=== PATIENT | male | born 1950 | race Caucasian/White ===

== ENCOUNTER 2021-03-26 15:16 | Emergency (ER) | payer OTHER ==
--- OUTSIDE RECORDS SUMMARY | 2021-03-26 15:23 | XMS REPORT | Continuity of Care Document ---
:1950 Author Organization [facility] t Address [address] [place] [address] Care Team Providers Name Role Phone Asked, Pcp Primary Care Physician Unavailable Galina SEVILLA Attending Clinician Carlos RN Attending Clinician Unavailable Gurdeep Leon MD Attending Clinician Cullen PINTO Attending Clinician Unavailable Zuly Ramirez MD Attending Clinician Doctor Unassigned, Name Attending Clinician Unavailable Only, Test Attending Clinician Unavailable Pob, Lab Main Attending Clinician Unavailable Jacqueline Martinez MD Attending Clinician Federico Zuleta MD Attending Clinician JACQUELINE MARTINEZ MD Attending Clinician Unavailable Marcia [facility] Attending Clinician Unavailable Jessi Talley Attending Clinician Suhas COLON Attending Clinician Unavailable MD GALINA Attending Clinician Unavailable Laurent Magallanes NP Attending Clinician Provider Attending Clinician Unavailable Omkar Rowland MD Attending Clinician Mc COLON Attending Clinician Unavailable Hussain Attending Clinician Unavailable Shmuel COLON Attending Clinician Unavailable Aruna SEVILLA Attending Clinician MD ARUNA Attending Clinician Unavailable Lyn Attending Clinician Unavailable James Attending Clinician Unavailable Calos Vogt RN Attending Clinician Unavailable Gracie SEVILLA Attending Clinician Rohan SEVILLA Attending Clinician Meenu POPE Attending Clinician Ismael Padilla MD Attending Clinician MD LIZ BOWMAN Attending Clinician Unavailable James SEVILLA, A Admitting Clinician GALINA Admitting Clinician Unavailable MD GALINA Admitting Clinician Unavailable GRACIE Admitting Clinician Unavailable MD LIZ BOWMAN Admitting Clinician Unavailable Payers Payer Name Policy Type Policy Effective Date Expiration Date Sour ce Number MEDICAREMEDICARE PART [id number] 2014 [facility] A AND 00:00:00 [facility] [id number] 2014[facility] [id number]00 [id number]/ 19-PresentCommercial Problems Condition Condition Condition Status Onset Resolution Last Treating Co mments Source Name Details Category Date Date Treatment Clinician Date 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 Allergies, Adverse Reactions, Alerts Allergy Allergy Status Severity Reaction(s) Onset Inactive Treating Comm ents Source Name Type Date Date Clinician Penicill Propensi Active Rash 2019-08 Method i ins ty to 0-05 st adverse 00:00: Hospita reaction 00 l s to drug Family History Family Member Diagnosis Comments Start Date Stop Date Source Natural father Stomach cancer [facility] Natural mother Breast cancer [facility] Social History Social Habit Start Date Stop Date Quantity Comments Source Tobacco use and 2021-02-15 2021-02-15 Never used [facility] exposure 00:00:00 00:00:00 Hospital Alcohol intake 2021-02-15 2021-02-15 Ex-drinker [facility] 00:00:00 00:00:00 (finding) Hospital Sex Assigned At [birth year] M [facility] 00:00:00 00:00:00 Hospital Smoking Status Start Date Stop Date Source Never smoker [facility] Medications Ordered Filled Start Stop Current Ordering Indication Dosage Frequency Signature Comments Components Source Medication Medication Date Date Medication? Clinician (SIG) Name Name furosemide 2020- No 20mg QD Take 1 Meth milagros (Lasix) 20 02-15 tablet (20 st mg tablet 00:00: 04:59 mg total) Ho spita 00 :00 by mouth l daily for 7 days. losartan No 100mg QD Take 100 Met hodi (COZAAR) 10-20-[address] 100 MG 20:38: 00:00 mouth Hospita tablet 23 :00 daily. l NIFEdipine 2020- No 90mg QD Take 90 mg Methodi XL -10 20-[address] (PROCARDIA 18:53: 00:00 daily. Hosp hola XL) 90 MG 12 :00 l 24 hr tablet Xarelto 20 Yes 20mg QD Take 1 Metho di mg tablet -03 tablet (20 st 00:00: mg total) Hospita 00 by mouth l daily. metoprolol 2020- No 100mg Q.5D Take 1 Met hodi succinate 10-20-[address] XL 00:00: 04:59 (100 mg Hospita (TOPROL-XL) 00 :00 total) by l 100 mg 24 mouth 2 hr tablet (two) times a day for 30 days. NIFEdipine 2020- No 90mg QD Take 1 Meth milagros XL - 04-03 tablet (90 st (PROCARDIA 00:00: 04:59 mg total) H ospita XL) 90 MG 00 :00 by mouth l 24 hr daily for tablet 30 days. prednisoLON 2020- No [id number] 2[drp] Q.2D Administer Methodi E acetate 3-03 03-[address] (PRED 00:00: 05:59 both eyes Hospit a FORTE) 1 % 00 :00 every 4 l ophthalmic (four) suspension hours while awake for 2 days. NON 2020- No 1{packe Q.5D 1 packet Metho di FORMULARY 09-29 t} into each st 22:08: 00:00 nostril 2 Hospita 48 :00 (two) l times a day as needed. NeilMed Sinus Rinse NON 2020- No 2{spray Q.5D 2 sprays Metho di FORMULARY 09-29 } into each st 22:08: 00:00 nostril 2 Hospita 48 :00 (two) l times a day as needed (after nasal rinse). Oxymetazol ine HCl 0.05% - Nasal Decongesta nt NON 2[drp] Administer Meth milagros FORMULARY 09-[address] 22:08: 00:00 both eyes. Hospit a 48 :00 l valACYclovi Yes 500mg QD Take 1 Met hodi r (VALTREX) 2-[address] 500 MG 00:00: (500 mg Hospita tablet 00 total) by l mouth daily. clotrimazol 2020- No [id number] Apply Methodi e 09-[id number] (LOTRIMIN) 00:00: 05:59 3D 3 (three) H ospita 1 % cream 00 :00 times a l day for 30 days. fluconazole No 200mg QD Take 1 Me thodi (DIFLUCAN) 09-[address] 200 MG 00:00: 05:59 (200 mg Hospita tablet 00 :00 total) by l mouth daily for 30 days. ondansetron 2020- No 4mg Q8H Take 1 Met hodi ODT 09-29 tablet (4 st (ZOFRAN-ODT 00:00: 05:59 mg total) Hospita ) 4 MG 00 :00 by mouth l disintegrat every 8 ing tablet (eight) hours as needed for nausea or vomiting for up to 30 days. NIFEdipine 2020-1 2020- No 90mg QD Take 1 Meth milagros XL 09-04 tablet (90 st (PROCARDIA 00:00: 05:59 mg total) H ospita XL) 90 MG 00 :00 by mouth l 24 hr daily for tablet 30 days. folic acid 2019-08 No [id number] 800ug QD Take 1 Methodi (FOLVITE) 09-[address] 800 MCG 00:00: 05:59 (800 mcg Hospi ta tablet 00 :00 total) by l mouth daily for 2 days. furosemide 2019-08- No 40mg QD Take 1 Meth milagros (LASIX) 40 09-03 tablet (40 st mg tablet 00:00: 05:59 mg total) Ho spita 00 :00 by mouth l daily for 30 days. sodium 2019-08- No 650mg Q.[id number] Take 1 M ethodi bicarbonate 09-[id number] 650 mg 00:00: 05:59 3D (650 mg Hospita tablet 00 :00 total) by l mouth 3 (three) times a day for 5 days. valACYclovi 2019-08 No [id number] 500mg QD Take 1 Methodi r (VALTREX) 09-[address] 500 MG 00:00: 00:00 (500 mg Hospita tablet 00 :00 total) by l mouth daily. ondansetron 2019-08- No [id number] 4mg Q8H Take 1 Methodi ODT 09-02 tablet (4 st (ZOFRAN-ODT 00:00: 00:00 mg total) Hospita ) 4 MG 00 :00 by mouth l disintegrat every 8 ing tablet (eight) hours as needed for nausea or vomiting for up to 30 days. valACYclovi 2019-08- No [id number] 500mg Q.5D Take 1 Methodi r (VALTREX) 08-[address] 500 MG 00:00: 00:00 (500 mg Hospita tablet 00 :00 total) by l mouth 2 (two) times a day. Xarelto 20 No 20mg QD Take 20 mg Methodi mg tablet 04-[address] 00:00: 00:00 daily. Hospita 00 :00 l metoprolol 200mg Q.5D 200 mg 2 M ethodi succinate 04-22 (two) st XL 00:00: 00:00 times a Hospita (TOPROL-XL) 00 :00 day. l 200 mg 24 hr tablet furosemide No 40mg QD 40 mg Metho di (LASIX) 40 04-22 11-[address] mg tablet 00:00: 00:00 Hospita 00 :00 l losartan No 100mg QD Take 100 Met hodi (COZAAR) 02-22 11-[address] 100 MG 00:00: 00:00 mouth Hospita tablet 00 :00 daily. l clonIDINE Yes .2mg Q.[id number] 0.2 mg 3 Methodi HCl 02-20 [id number] (three) st (CATAPRES) 00:00: 3D times a Hosp hola 0.2 MG 00 day. l tablet Immunizations Ordered Immunization Filled Immunization Date Status Commen ts Source Name Name MyWerx COVID-19 MRNA 2020-10-18 Completed Meth odist VACCINATION 00:00:00 [facility] PFIZER COVID-19 MRNA 2020-09-30 Completed Meth odist VACCINATION 00:00:00 Hospital Vital Signs Vital Name Observation Time Observation Value Comments Source Systolic blood 2021-02-15 18:47:00 139 mm[Hg] Method is Hospital pressure Diastolic blood 2021-02-15 18:47:00 66 mm[Hg] [facility] Hospital pressure Heart rate 2021-02-15 18:47:00 77 /min [facility] Body temperature 2021-02-15 18:47:00 36.28 [place] [facility] Respiratory rate 2021-02-15 18:47:00 16 /min [facility] Body height 2021-02-15 18:47:00 193 cm [facility] Body weight 2021-02-15 18:47:00 140.207 kg [facility] BMI 2021-02-15 18:47:00 37.62 kg/m2 [facility] Oxygen saturation in 2021-02-15 18:47:00 94 /min [facility] Arterial blood by Pulse oximetry Procedures Procedure Date / Time Performing Clinician Source Performed HC COMPLETE BLD COUNT 2021-02-15 18:43:00 [facility] W/AUTO DIFF Jeet COMPREHENSIVE METABOLIC 2021-02-15 18:43:00 [facility], [facility] PANEL Jeet LDH 2021-02-15 18:43:00 [facility]et URIC ACID LEVEL 2021-02-15 18:43:00 [facility]et ESTIMATED GFR 2021-02-15 18:43:00 [facility]et MRI BRAIN & ORBIT W WO 2021-02-15 16:35:00 [facility], [facility] CONTRAST Jeet POC CREATININE 2021-02-15 15:57:00 [facility] Jeet ESTIMATED GFR 2021-02-15 15:57:00 [facility] Jeet HC COMPLETE BLD COUNT 2020-11-30 13:05:00 [facility]/AUTO DIFF [facility] COMPREHENSIVE METABOLIC 2020-11-30 13:05:00 [facility] PANEL Jeet LDH 2020-11-30 13:05:00 [facility] Jeet URIC ACID LEVEL 2020-11-30 13:05:00 [facility]et MAGNESIUM LEVEL 2020-11-30 13:05:00 [facility]et ESTIMATED GFR 2020-11-30 13:05:00 [facility]et PARTIAL THROMBOPLASTIN 2020-11-30 12:54:[address] [facility] TIME (PTT) Jeet PROTHROMBIN TIME WITH INR 2020-11-30 12:54:00 [facility]et FIBRINOGEN 2020-11-30 12:54:00 [facility] Jeet HC COMPLETE BLD COUNT 2020-11-23 13:05:00 [facility] W/AUTO DIFF Jeet COMPREHENSIVE METABOLIC 2020-11-23 13:05:00 [facility], [facility] PANEL Jeet LDH 2020-11-23 13:05:00 [facility], [facility] Jeet URIC ACID LEVEL 2020-11-23 13:05:00 [facility] Jeet MAGNESIUM LEVEL 2020-11-23 13:05:00 [facility] Jeet ESTIMATED GFR 2020-11-23 13:05:00 [facility] PARTIAL THROMBOPLASTIN 2020-11-23 12:56:00 [facility], [facility] TIME (PTT) Jeet PROTHROMBIN TIME WITH INR 2020-11-23 12:56:00 [facility]et FIBRINOGEN 2020-11-23 12:56:00 [facility] Jeet HC COMPLETE BLD COUNT 2020-11-16 18:53:00 [facility] W/AUTO DIFF Jeet COMPREHENSIVE METABOLIC 2020-11-16 18:53:00 [facility], [facility] PANEL Jeet LDH 2020-11-16 18:53:00 [facility]et URIC ACID LEVEL 2020-11-16 18:53:00 [facility] Jeet ESTIMATED GFR 2020-11-16 18:53:00 [facility] Jeet MRI BRAIN & ORBIT W WO 2020-11-16 17:15:00 [facility] Gurdeep Met [facility] CONTRAST Jeet CBC WITH PLATELET AND 2020-11-09 12:54:00 [facility] DIFFERENTIAL Jeet COMPREHENSIVE METABOLIC 2020-11-09 12:54:00 [facility], [facility] PANEL Jeet LDH 2020-11-09 12:54:00 [facility]et URIC ACID LEVEL 2020-11-09 12:54:00 [facility]et MAGNESIUM LEVEL 2020-11-09 12:54:00 [facility], [facility] Jeet ESTIMATED GFR 2020-11-09 12:54:00 [facility], [facility] Jeet MANUAL DIFFERENTIAL 2020-11-09 12:54:00 [facility], [facility] PARTIAL THROM[facility]LASTIN 2020-11-09 12:46:00 [facility] Hayesi [facility] TIME (PTT) Jeet PROTHROMBIN TIME WITH INR 2020-11-09 12:46:00 [facility], [facility] Jeet FIBRINOGEN 2020-11-09 12:46:00 [facility], [facility] Jeet HC COMPLETE BLD COUNT 2020-11-02 12:55:00 [facility] W/AUTO DIFF [facility] COMPREHENSIVE METABOLIC 2020-11-02 12:55:00 [facility], [facility] PANEL Jeet LDH 2020-11-02 12:55:00 [facility] URIC ACID LEVEL 2020-11-02 12:55:00 [facility] 2020-11-02 12:55:00 [facility] EST[facility]FR 2020-11-02 12:55:00 [facility], [facility] Jeet TYPE AND SCREEN 2020-11-02 12:47:00 [facility], [facility]LASTIN 2020-11-02 12:47:00 [facility], [facility] ([facility]TT[facility] Jeet PROTHROMBIN TIME WITH INR 2020-11-02 12:47:00 [facility] FIB[facility]EN 2020-11-02 12:47:00 [facility], [facility] Jeet HC COMPLETE BLD COUNT 2020-10-26 14:00:00 [facility] W/AUTO DIFF [facility] COMPREHENSIVE METABOLIC 2020-10-26 14:00:00 [facility], [facility] PANEL Jeet LDH 2020-10-26 14:00:00 [facility] Jeet URIC ACID LEVEL 2020-10-26 14:00:00 [facility] MAGNESIUM LEVEL 2020-10-26 14:00:00 [facility] Jeet ESTIMATED GFR 2020-10-26 14:00:00 [facility] PART[facility] THROMBOPLASTIN 2020-10-26 13:53:[address] [facility] TIME (PTT) [facility] PROTHROMBIN TIME WITH INR 2020-10-26 13:53:00 [facility] Jeet FIBRINOGEN 2020-10-26 13:53:00 [facility] LUMBAR PUNCTURE 2020-10-20 16:32:00 Basia Magallanes [facility] CSF CELL COUNT WITH 2020-10-20 16:29:00 Basia Magallanes [facility] DIFFERENTIAL FLOW CYTOMETRY EVALUATION 2020-10-20 16:29:00 Basia Magallanes e [facility] CYTOLOGY 2020-10-20 15:43:00 Robin Zuleta (NON-GYNECOLOGICAL) Federico REQUEST HC COMPLETE BLD COUNT 2020-10-20 10:00:00 [facility] W/AUTO DIFF Scott BASIC METABOLIC PANEL 2020-10-20 10:00:00 [facility] 2020-10-20 10:00:00 Jacqueline Martinez [facility] Scott MAGNESIUM LEVEL 2020-10-20 10:00:00 Christopher Villagran PHOSPHORUS LEVEL 2020-10-20 10:00:00 Christopher Villagran ospirobbie Chavez ESTIMATED GFR 2020-10-20 10:00:00 Christopher Villagran ECG 12-LEAD 2020-10-19 22:30:24 Robin Zuleta CBC WITH PLATELET AND 2020-10-19 10:10:00 [facility] Johny [facility] DIFFERENTIAL [facility] BASIC METABOLIC PANEL 2020-10-19 10:10:00 [facility] HEPATIC FUNCTION PANEL 2020-10-19 10:10:00 [facility] LEV[facility] 2020-10-19 10:10:00 [facility] Christopher Martinez Ho spital Scott PHOSPHORUS LEVEL 2020-10-19 10:10:00 Jacqueline Christopher Martinez H ospital Scott ESTIMATED GFR 2020-10-19 10:10:00 [facility] MANUAL DIFFERENTIAL 2020-10-19 10:10:00 [facility] COVID-19 QUALITATIVE 2020-10-18 23:49:00 [facility]et CBC WITH PLATELET AND 2020-10-18 16:13:00 [facility], [facility] DIFFERENTIAL Jeet COMPREHENSIVE METABOLIC 2020-10-18 16:13:00 [facility] PANEL Jeet LDH 2020-10-18 16:13:00 [facility], [facility] URIC ACID LEVEL 2020-10-18 16:13:00 [facility], [facility] MAGNESIUM LEVEL 2020-10-18 16:13:00 [facility], [facility] Jeet ESTIMATED GFR 2020-10-18 16:13:00 [facility], [facility] Jeet MANUAL DIFFERENTIAL 2020-10-18 16:13:00 [facility]LASTIN 2020-10-18 15:53:00 [facility], Tata Gurdeep [facility] TIME (PTT) Jeet PROTHROMBIN TIME WITH INR 2020-10-18 15:53:00 [facility], [facility] Jeet FIBRINOGEN 2020-10-18 15:53:00 [facility], [facility] Jeet CBC WITH PLATELET AND 2020-10-15 14:38:00 Pingali, Tata [facility] DIFFERENTIAL Jeet COMPREHENSIVE METABOLIC 2020-10-15 14:38:00 [facility], [facility] PANEL Jeet LDH 2020-10-15 14:38:00 [facility], [facility] Jeet URIC ACID LEVEL 2020-10-15 14:38:00 [facility], [facility] Jeet MAGNESIUM LEVEL 2020-10-15 14:38:00 [facility], [facility] ESTIMATED GFR 2020-10-15 14:38:00 [facility], [facility] Jeet MANUAL DIFFERENTIAL 2020-10-15 14:38:00 [facility], [facility] PART[facility]LASTIN 2020-10-15 14:32:00 [facility] ([facility]TT[facility] Jeet PROTHROMBIN TIME WITH INR 2020-10-15 14:32:00 [facility], [facility] Jeet FIBRINOGEN 2020-10-15 14:32:00 [facility], [facility] Jeet HC COMPLETE BLD COUNT 2020-10-12 13:55:00 [facility], [facility]FF Jeet COMPREHENSIVE METABOLIC 2020-10-12 13:55:00 [facility] PANEL Jeet LDH 2020-10-12 13:55:00 [facility], [facility] Jeet URIC ACID LEVEL 2020-10-12 13:55:00 [facility], [facility] Jeet MAGNESIUM LEVEL 2020-10-12 13:55:00 [facility], [facility] Jeet ESTIMATED GFR 2020-10-12 13:55:00 [facility], [facility] PARTIAL THROMBOPLASTIN 2020-10-12 13:42:00 [facility] TIME (PTT) Jeet PROTHROMBIN TIME WITH INR 2020-10-12 13:42:00 [facility], [facility] Jeet FIBRINOGEN 2020-10-12 13:42:00 Pingali, [facility] HC COMPLETE BLD COUNT 2020-10-07 14:44:00 [facility], [facility]/AUTO DIFF [facility] COMPREHENSIVE METABOLIC 2020-10-07 14:44:00 [facility], Tata [facility] PANEL Jeet LDH 2020-10-07 14:44:00 [facility] URIC ACID LEVEL 2020-10-07 14:44:00 [facility] Jeet MAGNESIUM LEVEL 2020-10-07 14:44:00 [facility] ESTIMATED GFR 2020-10-07 14:44:00 [facility] TYPE AND SCREEN 2020-10-07 14:32:00 [facility] PARTIAL THROMBOPLASTIN 2020-10-07 14:32:00 [facility], [facility] TIME (PTT) [facility] PROTHROMBIN TIME WITH INR 2020-10-07 14:32:00 [facility] Jeet FIBRINOGEN 2020-10-07 14:32:00 [facility] METHOTREXATE LEVEL 2020-10-07 14:32:00 [facility], [facility] Jeet HC COMPLETE BLD COUNT 2020-09-30 17:00:00 [facility]/AUTO DIFF [facility] COMPREHENSIVE METABOLIC 2020-09-30 17:00:00 [facility], [facility] PANEL Jeet LDH 2020-09-30 17:00:00 [facility] URIC ACID LEVEL 2020-09-30 17:00:00 [facility] MAGNESIUM LEVEL 2020-09-30 17:00:00 [facility] ESTIMATED GFR 2020-09-30 17:00:00 [facility] IR LUMBAR PUNCTURE 2020-09-29 19:02:[address] [facility] FLOW CYTOMETRY EVALUATION 2020-09-29 18:59:00 [facility] Jeet CSF CELL COUNT WITH 2020-09-29 18:59:00 [facility] DIFFERENTIAL Jeet CYTOLOGY 2020-09-29 16:18:00 Mojica, [facility] H ospital (NON-GYNECOLOGICAL) REQUEST PROTHROMBIN TIME WITH INR 2020-09-29 14:39:00 Margarita Quigley [facility] HC COMPLETE BLD COUNT 2020-09-29 09:35:00 [facility] W/AUTO DIFF BASIC METABOLIC PANEL 2020-09-29 09:35:00 [facility] MAGNESIUM LEVEL 2020-09-29 09:35:00 [facility] ospital PHOSPHORUS LEVEL 2020-09-29 09:35:00 [facility] URIC ACID LEVEL 2020-09-29 09:35:00 [facility] LDH 2020-09-29 09:35:00 [facility], [facility] ospital ESTIMATED GFR 2020-09-29 09:35:00 Mojica, [facility] H ospital US DUPLEX VENOUS LOWER 2020-09-28 18:30:00 [facility] EXTREMITY BILATERAL HC COMPLETE BLD COUNT 2020-09-28 09:30:00 [facility] W/AUTO DIFF BASIC METABOLIC PANEL 2020-09-28 09:30:00 [facility] MAGNESIUM LEVEL 2020-09-28 09:30:00 [facility] ospital PHOSPHORUS LEVEL 2020-09-28 09:30:00 [facility] HEPATIC FUNCTION PANEL 2020-09-28 09:30:00 [facility] URIC ACID LEVEL 2020-09-28 09:30:00 Mojica, [facility] ospital LDH 2020-09-28 09:30:00 [facility] ospital ESTIMATED GFR 2020-09-28 09:30:00 [facility] ospital HC COMPLETE BLD COUNT 2020-09-27 17:10:00 [facility] W/AUTO DIFF COVID-19 QUALITATIVE 2020-09-27 17:00:00 [facility] RT-PCR TYPE AND SCREEN 2020-09-27 17:00:00 [facility] ospital LDH 2020-09-27 16:25:00 [facility] ospital HEPATIC FUNCTION PANEL 2020-09-27 16:25:00 [facility] MAGNESIUM LEVEL 2020-09-27 16:24:00 [facility] ospital PHOSPHORUS LEVEL 2020-09-27 16:24:00 [facility] URIC ACID LEVEL 2020-09-27 16:24:00 [facility] ospital BASIC METABOLIC PANEL 2020-09-27 16:24:00 [facility] ESTIMATED GFR 2020-09-27 16:24:00 [facility] ospital HC COMPLETE BLD COUNT 2020-09-07 19:36:00 [facility] W/AUTO DIFF Jeet COMPREHENSIVE METABOLIC 2020-09-07 19:36:00 [facility] PANEL Jeet LDH 2020-09-07 19:36:00 [facility] Jeet URIC ACID LEVEL 2020-09-07 19:36:00 [facility] Jeet ESTIMATED GFR 2020-09-07 19:36:00 [facility] Jeet RAD ONC COURSE SUMMARY 2020-09-06 21:59:25 Provider, Unknown [facility] RAD ONC DAILY TREATMENT 2020-09-03 15:21:06 Provider, Unknown [facility] RAD ONC DAILY TREATMENT 2020-09-02 15:22:39 Provider, Unknown [facility] RAD ONC DAILY TREATMENT 2020-09-01 15:27:52 Provider, Unknown [facility] RAD ONC DAILY TREATMENT 2020-08-31 15:45:06 Provider, Unknown [facility] RAD ONC DAILY TREATMENT 2020-08-30 15:20:33 Provider, Unknown [facility] RAD ONC DAILY TREATMENT 2020-08-27 15:29:23 Provider, Unknown [facility] RAD ONC DAILY TREATMENT 2020-08-26 15:06:10 Provider, Unknown [facility] RAD ONC DAILY TREATMENT 2020-08-25 15:11:31 Provider, Unknown [facility] RAD ONC DAILY TREATMENT 2020-08-24 22:38:50 Provider, Unknown [facility] RAD ONC DAILY TREATMENT 2020-08-23 16:19:47 Provider, Unknown [facility] RAD ONC DAILY TREATMENT 2020-08-19 15:15:10 Provider, Unknown [facility] RAD ONC DAILY TREATMENT 2020-08-18 15:28:33 Provider, Unknown [facility] HC COMPLETE BLD COUNT 2020-08-17 17:35:00 [facility] W/AUTO DIFF Jeet COMPREHENSIVE METABOLIC 2020-08-17 17:35:00 [facility] PANEL Jeet LDH 2020-08-17 17:35:00 [facility] URIC ACID LEVEL 2020-08-17 17:35:00 [facility] MAGN[facility] L[facility] 2020-08-17 17:35:00 [facility] ESTIMATED GFR 2020-08-17 17:35:00 [facility] PARTIAL THROMBOPLASTIN 2020-08-17 17:28:[address] [facility] TIME (PTT) Jeet PROTHROMBIN TIME WITH INR 2020-08-17 17:28:00 [facility] Jeet FIBRINOGEN 2020-08-17 17:28:00 [facility] RAD ONC DAILY TREATMENT 2020-08-17 16:09:53 Provider, Unknown [facility] RAD ONC DAILY TREATMENT 2020-08-16 15:58:54 Provider, Unknown [facility] RAD ONC DAILY TREATMENT 2020-08-12 21:03:57 Provider, Unknown [facility] RAD ONC DAILY TREATMENT 2020-08-11 22:24:26 Provider, Unknown [facility] RAD ONC DAILY TREATMENT 2020-08-10 22:00:32 Provider, Unknown [facility] RAD ONC DAILY TREATMENT 2020-08-09 19:24:35 Provider, Unknown [facility] RAD ONC DAILY TREATMENT 2020-08-06 19:35:32 Provider, Unknown [facility] RAD ONC DAILY TREATMENT 2020-08-05 19:37:17 Provider, Unknown [facility] HC COMPLETE BLD COUNT 2020-07-13 15:40:00 [facility] W/AUTO DIFF [facility] COMPREHENSIVE METABOLIC 2020-07-13 15:40:00 [facility] PANEL Jeet LDH 2020-07-13 15:40:00 [facility] URIC ACID LEVEL 2020-07-13 15:40:00 [facility] Jeet MAGNESIUM LEVEL 2020-07-13 15:40:00 [facility] Jeet ESTIMATED GFR 2020-07-13 15:40:00 [facility] PARTIAL THROMBOPLASTIN 2020-07-13 15:32:[address] [facility] TIME (PTT) [facility] PROTHROMBIN TIME WITH INR 2020-07-13 15:32:00 [facility] Jeet FIBRINOGEN 2020-07-13 15:32:00 [facility] CBC WITH PLATELET AND 2020-07-08 13:50:00 [facility] DIFFERENTIAL Jeet COMPREHENSIVE METABOLIC 2020-07-08 13:50:00 [facility] PANEL Jeet LDH 2020-07-08 13:50:00 [facility] URIC ACID LEVEL 2020-07-08 13:50:00 [facility] MAGNESI[facility] LEV[facility] 2020-07-08 13:50:00 [facility] PARTIAL THROMBOPLASTIN 2020-07-08 13:50:00 [facility] TIME (PTT) Jeet PROTHROMBIN TIME WITH INR 2020-07-08 13:50:00 [facility] FIBRINOGEN 2020-07-08 13:50:00 [facility] ESTIMATED GFR 2020-07-08 13:50:00 [facility] MANUAL DIFFERENTIAL 2020-07-08 13:50:00 [facility] BASIC METABOLIC PANEL 2020-07-05 10:00:00 Song [facility] HC COMPLETE BLD COUNT 2020-07-05 10:00:00 Song [facility] W/AUTO DIFF [facility][Note 2] MAGNESIUM LEVEL 2020-07-05 10:00:00 Robin Zuleta spital [facility][Note 2] PHOSPHORUS LEVEL 2020-07-05 10:00:00 Robin Zuleta H ospital [facility][Note 2] HEPATIC FUNCTION PANEL 2020-07-05 10:00:00 Song [facility] PROTHROMBIN TIME WITH INR 2020-07-05 10:00:[address] [facility] METHOTREXATE LEVEL 2020-07-05 10:00:00 [facility] ESTIMATED GFR 2020-07-05 10:00:00 Robin Zuleta spital Federico METHOTREXATE LEVEL 2020-07-04 21:20:00 Derek Jeffries [facility] BASIC METABOLIC PANEL 2020-07-04 10:30:00 Regine Valdovinos [facility] MAGNESIUM LEVEL 2020-07-04 10:30:00 Regine Valdovinos Ho spital PHOSPHORUS LEVEL 2020-07-04 10:30:00 Regine Valdovinos H ospital HC COMPLETE BLD COUNT 2020-07-04 10:30:00 [facility]FF ESTIMATED GFR 2020-07-04 10:30:00 Regine Valdovinos Ho spital METHOTREXATE LEVEL 2020-07-04 10:30:00 [facility]OLIC PANEL 2020-07-03 10:15:00 [facility] MAGNESIUM LEVEL 2020-07-03 10:15:00 Regine Valdovinos Ho spital PHOSPHORUS LEVEL 2020-07-03 10:15:00 Regine Valdovinos H ospital HC COMPLETE BLD COUNT 2020-07-03 10:15:00 Regine Valdovinos [facility] W/AUTO DIFF ESTIMATED GFR 2020-07-03 10:15:00 Regine Valdovinos Ho spital METHOTREXATE LEVEL 2020-07-03 10:15:00 [facility] POC URINALYSIS DIPSTICK 2020-07-03 08:30:00 [facility] US ABDOMINAL LIMITED 2020-07-03 00:30:00 [facility]EL 2020-07-02 10:50:00 Regine Valdovinos [facility] MAGNESIUM LEVEL 2020-07-02 10:50:00 Regine Valdovinos Ho spital PHOSPHORUS LEVEL 2020-07-02 10:50:00 Regine Valdovinos H ospital HC COMPLETE BLD COUNT 2020-07-02 10:50:00 Regine Valdovinos [facility] W/AUTO DIFF METHOTREXATE LEVEL 2020-07-02 10:50:00 [facility] ESTIMATED GFR 2020-07-02 10:50:00 Regine Valdovinos Ho spital POC URINALYSIS DIPSTICK 2020-07-02 10:15:00 [facility] BASIC METABOLIC PANEL 2020-07-01 10:15:00 [facility]una [facility] MAGNESIUM LEVEL 2020-07-01 10:15:00 Regine Valdovinos Ho spital PHOSPHORUS LEVEL 2020-07-01 10:15:00 Regine Valdovinos H ospital HC COMPLETE BLD COUNT 2020-07-01 10:15:00 Regine Valdovinos [facility] W/AUTO DIFF METHOTREXATE LEVEL 2020-07-01 10:15:00 [facility] Jessi ESTIMATED GFR 2020-07-01 10:15:00 [facility] Jessi BASIC METABOLIC PANEL 2020-06-30 10:00:00 Regine Valdovinos [facility] MAGNESIUM LEVEL 2020-06-30 10:00:00 Regine Valdovinos Ho spital PHOSPHORUS LEVEL 2020-06-30 10:00:00 Regine Valdovinos H ospital HC COMPLETE BLD COUNT 2020-06-30 10:00:00 Regine Valdovinos [facility] W/AUTO DIFF ESTIMATED GFR 2020-06-30 10:00:00 Regine Valdovinos Ho spital METHOTREXATE LEVEL 2020-06-30 10:00:00 Tata Leon [facility] BASIC METABOLIC PANEL 2020-06-29 09:45:00 Regine Valdovinos [facility] MAGNESIUM LEVEL 2020-06-29 09:45:00 Regine Valdovinos Ho spital PHOSPHORUS LEVEL 2020-06-29 09:45:00 Regine Valdovinos H ospital CBC WITH PLATELET AND 2020-06-29 09:45:00 Regine Valdovinos [facility] DIFFERENTIAL ESTIMATED GFR 2020-06-29 09:45:00 Regine Valdovinos Ho spital METHOTREXATE LEVEL 2020-06-29 09:45:00 Tata Leon [facility] MANUAL DIFFERENTIAL 2020-06-29 09:45:00 [facility] FUNCTION [facility]EL 2020-06-29 09:45:00 Aruna Regine [facility] BASIC METABOLIC PANEL 2020-06-28 09:19:00 Regine Valdovinos [facility] MAGNESIUM LEVEL 2020-06-28 09:19:00 Regine Valdovinos Ho spital PHOSPHORUS LEVEL 2020-06-28 09:19:00 Regine Valdovinos H ospital CBC WITH PLATELET AND 2020-06-28 09:19:00 Regine Valdovinos [facility] DIFFERENTIAL METHOTREXATE LEVEL 2020-06-28 09:19:00 Tata Leon [facility] ESTIMATED GFR 2020-06-28 09:19:00 Aruna [facility] spital MANUAL DIFFERENTIAL 2020-06-28 09:19:00 [facility] XR CHEST 1 VW PORTABLE 2020-06-27 17:34:51 Tata Leon [facility] BASIC METABOLIC PANEL 2020-06-27 10:00:00 [facility] MANUAL DIFFERENTIAL 2020-06-27 10:00:00 [facility] METHOTREXATE LEVEL 2020-06-27 10:00:00 [facility] CBC WITH PLATELET AND 2020-06-27 10:00:00 [facility] DIFFERENTIAL POC URINALYSIS DIPSTICK 2020-06-27 07:30:[address] [facility] HC COMPLETE BLD COUNT 2020-06-26 09:45:00 [facility] W/AUTO DIFF BASIC METABOLIC PANEL 2020-06-26 09:45:00 [facility] METHOTREXATE LEVEL 2020-06-26 09:45:00 [facility] ESTIMATED GFR 2020-06-26 09:45:00 [facility] spital POC URINALYSIS DIPSTICK 2020-06-26 04:13:[address] [facility] POC URINALYSIS DIPSTICK 2020-06-25 11:09:[address] [facility] HEPATIC FUNCTION PANEL 2020-06-25 09:30:00 Tata Leon [facility] HC COMPLETE BLD COUNT 2020-06-25 09:30:00 PinTata montgomery [facility] W/AUTO DIFF Jeet COMPREHENSIVE METABOLIC 2020-06-25 09:30:00 PinTata montgomery [facility] PANEL [facility] METHOTREXATE LEVEL 2020-06-25 09:30:00 PinTata montgomery [facility] ESTIM[facility] GFR 2020-06-25 09:30:00 [facility] POC URINALYSIS DIPSTICK 2020-06-25 05:00:00 Tata Leon [facility] Jeet BASIC METABOLIC PANEL 2020-06-24 21:30:00 [facility] Jessi ESTIMATED GFR 2020-06-24 21:30:00 [facility] Jessi METHOTREXATE LEVEL 2020-06-24 21:30:00 Ebony Fong [facility] Hilda BASIC METABOLIC PANEL 2020-06-24 09:54:00 Regine Valdovinos [facility] MAGNESIUM LEVEL 2020-06-24 09:54:00 Regine Valdovinos Ho spital PHOSPHORUS LEVEL 2020-06-24 09:54:00 Regine Valdovinos H ospital URIC ACID LEVEL 2020-06-24 09:54:00 Regine Valdovinos Ho spital LDH 2020-06-24 09:54:00 Regine Valdovinos spital ESTIMATED GFR 2020-06-24 09:54:00 Regine Valdovinos spital HC COMPLETE BLD COUNT 2020-06-24 09:15:00 Regine Valdovinos [facility] W/AUTO DIFF METHOTREXATE LEVEL 2020-06-24 09:15:00 [facility] DIPSTICK 2020-06-23 20:09:00 Provider, [facility] POC URINALYSIS DIPSTICK 2020-06-23 18:52:00 Provider, [facility] POC URINALYSIS DIPSTICK 2020-06-23 16:32:00 Provider, [facility] CBC WITH PLATELET AND 2020-06-23 09:00:00 Regine Valdovinos [facility] DIFFERENTIAL BASIC METABOLIC PANEL 2020-06-23 09:00:00 Regine Valdovinos [facility] MAGNESIUM LEVEL 2020-06-23 09:00:00 Regine Valdovinos Ho spital PHOSPHORUS LEVEL 2020-06-23 09:00:00 Regine Valdovinos H ospital URIC ACID LEVEL 2020-06-23 09:00:00 Regine Valdovinos Ho spital LDH 2020-06-23 09:00:00 Regine Valdovinos spital ESTIMATED GFR 2020-06-23 09:00:00 Regine Valdovinos spital MANUAL DIFFERENTIAL 2020-06-23 09:00:00 [facility] COMPLETE BLD COUNT 2020-06-23 03:00:00 [facility] W/AUTO DIFF PROTHROMBIN TIME WITH INR 2020-06-23 03:00:00 [facility] PARTIAL THROMBOPLASTIN 2020-06-23 03:00:00 [facility] TIME (PTT) BASIC METABOLIC PANEL 2020-06-23 03:00:00 [facility] ESTIMATED GFR 2020-06-23 03:00:00 Aruna [facility] spital IR PORT PLACEMENT 2020-06-23 00:52:45 [facility] POC URINALYSIS DIPSTICK 2020-06-22 20:37:00 Cristopher [facility] HC COMPLETE BLD COUNT 2020-06-22 10:25:00 [facility] W/AUTO DIFF BASIC METABOLIC PANEL 2020-06-22 10:25:00 [facility] MAGNESIUM LEVEL 2020-06-22 10:25:00 Aruna [facility] spital PHOSPHORUS LEVEL 2020-06-22 10:25:00 [facility] HE[facility] FUNCTION PANEL 2020-06-22 10:25:00 [facility] URIC ACID LEVEL 2020-06-22 10:25:00 [facility] LDH 2020-06-22 10:25:00 [facility] ESTIMATED GFR 2020-06-22 10:25:00 Aruna [facility] Ho spital COMPREHENSIVE METABOLIC 2020-06-22 00:29:00 [facility] PANEL Jeet MAGNESIUM LEVEL 2020-06-22 00:29:00 [facility] Jeet ESTIMATED GFR 2020-06-22 00:29:00 [facility] Jeet COVID-19 QUALITATIVE 2020-06-21 21:55:00 [facility] RT-PCR Jeet HC COMPLETE BLD COUNT 2020-06-21 20:41:00 [facility] Jessi COMPREHENSIVE METABOLIC 2020-06-21 20:41:00 [facility] PANEL Jessi LDH 2020-06-21 20:41:00 [facility] Jessi URIC ACID LEVEL 2020-06-21 20:41:00 [facility] Jessi ESTIMATED GFR 2020-06-21 20:41:00 [facility] Jessi MISCELLANEOUS REFERRAL 2020-06-15 20:00:00 [facility], Tata [facility] TEST Jeet SURGICAL PATHOLOGY 2020-06-15 19:31:00 [facility] REQUEST Jeet CT BONE MARROW BX W ASP 2020-06-15 19:09:08 [facility] SAME SITE Jeet FLOW CYTOMETRY EVALUATION 2020-06-15 19:00:00 [facility] 2020-06-11 17:22:00 [facility] (NON-GYNECOLOGICAL) Jeet REQUEST GLUCOSE LEVEL, CSF 2020-06-11 17:20:00 [facility] PROTEIN, CSF 2020-06-11 17:20:00 [facility] FLOW CYTOMETRY EVALUATION 2020-06-11 17:20:00 [facility] CSF CELL COUNT WITH 2020-06-11 17:20:00 [facility] DI[facility] Jeet IR LUMBAR PUNCTURE 2020-06-11 14:47:59 [facility], [facility] COMPREHENSIVE METABOLIC 2020-06-08 17:43:00 [facility]et HC COMPLETE BLD COUNT 2020-06-08 17:43:00 [facility]FF Jeet URIC ACID LEVEL 2020-06-08 17:43:00 [facility] LDH 2020-06-08 17:43:00 [facility] PARTIAL THROMBOPLASTIN 2020-06-08 17:43:[address] [facility] TIME (PTT) Jeet PROTHROMBIN TIME WITH INR 2020-06-08 17:43:00 [facility] Jeet ESTIMATED GFR 2020-06-08 17:43:00 [facility] Jeet CYTOLOGY 2020-06-07 21:36:00 Fiona Bowman spital (NON-GYNECOLOGICAL) REQUEST AFB CULTURE 2020-06-07 16:14:00 Fiona Bowman spital FUNGUS CULTURE 2020-06-07 16:14:00 Fiona Bowman spital EYE CULTURE 2020-06-07 15:14:00 Fiona Bowman spital EYE CULTURE, ANAEROBIC 2020-06-07 15:14:00 Fiona Bowman [facility] AFB STAIN 2020-06-07 15:14:00 Fiona Bowman spital GRAM STAIN 2020-06-07 15:14:00 Fiona Bowman Ho spital AVILA AMEZCUA VIRUS (EBV) 2020-06-07 15:02:00 Fiona Bowman [facility] BY PCR CYTOLOGY 2020-06-07 15:02:00 Fiona Bowman spital (NON-GYNECOLOGICAL) REQUEST VITRECTOMY 2020-06-07 14:27:00 Fiona Bowman spital PET CT SKULL BASE TO MID 2020-06-03 19:30:18 [facility] THIGH Jeet POC GLUCOSE 2020-06-03 17:56:00 [facility] COMPLETE BLD COUNT 2020-06-01 17:13:00 [facility] W/AUTO DIFF Jeet COMPREHENSIVE METABOLIC 2020-06-01 17:13:00 [facility] PANEL Jeet LDH 2020-06-01 17:13:00 [facility] URIC ACID LEVEL 2020-06-01 17:13:00 [facility] HEPATITIS ACUTE PANEL 2020-06-01 17:13:00 [facility] Jeet ESTIMATED GFR 2020-06-01 17:13:00 [facility] HIV AG/AB COMBINATION 2020-06-01 17:13:00 [facility] AVILA AMEZCUA VIRUS (EBV) 2020-05-24 14:58:00 [facility] BY PCR CYTOLOGY 2020-05-24 14:58:00 Fiona Bowman Ho spital (NON-GYNECOLOGICAL) REQUEST MISCELLANEOUS REFERRAL 2020-05-24 14:54:00 Fiona Bowman [facility] TEST CYTOLOGY 2020-05-24 14:54:00 Fiona Bowman Ho spital (NON-GYNECOLOGICAL) REQUEST VITRECTOMY 2020-05-24 14:19:00 Fiona Bowman spital COVID-19 QUALITATIVE 2020-05-20 12:23:00 IvyncFiona el [facility] RT-PCR MRI HEAD EXTERNAL STUDY 2020-05-07 19:04:00 [facility] MRI HEAD EXTERNAL STUDY 2020-05-07 18:13:00 [facility] Plan of Care Planned Activity Planned Date Details Comments Source Future Scheduled Test COLONOSCOPY SCREENING [facility] [code = COLONOSCOPY SCREENING] Future Scheduled Test SHINGLES VACCINES (#1) [facility] [code = SHINGLES VACCINES (#1)] Future Scheduled Test 65+ PNEUMOCOCCAL [facility] VACCINE (1 of 1 - PPSV23) [code = 65+ PNEUMOCOCCAL VACCINE (1 of 1 - PPSV23)] Future Scheduled Test INFLUENZA VACCINE [code [facility] = INFLUENZA VACCINE] Encounters Start End Encounter Admission Attending Care Care Encounter Source Date/Time Date/Time Type Type Clinicians Facility Department ID 2020-07-20 [facility], 1.2.840.1 [id number] Methodi 00:00:00 Encounter Chandu 46412.1.[address] 3.430.2.7 Hospit a .3.661203 l .8 2021-03-21 2021-03-21 Orders Carlos, 1.2.840.1 [id number] Methodi 00:00:00 00:00:00 Only Nidhi 62781.1.[address] 3.430.2.7 Hospit a .3.994172 l .8 2021-03-21 2021-03-21 [facility] 1.2.840.1 [id number] Methodi 00:00:00 00:00:00 Tata Gurdeep [address].1[address] Jeet 3.430.2.7 Hospit a .3.963554 l .8 2021-03-16 2021-03-16 Orders Cullen, Kelly 1.2.840.1 [id number] Methodi 00:00:00 00:00:[address] 3.430.2.7 Hospit a .3.548548 l .8 2021-02-15 2021-02-15 [facility], 1.2.840.1 [id number] Methodi 10:23:01 23:59:00 Encounter Tata Gurdeep 87031.1.1 [address] Jeet 3.430.2.7 Hospit a .3.730691 l .8 2021-02-15 2021-02-15 Office [facility], 1.2.840.1 [id number] Methodi 13:06:35 14:07:49 Visit Tata Mackenzie 17703.1.[address] Jeet 3.430.2.7 Hospit a .3.543353 l .8 2021-02-15 2021-02-15 Lab [facility], 1.2.840.1 [id number] Methodi 13:21:34 13:26:34 [address]deep [address]67.[address] Jeet 3.430.2.7 Hospit a .3.061644 l .8 2021-02-15 2021-02-15 Outpatient [facility] [id number] [place] 00:00:00 00:00:00 TATA [address] 2021-02-15 2021-02-15 [facility] [id number] [place] 00:00:00 00:00:00 TATA [address] 2021-02-15 2021-02-15 Outpatient [facility] [id number] [place] 00:00:00 00:00:00 TATA [address] 2021-02-15 2021-02-15 Travel 1.2.840.1 1.2.055.811 [id number] Methodi 00:00:00 00:00:[address] 3.430.2.7 0.2.7.3.698 Ho spita .3.633265 084.8 l .8 2021-02-15 2021-02-15 Orders Kelly Berman 1.2.840.1 [id number] Methodi 00:00:00 00:00:[address] 3.430.2.7 Hospit a .3.960198 l .8 2021-02-15 2021-02-15 Orders Kelly Berman 1.2.840.1 [id number] Methodi 00:00:00 00:00:[address] 3.430.2.7 Hospit a .3.665497 l .8 2021-02-02 2021-02-02 [facility] 1.2.819.233 [id number] 10:26:00 14:25:00 Encounter Zi Fang 350.1.13.10 [place] 4.2.7.2.686 Surgical [id number] [place] 071 2021-02-02 2021-02-02 Surgery [facility] 1.2.840.114 [id number] 13:00:00 13:44:00 Leoncio 350.1.13.10 [place] 4.2.7.2.686 Surgical [id number] [place] 020 2021-02-01 2021-02-01 Orders Doctor KAUR 1.2.840.114 [id number] 00:00:00 00:00:00 Only Unassigned, JAYJAY 350.1.13.10 [place] [facility] 4.2.7.2.686 [id number] 009 2021-01-12 2021-01-12 [facility] 1.2.338.851 [id number] 09:07:00 13:16:00 Encounter Zi Fang 350.[address].13.[address] 4.2.7.2.686 Surgical [id number] [place]attan 071 2021-01-12 2021-01-12 Surgery [facility] 1.2.840.114 [id number] 11:26:00 12:03:[address] [place] [address] 4.2.7.2.686 Surgical [id number] [place] 020 2021-01-11 2021-01-11 Laboratory Only, [facility] 1.2.840.114 [id number] 08:34:59 08:49:59 Only Test [place] 350.1.13.[address] 4.2.7.2.686 [place] [id number] 353 2021-01-11 2021-01-11 Orders Doctor NATASHA 1.2.840.114 [id number] 00:00:00 00:00:00 Only Unassigned, JAYJAY 350.1.13.10 [place] [facility] 4.2.7.2.686 [id number] 2021-01-04 2021-01-04 Nurse Only Edward, 1.2.840.1 [id number] Methodi 13:31:45 14:01:45 [address] Jeet 3.430.2.7 Hospit a .3.911952 l .8 2021-01-04 2021-01-04 Outpatient EDWARD, [facility] [id number] [place] 00:00:00 00:00:00 TATA [address] 2021-01-04 2021-01-04 Travel 1.2.840.1 1.2.855.027 [id number] Methodi 00:00:00 00:00:[address] 3.430.2.7 0.2.7.3.698 Ho spita .3.753562 084.8 l .8 2021-01-03 2021-01-03 Roll [employer] Elvie Alexandra [facility] 1.2.840.114 [id number] 10:41:29 10:56:29 Visit Lab Main Leoncio 350.1.13.10 [place] 4.2.7.2.686 Kathryn [id number] [address] 2021-01-03 2021-01-03 Orders Doctor NATASHA 1.2.840.114 [id number] 00:00:00 00:00:00 Only Unassigned, JAYJAY 350.1.13.10 [place] [facility] 4.2.7.2.686 [id number] [id number] 2020-12-07 2020-12-07 Nurse Only Edward, 1.2.840.1 [id number] Methodi 07:41:21 08:11:21 Tata [address]159.1.[address] Jeet 3.430.2.7 Hospit a .3.981329 l .8 2020-12-07 2020-12-07 Outpatient EDWARD, [facility] [id number] [place] 00:00:00 00:00:00 TATA [address] 2020-12-07 2020-12-07 Orders White, 1.2.840.1 [id number] Methodi 00:00:00 00:00:00 Only Nidhi 32878.1.[address] 3.430.2.7 Hospit a .3.713865 l .8 2020-12-07 2020-12-07 Travel 1.2.840.1 1.2.448.840 9923 606702 Methodi 00:00:00 00:00:[address] 3.430.2.7 0.2.7.3.698 Ho spita .3.974691 084.8 l .8 2020-11-30 2020-11-30 Nurse Only Edward, 1.2.840.1 [id number] 21 [id number] Methodi 07:46:34 08:16:34 Tata Gurdeep [address] Jeet 3.430.2.7 Hospit a .3.366190 l .8 2020-11-30 2020-11-30 Outpatient [facility] [id number] [place] 00:00:00 00:00:00 TATA [address] 2020-11-30 2020-11-30 Travel 1.2.840.1 1.2.302.699 8872 [id number] Methodi 00:00:00 00:00:[address] 3.430.2.7 0.2.7.3.698 Ho spita .3.536635 084.8 l .8 2020-11-23 2020-11-23 Nurse Only [facility], 1.2.840.1 [id number] 21 [id number] Methodi 07:45:40 08:15:40 Tata Gurdeep [address]13.[address] Jeet 3.430.2.7 Hospit a .3.305574 l .8 2020-11-23 2020-11-23 Outpatient [facility] [id number] 4870 [place] 00:00:00 00:00:00 TATA [address] 2020-11-23 2020-11-23 Travel 1.2.840.1 1.2.671.736 4642 334207 Methodi 00:00:00 00:00:[address] 3.430.2.7 0.2.7.3.698 Ho spita .3.666458 084.8 l .8 2020-11-17 2020-11-17 Orders Kelly Berman 1.2.840.1 [id number] 105 [id number] Methodi 00:00:00 00:00:[address] 3.430.2.7 Hospit a .3.367551 l .8 2020-11-16 2020-11-16 [facility], 1.2.840.1 [id number] 2100 201836 Methodi 10:31:52 23:59:00 Encounter Tata Gurdeep 09239.1.1 052 s t Jeet 3.430.2.7 Hospit a .3.395237 l .8 2020-11-16 2020-11-16 Office Pingalsky, 1.2.840.1 [id number] 11599 28379 Methodi 13:24:29 14:16:28 Visit Tata Gurdeep 42711.1.[address] Jeet 3.430.2.7 Hospit a .3.520587 l .8 2020-11-16 2020-11-16 Lab Pingali, 1.2.840.1 [id number] 80825 35230 Methodi 13:30:14 13:35:14 [address] Jeet 3.430.2.7 Hospit a .3.341521 l .8 2020-11-16 2020-11-16 Outpatient [facility], [facility] [id number] 4469 [place] 00:00:00 00:00:00 TATA [address] 2020-11-16 2020-11-16 Orders Cullen, Kelly 1.2.840.1 [id number] 582 [id number] Methodi 00:00:00 00:00:[address] 3.430.2.7 Hospit a .3.190444 l .8 2020-11-16 2020-11-16 Travel 1.2.840.1 1.2.541.261 8713 522084 Methodi 00:00:00 00:00:[address] 3.430.2.7 0.2.7.3.698 spita .3.288824 084.8 l .8 2020-11-16 2020-11-16 Outpatient [facility] [id number] 0359 [place] 00:00:00 00:00:00 TATA [address] 2020-11-16 2020-11-16 Outpatient [facility] [id number] 9776 [place] 00:00:00 00:00:00 TATA [address] 2020-11-12 2020-11-12 Telephone White, 1.2.840.1 [id number] 2099 198700 Methodi 00:00:00 00:00:[address] 3.430.2.7 Hospit a .3.378182 l .8 2020-11-09 2020-11-09 Nurse Only Pingali, 1.2.840.1 [id number] Methodi 07:44:23 08:14:23 Tata [address] Jeet 3.430.2.7 Hospit a .3.204785 l .8 2020-11-09 2020-11-09 Outpatient PINGAL, [facility] [id number] 3416 [place] 00:00:00 00:00:00 TATA [address] 2020-11-08 2020-11-08 Travel 1.2.840.1 1.2.700.636 5221 147142 Methodi 00:00:00 00:00:[address] 3.430.2.7 0.2.7.3.698 Ho spita .3.221118 084.8 l .8 2020-11-08 2020-11-08 Orders Kelly Berman 1.2.840.1 [id number] 234 [id number] Methodi 00:00:00 00:00:[address] 3.430.2.7 Hospit a .3.707310 l .8 2020-11-02 2020-11-02 Nurse Only Pingali, 1.2.840.1 [id number] Methodi 07:46:27 08:16:27 Tata [address] Jeet 3.430.2.7 Hospit a .3.339545 l .8 2020-11-02 2020-11-02 Outpatient PINGALSky, [facility] [id number] 2269 [place] 00:00:00 00:00:00 TATA [address] 2020-11-02 2020-11-02 Travel 1.2.840.1 1.2.891.601 0228 855220 Methodi 00:00:00 00:00:[address] 3.430.2.7 0.2.7.3.698 Ho spita .3.173663 084.8 l .8 2020-10-26 2020-10-26 Nurse Only Edward, 1.2.840.1 [id number] 21 [id number] Methodi 07:32:33 08:02:33 Tata [address] Jeet 3.430.2.7 Hospit a .3.354715 l .8 2020-10-26 2020-10-26 Outpatient EDWARD [facility] [id number] 8914 [place] 00:00:00 00:00:00 TATA [address] 2020-10-26 2020-10-26 Travel 1.2.840.1 1.2.130.705 4207 524955 Methodi 00:00:00 00:00:[address] 3.430.2.7 0.2.7.3.698 Ho spita .3.023536 084.8 l .8 2020-10-18 2020-10-20 [facility] Quentin Mojicator 1.2.840.1 826427 207 [id number] Methodi 15:23:00 14:38:00 Encounter Scott Villagran 00730.1.1 098 [facility] Federico 3.430.2.7 Hospita .3.361652 l .8 2020-10-18 2020-10-[address] [facility] 550 [id number] 071 [place] 00:00:00 00:00:[address] ROBIN [address] 2020-10-18 2020-10-18 Office Edward 1.2.840.1 [id number] 74746 09797 Methodi 13:28:27 14:02:59 Visit Tata Mackenzie 12296.1.[address] Jeet 3.430.2.7 Hospit a .3.968441 l .8 2020-10-18 2020-10-18 Clinical Pingali, 1.2.840.1 [id number] 2100 048788 Methodi 09:47:24 10:17:24 Support Tata Gurdeep 44967.1.[address] Jeet 3.430.2.7 Hospit a .3.588328 l .8 2020-10-18 2020-10-18 Nurse Only Edward, 1.2.840.1 [id number] 21 [id number] Methodi 09:46:56 10:16:[address] Jeet 3.430.2.7 Hospit a .3.558149 l .8 2020-10-18 2020-10-18 Outpatient PINTJI, [facility] [id number] 2991 [place] 00:00:00 00:00:00 TATA [address] 2020-10-18 2020-10-18 Outpatient PINGALI, [facility] [id number] 7988 [place] 00:00:00 00:00:00 TATA [address] 2020-10-18 2020-10-18 Orders White, 1.2.840.1 [id number] 681176 3294 Methodi 00:00:00 00:00:00 Only Nidhi 31126.1.[address] 3.430.2.7 Hospit a .3.210450 l .8 2020-10-18 2020-10-18 Orders Jacqueline 1.2.840.1 [id number] 419116 9382 Methodi 00:00:00 00:00:00 Only Martinez, 61408.1.[address] Scott 3.430.2.7 Hospit a .3.397613 l .8 2020-10-18 2020-10-18 Orders Kelly Berman 1.2.840.1 [id number] 917 6132511 Methodi 00:00:00 00:00:[address] 3.430.2.7 Hospit a .3.901636 l .8 2020-10-18 2020-10-18 Orders Marcia, 1.2.840.1 [id number] 652190 9033 Methodi 00:00:00 00:00:00 Only Lucia 72425.1.[address] 3.430.2.7 Hospit a .3.015261 l .8 2020-10-18 2020-10-18 Travel 1.2.840.1 1.2.278.537 4906 839893 Methodi 00:00:00 00:00:[address] 3.430.2.7 0.2.7.3.698 Ho spita .3.047293 084.8 l .8 2020-10-18 2020-10-18 Outpatient PINGALI, [facility] 974889 0001 [place] 00:00:00 00:00:00 TATA [address] 2020-10-15 2020-10-15 Nurse Only Pingali, 1.2.840.1 [id number] Methodi 08:15:13 08:45:13 Tata Gur[address] 39786[address] Jeet 3.430.2.7 Hospit a .3.698842 l .8 2020-10-15 2020-10-15 Outpatient PINGALI, [facility] [id number] 8531 [place] 00:00:00 00:00:00 TATA [address] 2020-10-15 2020-10-15 Orders White, 1.2.840.1 [id number] 670826 8108 Methodi 00:00:00 00:00:00 Only Nidhi 67839.1.[address] 3.430.2.7 Hospit a .3.892026 l .8 2020-10-15 2020-10-15 Travel 1.2.840.1 1.2.941.879 7145 826671 Methodi 00:00:00 00:00:[address] 3.430.2.7 0.2.7.3.698 Ho spita .3.337199 084.8 l .8 2020-10-12 2020-10-12 Nurse Only Pingali, 1.2.840.1 [id number] [id number] Methodi 07:40:52 08:10:52 Tata [address] Jeet 3.430.2.7 Hospit a .3.573665 l .8 2020-10-12 2020-10-12 Outpatient PINGALI, [facility] [id number] 2374 [place] 00:00:00 00:00:00 TATA [address] 2020-10-12 2020-10-12 Travel 1.2.840.1 1.2.205.995 9581 248732 Methodi 00:00:00 00:00:[address] 3.430.2.7 0.2.7.3.698 Ho spita .3.056821 084.8 l .8 2020-10-07 2020-10-07 Nurse Only Pingali, 1.2.840.1 [id number] 21 [id number] Methodi 08:31:41 09:01:41 Tata Gur[address] Jeet 3.430.2.7 Hospit a .3.693000 l .8 2020-10-07 2020-10-07 Outpatient PINGALI, [facility] [id number] 6647 [place] 00:00:00 00:00:00 TATA [address] 2020-10-07 2020-10-07 Documentat Theresa, 1.2.840.1 [id number] [id number] Methodi 00:00:00 00:00:00 ion Zakdorita Jessi 91490.1.[address] 3.430.2.7 Hospit a .3.250432 l .8 2020-10-07 2020-10-07 Travel 1.2.840.1 1.2.101.644 1847 946759 Methodi 00:00:00 00:00:[address] 3.430.2.7 0.2.7.3.698 Ho spita .3.481412 084.8 l .8 2020-09-30 2020-09-30 Infusion Pingali, 1.2.840.1 [id number] 2099 040136 Methodi 10:33:06 12:33:06 Tata [address] Jeet 3.430.2.7 Hospit a .3.032346 l .8 2020-09-30 2020-09-30 Outpatient EDWARD, [facility] [id number] 5159 [place] 00:00:00 00:00:00 TATA [address] 2020-09-30 2020-09-30 Documentat Theresa, 1.2.840.1 [id number] Methodi 00:00:00 00:00:00 ion Latonya Jessi 97643.1.[address] 3.430.2.7 Hospit a .3.300358 l .8 2020-09-30 2020-09-30 Travel 1.2.840.1 1.2.236.858 5137 401103 Methodi 00:00:00 00:00:[address] 3.430.2.7 0.2.7.3.698 Ho spita .3.853643 084.8 l .8 2020-09-30 2020-09-30 Orders Dai, 1.2.840.1 [id number] 29342 36965 Methodi 00:00:00 00:00:00 Only Alexys 41007.1.[address] 3.430.2.7 Hospit a .3.310103 l .8 2020-09-27 2020-09-29 [facility], 1.2.840.1 [id number] 935 [id number] Methodi 10:17:00 16:08:00 Encounter Chandu 55396.1.[address] 3.430.2.7 Hospit a .3.688856 l .8 2020-09-27 2020-09-29 Inpatient [facility] 078 [id number] 2603 [place] 00:00:00 00:00:00 CHANDU [address] 2020-09-27 2020-09-27 Travel 1.2.840.1 1.2.317.934 1180 129081 Methodi 00:00:00 00:00:[address] 3.430.2.7 0.2.7.3.698 Ho spita .3.038620 084.8 l .8 2020-09-27 2020-09-27 Orders Elpdiio, 1.2.840.1 [id number] 420895 5193 Methodi 00:00:00 00:00:00 Only Basia 07453.1.[address] Dynelle 3.430.2.7 Hospit a .3.583944 l .8 2020-09-24 2020-09-24 Orders White, 1.2.840.1 [id number] 703670 7435 Methodi 00:00:00 00:00:00 Only Nidhi 73030.1.[address] 3.430.2.7 Hospit a .3.186587 l .8 2020-09-20 2020-09-20 Telephone White, 1.2.840.1 555106254 2100 [address]39092 Methodi 00:00:00 00:00:[address] 3.430.2.7 Hospit a .3.601497 l .8 2020-09-08 2020-09-08 Orders White, 1.2.840.1 156410924 351738 8581 Methodi 00:00:00 00:00:00 Only Nidhi 32517.1.[address] 3.430.2.7 Hospit a .3.443682 l .8 2020-09-07 2020-09-07 Office Pingali, 1.2.840.1 781490202 43523 45947 Methodi 13:49:53 14:09:53 Visit Tata Gurdeep 85081.1.[address] Jeet 3.430.2.7 Hospit a .3.079464 l .8 2020-09-07 2020-09-07 Nurse Only Pingali, 1.2.840.1 [id number] 21 [id number] Methodi 13:15:27 13:45:27 [address]ata [address] Jeet 3.430.2.7 Hospit a .3.422497 l .8 2020-09-07 2020-09-07 Outpatient EDWARD, [facility] [id number] 7851 [place] 00:00:00 00:00:00 TATA [address] 2020-09-07 2020-09-07 Outpatient EDWARD, [facility] [id number] 8772 [place] 00:00:00 00:00:00 TATA [address] 2020-09-07 2020-09-07 Travel 1.2.840.1 1.2.684.879 3343 646827 Methodi 00:00:00 00:00:[address] 3.430.2.7 0.2.7.3.698 Ho spita .3.867633 084.8 l .8 2020-09-03 2020-09-03 Hospital 1.2.840.1 [id number] 02681 28276 Methodi 08:44:39 09:21:[address] 3.430.2.7 Hospit a .3.275986 l .8 2020-09-03 2020-09-03 Orders Provider, 1.2.840.1 [id number] 2099 261796 Methodi 00:00:00 00:00:00 Only Unknown 28274.1.[address] 3.430.2.7 Hospit a .3.481198 l .8 2020-09-03 2020-09-03 Outpatient [facility] [id number] 292 [place] 00:00:00 00:00:[address] 2020-09-02 2020-09-02 [facility] 1.2.840.1 [id number] 24611 80610 Methodi 08:41:58 09:22:[address] 3.430.2.7 Hospit a .3.105422 l .8 2020-09-02 2020-09-02 Orders Provider, 1.2.840.1 [id number] 2099 352156 Methodi 00:00:00 00:00:00 Only Unknown 55877.1.[address] 3.430.2.7 Hospit a .3.675149 l .8 2020-09-02 2020-09-02 Outpatient [facility] [id number] [address] [place] [address] 00:00:00 00:00:[address] 2020-09-01 2020-09-01 Hospital Mitesh Rowland [facility] 1.2.840.1 [id number] Methodi 09:15:00 10:02:55 Encounter McPerla 07021.1.[address] 3.430.2.7 Hospit a .3.157196 l .8 2020-09-01 2020-09-01 Hospital 1.2.840.1 [id number] 87526 13579 Methodi 08:43:36 09:27:[address] 3.430.2.7 Hospit a .3.745853 l .8 2020-09-01 2020-09-01 Travel 1.2.840.1 1.2.601.962 6546 636463 Methodi 00:00:00 00:00:[address] 3.430.2.7 0.2.7.3.698 spita .3.668324 084.8 l .8 2020-09-01 2020-09-01 Orders Provider, 1.2.840.1 [id number] 2099 871286 Methodi 00:00:00 00:00:00 Only Unknown 59919.1.[address] 3.430.2.7 Hospit a .3.428213 l .8 2020-09-01 2020-09-01 Outpatient [facility] [id number] 292 [place] 00:00:00 00:00:[address] 2020-09-01 2020-09-01 Outpatient [facility] [id number] 9788 [place] 00:00:00 00:00:[address] 2020-08-31 2020-08-31 [facility] 1.2.840.1 [id number] 21773 20933 Methodi 08:58:54 09:45:[address] 3.430.2.7 Hospit a .3.659371 l .8 2020-08-31 2020-08-31 Orders Provider, 1.2.840.1 [id number] 2099 399695 Methodi 00:00:00 00:00:00 Only Unknown 33065.1.[address] 3.430.2.7 Hospit a .3.254524 l .8 2020-08-31 2020-08-31 Outpatient [facility] [id number] [place] [address] 00:00:00 00:00:[address] 2020-08-30 2020-08-30 Hospital 1.2.840.1 [id number] 24520 01725 Methodi 08:55:18 09:20:[address] 3.430.2.7 Hospit a .3.480630 l .8 2020-08-30 2020-08-30 Orders Provider, 1.2.840.1 [id number] 2099 482185 Methodi 00:00:00 00:00:00 Only Unknown 72641.1.[address] 3.430.2.7 Hospit a .3.762336 l .8 2020-08-30 2020-08-30 Outpatient [facility] [id number] [place] [address] 00:00:00 00:00:[address] 2020-08-27 2020-08-27 [facility] 1.2.840.1 [id number] 54900 97587 Methodi 09:13:34 09:29:[address] 3.430.2.7 Hospit a .3.489153 l .8 2020-08-27 2020-08-27 Orders Provider, 1.2.840.1 [id number] 2099 148313 Methodi 00:00:00 00:00:00 Only Unknown 09979.1.[address] 3.430.2.7 Hospit a .3.265718 l .8 2020-08-27 2020-08-27 Outpatient [facility] [id number] [place] [address] 00:00:00 00:00:[address] 2020-08-26 2020-08-26 Hospital 1.2.840.1 [id number] 93799 90229 Methodi 08:34:30 09:06:[address] 3.430.2.7 Hospit a .3.582047 l .8 2020-08-26 2020-08-26 Orders Provider, 1.2.840.1 [id number] 2100 255157 Methodi 00:00:00 00:00:00 Only Unknown 88450.1.[address] 3.430.2.7 Hospit a .3.064888 l .8 2020-08-26 2020-08-26 Outpatient [facility] [id number] [place] [address] 00:00:00 00:00:[address] 2020-08-25 2020-08-25 [facility] 1.2.840.1 [id number] Methodi 09:00:00 10:00:08 Encounter Perla Bentley 54618.1.[address] 3.430.2.7 Hospit a .3.591702 l .8 2020-08-25 2020-08-25 [facility] 1.2.840.1 [id number] 47430 65425 Methodi 08:39:09 09:11:[address] 3.430.2.7 Hospit a .3.321644 l .8 2020-08-25 2020-08-25 [facility] 1.2.840.1 1.2.422.722 4910 957796 Methodi 00:00:00 00:00:[address] 3.430.2.7 0.2.7.3.698 Ho spita .3.190005 084.8 l .8 2020-08-25 2020-08-25 Orders Provider, 1.2.840.1 [id number] 2099 740010 Methodi 00:00:00 00:00:00 Only Unknown 97812.1.[address] 3.430.2.7 Hospit a .3.781413 l .8 2020-08-25 2020-08-25 Outpatient [facility] [id number] [place] [address] 00:00:00 00:00:[address] 2020-08-25 2020-08-25 Outpatient [facility] [id number] 8966 [place] 00:00:00 00:00:[address] 2020-08-24 2020-08-24 [facility] 1.2.840.1 [id number] 94377 02945 Methodi 15:45:00 16:38:[address] 3.430.2.7 Hospit a .3.118399 l .8 2020-08-23 2020-08-24 [facility].840[facility]1 [id number] 2099 407663 Methodi 01:00:00 09:06:05 Encounter Sing 69917.1.[address] 3.430.2.7 Hospit a .3.788756 l .8 2020-08-24 2020-08-24 Orders Provider, 1.2.840.1 [id number] 2099 488483 Methodi 00:00:00 00:00:00 Only Unknown 84454.1.[address] 3.430.2.7 Hospit a .3.818683 l .8 2020-08-24 2020-08-24 Outpatient [facility] [id number] [place] [address] 00:00:00 00:00:[address] 2020-08-23 2020-08-24 Outpatient [facility] [id number] 5148 [place] 00:00:00 00:00:[address] 2020-08-23 2020-08-23 [facility] 1.2.840.1 [id number] 15501 93938 Methodi 09:44:02 10:19:[address] 3.430.2.7 Hospit a .3.244619 l .8 2020-08-23 2020-08-23 Orders Provider, 1.2.840.1 [id number] 2099 538498 Methodi 00:00:00 00:00:00 Only Unknown 43841.1.[address] 3.430.2.7 Hospit a .3.821315 l .8 2020-08-23 2020-08-23 Outpatient [facility] [id number] [address] [place] [address] 00:00:00 00:00:[address] 2020-08-19 2020-08-19 Hospital 1.2.840.1 [id number] 94539 88304 Methodi 08:59:13 09:15:[address] 3.430.2.7 Hospit a .3.076726 l .8 2020-08-19 2020-08-19 Travel 1.2.840.1 1.2.070.581 5544 465369 Methodi 00:00:00 00:00:[address] 3.430.2.7 0.2.7.3.698 Ho spita .3.898367 084.8 l .8 2020-08-19 2020-08-19 Orders Provider, 1.2.840.1 [id number] 2099 554403 Methodi 00:00:00 00:00:00 Only Unknown 87654.1.[address] 3.430.2.7 Hospit a .3.893260 l .8 2020-08-19 2020-08-19 Outpatient [facility] [id number] [address] [place] [address] 00:00:00 00:00:[address] 2020-08-18 2020-08-18 [facility] Mitesh Rowland 1.2.840.1 [id number] Methodi 09:30:00 12:13:33 Encounter Olivia Nixon 66034.1.[address] 3.430.2.7 Hospit a .3.695320 l .8 2020-08-18 2020-08-18 [facility] 1.2.840.1 [id number] 49694 13731 Methodi 09:15:00 09:28:[address] 3.430.2.7 Hospit a .3.725375 l .8 2020-08-18 2020-08-18 Orders Provider, 1.2.840.1 [id number] 2099 842127 Methodi 00:00:00 00:00:00 Only Unknown 85059.1.[address] 3.430.2.7 Hospit a .3.404330 l .8 2020-08-18 2020-08-18 Outpatient [facility] [id number] 166 [place] 00:00:00 00:00:[address] 2020-08-18 2020-08-18 Outpatient MITESH ROWLAND [facility] [id number] 1954 [place] 00:00:00 00:00:[address] 2020-08-17 2020-08-17 Nurse Only Edward, 1.2.840.1 [id number] 21 [id number] Methodi 10:57:54 11:27:54 Tata Gurdeep 77856.1.[address] Jeet 3.430.2.7 Hospit a .3.212215 l .8 2020-08-17 2020-08-17 Hospital 1.2.840.1 [id number] 29572 82726 Methodi 09:18:25 10:09:[address] 3.430.2.7 Hospit a .3.638054 l .8 2020-08-17 2020-08-17 Outpatient EDWARD [facility] [id number] 2590 [place] 00:00:00 00:00:00 TATA [address] 2020-08-17 2020-08-17 Orders White, 1.2.840.1 [id number] 2216 Methodi 00:00:00 00:00:00 Only Nidhi 55677.1.[address] 3.430.2.7 Hospit a .3.477039 l .8 2020-08-17 2020-08-17 Travel 1.2.840.1 1.2.338.929 7806 753478 Methodi 00:00:00 00:00:[address] 3.430.2.7 0.2.7.3.698 Ho spita .3.750971 084.8 l .8 2020-08-17 2020-08-17 Orders Provider, 1.2.840.1 [id number] 2099 930849 Methodi 00:00:00 00:00:00 Only Unknown 08236.1.[address] 3.430.2.7 Hospit a .3.819690 l .8 2020-08-17 2020-08-17 Outpatient [facility] [id number] [address] [place] [address] 00:00:00 00:00:[address] 2020-08-16 2020-08-16 [facility] 1.2.840.1 [id number] 20806 79575 Methodi 09:42:10 09:58:[address] 3.430.2.7 Hospit a .3.371141 l .8 2020-08-16 2020-08-16 Travel 1.2.840.1 1.2.358.002 7706 051456 Methodi 00:00:00 00:00:[address] 3.430.2.7 0.2.7.3.698 Ho spita .3.574982 084.8 l .8 2020-08-16 2020-08-16 Orders Provider, 1.2.840.1 [id number] 2099 [id number] Methodi 00:00:00 00:00:00 Only Unknown 80922.1.[address] 3.430.2.7 Hospit a .3.354008 l .8 2020-08-16 2020-08-16 Outpatient [facility] [id number] [place] [address] 00:00:00 00:00:[address] 2020-08-12 2020-08-12 [facility] 1.2.840.1 [id number] Methodi 14:25:42 15:03:[address] 3.430.2.7 Hospit a .3.756910 l .8 2020-08-11 2020-08-12 [facility] Mitesh Rowland Omkar 1.2.840.1 [id number] Methodi 16:15:00 10:25:08 Encounter Perla Bentley 56206.1.[address] 3.430.2.7 Hospit a .3.414316 l .8 2020-08-12 2020-08-12 Orders Provider, 1.2.840.1 [id number] 2100 [id number] Methodi 00:00:00 00:00:00 Only Unknown 91078.1.[address] 3.430.2.7 Hospit a .3.284866 l .8 2020-08-12 2020-08-12 Orders Kelly Berman 1.2.840.1 [id number] Methodi 00:00:00 00:00:[address] 3.430.2.7 Hospit a .3.506747 l .8 2020-08-12 2020-08-12 Outpatient [facility] [id number] [place] 00:00:00 00:00:[address] 2020-08-11 2020-08-12 Outpatient [facility] [id number] [place] 00:00:00 00:00:[address] 2020-08-11 2020-08-11 [facility] 1.2.840.1 [id number] [id number] Methodi 15:45:00 16:24:[address] 3.430.2.7 Hospit a .3.652438 l .8 2020-08-11 2020-08-11 Orders Provider, 1.2.840.1 [id number] 2099 [id number] Methodi 00:00:00 00:00:00 Only Unknown 33909.1.[address] 3.430.2.7 Hospit a .3.686393 l .8 2020-08-11 2020-08-11 Travel 1.2.840.1 1.2.727.735 5520 444789 Methodi 00:00:00 00:00:[address] 3.430.2.7 0.2.7.3.698 Ho spita .3.457407 084.8 l .8 2020-08-11 2020-08-11 Telephone Pingali, 1.2.840.1 [id number] Methodi 00:00:00 00:00:00 Tata Gurdeep 33174.1.[address] Jeet 3.430.2.7 Hospit a .3.010469 l .8 2020-08-11 2020-08-11 Outpatient [facility] [id number] [address] [place] [address] 00:00:00 00:00:[address] 2020-08-10 2020-08-10 [facility] 1.2.840.1 [id number] 70393 95298 Methodi 15:45:00 16:00:[address] 3.430.2.7 Hospit a .3.525328 l .8 2020-08-10 2020-08-10 Orders Provider, 1.2.840.1 [id number] 2099 [id number] Methodi 00:00:00 00:00:00 Only Unknown 55826.1.[address] 3.430.2.7 Hospit a .3.787134 l .8 2020-08-10 2020-08-10 Outpatient [facility] [id number] [place] [address] 00:00:00 00:00:[address] 2020-08-09 2020-08-09 [facility] 1.2.840.1 [id number] Methodi 12:30:00 13:24:[address] 3.430.2.7 Hospit a .3.824422 l .8 2020-08-09 2020-08-09 Orders Provider, 1.2.840.1 [id number] 2099 [id number] Methodi 00:00:00 00:00:00 Only Unknown 18881.1.[address] 3.430.2.7 Hospit a .3.412185 l .8 2020-08-09 2020-08-09 Outpatient [facility] [id number] [place] [address] 00:00:00 00:00:[address] 2020-08-06 2020-08-06 [facility] 1.2.840.1 [id number] 04125 40205 Methodi 13:00:00 13:35:[address] 3.430.2.7 Hospit a .3.304929 l .8 2020-08-06 2020-08-06 Orders Provider, 1.2.840.1 [id number] 2100 [id number] Methodi 00:00:00 00:00:00 Only Unknown 66982.1.[address] 3.430.2.7 Hospit a .3.819268 l .8 2020-08-06 2020-08-06 Outpatient [facility] [id number] [place] [address] 00:00:00 00:00:[address] 2020-08-05 2020-08-05 Hospital [facility], Bin 1.2.840.1 [id number] 2099 [id number] Methodi 12:34:00 13:37:15 Encounter Sing 73666.1.[address] 3.430.2.7 Hospit a .3.886170 l .8 2020-08-05 2020-08-05 Travel 1.2.840.1 1.2.484.550 3304 [id number] Methodi 00:00:00 00:00:[address] 3.430.2.7 0.2.7.3.698 Ho spita .3.828904 084.8 l .8 2020-08-05 2020-08-05 Orders Provider, 1.2.840.1 [id number] 2099 [id number] Methodi 00:00:00 00:00:00 Only Unknown 31364.1.[address] 3.430.2.7 Hospit a .3.159427 l .8 2020-08-05 2020-08-05 Outpatient [facility] [id number] 8651 [place] 00:00:00 00:00:[address] 2020-08-03 2020-08-03 Outpatient [facility] [id number] 8625 [place] 00:00:00 00:00:[address] 2020-08-03 2020-08-03 Travel 1.2.840.1 1.2.349.516 7915 556318 Methodi 00:00:00 00:00:[address] 3.430.2.7 0.2.7.3.698 Ho spita .3.865267 084.8 l .8 2020-07-23 2020-07-23 [facility], [facility] Sing 1.2.840.1 [id number] Methodi 12:27:32 15:55:59 [place] [address].1.[address] 3.430.2.7 Hospit a .3.965438 l .8 2020-07-23 2020-07-23 [facility], Bin 1.2.840.1 [id number] 2100 [id number] Methodi 13:30:00 14:31:07 Encounter Sing 52515.1.[address] 3.430.2.7 Hospit a .3.960299 l .8 2020-07-23 2020-07-23 Travel 1.2.840.1 1.2.020.328 5137 459575 Methodi 00:00:00 00:00:[address] 3.430.2.7 0.2.7.3.698 Ho spita .3.173522 084.8 l .8 2020-07-23 2020-07-23 Outpatient [facility] [id number] [place] 00:00:00 00:00:[address] 2020-07-23 2020-07-23 [facility] [id number] 3253 [place] 00:00:00 00:00:[address] 2020-07-22 2020-07-22 Telephone [facility], Bin 1.2.840.1 [id number] 998 [id number] Methodi 00:00:00 00:00:[address] 3.430.2.7 Hospit a .3.533698 l .8 2020-07-20 2020-07-21 [facility], Bin 1.2.840.1 [id number] 2099 [id number] Methodi 01:00:00 10:27:48 Encounter Sing 02906.1.[address] 3.430.2.7 Hospit a .3.828506 l .8 2020-07-21 2020-07-21 [facility], Bin 1.2.840.1 [id number] Methodi 00:00:00 00:00:[address] 3.430.2.7 Hospit a .3.135875 l .8 2020-07-20 2020-07-21 Outpatient [facility] [id number] 3155 [place] 00:00:00 00:00:[address] 2020-07-20 2020-07-20 Office Pingali, 1.2.840.1 [id number] 94036 86659 Methodi 14:59:58 15:22:35 Visit Tata Mackenzie 18084.1.[address] Jeet 3.430.2.7 Hospit a .3.295889 l .8 2020-07-20 2020-07-20 Travel 1.2.840.1 1.2.650.804 4987 161839 Methodi 00:00:00 00:00:[address] 3.430.2.7 0.2.7.3.698 Ho spita .3.504481 084.8 l .8 2020-07-20 2020-07-20 [facility] [id number] 7218 [place] 00:00:00 00:00:00 TATA [address] 2020-07-14 2020-07-14 Orders White, 1.2.840.1 [id number] 924927 8648 Methodi 00:00:00 00:00:00 Only Nidhi 88534.1.[address] 3.430.2.7 Hospit a .3.394977 l .8 2020-07-13 2020-07-13 Nurse Only Edward, 1.2.840.1 [id number] Methodi 09:30:00 10:00:[address] T[address] Jeet 3.430.2.7 Hospit a .3.950169 l .8 2020-07-13 2020-07-13 [facility] [id number] 2124 [place] 00:00:00 00:00:00 TATA [address] 2020-07-13 2020-07-13 Travel 1.2.840.1 1.2.766.211 3470 377870 Methodi 00:00:00 00:00:[address] 3.430.2.7 0.2.7.3.698 Ho spita .3.611451 084.8 l .8 2020-07-08 2020-07-08 Infusion Edward, 1.2.840.1 [id number] 2099 [id number] Methodi 07:49:04 12:49:09 Tata Gurdeep [address]002.[address] Jeet 3.430.2.7 Hospit a .3.479325 l .8 2020-07-08 2020-07-08 Travel 1.2.840.1 1.2.203.665 9589 191520 Methodi 00:00:00 00:00:[address] 3.430.2.7 0.2.7.3.698 Ho spita .3.783982 084.8 l .8 2020-07-08 2020-07-08 [facility] [id number] 8738 [place] 00:00:00 00:00:00 TATA [address] 2020-07-07 2020-07-07 Orders Elpidio, 1.2.840.1 [id number] 769178 3095 Methodi 00:00:00 00:00:00 Only Basia 50540.1.[address] Dynelle 3.430.2.7 Hospit a .3.919507 l .8 2020-07-07 2020-07-07 Travel 1.2.840.1 1.2.520.306 6329 188516 Methodi 00:00:00 00:00:[address] 3.430.2.7 0.2.7.3.698 Ho spita .3.806952 084.8 l .8 2020-07-06 2020-07-06 Telephone ShantelMitesh 1.2.840.1 [id number] 146 [id number] Methodi 00:00:00 00:00:[address] 3.430.2.7 Hospit a .3.430146 l .8 2020-06-21 2020-07-05 [facility] Chandu Mojica 1.2.840.1 763990 [id number] Methodi 11:58:00 13:00:00 Encounter Regine Valdovinos 76714.1.[address] Robin Zuleta 3.430.2.7 Hospita .3.804081 l .8 2020-07-05 2020-07-05 Orders White, 1.2.840.1 [id number] 4262 Methodi 00:00:00 00:00:00 Only Nidhi 26360.1.[address] 3.430.2.7 Hospit a .3.202154 l .8 2020-07-05 2020-07-05 Travel 1.2.840.1 1.2.911.737 1150 508370 Methodi 00:00:00 00:00:[address] 3.430.2.7 0.2.7.3.698 Ho spita .3.065183 084.8 l .8 2020-06-21 2020-07-05 [facility] 014 [id number] 639 [place] 00:00:00 00:00:00 [facility] [address] 2020-06-21 2020-06-21 [facility], Mitesh 1.2.840.1 [id number] 2100 [id number] Methodi 01:00:00 11:57:00 Encounter Sing 12213.1.[address] 3.430.2.7 Hospit a .3.651132 l .8 2020-06-21 2020-06-21 Travel 1.2.840.1 1.2.152.852 1670 026182 Methodi 00:00:00 00:00:[address] 3.430.2.7 0.2.7.3.698 Ho spita .3.723770 084.8 l .8 2020-06-21 2020-06-21 Outpatient [facility] [id number] 9503 [place] 00:00:00 00:00:[address] 2020-06-18 2020-06-18 [facility], [facility] Sing 1.2.840.1 [id number] Methodi 13:00:00 16:45:32 Encounter Shayy Nicholson 98237.1.[address] 3.430.2.7 Hospit a .3.009218 l .8 2020-06-18 2020-06-18 Travel 1.2.840.1 1.2.621.384 6628 777649 Methodi 00:00:00 00:00:[address] 3.430.2.7 0.2.7.3.698 Ho spita .3.826271 084.8 l .8 2020-06-18 2020-06-18 Outpatient [facility] [id number] 9367 [place] 00:00:00 00:00:[address] 2020-06-17 2020-06-17 [facility] 1.2.840.1 [id number] 2100 [id number] Methodi 01:00:00 23:59:00 Encounter Sing 38014.1.[address] 3.430.2.7 Hospit a .3.714524 l .8 2020-06-17 2020-06-17 Travel 1.2.840.1 1.2.817.573 4447 893791 Methodi 00:00:00 00:00:[address] 3.430.2.7 0.2.7.3.698 Ho spita .3.218457 084.8 l .8 2020-06-17 2020-06-[address] [facility] [id number] 4782 [place] 00:00:00 00:00:[address] 2020-06-16 2020-06-16 Orders White, 1.2.840.1 [id number] 082649 9362 Methodi 00:00:00 00:00:00 Only Nidhi 42134.1.[address] 3.430.2.7 Hospit a .3.450803 l .8 2020-06-16 2020-06-16 Orders White, 1.2.840.1 141974207 871078 7215 Methodi 00:00:00 00:00:00 Only Nidhi 40435.1.[address] 3.430.2.7 Hospit a .3.925235 l .8 2020-06-15 2020-06-15 [facility], 1.2.840.1 [id number] 2100 391212 Methodi 10:54:37 23:59:00 Encounter Tata Gurdeep 66898.1.1 419 s t Jeet 3.430.2.7 Hospit a .3.973670 l .8 2020-06-15 2020-06-15 [facility], 1.2.840.1 [id number] 89897 89921 Methodi 10:12:31 14:11:00 Visit Tata Gurdeep 94756.1.[address] Jeet 3.430.2.7 Hospit a .3.450405 l .8 2020-06-15 2020-06-15 Outpatient [facility] [id number] 8712 [place] 00:00:00 00:00:00 TATA 419 Method i 2020-06-15 2020-06-15 Travel 1.2.840.1 1.2.878.707 5585 182574 Methodi 00:00:00 00:00:[address] 3.430.2.7 0.2.7.3.698 spita .3.857338 084.8 l .8 2020-06-15 2020-06-15 Outpatient [facility] [id number] 8149 [place] 00:00:00 00:00:00 TATA 561 Method i 2020-06-14 2020-06-14 [facility], 1.2.840.1 [id number] 2100 [id number] Methodi 19:22:04 23:59:00 Encounter Tata Mackenzie 97381.1.1 490 s t Jeet 3.430.2.7 Hospit a .3.968468 l .8 2020-06-14 2020-06-14 [facility], 1.2.840.1 [id number] 2099 197320 Methodi 19:21:25 19:21:25 Encounter Tata Mackenzie 24712.1.1 483 s t Jeet 3.430.2.7 Hospit a .3.992521 l .8 2020-06-14 2020-06-14 Outpatient [facility] [id number] 5547 [place] 00:00:00 00:00:00 TATA [address] 2020-06-14 2020-06-14 Outpatient [facility] [id number] 3931 [place] 00:00:00 00:00:00 TATA [address] 2020-06-14 2020-06-14 Travel 1.2.840.1 1.2.825.134 8038 264292 Methodi 00:00:00 00:00:[address] 3.430.2.7 0.2.7.3.698 Ho spita .3.768217 084.8 l .8 2020-06-14 2020-06-14 Telephone James, 1.2.840.1 [id number] 071 [id number] Methodi 00:00:00 00:00:[address] 3.430.2.7 Hospit a .3.935281 l .8 2020-06-11 2020-06-11 [facility], 1.2.840.1 [id number] 2100 760243 Methodi 07:01:58 23:59:00 Encounter Tata Gurdeep 84640.1.1 884 s t Jeet 3.430.2.7 Hospit a .3.903282 l .8 2020-06-11 2020-06-11 Outpatient [facility] [id number] 0345 [place] 00:00:00 00:00:00 TATA [address] 2020-06-11 2020-06-11 Orders Elpidio, 1.2.840.1 [id number] 093005 1491 Methodi 00:00:00 00:00:00 Only Basia 42213.1.[address] Dynelle 3.430.2.7 Hospit a .3.198559 l .8 2020-06-10 2020-06-10 Travel 1.2.840.1 1.2.537.640 8343 095925 Methodi 00:00:00 00:00:[address] 3.430.2.7 0.2.7.3.698 Ho spita .3.810621 084.8 l .8 2020-06-10 2020-06-10 Telephone Delos 1.2.840.1 [id number] 2100 163845 Methodi 00:00:00 00:00:00 Sin, 51172.1.[address] Sarah 3.430.2.7 Hospit a .3.313939 l .8 2020-06-08 2020-06-08 [facility], 1.2.840.1 [id number] 2100 481424 Methodi 23:59:00 23:59:00 [facility] Gurdeep 46404.1.1 973 s t Jeet 3.430.2.7 Hospit a .3.018094 l .8 2020-06-08 2020-06-08 [facility], 1.2.840.1 [id number] 83128 65591 Methodi 12:33:09 12:38:09 Tata Gur[address] Jeet 3.430.2.7 Hospit a .3.685165 l .8 2020-06-08 2020-06-08 Outpatient [facility] [id number] 8852 [place] 00:00:00 00:00:00 TATA [address] 2020-06-08 2020-06-08 Outpatient [facility] [id number] 8854 [place] 00:00:00 00:00:00 TATA [address] 2020-06-08 2020-06-08 Telephone White, 1.2.840.1 [id number] 2100 442282 Methodi 00:00:00 00:00:[address] 3.430.2.7 Hospit a .3.241997 l .8 2020-06-08 2020-06-08 Telephone White, 1.2.840.1 [id number] 2100 704350 Methodi 00:00:00 00:00:[address] 3.430.2.7 Hospit a .3.183101 l .8 2020-06-08 2020-06-08 Orders White, 1.2.840.1 [id number] 158070 5139 Methodi 00:00:00 00:00:00 Only Nidhi 01940.1.[address] 3.430.2.7 Hospit a .3.119617 l .8 2020-06-07 2020-06-07 Hospital [facility], 1.2.840.1 [id number] 024 [id number] Methodi 07:57:00 11:45:00 Encounter Fiona 04566.1.[address] 3.430.2.7 Hospit a .3.210499 l .8 2020-06-07 2020-06-07 Surgery [facility] 1.2.840.1 [id number] 2099 [id number] Methodi 09:27:00 10:57:[address] 3.430.2.7 Hospit a .3.432664 l .8 2020-06-07 2020-06-07 [facility].2.840. 1 [id number] Methodi 09:28:00 10:28:00 Event FlakoNacho lewis 18943.1.[address] 3.430.2.7 Hospit a .3.406378 l .8 2020-06-07 2020-06-07 Outpatient [facility] 021 [id number] 21024 [place] 00:00:00 00:00:00 FIONA [address] 2020-06-07 2020-06-07 Orders White, 1.2.840.1 [id number] 8922 Methodi 00:00:00 00:00:00 Only Nidhi 31417.1.[address] 3.430.2.7 Hospit a .3.400568 l .8 2020-06-07 2020-06-07 Travel 1.2.840.1 1.2.028.135 3588 826643 Methodi 00:00:00 00:00:[address] 3.430.2.7 0.2.7.3.698 Ho spita .3.537812 084.8 l .8 2020-06-04 2020-06-04 Orders Kelly Berman 1.2.840.1 [id number] 313 [id number] Methodi 00:00:00 00:00:[address] 3.430.2.7 Hospit a .3.705384 l .8 2020-06-04 2020-06-04 Orders White, 1.2.840.1 [id number] 902506 4394 Methodi 00:00:00 00:00:00 Only Nidhi 59622.1.[address] 3.430.2.7 Hospit a .3.610377 l .8 2020-06-03 2020-06-03 [facility], 1.2.840.1 [id number] 2099 [id number] Methodi 12:40:00 23:59:00 Encounter Tata Gurdeep 26183.1.1 682 s t Jeet 3.430.2.7 Hospit a .3.179634 l .8 2020-06-01 2020-06-03 [facility], 1.2.840.1 [id number] 66617 41548 Methodi 10:28:49 14:34:32 Visit Tata Gurdeep 43720.1.[address] Jeet 3.430.2.7 Hospit a .3.886418 l .8 2020-06-03 2020-06-03 [facility] [id number] 4018 [place] 00:00:00 00:00:00 TATA [address] 2020-06-03 2020-06-03 Travel 1.2.840.1 1.2.587.781 7114 363411 Methodi 00:00:00 00:00:[address] 3.430.2.7 0.2.7.3.698 [facility] 084.8 l .8 2020-06-02 2020-06-02 Orders White, 1.2.840.1 [id number] 434607 4506 Methodi 00:00:00 00:00:00 Only Nidhi 46827.1.[address] 3.430.2.7 Hospit a .3.696308 l .8 2020-06-01 2020-06-01 [facility], 1.2.840.1 [id number] 66413 48698 Methodi 11:51:44 11:56:44 Tata Gurdeep [address] Jeet 3.430.2.7 Hospit a .3.336491 l .8 2020-06-01 2020-06-01 Outpatient [facility] [id number] 7549 [place] 00:00:00 00:00:00 TATA [address] 2020-06-01 2020-06-01 Outpatient [facility] [id number] 7534 [place] 00:00:00 00:00:00 TATA [address] 2020-06-01 2020-06-01 Orders White, 1.2.840.1 [id number] 0803 Methodi 00:00:00 00:00:00 Only Nidhi 13541.1.[address] 3.430.2.7 Hospit a .3.730630 l .8 2020-06-01 2020-06-01 Orders Cullen Kelly 1.2.840.1 [id number] 929 [id number] Methodi 00:00:00 00:00:[address] 3.430.2.7 Hospit a .3.110290 l .8 2020-06-01 2020-06-01 Travel 1.2.840.1 1.2.828.503 2839 741772 Methodi 00:00:00 00:00:[address] 3.430.2.7 0.2.7.3.698 Ho spita .3.450183 084.8 l .8 2020-05-24 2020-05-24 [facility], 1.2.840.1 [id number] 313 [id number] Methodi 06:50:00 11:13:00 Encounter Fiona 63431.1.[address] 3.430.2.7 Hospit a .3.389958 l .8 2020-05-24 2020-05-24 Anesthesia Padilla, 1.2.840.1 [id number] Methodi 09:19:00 10:27:00 Event Earl 28976.1.[address] Ismael 3.430.2.7 Hospit a .3.242527 l .8 2020-05-24 2020-05-24 Surgery [facility], 1.2.840.1 [id number] 2099 [id number] Methodi 08:55:00 10:15:[address] 3.430.2.7 Hospit a .3.034359 l .8 2020-05-24 2020-05-24 Outpatient [facility], [place] [address] 70265 [place] 00:00:00 00:00:00 FIONA [address] 2020-05-24 2020-05-24 Travel 1.2.840.1 1.2.174.893 6108 485006 Methodi 00:00:00 00:00:[address] 3.430.2.7 0.2.7.3.698 Ho spita .3.979313 084.8 l .8 2020-05-20 2020-05-20 Outpatient [facility], [facility] 18690 [place] 00:00:00 00:00:[address] FIONA [address] 2020-05-20 2020-05-20 Travel 1.2.840.1 1.2.327.801 3616 842661 Methodi 00:00:00 00:00:[address] 3.430.2.7 0.2.7.3.698 Ho spita .3.877990 084.8 l .8 2020-04-28 2020-04-28 [facility], 1.2.840.1 [id number] 2099 486276 Methodi 00:00:00 00:00:00 Only Fiona 97407.1.[address] 3.430.2.7 Hospit a .3.907347 l .8 Results Test Description Test Time Test Comments Results Result [facility] e Comments MRI Brain & 2021-01-19 EXAMINATION: MRI Method ist Orbit W Wo 9 BRAIN & ORBIT W WO Hospit al Contrast 17:15:28 CONTRAST COMPARISON: November 16, 2020. 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 FINDINGS: The orbits do not show a definite focal mass. The optic nerves appear symmetric. The cavernous sinuses appear symmetric. There is progressive signal change with subtle diffusion alteration in the anterior periventricular white matter. These areas are slightly more prominent on the right side. The coronal postcontrast images of the orbits suggest very subtle enhancement along the margins of these areas of white matter signal change. The expected flow voids are present in the internal carotid and basilar arteries. There is mild mucosal thickening in the sinuses. IMPRESSION: Progressive abnormality in the white matter. The differential diagnosis would include lymphoma given the history. The possibility of treatment-related change in the white matter is additional consideration. Continued follow-up is recommended. [id number] Interface, Radiology Results 02/15/2021 12:18 PM CDT EXAMINATION : MRI BRAIN & ORBIT W WO CONTRASTCOMPARISON: November 16, 2020.CLINICAL HISTORY: C85.99 Non-Hodgkin lymphoma unspecified extranodal and solid organ sites, Ocular lymphoma (HCC)COMMENTS: Multiplanar MR imaging of the brain and orbits was obtained with and without contrast material.FINDINGS: The orbits do not show a definite focal mass. The optic nerves appear symmetric. The cavernous sinuses appear symmetric.There is progressive signal change with subtle diffusion alteration in the anterior periventricular white matter. These areas are slightly more prominent on the right side. The coronal postcontrast images of the orbits suggest very subtle enhancement along the margins of these areas of white matter signal change.The expected flow voids are present in the internal carotid and basilar arteries. There is mild mucosal thickening in the sinuses.IMPRESSION: Progressive abnormality in the white matter. The differential diagnosis would include lymphoma given the history. The possibility of treatment-related change in the white matter is additional consideration. Continued follow-up is recommended.[id number] POC creatinine 2021-02-15 15:59:03 Test Item Value Reference Range Interpretation Comme nts POC creatinine (test code = 93524-0) 1.0 mg/dl 0.7-1.2 [facility] [id number] 21:25:45 Test Item Value Reference Range Interpretation Comments Case number (test code = [id number]) Cytology See link below for (non-gynecological) PDF Lab Report report (test code = 1178) Result status (test code This is Final Report = [id number]) [id number] [facility] [id number] 18:13:47 Test Item Value Reference Range Interpretation Comments Case number (test code = [id number]) Flow cytometry evaluation See link below for (test code = 7854051) PDF [facility] Report [facility] [id number] 03:34:55 Test Item Value Reference Range Interpretation Comments Ventricular rate (test code = 253) Atrial rate (test code = 255) LA interval (test code = 266) QRSD interval (test code = 260) QT interval (test code = 264) QTC interval (test code = 265) P axis 1 (test code = 267) QRS axis 1 (test code = 268) T wave axis (test code = 270) EKG impression (test Sinus bradycardia with code = 273) occasional premature ventricular complexes-Minimal voltage criteria for LVH, may be normal variant ( R in aVL )-Borderline ECG-No previous ECGs available-Electronical ly Signed By Kim SEVILLA, Natasha Dickey ([id number]) on 10/20/2020 9:34:52 PM [facility] by [id number] 01:06:40Addendum by Jill Smith MD on 12/28/2020 9:19 PM ADDENDUM #1 Fluoroscopytime was 3 seconds. 0 images were obtained. Single fluoroscopic monitor view was saved for documentation. EXAMINATION: IR LUMBAR PUNCTURE CLINICAL HISTORY: lymphoma COMPARISON: None TECHNIQUE: Informed consent and a timeout was performed. The patient's lower back was prepped and draped in the usual sterile fashion. Fluoroscopy was used for image guidance for lumbar puncture. FINDINGS: 1% lidocainewas used for local anesthesia. Under direct fluoroscopic guidance, access to the thecal sac was madewith a 27-gauge spinal needle at the L5-S1 level. A total of approximately 13 cc of clear colorless CSF was removed without difficulty. The patient tolerated the procedure well. There were no complications. The sample was sent to the laboratory for analysis as requested. Total fluoroscopy time was 3 secs. No real fluoroscopic spot views were obtained. 12 mg of intrathecal methotrexate was administered. IMPRESSION: Successful fluoroscopic guided lumbar puncture as detailed above. 12 mg of intrathecal methotrexate was administered. [id number] Interface, Radiology Results Incoming - 10/20/2020 7:09 PM CST EXAMINATION: IR LUMBAR PUNCTURECLINICAL HISTORY: lymphomaCOMPARISON: NoneTECHNIQUE: Informed consent and a timeout was performed. The patient's lower back was prepped and draped in the usual sterile fashion. Fluoroscopy was used for image guidance for lumbar puncture.FINDINGS:1% lidocaine was used for local anesthesia. Under direct fluoroscopic guidance, access to the thecal sac was made with a 27-gauge spinal needle at the L5-S1 level. A total of approximately 13 cc of clear colorless CSF was removed without difficulty. The patient tolerated the procedure well. There were no complications. The sample was sent to the laboratory for analysis as requested.Total fluoroscopy time was 3 secs. No real fluoroscopic spot views w ere obtained. 12 mg of intrathecal methotrexate was administered.IMPRESSION:Successful fluoroscopic guided lumbar puncture as detailed above. 12 mg of intrathecal methotrexate was administered.[id number] [facility] ([facility] RNA [Presence] in Respiratory specimen by NICOLE with probe [id number] 00:49:23 Test Item Value Reference Range Interpretation Comments SARS-CoV-2 (COVID-19) RNA Not detected Not-Detected [Presence] in Respiratory specimen by NICOLE with probe detection (test code = 22532-7) Us duplex venous lower [id number] 15:12:00 Vascular Ultrasound Laboratory Lower Extremity Venous Report [address] [place] [address] Pat.Name: ESTEFANI IGNACIO Pat.ID: [id number] .Date: 09/28/2020 Refer.MD: CHANDU MOJICA MD Exam Time: 11:30:00 AM Study Type:LE Venous Height: 76in Weight: 302lb BSA: 2.64 m2 Age: 6 1950,70Y Sex: MALE Sonogrphr: Danelle Ly RVT Pat. Stat.:[address] Vol: Y, CPT - 4: 83179 Echo Event ID:[id number] Order ID: [id number] Reason for Study:Bilateral leg swelling, DVT suspected. History of PE,hypertenison and idiopathic thrombocytopenia. Procedures: Colorflow, Grayscale/2D, Pulsed wave Doppler SUMMARY: -------Deep Veins Superficial Veins* Normal Reflux Criteria: < 1 second * Normal RefluxCriteria: < 0.5 seconds * Abnormal Reflux Criteria: > or equal to 1 second* Abnormal RefluxCriteria: > or equal to 0.5 seconds DUPLEX SCAN OBSERVATIONS Deep Veins Superficial Veins Right Left Right Left GSV (prox) Normal NormalCFV Normal Normal (above knee)Femoral Normal Normal GSV (dist) Normal NormalProfunda Normal Normal (below knee)Popliteal Incompetent (1.3 s) NormalPT (prox) Normal Normal SSV Not Visualized Not VisualizedPT (dist) Normal Normal Peroneal Normal Normal Gastrocs Normal NormalRIGHT: There is normal compressibility with no evidence of echogenicmaterial noted within the lumen of the visualized veins. Colorflow andDoppler signals are normal. The small saphenous vein was notvisualized. There is evidence of venous reflux in the popliteal vein(1.3 sec). LEFT: There is normal compressibility with no evidence of echogenicmaterial noted within the lumen of the visualized veins. Colorflow andDoppler signals are normal. The small saphenous vein was notvisualized. PRELIMINARY FINDINGS:1. There is no evidence ofvenous thrombosis noted in the visualizedlower extremity veins, bilaterally. 2. There is evidence ofvenous reflux in the right popliteal vein(1.3 sec). PHYSICIAN INTERPRETATION: Venous examinationof the both lower extremities demonstrated noevidence of venous thrombosis in the visualized veins. Venous reflux in the right popliteal and posterior tibial veins. F INDINGS: MEASUREMENTS: DOPPLERGeneral Anatomy Right General A 0 Right General A 1.37 s Signed 09/29/2020 09:12 AMAmbikasolt Raffaele MD, RPVIInterface, Radiology Results In - 09/29/2020 9:12 AM CST Vascular Ultrasound Laboratory Lower Extremity Venous Report [address] [place] [address] Pat.Name: ESTEFANI IGNACIO Pat.ID: [id number] .Date: 09/28/2020 Refer.MD: CHANDU MOJICA MD Exam Time: 11:30:00 AM Study Type:LE Venous Height: 76in Weight: 302lb BSA: 2.64 m2 Age: 6 1950,70Y Sex: MALE Sonogrphr: Danelle Ly RVT Pat. Stat.:Inpatient Room: [address] Vol: YH, CPT - 4: 06247 Echo Event ID:[id number] Order ID: [id number] Reason for Study:Bilateral leg swelling, DVT suspected. History of PE,hypertenison and idiopathic thrombocytopenia. Procedures: Colorflow, Grayscale/2D, Pulsed wave Doppler SUMMARY: Deep Veins Superficial Veins* Normal Reflux Criteria: < 1 second * Normal RefluxCriteria: < 0.5 seconds * Abnormal Reflux Criteria: > or equal to 1 second * Abnormal RefluxCriteria: > or equal to 0.5 seconds DUPLEX SCAN OBSERVATIONS Deep Ve ins Superficial Veins Right Left Right Left GSV (prox) Normal NormalCFV Normal Normal (above knee)Femoral Normal Normal GSV (dist) Normal NormalProfunda Normal Normal (below knee)Popliteal Incompetent (1.3 s) NormalPT (prox) Normal Normal SSV Not Visualized Not VisualizedPT (dist) Normal Normal Peroneal Normal Normal Gastrocs Normal NormalRIGHT: There is normal compressibility with no evidence of echogenicmaterial noted within the lumen of the visualized veins. Colorflow andDoppler signals are normal. The small saphenous vein was notvisualized. There is evidenceof venous reflux in the popliteal vein(1.3 sec). LEFT: There is normal compressibility with no evidence of echogenicmaterial noted within the lumen of the visualized veins. Colorflow andDoppler signals are normal. The small saphenous vein was notvisualized. PRELIMINARY FINDINGS:1. There is no evidence of venous thrombosis noted in the visualizedlower extremity veins, bilaterally. 2. There is evidence of venous reflux in the right popliteal vein(1.3 sec). PHYSICIAN INTERPRETATION: Venous examination of the both lower extremities demonstrated noevidence of venous thrombosis in the visualized veins. Venous reflux in the right popliteal and posterior tibial veins. FINDINGS: MEASUREMENTS: DOPPLERGeneral Anatomy Right General A 0 Right General A 1.37 s Signed 09/29/2020 09:12 Edie Castorena MD, [facility]-CoV[facility]2 (COVID-19) RNA [Presence] in Respiratory specimen by NICOLE with probe [id number] 17:54:54 Test Item Value Reference Range Interpretation Comments SARS-CoV-2 (COVID-19) RNA Not detected Not-Detected [Presence] in Respiratory specimen by NICOLE with probe detection (test code = 16257-7) RAD ONC COURSE [id number] 21:59:25 Test Item Value Reference Range Interpretation Comments Course ID (test code = C1 5706) Course Start Date (test 2020-07-27 @17:20 code = 5707) Treatment Elapsed Days (test code = 5709) Treatment Dates (test code = 5685) Reference Point ID (test Bilateral Eyes code = 5710) Dosage Given to Date in Gy (test code = 5711) Plan ID (test code = 5713) BilatEyes_RP1 Plan Name (test code = BilatEyes_RP1 5714) Fractions Treated to Date (test code = 5715) Prescribed Dose Per Fraction in Gy (test code = 5716) Prescription Dose in cGy (test code = 5717) [facility] ONC DAILY [id number] 15:21:06 Test Item Value Reference Range Interpretation Comments Course ID (test code = C1 5706) Course Start Date (test 2020-07-27 @17:20 code = 5707) Treatment Elapsed Days (test code = 5709) Treatment Dates (test code = 5685) Reference Point ID (test Bilateral Eyes code = 5710) Dosage Given to Date in Gy (test code = 5711) Session Dosage Given in Gy (test code = 5712) Plan ID (test code = 5713) BilatEyes_RP1 Fractions Treated to Date (test code = 5715) Prescribed Dose Per Fraction in Gy (test code = 5716) Prescription Dose in cGy (test code = 5717) [facility] ONC DAILY [id number] 15:22:39 Test Item Value Reference Range Interpretation Comments Course ID (test code = C1 5706) Course Start Date (test 2020-07-27 @17:20 code = 5707) Treatment Elapsed Days (test code = 5709) Treatment Dates (test code = 5685) Reference Point ID (test Bilateral Eyes code = 5710) Dosage Given to Date in Gy (test code = 5711) Session Dosage Given in Gy (test code = 5712) Plan ID (test code = 5713) BilatEyes_RP1 Fractions Treated to Date (test code = 5715) Prescribed Dose Per Fraction in Gy (test code = 5716) Prescription Dose in cGy (test code = 5717) [facility] ONC DAILY [id number] 15:27:52 Test Item Value Reference Range Interpretation Comments Course ID (test code = C1 5706) Course Start Date (test 2020-07-27 @17:20 code = 5707) Treatment Elapsed Days (test code = 5709) Treatment Dates (test code = 5685) Reference Point ID (test Bilateral Eyes code = 5710) Dosage Given to Date in Gy (test code = 5711) Session Dosage Given in Gy (test code = 5712) Plan ID (test code = 5713) BilatEyes_RP1 Fractions Treated to Date (test code = 5715) Prescribed Dose Per Fraction in Gy (test code = 5716) Prescription Dose in cGy (test code = 5717) [facility] DAILY [id number] 15:45:06 Test Item Value Reference Range Interpretation Comments Course ID (test code = C1 5706) Course Start Date (test 2020-07-27 @17:20 code = 5707) Treatment Elapsed Days (test code = 5709) Treatment Dates (test code = 5685) Reference Point ID (test Bilateral Eyes code = 5710) Dosage Given to Date in Gy (test code = 5711) Session Dosage Given in Gy (test code = 5712) Plan ID (test code = 5713) BilatEyes_RP1 Fractions Treated to Date (test code = 5715) Prescribed Dose Per Fraction in Gy (test code = 5716) Prescription Dose in cGy (test code = 5717) [facility] DAILY [id number] 15:20:33 Test Item Value Reference Range Interpretation Comments Course ID (test code = C1 5706) Course Start Date (test 2020-07-27 @17:20 code = 5707) Treatment Elapsed Days (test code = 5709) Treatment Dates (test code = 5685) Reference Point ID (test Bilateral Eyes code = 5710) Dosage Given to Date in Gy (test code = 5711) Session Dosage Given in Gy (test code = 5712) Plan ID (test code = 5713) BilatEyes_RP1 Fractions Treated to Date (test code = 5715) Prescribed Dose Per Fraction in Gy (test code = 5716) Prescription Dose in cGy (test code = 5717) [facility] DAILY [id number] 15:29:23 Test Item Value Reference Range Interpretation Comments Course ID (test code = C1 5706) Course Start Date (test 2020-07-27 @17:20 code = 5707) Treatment Elapsed Days (test code = 5709) Treatment Dates (test code = 5685) Reference Point ID (test Bilateral Eyes code = 5710) Dosage Given to Date in Gy (test code = 5711) Session Dosage Given in Gy (test code = 5712) Plan ID (test code = 5713) BilatEyes_RP1 Fractions Treated to Date (test code = 5715) Prescribed Dose Per Fraction in Gy (test code = 5716) Prescription Dose in cGy (test code = 5717) [facility] DAILY [id number] 15:06:10 Test Item Value Reference Range Interpretation Comments Course ID (test code = C1 5706) Course Start Date (test 2020-07-27 @17:20 code = 5707) Treatment Elapsed Days (test code = 5709) Treatment Dates (test code = 5685) Reference Point ID (test Bilateral Eyes code = 5710) Dosage Given to Date in Gy (test code = 5711) Session Dosage Given in Gy (test code = 5712) Plan ID (test code = 5713) BilatEyes_RP1 Fractions Treated to Date (test code = 5715) Prescribed Dose Per Fraction in Gy (test code = 5716) Prescription Dose in cGy (test code = 5717) [facility] DAILY [id number] 15:11:31 Test Item Value Reference Range Interpretation Comments Course ID (test code = C1 5706) Course Start Date (test 2020-07-27 @17:20 code = 5707) Treatment Elapsed Days (test code = 5709) Treatment Dates (test code = 5685) Reference Point ID (test Bilateral Eyes code = 5710) Dosage Given to Date in Gy (test code = 5711) Session Dosage Given in Gy (test code = 5712) Plan ID (test code = 5713) BilatEyes_RP1 Fractions Treated to Date (test code = 5715) Prescribed Dose Per Fraction in Gy (test code = 5716) Prescription Dose in cGy (test code = 5717) [facility] DAILY [id number] 22:38:50 Test Item Value Reference Range Interpretation Comments Course ID (test code = C1 5706) Course Start Date (test 2020-07-27 @17:20 code = 5707) Treatment Elapsed Days (test code = 5709) Treatment Dates (test code = 5685) Reference Point ID (test Bilateral Eyes code = 5710) Dosage Given to Date in Gy (test code = 5711) Session Dosage Given in Gy (test code = 5712) Plan ID (test code = 5713) BilatEyes_RP1 Fractions Treated to Date (test code = 5715) Prescribed Dose Per Fraction in Gy (test code = 5716) Prescription Dose in cGy (test code = 5717) [facility] DAILY [id number] 16:19:47 Test Item Value Reference Range Interpretation Comments Course ID (test code = C1 5706) Course Start Date (test 2020-07-27 @17:20 code = 5707) Treatment Elapsed Days (test code = 5709) Treatment Dates (test code = 5685) Reference Point ID (test Bilateral Eyes code = 5710) Dosage Given to Date in Gy (test code = 5711) Session Dosage Given in Gy (test code = 5712) Plan ID (test code = 5713) BilatEyes_RP1 Fractions Treated to Date (test code = 5715) Prescribed Dose Per Fraction in Gy (test code = 5716) Prescription Dose in cGy (test code = 5717) [facility] DAILY [id number] 15:15:10 Test Item Value Reference Range Interpretation Comments Course ID (test code = C1 5706) Course Start Date (test 2020-07-27 @17:20 code = 5707) Treatment Elapsed Days (test code = 5709) Treatment Dates (test code = 5685) Reference Point ID (test Bilateral Eyes code = 5710) Dosage Given to Date in Gy (test code = 5711) Session Dosage Given in Gy (test code = 5712) Plan ID (test code = 5713) BilatEyes_RP1 Fractions Treated to Date (test code = 5715) Prescribed Dose Per Fraction in Gy (test code = 5716) Prescription Dose in cGy (test code = 5717) [facility] DAILY [id number] 15:28:33 Test Item Value Reference Range Interpretation Comments Course ID (test code = C1 5706) Course Start Date (test 2020-07-27 @17:20 code = 5707) Treatment Elapsed Days (test code = 5709) Treatment Dates (test code = 5685) Reference Point ID (test Bilateral Eyes code = 5710) Dosage Given to Date in Gy (test code = 5711) Session Dosage Given in Gy (test code = 5712) Plan ID (test code = 5713) BilatEyes_RP1 Fractions Treated to Date (test code = 5715) Prescribed Dose Per Fraction in Gy (test code = 5716) Prescription Dose in cGy (test code = 5717) [facility] DAILY [id number] 16:09:53 Test Item Value Reference Range Interpretation Comments Course ID (test code = C1 5706) Course Start Date (test 2020-07-27 @17:20 code = 5707) Treatment Elapsed Days (test code = 5709) Treatment Dates (test code = 5685) Reference Point ID (test Bilateral Eyes code = 5710) Dosage Given to Date in Gy (test code = 5711) Session Dosage Given in Gy (test code = 5712) Plan ID (test code = 5713) BilatEyes_RP1 Fractions Treated to Date (test code = 5715) Prescribed Dose Per Fraction in Gy (test code = 5716) Prescription Dose in cGy (test code = 5717) [facility] DAILY [id number] 15:58:54 Test Item Value Reference Range Interpretation Comments Course ID (test code = C1 5706) Course Start Date (test 2020-07-27 @17:20 code = 5707) Treatment Elapsed Days (test code = 5709) Treatment Dates (test code = 5685) Reference Point ID (test Bilateral Eyes code = 5710) Dosage Given to Date in Gy (test code = 5711) Session Dosage Given in Gy (test code = 5712) Plan ID (test code = 5713) BilatEyes_RP1 Fractions Treated to Date (test code = 5715) Prescribed Dose Per Fraction in Gy (test code = 5716) Prescription Dose in cGy (test code = 5717) [facility] ONC DAILY [id number] 21:03:57 Test Item Value Reference Range Interpretation Comments Course ID (test code = C1 5706) Course Start Date (test 2020-07-27 @17:20 code = 5707) Treatment Elapsed Days (test code = 5709) Treatment Dates (test code = 5685) Reference Point ID (test Bilateral Eyes code = 5710) Dosage Given to Date in Gy (test code = 5711) Session Dosage Given in Gy (test code = 5712) Plan ID (test code = 5713) BilatEyes_RP1 Fractions Treated to Date (test code = 5715) Prescribed Dose Per Fraction in Gy (test code = 5716) Prescription Dose in cGy (test code = 5717) [facility] ONC DAILY [id number] 22:24:26 Test Item Value Reference Range Interpretation Comments Course ID (test code = C1 5706) Course Start Date (test 2020-07-27 @17:20 code = 5707) Treatment Elapsed Days (test code = 5709) Treatment Dates (test code = 5685) Reference Point ID (test Bilateral Eyes code = 5710) Dosage Given to Date in Gy (test code = 5711) Session Dosage Given in Gy (test code = 5712) Plan ID (test code = 5713) BilatEyes_RP1 Fractions Treated to Date (test code = 5715) Prescribed Dose Per Fraction in Gy (test code = 5716) Prescription Dose in cGy (test code = 5717) [facility] ONC DAILY [id number] 22:00:32 Test Item Value Reference Range Interpretation Comments Course ID (test code = C1 5706) Course Start Date (test 2020-07-27 @17:20 code = 5707) Treatment Elapsed Days (test code = 5709) Treatment Dates (test code = 5685) Reference Point ID (test Bilateral Eyes code = 5710) Dosage Given to Date in Gy (test code = 5711) Session Dosage Given in Gy (test code = 5712) Plan ID (test code = 5713) BilatEyes_RP1 Fractions Treated to Date (test code = 5715) Prescribed Dose Per Fraction in Gy (test code = 5716) Prescription Dose in cGy (test code = 5717) [facility] ONC DAILY [id number] 19:24:35 Test Item Value Reference Range Interpretation Comments Course ID (test code = C1 5706) Course Start Date (test 2020-07-27 @17:20 code = 5707) Treatment Elapsed Days (test code = 5709) Treatment Dates (test code = 5685) Reference Point ID (test Bilateral Eyes code = 5710) Dosage Given to Date in Gy (test code = 5711) Session Dosage Given in Gy (test code = 5712) Plan ID (test code = 5713) BilatEyes_RP1 Fractions Treated to Date (test code = 5715) Prescribed Dose Per Fraction in Gy (test code = 5716) Prescription Dose in cGy (test code = 5717) [facility] ONC DAILY [id number] 19:35:32 Test Item Value Reference Range Interpretation Comments Course ID (test code = C1 5706) Course Start Date (test 2020-07-27 @17:20 code = 5707) Treatment Elapsed Days (test code = 5709) Treatment Dates (test code = 5685) Reference Point ID (test Bilateral Eyes code = 5710) Dosage Given to Date in Gy (test code = 5711) Session Dosage Given in Gy (test code = 5712) Plan ID (test code = 5713) BilatEyes_RP1 Fractions Treated to Date (test code = 5715) Prescribed Dose Per Fraction in Gy (test code = 5716) Prescription Dose in cGy (test code = 5717) [facility] ONC DAILY [id number] 19:37:17 Test Item Value Reference Range Interpretation Comments Course ID (test code = C1 5706) Course Start Date (test 2020-07-27 @17:20 code = 5707) Treatment Elapsed Days (test code = 5709) Treatment Dates (test code = 5685) Reference Point ID (test Bilateral Eyes code = 5710) Dosage Given to Date in Gy (test code = 5711) Session Dosage Given in Gy (test code = 5712) Plan ID (test code = 5713) BilatEyes_RP1 Fractions Treated to Date (test code = 5715) Prescribed Dose Per Fraction in Gy (test code = 5716) Prescription Dose in cGy (test code = 5717) [facility] [id number] 06:14:17 Test Item Value Reference Range Interpretation Comments AFB culture isolate No growth after 6 (test code = 543-9) weeks of incubation. [facility] [id number] 06:16:05 Test Item Value Reference Range Interpretation Comments Fungus culture isolate No growth after 4 (test code = 1441) weeks of incubation. [facility] urinalysis [id number] 08:30:00 Test Item Value Reference Range Interpretation Comments pH urine, POC (test See_Comment [Automa ayla message] The code = 8579598) system which generated this result transmit ayla reference range : 5.0, 5.5, 6.0, 6.5, 7.0, 7.5, 8.0, 8.5. The refere nce range was not used to interpret this result as normal/abnormal . [facility] Abdominal [id number] 01:17:57EXAMINATION: US ABDOMINAL LIMITED HISTORY: 70 years old Male. Ascites. COMPARISON: None available. FINDINGS: 4 quadrant sonographic survey for ascites is performed. No significant ascites visualized. IMPRESSION: No significant ascites visualized. [id number] Hm Interface, Radiology Results - 07/02/2020 7:21 PM CST EXAMINATION: US ABDOMINAL LIMITED HISTORY: 70 years old Male. Ascites.COMPARISON: None available.FINDINGS: 4 quadrant sonographic survey for ascites is performed. No significant ascites visualized.IMPRESSION: No significant ascites visualized.[id number] [id number] 20:40:24 Test Item Value Reference Range Interpretation Comments [facility] (test code = [employer] 2566) Misc test result (test code = see note 1730) KRYSTLE (test code = KRYSTLE) [facility] 1 Vw [id number] 19:04:29EXAMINATION: XR CHEST 1 VW PORTABLE CLINICAL HISTORY: 70 years Male To evaluate for effusions COMPARISON: 02/23/2006 IMPRESSION: 1.Right IJ portacatheter is in satisfactory position.2.The heart size is at the upper limits of normal.3.There is no evidence of pulmonary edema. There are no focal consolidations or effusions. Minimal atelectasis is present at the lung bases. [facility]-[id number] Interface, R adiology Results Incoming - 06/27/2020 1:07 PM CST EXAMINATION: XR CHEST 1 VW PORTABLECLINICAL HISTORY: 70 years Male To evaluate for effusionsCOMPARISON: 02/23/2006IMPRESSION:1.Right IJ portacatheter is in satisfactory position.2.The heartsize is at the upper limits of normal.3.There is no evidence of pulmonary edema. There are no focal consolidations or effusions. Minimal atelectasis is present at the lung bases. [facility]-[id number] HospitalIR Port Placement 2020-06-23 01:24:36PERFORMING RADIOLOGIST:Yoanna Warner MD ASSISTANTS:None ANESTHESIA TYPE:Intraservice moderatesedation was administered by the procedure nurse and monitored by the procedure physician for 22 minutes. Lidocaine 1% and lidocaine 1% mixed with epinephrine were used for local anesthetic. ANTIBIOTIC S:Ancef 1 g IV. PRE PROCEDURE DIAGNOSIS:Chemotherapy POST PROCEDURE DIAGNOSIS:Status post subcutaneous chest port placement. PROCEDURE:Subcutaneous chest port placement. TECHNIQUE:After explaining the procedure as well as benefits and risks including but not limited to bleeding, infection, and damage to adjacent structures, all of the patient's questions were answered to apparent satisfaction and written informed consent was then obtained. The patient was taken to the angiography suite and placed supine on the table. The right neck and chest were prepped and draped in usual sterile fashion. Maximal sterile barrier, hand hygiene, and skin preparation technique was followed. Lidocaine was administered locally. Under ultrasound guidance, documentation of vessel patency, needle access with permanent recording, and reporting are performed followed by placement of a sheath in the right internal jugular vein. Using ultrasound guidance, the right internal jugular vein was punctured with a 21-gauge needle allowing placement of a 0.018 inch guidewire. The needle was removed and a micropuncture sheath was then placed over the guidewire. The guidewire was used to measure the location of the superior cavoatrial junction. It was then exchanged for a 0.035 inch J-wire. A subcutaneous pocket was then created at the infraclavicular fossa using sharp and blunt dissection. The pocket was then irrigatedwith copious amounts of dilute antibiotic solution. A tunnel was made between the pocket and the venotomy site, through which the 6- [place]ian port catheter was placed. The [employer] Smart port CT was placed in the pocket. Using the previous measurement, the catheter was cut to length. The venotomy was sequentially dilated to accept a peel-away sheath. The catheter was advanced to the peel-away sheath. Peel-away sheath was removed. Spot radiograph confirmed that the catheter tip is located at the superior cavoatrial junction. The port was accessed and found to flush and aspirate freely. The port incision was closed using a deep layer of interrupted 3-0 Vicryl suture and Dermabond. The small venotomy incision was closed with Dermabond. After closure, percutaneous port access was performed. It flushed and aspirated freely. It was packed with heparin. No immediate complications. RADIATION DOSE: Ka,r = 9 mGy COMPLICATIONS:None. SPECIMENS:None. ESTIMATED BLOOD LOSS:Less than 2 mL. BLOOD PRODUCTS ADMINISTERED:None. GRAFTS/IMPLANTS:As described in the above report. IMPRESSION: Successful fluoroscopic-guided placement of a subcutaneous chest port via the right internal jugular vein with catheter tip located at superior cavoatrial junction. PLAN:-Port is ready for immediate use. [facility]-[id number] Interface, Radiology Results Incoming - 06/22/2020 7:27 PM CST PERFORMING RADIOLOGIST:Yoanna Warner MDASSISTANTS:None ANESTHESIATYPE:Intraservice moderate sedation was administered by the procedure nurse and monitored by the procedure physician for 22 minutes. Lidocaine 1% and lidocaine 1% mixed with epinephrine were used for local anesthetic. ANTIBIOTICS:Ancef 1 g IV. PRE PROCEDURE DIAGNOSIS:ChemotherapyPOST PROCEDURE DIAGNOSIS:Status post subcutaneous chest port placement. PROCEDURE:Subcutaneous chest port placement. TECHNIQUE:After explaining the procedure as well as benefits and risks including but not limited to bleeding, infection, and damage to adjacent structures, all of the patient's questions were answered to apparent satisfaction and written informed consent was then obtained. The patient was taken to the angiography suite and placed supine on the table. The right neck and chest were prepped and draped in usual sterile fashion. Maximal sterile barrier, hand hygiene, and skin preparation technique was followed. Lidocaine was administered locally. Under ultrasound guidance, documentation of vessel patency, needle access with permanent recording, and reporting are performed followed by placement of a sheath inthe right internal jugular vein.Using ultrasound guidance, the right internal jugular vein was punctured with a 21-gauge needle allowing placement of a 0.018 inch guidewire. The needle was removed and a micropuncture sheath was then placed over the guidewire. The guidewire was used to measure the location of the superior cavoatrial junction. It was then exchanged for a 0.035 inch J- wire.A subcutaneous pocket was then created at the infraclavicular fossa using sharp and blunt dissection. The pocketwas then irrigated with copious amounts of dilute antibiotic solution. A tunnel was made between thepocket and the venotomy site, through which the 6-[place]ian port catheter was placed. The [employer] Smart port CT was placed in the pocket. Using the previous measurement, the catheter was cut to length.The venotomy was sequentially dilated to accept a peel-away sheath. The catheter was advanced to the peel-away sheath. Peel-away sheath was removed. Spot radiograph confirmed that the catheter tip islocated at the superior cavoatrial junction. The port was accessed and found to flush and aspirate freely. The port incision was closed using a deep layer of interrupted 3-0 Vicryl suture and Dermabond. The small venotomy incision was closed with Dermabond. After closure, percutaneous port access was performed. It flushed and aspirated freely. It was packed with heparin.No immediate complications. RAD IATION DOSE: Ka,r = 9 mGy COMPLICATIONS:None. SPECIMENS:None. ESTIMATED BLOOD LOSS:Less than 2 mL. BLOOD PRODUCTS ADMINISTERED:None. GRAFTS/IMPLANTS:As described in the above report. IMPRESSION: Successful fluoroscopic-guided placement of a subcutaneous chest port via the right internal jugular vein with catheter tip located at superior cavoatrial junction. PLAN:-Port is ready for immediate use. [facility]-[id number] LchtxmgnRWTG-[id number]-5 (COVID-19) RNA [Presence] in Respiratory specimen by NICOLE with probe [id number] 00:59:06 Test Item Value Reference Range Interpretation Comments SARS-CoV-2 (COVID-19) RNA Not detected Not-Detected [Presence] in Respiratory specimen by NICOLE with probe detection (test code = 68781-3) Surgical pathology [id number] 15:59:51 Test Item Value Reference Range Interpretation Comments Case number (test code = [id number]) Surgical pathology See link below for report (test code = PDF Lab Report [id number]) Result status (test code This is Final Report = [id number]) [id number] [facility] Marrow Bx W Asp Same [id number] 19:30:50Procedure: CT-guided bone marrow biopsy Clinical indication: Non-Hodgkin's lymphoma Anesthesia: Lidocaine 1% was used for local anesthetic. Sedation: Moderate sedation was administered by the procedure nurse and monitored intraservice [id number] by the procedure physician for 10 minutes. Technique: Written informed consent was obtained prior to the procedure. The patient was placed in a prone position on the CT scanner table. A limited noncontrast CT examination of the pelvis was then performed. The right gluteal region was sterilely prepared and draped in the routine manner. Lidocaine 1% was used for local anesthetic. Using intermittent CT guidance, a 14-gauge Bonopty needle was advanced successfully into the marrow space of the right ilium. Through this needle, bone marrow aspirate and single core specimen was obtained. The guide needle was removed and hemostasis was achieved with manual compression. CT imaging of the pelvis after completion of the bone marrow biopsy demonstrated no complications. Complications: None Impression: Successful CT-guided bone marrow biopsy of via the right ilium, as described above. [id number] Interface, Radiology Results Incoming - 06/15/2020 2:33 PM CDT Procedure: CT-guided bone marrow biopsyClinical indication: Non-Hodgkin's lymphoma Anesthesia: Lidocaine 1% was used for local anesthetic.Sedation: Moderate sedation was administered by the procedure nurse and monitored intraservice [id number] by the procedure physician for 10 minutes.Technique: Written informed consent was obtained prior to the procedure. The patient was placed in a prone position on the CT scanner table. A limited noncontrast CT examination of the pelvis was then performed. The right gluteal region was sterilely prepared and draped in the routine manner. Lidocaine 1% was used for local anesthetic. Using intermittent CT guidance, a 14-gauge Bonopty needle was advanced successfully into the marrow space of the right ilium. Through this needle, bone marrow aspirate and single core specimen was obtained. The guide needle was removed and hemostasis was achieved with manual compression. CT imaging of the pelvis aftercompletion of the bone marrow biopsy demonstrated no complications.Complications: NoneImpression: Successful CT-guided bone marrow biopsy of via the right ilium, as described above.[id number] Head External Study 2020-06-15 01:54:23This exam was not acquired at a [facility] facility and has not been interpreted by a [facility] Provider. The exam was imported into our imaging system.[facility] Areae [id number] 12:18:12Eye culture isolateBlood, Chocolate, MacConkey and Thioglycollate:No growth after 7 days. Comment: Specimen InformationSpecimen Source: Vitreous fluidSpecimen Site: Left [facility], [id number] 12:18:12Eye culture isolate, anaerobicBrucella blood agar:No anaerobes isolated after 7 days. Comment: Specimen InformationSpecimen Source: Vitreous fluidSpecimen Site: Left Eye [facility] HospitalGlucose level, [id number] 18:23:56 Test Item Value Reference Range Interpretation Comments Glucose, CSF (test code = 2342-4) 62 mg/dL 40-70 [facility] [id number] 18:23:56 Test Item Value Reference Range Interpretation Comments Protein, CSF (test code = 2880-3) 54 mg/dL 15-45 H Lab Interpretation (test code = Abnormal 09823-2) [facility] HospitalAFB [id number] 15:15:20 Test Item Value Reference Range Interpretation Comments AFB stain (test code = No acid fast bacilli 676-7) (AFB) seen. [facility] HospitalGram [id number] 03:54:59 Test Item Value Reference Range Interpretation Comments Gram stain isolate No WBC's or organisms (test code = 1469) seen. [facility] HospitalPET[facility] Skull Base To Mid [id number] 21:37:11PROCEDURE: PET CT SKULL BASE TO MID THIGH INDICATION: C85.99 Non-Hodgkin lymphoma unspecified extranodal and solid organ sites, Ocular Lymphoma Staging PET scan. COMPARISON: None available at this institution TECHNIQUE: Blood glucose measured at the time of injection was 89 mg/dL. The patient was then intravenously injected with 12 mCi of 18F-FDG. Approximately one hour later, PET images were acquired from the top of the skull to the mid thighs. Corresponding, low dose, non-contrast CT scanning was performed as part of the attenuation correction process. FINDINGS: Head and neck: Postoperative changes are noted in the right ocular globe consistent with recent vitreous biopsy without evidence of discrete hypermetabolic lesions. Scattered tiny bilateral cervical lymph nodes demonstrate no focalhypermetabolism. Physiological diop matter metabolism throughout the bilateral cerebral hemispheres and cerebellum limits evaluation of the PROMOTIONS PRODUCER. Chest: Several pulmonary nodules are present in both lungs with the index lesion measuring approximately 2 cm in the right apex demonstrating very mild FDG uptake with an SUV of 1.9; smaller lesions exhibit no detectable FDG uptake. Nonspecific mediastinal lymph nodes demonstrate no focal hypermetabolism. There is no hilar lymphadenopathy. Nonspecific bilateral axillary lymph nodes demonstrate no abnormal FDG uptake. 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 The liver and pancreas demonstrate physiological metabolism without evidence of discrete mass lesions. Subtle nodular fullness in the left adrenalgland demonstrates no focal hypermetabolism. Normal-appearing right adrenal gland displays no abnormal FDG uptake. Gastrointestinal metabolism is within normal limits. Nonspecific retroperitoneal lymphnodes demonstrate no abnormal metabolic activity. No hypermetabolic mesenteric lymphadenopathy is seen. Physiological renal excretion of radiotracer limits evaluation of the system. Pelvis: There are no suspicious pelvic masses or lymphadenopathy. Musculoskeletal: Right hip arthroplasty demonstrates mild inflammatory uptake. No hypermetabolic or destructive osseous lesions are identified. IMPRESSION: 1.No definitive evidence of FDG-avid lymphoma. 2.There are bilateral pulmonary nodules with the index lesion demonstrating very mild hypermetabolism. Findings favor an inflammatory/infectious process. Nevertheless, attention on follow-up imaging is recommended. 3.Subtle nodular fullness of theleft adrenal gland demonstrates no focal hypermetabolism, favoring a benign etiology. [id number] Interface, Radiology Results Incoming - 06/03/2020 4:40 PM CDT PROCEDURE: PET CT SKULL BASE TO MID THIGHINDICATION: C85.99 Non-Hodgkinlymphoma unspecified extranodal and solid organ sites, Ocular Lymphoma Staging PET scan. COMPARISON: None available at this institution TECHNIQUE: Blood glucose measured at the time of injection was89 mg/dL. The patient was then intravenously injected with 12 mCi of 18F-FDG. Approximately one hourlater, PET images were acquired from the top of the skull to the mid thighs. Corresponding, low dose, non-contrast CT scanning was performed as part of the attenuation correction process. FINDINGS: Head and neck: Postoperative changes are noted in the right ocular globe consistent with recent vitreous biopsy without evidence of discrete hypermetabolic lesions. Scattered tiny bilateral cervical lymphnodes demonstrate no focal hypermetabolism. Physiological diop matter metabolism throughout the bilateral cerebral hemispheres and cerebellum limits evaluation of the PROMOTIONS PRODUCER. Chest: Several pulmonary nodules are present in both lungs with the index lesion measuring approximately 2 cm in the right apex demonstrating very mild FDG uptake with an SUV of 1.9; smaller lesions exhibit no detectable FDG uptake. Nonspecific mediastinal lymph nodes demonstrate no focal hypermetabolism. There is no hilar lymphadenopathy. Nonspecific bilateral axillary lymph nodes demonstrate no abnormal FDG uptake. 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 The liver and pancreas demonstrate physiological metabolism without evidence of discrete mass lesions. Subtle nodular fullness in the left adrenal gland demonstrates no focal hypermetabolism. Normal-appearing right adrenal gland displays no abnormal FDG uptake. Gastrointestinal metabolism is within normal limits. Nonspecific retroperitoneal lymph nodes demonstrate no abnormal metabolic activity. No hypermetabolic mesenteric lymphadenopathy is seen. Physiological renal excretion of radiotracer limits evaluation of the system. Pelvis: There are no suspicious pelvic masses or lymphadenopathy. Musculoskeletal: Right hip arthroplasty demonstrates mild inflammatory uptake. No hypermetabolic or destructive osseous lesions are identified. IMPRESSION: 1.No definitive evidence of FDG-avid lymphoma.2.There are bilateral pulmonary nodules with the index lesion demonstrating very mild hypermetabolism. Findings favor an i nflammatory/infectious process. Nevertheless, attention on follow-up imaging is recommended.3.Subtlenodular fullness of the left adrenal gland demonstrates no focal hypermetabolism, favoring a benign etiology. [id number] (COVID-19) RNA [Presence] in Respiratory specimen by NICOLE with probe [id number] 21:10:40 Test Item Value Reference Range Interpretation Comments SARS-CoV-2 (COVID-19) RNA Not detected Not-Detected [Presence] in Respiratory specimen by NICOLE with probe detection (test code = 10382-0)
--- NOTE | 2021-03-26 15:35 | ER ---
Nurse's Notes [facility] Name: Bon Villa Age: 71 yrs Sex: Male : 1950 Arrival Date: 03/26/2021 Time: 15:16 Bed 8 Private MD: Diagnosis: Bradycardia, unspecified;Cerebral infarction, unspecified-lfet sided weakness;Essential (primary) hypertension;Obesity, unspecified Presentation: 03/26 15:13 Chief complaint: EMS states: left sided weakness to left arm and leg , last normal at iw 1300, currently on xarelto. Coronavirus screen: At this time, the client does not indicate any symptoms associated with coronavirus-19. Ebola Screen: Patient negative for fever greater than or equal to 101.5 degrees Fahrenheit, and additional compatible Ebola Virus Disease symptoms Patient denies exposure to infectious person. Patient denies travel to an Ebola-affected area in the 21 days before illness onset. No symptoms or risks identified at this time. An acute neurological deficit is present. The patients blood glucose was checked before arriving to the hospital and was found to be normal. Initial Sepsis Screen: Does the patient meet any 2 criteria? No. Patient's initial sepsis screen is negative. Does the patient have a suspected source of infection? No. Patient's initial sepsis screen is negative. Risk Assessment: Do you want to hurt yourself or someone else? Patient reports no desire to harm self or others. Onset of symptoms was March 26, 2021. 15:13 Method Of Arrival: EMS iw 15:13 Acuity: FREDY 2 iw Triage Assessment: 15:21 The onset of the patients symptoms was less than three hours ago. aa5 Stroke Activation: Symptom onset < 3 hours Physician: Stroke Attending; Name: N/a; Notified At: 15:13; Arrived At: 15:13 Physician: Chief Stroke Resident; Name: N/A; Notified At: 15:13; Arrived At: 15:13 Physician: Stroke Resident; Name: N/A; Notified At: 15:13; Arrived At: 15:13 Physician: ED Attending; Name: Dr. Sánchez; Notified At: 15:13; Arrived At: 15:13 Physician: ED Resident; Name: N/A; Notified At: 15:13; Arrived At: 15:13 Historical: - Allergies: 15:30 PENICILLINS; iw - Home Meds: 15:30 Xarelto oral [Active]; Metoprolol Tartrate Oral [Active]; Clonidine Oral [Active]; iw losartan oral [Active]; - PMHx: 15:30 Hypertensive disorder; optical lymphoma; iw - Immunization history:: Client reports receiving the 2nd dose of the Covid vaccine. - Family history:: not pertinent. Screenin:45 Abuse screen: Denies threats or abuse. Nutritional screening: No deficits noted. aa5 Tuberculosis screening: No symptoms or risk factors identified. Fall Risk No fall in past 12 months (0 pts). No secondary diagnosis (0 pts). IV access (20 points). Ambulatory Aid- None/Bed Rest/Nurse Assist (0 pts). Gait- Normal/Bed Rest/Wheelchair (0 pts) Mental Status- Oriented to own ability (0 pts). Total Salas Fall Scale indicates No Risk (0-24 pts). Assessment: 15:21 Reassessment: Pt back from CT . aa5 15:21 VAN Scoring: Arm Drift: Severe drift Visual Disturbance: No visual disturbance noted. aa5 Aphasia: No aphasia noted. Neglect: No neglect noted. 15:21 T-PA (Activase) Screening: Contraindications: Other: Pt takes Xarelto. aa5 15:21 General: Appears comfortable, Behavior is calm, cooperative. Pain: Denies pain. Neuro: aa5 Level of Consciousness is awake, alert, obeys commands, Oriented to person, place, time, situation, Optoelectronic Technician are weak on left Weakness in left arm(s) leg(s) Speech is normal, Facial symmetry appears normal, Reports weakness in left arm and left leg Denies paresthesias numbness. Cardiovascular: Heart tones S1 S2 present Rhythm is sinus bradycardia. Respiratory: Airway is patent Respiratory effort is even, unlabored, Respiratory pattern is regular, symmetrical. GI: Abdomen is obese. : No signs and/or symptoms were reported regarding the genitourinary system. EENT: No signs and/or symptoms were reported regarding the EENT system. Derm: Skin is pink, warm \T\ dry. Musculoskeletal: Range of motion: intact in all extremities. 15:32 Reassessment: Pt to CT for CTangio. aa5 16:00 Reassessment: Pt back from CT. MD aware of high blood pressure readings. . aa5 16:00 Reassessment: Patient is alert, oriented x 3, equal unlabored respirations, skin aa5 warm/dry/pink. Neuro: Level of Consciousness is awake, alert, obeys commands, Oriented to person, place, time, situation, Optoelectronic Technician are weak on left Weakness in left arm(s) leg(s) Speech is normal, Facial symmetry appears normal. 17:00 Reassessment: Patient states symptoms have improved. Neuro: Level of Consciousness is aa5 awake, alert, obeys commands, Oriented to person, place, time, situation. Respiratory: Airway is patent Respiratory effort is even, unlabored, Respiratory pattern is regular, symmetrical. Derm: Skin is pink, warm \T\ dry. 17:10 Patient has been NPO before screening. The patient is alert, and able to follow aa5 commands. The patient does not exhibit slurred or garbled speech. The patient is not exhibiting difficulty speaking. The patient does not exhibit difficulty understanding words. The patient is able to swallow own secretions with no drooling or need for suction. Patient tolerated one teaspoon of water. No drooling, immediate coughing, gurgling, or clearing of the throat was noted. The patient tolerated 90mL of water. No drooling, immediate coughing, gurgling, or clearing of the throat was noted. The patient passed the bedside swallow screening. Oral medications may be given as ordered. Contact Physician for further diet orders. Provider notified of bedside swallow screening results: Saurabh Sánchez MD. 18:00 Reassessment: Patient is alert, oriented x 3, equal unlabored respirations, skin aa5 warm/dry/pink. Awaiting EMS for transfer. Reports was given to Karen at [facility]. . Vital Signs: 15:21 BP 212 / 88; Pulse 58; Resp 18 S; Temp 98.0(TE); Pulse Ox 98% on R/A; aa5 16:00 BP 205 / 88; Pulse 52; Resp 16 S; Pulse Ox 99% on R/A; aa5 17:00 BP 179 / 85; Pulse 49; Resp 16 S; Pulse Ox 98% on R/A; aa5 NIH Stroke Scale Scores: 15:19 NIHSS Score: 8 zhen 15:21 NIHSS Score: 4 aa5 16:00 NIHSS Score: 4 aa5 17:00 NIHSS Score: 2 aa5 ED Course: 15:[address] Sánchez with Brian Khan from the [facility] eb for patient transfer consultation. 15:16 Patient arrived in ED. ds1 15:16 Saurabh Sánchez MD is Attending Physician. zhen 15:17 Marilee Chen, DARLENE is Primary Nurse. aa5 15:[address] Clemons the neurologist farm service consultant for [facility] with Dr. Gonzalo armas for patient transfer consultation. 15:21 Patient has correct armband on for positive identification. Placed in gown. Bed in low aa5 position. Call light in reach. Side rails up X2. gleason operator on. Pulse ox on. NIBP on. 15:25 Initial lab(s) drawn, by me, sent to lab. Inserted saline lock: 20 gauge in right aa5 antecubital area, using aseptic technique. Blood collected. 15:27 Ct Stroke Brain Wo Cont In Process Unspecified. EDMS 15:30 Triage completed. iw 15:32 Arm band placed on. iw 15:34 Brian from the transfer center called to ask us to please call when we get the results eb for to CTA so they know what kind of bed this patient will need. 15:44 Head angio In Process Unspecified. EDMS 15:45 Neck Angio In Process Unspecified. EDMS 15:54 XRAY Chest (1 view) In Process Unspecified. EDMS 16:30 connected the hospitalist farm service consultant for [facility] with Dr. Sánchez for patient eb transfer consultation. 18:16 No provider procedures requiring assistance completed. Patient transferred, IV remains aa5 in place. Administered Medications: 16:00 Drug: NS 0.9% 1000 ml Route: IV; Rate: 1 bolus; Site: right antecubital; aa5 16:45 Follow up: Only 500cc infused per . aa5 16:45 Follow up: IV Status: Completed infusion; IV Intake: 500ml aa5 16:00 Drug: foLIC Acid 1 mg Route: IVPB; Site: right antecubital; aa5 16:09 Not Given (Physician Discretion): Mucomyst - Acetylcysteine 600 mg PO once aa5 17:20 Drug: Lipitor (atorvastatin) 40 mg Route: PO; aa5 18:00 Follow up: Response: No adverse reaction aa5 17:20 Drug: Aspirin 81 mg Route: PO; aa5 18:00 Follow up: Response: No adverse reaction aa5 17:20 Drug: Xarelto (rivaroxaban) 20 mg Route: PO; aa5 18:00 Follow up: Response: No adverse reaction aa5 Point of Care Testing: Blood Glucose: 15:30 Blood Glucose: 101 mg/dL; aa5 Ranges: Intake: 16:45 IV: 500ml; Total: 500ml. aa5 Outcome: 15:35 ER care complete, transfer ordered by . zhen 18:16 Transferred by ground EMS to [facility], Transfer form completed. aa5 X-rays sent w/ patient. Note: Report given to [facility] 18:16 Condition: stable 18:16 Instructed on the need for transfer, Demonstrated understanding of instructions. 18:16 Patient left the ED. aa5 NIH Stroke Scale - NIH Stroke Score Date: 03/26/2021 Time: 15:19 Total Score = 8 1a. Level of Consciousness (LOC) - 0(Alert) 1b. Level of Consciousness (LOC) (Month \T\ Age) - 0(Both) 1c. LOC Commands (Open \T\ Closes Eyes/Technical Marketing Engineer) - 0(Both) 2. Best Gaze (Lateral Gaze Paresis) - 0(Normal) 3. Visual Field Loss - 0(No visual loss) 4. Facial Palsy - 2(Partial paralysis) 5a. Left Arm: Motor (10-second hold) - 2(Drift, some effort against gravity) 5b. Right Arm: Motor (10-second hold) - 0(No drift) 6a. Left Leg: Motor (5-second hold - always test supine) - 2(Drift, some effort against gravity) 6b. Right Leg: Motor (5-second hold - always test supine) - 0(No drift) 7. Limb Ataxia (finger/nose \T\ heel/sutton - test with eyes open) - 2(Present in two limbs) 8. Sensory Loss (pinprick arms/legs/face) - 0(Normal) 9. Best Language: Aphasia (description/naming/reading) - 0(No aphasia) 10. Dysarthria (speech clarity - read or repeat words) - 0(Normal) 11. Extinction and Inattention (visual/tactile/auditory/spatial/personal) - 0(No abnormality) Initials: zhen NIH Stroke Scale - NIH Stroke Score Date: 03/26/2021 Time: 15:21 Total Score = 4 1a. Level of Consciousness (LOC) - 0(Alert) 1b. Level of Consciousness (LOC) (Month \T\ Age) - 0(Both) 1c. LOC Commands (Open \T\ Closes Eyes/Technical Marketing Engineer) - 0(Both) 2. Best Gaze (Lateral Gaze Paresis) - 0(Normal) 3. Visual Field Loss - 0(No visual loss) 4. Facial Palsy - 0(Normal) 5a. Left Arm: Motor (10-second hold) - 2(Drift, some effort against gravity) 5b. Right Arm: Motor (10-second hold) - 0(No drift) 6a. Left Leg: Motor (5-second hold - always test supine) - 2(Drift, some effort against gravity) 6b. Right Leg: Motor (5-second hold - always test supine) - 0(No drift) 7. Limb Ataxia (finger/nose \T\ heel/sutton - test with eyes open) - 0(Absent) 8. Sensory Loss (pinprick arms/legs/face) - 0(Normal) 9. Best Language: Aphasia (description/naming/reading) - 0(No aphasia) 10. Dysarthria (speech clarity - read or repeat words) - 0(Normal) 11. Extinction and Inattention (visual/tactile/auditory/spatial/personal) - 0(No abnormality) Initials: aa5 NIH Stroke Scale - NIH Stroke Score Date: 03/26/2021 Time: 16:00 Total Score = 4 1a. Level of Consciousness (LOC) - 0(Alert) 1b. Level of Consciousness (LOC) (Month \T\ Age) - 0(Both) 1c. LOC Commands (Open \T\ Closes Eyes/Technical Marketing Engineer) - 0(Both) 2. Best Gaze (Lateral Gaze Paresis) - 0(Normal) 3. Visual Field Loss - 0(No visual loss) 4. Facial Palsy - 0(Normal) 5a. Left Arm: Motor (10-second hold) - 2(Drift, some effort against gravity) 5b. Right Arm: Motor (10-second hold) - 0(No drift) 6a. Left Leg: Motor (5-second hold - always test supine) - 2(Drift, some effort against gravity) 6b. Right Leg: Motor (5-second hold - always test supine) - 0(No drift) 7. Limb Ataxia (finger/nose \T\ heel/sutton - test with eyes open) - 0(Absent) 8. Sensory Loss (pinprick arms/legs/face) - 0(Normal) 9. Best Language: Aphasia (description/naming/reading) - 0(No aphasia) 10. Dysarthria (speech clarity - read or repeat words) - 0(Normal) 11. Extinction and Inattention (visual/tactile/auditory/spatial/personal) - 0(No abnormality) Initials: aa5 NIH Stroke Scale - NIH Stroke Score Date: 03/26/2021 Time: 17:00 Total Score = 2 1a. Level of Consciousness (LOC) - 0(Alert) 1b. Level of Consciousness (LOC) (Month \T\ Age) - 0(Both) 1c. LOC Commands (Open \T\ Closes Eyes/Technical Marketing Engineer) - 0(Both) 2. Best Gaze (Lateral Gaze Paresis) - 0(Normal) 3. Visual Field Loss - 0(No visual loss) 4. Facial Palsy - 0(Normal) 5a. Left Arm: Motor (10-second hold) - 1(Drift) 5b. Right Arm: Motor (10-second hold) - 0(No drift) 6a. Left Leg: Motor (5-second hold - always test supine) - 1(Drift) 6b. Right Leg: Motor (5-second hold - always test supine) - 0(No drift) 7. Limb Ataxia (finger/nose \T\ heel/sutton - test with eyes open) - 0(Absent) 8. Sensory Loss (pinprick arms/legs/face) - 0(Normal) 9. Best Language: Aphasia (description/naming/reading) - 0(No aphasia) 10. Dysarthria (speech clarity - read or repeat words) - 0(Normal) 11. Extinction and Inattention (visual/tactile/auditory/spatial/personal) - 0(No abnormality) Initials: aa5 Signatures: Dispatcher [employer] Saurabh Young MD MD cha Sanford, Demi ds1 Mary Rosales RN RN iw Marilee Chen RN RN aa5 Hilda Villafana Corrections: (The following items were deleted from the chart) 18:26 18:25 Patient left the ED. aa5 aa5
--- NOTE | 2021-03-26 15:35 | EDPHYS ---
Physician Documentation [facility] Name: Bon Villa Age: 71 yrs Sex: Male : 1950 Arrival Date: 03/26/2021 Time: 15:16 Bed 8 Private MD: ED Physician Saurabh Sánchez HPI: 03/26 15:19 This 71 yrs old Male presents to ER via Unassigned with complaints of S/S of zhen Possible Stroke. 15:19 The patient's problem is reported as weakness, in the left upper extremity, in the left zhen lower extremity, in the left side of face. Onset: The symptoms/episode began/occurred today, 2.5 hour(s) ago. Duration: This was a single incident, The episode is continuous. Context: the episode(s) was witnessed, by family, symptoms became apparent at 13:00. The symptoms are alleviated by nothing. The symptoms are aggravated by nothing. Associated signs and symptoms: The patient has no apparent associated signs or symptoms. Severity of symptoms: At their worst the symptoms were moderate in the emergency department the symptoms are unchanged. Patient's baseline: Neuro: alert and fully oriented, Motor: left-sided weakness, left-sided facial droop. The patient has not experienced similar symptoms in the past. 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 - Family history:: not pertinent. ROS: 15:19 Constitutional: Negative for fever, chills, and weight loss, Eyes: Negative for injury, zhen pain, redness, and discharge, ENT: Negative for injury, pain, and discharge, Neck: Negative for injury, pain, and swelling, Cardiovascular: Negative for chest pain, palpitations, and edema, Respiratory: Negative for shortness of breath, cough, wheezing, and pleuritic chest pain, Abdomen/GI: Negative for abdominal pain, nausea, vomiting, diarrhea, and constipation, Back: Negative for injury and pain, : Negative for injury, bleeding, discharge, and swelling, MS/Extremity: Negative for injury and deformity, Skin: Negative for injury, rash, and discoloration, Psych: Negative for depression, anxiety, suicide ideation, homicidal ideation, and hallucinations, Allergy/Immunology: Negative for hives, rash, and allergies, Endocrine: Negative for neck swelling, polydipsia, polyuria, polyphagia, and marked weight changes. 15:19 Neuro: Positive for weakness, of the face, left arm and left leg. 15:19 Psych: Negative for anxiety, depression. Exam: 15:19 Radiologist reports: negative , old changes, dr lima fontaine 15:19 Constitutional: This is a well developed, well nourished patient who is awake, alert, and in no acute distress. Head/Face: Normocephalic, atraumatic. Eyes: Pupils equal round and reactive to light, extra-ocular motions intact. Lids and lashes normal. Conjunctiva and sclera are non-icteric and not injected. Cornea within normal limits. Periorbital areas with no swelling, redness, or edema. ENT: Nares patent. No nasal discharge, no septal abnormalities noted. Tympanic membranes are normal and external auditory canals are clear. Oropharynx with no redness, swelling, or masses, exudates, or evidence of obstruction, uvula midline. Mucous membranes moist. Neck: Trachea midline, no thyromegaly or masses palpated, and no cervical lymphadenopathy. Supple, full range of motion without nuchal rigidity, or vertebral point tenderness. No Meningismus. Chest/axilla: Normal chest wall appearance and motion. Nontender with no deformity. No lesions are appreciated. Cardiovascular: Regular rate and rhythm with a normal S1 and S2. No gallops, murmurs, or rubs. Normal PMI, no JVD. No pulse deficits. Respiratory: Lungs have equal breath sounds bilaterally, clear to auscultation and percussion. No rales, rhonchi or wheezes noted. No increased work of breathing, no retractions or nasal flaring. Abdomen/GI: Soft, non-tender, with normal bowel sounds. No distension or tympany. No guarding or rebound. No evidence of tenderness throughout. Back: No spinal tenderness. No costovertebral tenderness. Full range of motion. Male : Normal genitalia with no discharge or lesions. Skin: Warm, dry with normal turgor. Normal color with no rashes, no lesions, and no evidence of cellulitis. MS/ Extremity: Pulses equal, no cyanosis. Neurovascular intact. Full, normal range of motion. Psych: Awake, alert, with orientation to person, place and time. Behavior, mood, and affect are within normal limits. 15:19 Neuro: Orientation: is normal, appropriate for stated age, no acute changes, Mentation: is normal, appropriate for stated age, no acute changes, Memory: is normal, appropriate for stated age, no acute changes, Cranial nerves: Cerebellar function: unable to test, Motor: Strength is 2/5 in the left arm and left leg, Sensation: no obvious gross deficits, appropriate no acute changes, Gait: not tested. Babinski testing is normal, seizure activity, is not displayed by the patient. 15:42 ECG was reviewed by the Attending Physician. [facility] Vital Signs: 15:21 BP 212 / 88; Pulse 58; Resp 18 S; Temp 98.0(TE); Pulse Ox 98% on R/A; aa5 16:00 BP 205 / 88; Pulse 52; Resp 16 S; Pulse Ox 99% on R/A; aa5 17:00 BP 179 / 85; Pulse 49; Resp 16 S; Pulse Ox 98% on R/A; aa5 NIH Stroke Scale Scores: 15:19 NIHSS Score: 8 zhen 15:21 NIHSS Score: 4 aa5 16:00 NIHSS Score: 4 aa5 17:00 NIHSS Score: 2 aa5 MDM: 15:17 Patient medically screened. [facility] 15:31 Differential diagnosis: CVA, TIA, metabolic disorder. Data reviewed: vital signs, [facility] nurses notes, lab test result(s), EKG, radiologic studies, CT scan, plain films. Data interpreted: patient monitor: rate is 54 beats/min, rhythm is regular, Pulse oximetry: on room air is 100 %. Test interpretation: by ED physician or midlevel provider: ECG, plain radiologic studies. Counseling: I had a detailed discussion with the patient and/or guardian regarding: the historical points, exam findings, and any diagnostic results supporting the discharge/admit diagnosis, lab results, radiology results, the need to transfer to another facility, for higher level of care, [facility] does not immediately have the required specialist. 16:57 ED course: dr oviedo aspirin 81 ok, nih 8, hold xarelto, no tpa. [facility] 03/26 15:19 Order name: Basic Metabolic Panel; Complete Time: 16:31 [facility] 03/26 15:19 Order name: CBC with Diff; Complete Time: 16:31 [facility] 03/26 15:19 Order name: LFT's; Complete Time: 16:31 [facility] 03/26 15:19 Order name: Magnesium; Complete Time: 16:31 [facility] 03/26 15:19 Order name: NT PRO-BNP; Complete Time: 16:31 [facility] 03/26 15:19 Order name: PT-INR; Complete Time: 16:31 [facility] 03/26 15:19 Order name: Troponin (emerg Dept Use Only); Complete Time: 16:31 [facility] 03/26 15:19 Order name: XRAY Chest (1 view); Complete Time: 16:31 [facility] 03/26 15:23 Order name: Head angio; Complete Time: 16:31 [facility] 03/26 15:23 Order name: Neck Angio; Complete Time: 16:31 [facility] 03/26 15:28 Order name: COVID-19 : Document "Date of Symptom Onset" if Symptomatic. 03/26 16:57 Order name: SARS-COV-2 RT PCR; Complete Time: 16:58 [facility]MS 03/26 18:25 Order name: glucometer results - FOR PT WITH NO ID [facility] 03/26 15:19 Order name: EKG; Complete Time: 15:20 [facility] 03/26 15:19 Order name: Cardiac monitoring; Complete Time: 15:33 [facility] 03/26 15:19 Order name: EKG - Nurse/Tech; Complete Time: 15:33 [facility] 03/26 15:19 Order name: IV Saline Lock; Complete Time: 15:33 [facility] 03/26 15:19 Order name: Labs collected and sent; Complete Time: 15:33 [facility] 03/26 15:19 Order name: O2 Per Protocol; Complete Time: 15:33 [facility] 03/26 15:19 Order name: O2 Sat Monitoring; Complete Time: 15:33 [facility] 03/26 15:24 Order name: Ct Stroke Brain Wo Cont; Complete Time: 16:31 [facility] 03/26 15:36 Order name: Stroke Swallow Screen; Complete Time: 17:20 aa5 EC:42 Rate is 50 beats/min. Rhythm is regular. QRS [place] is Normal. [place] interval is normal. QRS zhen interval is normal. QT interval is normal. No Q waves. T waves are Normal. No ST changes noted. Clinical impression: Sinus bradycardia and No evidence of ischemia. Interpreted by me. Reviewed by me. Administered Medications: 16:00 Drug: NS 0.9% 1000 ml Route: IV; Rate: 1 bolus; Site: right antecubital; aa5 16:45 Follow up: Only 500cc infused per MD. aa5 16:45 Follow up: IV Status: Completed infusion; IV Intake: 500ml aa5 16:00 Drug: foLIC Acid 1 mg Route: IVPB; Site: right antecubital; aa5 16:09 Not Given (Physician Discretion): Mucomyst - Acetylcysteine 600 mg PO once aa5 17:20 Drug: Lipitor (atorvastatin) 40 mg Route: PO; aa5 18:00 Follow up: Response: No adverse reaction aa5 17:20 Drug: Aspirin 81 mg Route: PO; aa5 18:00 Follow up: Response: No adverse reaction aa5 17:20 Drug: Xarelto (rivaroxaban) 20 mg Route: PO; aa5 18:00 Follow up: Response: No adverse reaction aa5 Point of Care Testing: Blood Glucose: 15:30 Blood Glucose: 101 mg/dL; aa5 Ranges: Critical Glucose Levels:Adult <50 mg/dl or >400 mg/dl <40 mg/dl or >180 mg/dl Disposition Summary: 03/26/21 15:35 Transfer Ordered Transfer Location: [facility] zhen Reason: Higher level of care zhen Condition: Serious zhen Problem: new zhen Symptoms: have improved zhen Accepting Physician: to nicu, stl dr oviedo(03/26/21 18:25) aa5 Diagnosis - Bradycardia, unspecified zhen - Cerebral infarction, unspecified - lfet sided weakness zhen - Essential (primary) hypertension zhen - Obesity, unspecified zhen Forms: - Medication Reconciliation Form zhen - SBAR form zhen NIH Stroke Scale - NIH Stroke Score Date: 03/26/2021 Time: 15:19 Total Score = 8 1a. Level of Consciousness (LOC) - 0(Alert) 1b. Level of Consciousness (LOC) (Month \\T\\ Age) - 0(Both) 1c. LOC Commands (Open \\T\\ Closes Eyes/Staff Pharmacist) - 0(Both) 2. Best Gaze (Lateral Gaze Paresis) - 0(Normal) 3. Visual Field Loss - 0(No visual loss) 4. Facial Palsy - 2(Partial paralysis) 5a. Left Arm: Motor (10-second hold) - 2(Drift, some effort against gravity) 5b. Right Arm: Motor (10-second hold) - 0(No drift) 6a. Left Leg: Motor (5-second hold - always test supine) - 2(Drift, some effort against gravity) 6b. Right Leg: Motor (5-second hold - always test supine) - 0(No drift) 7. Limb Ataxia (finger/nose \\T\\ heel/sutton - test with eyes open) - 2(Present in two limbs) 8. Sensory Loss (pinprick arms/legs/face) - 0(Normal) 9. Best Language: Aphasia (description/naming/reading) - 0(No aphasia) 10. Dysarthria (speech clarity - read or repeat words) - 0(Normal) 11. Extinction and Inattention (visual/tactile/auditory/spatial/personal) - 0(No abnormality) Initials: [facility] NIH Stroke Scale - NIH Stroke Score Date: 03/26/2021 Time: 15:21 Total Score = 4 1a. Level of Consciousness (LOC) - 0(Alert) 1b. Level of Consciousness (LOC) (Month \\T\\ Age) - 0(Both) 1c. LOC Commands (Open \\T\\ Closes Eyes/Staff Pharmacist) - 0(Both) 2. Best Gaze (Lateral Gaze Paresis) - 0(Normal) 3. Visual Field Loss - 0(No visual loss) 4. Facial Palsy - 0(Normal) 5a. Left Arm: Motor (10-second hold) - 2(Drift, some effort against gravity) 5b. Right Arm: Motor (10-second hold) - 0(No drift) 6a. Left Leg: Motor (5-second hold - always test supine) - 2(Drift, some effort against gravity) 6b. Right Leg: Motor (5-second hold - always test supine) - 0(No drift) 7. Limb Ataxia (finger/nose \\T\\ heel/sutton - test with eyes open) - 0(Absent) 8. Sensory Loss (pinprick arms/legs/face) - 0(Normal) 9. Best Language: Aphasia (description/naming/reading) - 0(No aphasia) 10. Dysarthria (speech clarity - read or repeat words) - 0(Normal) 11. Extinction and Inattention (visual/tactile/auditory/spatial/personal) - 0(No abnormality) Initials: aa5 NIH Stroke Scale - NIH Stroke Score Date: 03/26/2021 Time: 16:00 Total Score = 4 1a. Level of Consciousness (LOC) - 0(Alert) 1b. Level of Consciousness (LOC) (Month \\T\\ Age) - 0(Both) 1c. LOC Commands (Open \\T\\ Closes Eyes/Staff Pharmacist) - 0(Both) 2. Best Gaze (Lateral Gaze Paresis) - 0(Normal) 3. Visual Field Loss - 0(No visual loss) 4. Facial Palsy - 0(Normal) 5a. Left Arm: Motor (10-second hold) - 2(Drift, some effort against gravity) 5b. Right Arm: Motor (10-second hold) - 0(No drift) 6a. Left Leg: Motor (5-second hold - always test supine) - 2(Drift, some effort against gravity) 6b. Right Leg: Motor (5-second hold - always test supine) - 0(No drift) 7. Limb Ataxia (finger/nose \\T\\ heel/sutton - test with eyes open) - 0(Absent) 8. Sensory Loss (pinprick arms/legs/face) - 0(Normal) 9. Best Language: Aphasia (description/naming/reading) - 0(No aphasia) 10. Dysarthria (speech clarity - read or repeat words) - 0(Normal) 11. Extinction and Inattention (visual/tactile/auditory/spatial/personal) - 0(No abnormality) Initials: 5 NIH Stroke Scale - NIH Stroke Score Date: 03/26/2021 Time: 17:00 Total Score = 2 1a. Level of Consciousness (LOC) - 0(Alert) 1b. Level of Consciousness (LOC) (Month \\T\\ Age) - 0(Both) 1c. LOC Commands (Open \\T\\ Closes Eyes/Staff Pharmacist) - 0(Both) 2. Best Gaze (Lateral Gaze Paresis) - 0(Normal) 3. Visual Field Loss - 0(No visual loss) 4. Facial Palsy - 0(Normal) 5a. Left Arm: Motor (10-second hold) - 1(Drift) 5b. Right Arm: Motor (10-second hold) - 0(No drift) 6a. Left Leg: Motor (5-second hold - always test supine) - 1(Drift) 6b. Right Leg: Motor (5-second hold - always test supine) - 0(No drift) 7. Limb Ataxia (finger/nose \\T\\ heel/sutton - test with eyes open) - 0(Absent) 8. Sensory Loss (pinprick arms/legs/face) - 0(Normal) 9. Best Language: Aphasia (description/naming/reading) - 0(No aphasia) 10. Dysarthria (speech clarity - read or repeat words) - 0(Normal) 11. Extinction and Inattention (visual/tactile/auditory/spatial/personal) - 0(No abnormality) Initials: aa5 Signatures: Dispatcher [employer] EDSaurabh Loaiza MD MD cha Williams, Irene, Marilee Davis RN, RN RN aa5 Corrections: (The following items were deleted from the chart) 15:59 15:29 CORONAVIRUS ordered. EDSC EDMS 18:16 15:35 to nicu, stl dr ivelisse pendleton 18:25 18:16 to nicu, stl dr ivelisse pendleton aa5
--- NOTE | 2021-03-26 15:37 | RAD REPORT ---
EXAM DESCRIPTION: CT - Ct Stroke Brain Wo Cont - 03/26/2021 3:27 pm CLINICAL HISTORY: stroke COMPARISON: Brain W/Wo Cont dated 05/07/2020 TECHNIQUE: All CT scans are performed using dose optimization technique as appropriate and may inclu de automated exposure control or mA/KV adjustment according to patient size. FINDINGS: No intracranial hemorrhage, hydrocephalus or extra-axial fluid collection.No areas of brai n edema or evidence of midline shift. Periventricular and subcortical white matter hypoattenuation wi thin the frontal lobes, right greater than left noted. This is new since 05/07/2020 brain MRI. The paranasal sinuses and mastoids are clear. The calvarium is intact. IMPRESSION: White matter hypoattenuation within the frontal lobes bilaterally, right greater than le ft. that is nonspecific but is new since 05/07/2020. An acute infarct in this distribution would be u ncommon. MRI could better evaluate.
[2021-03-26 15:52] LABS: Absolute Lymphocytes (CBC) 1.2 K/uL (0.7-4.9); Basophils % 1.1 % (0-1.3); Hematocrit 42.7 % (39.6-49.0); Lymphocytes % 13.3 % (15.3-44.8); MPV 9.4 fL (7.6-11.3); RBC Red Blood Cell Count 4.31 M/uL (4.33-5.43)
--- NOTE | 2021-03-26 15:52 | RAD REPORT ---
EXAM DESCRIPTION: CT - Neck Angio - 03/26/2021 3:45 pm CLINICAL HISTORY: stroke COMPARISON: No comparisons TECHNIQUE: CT angiography of the neck vessels was performed with MIPs. All CT scans are performed using dose optimization technique as appropriate and may include automated exposure control or mA/KV adjustment according to patient size. FINDINGS: A left aortic arch is identified with normal three vessel configuration of the great vesse ls. No significant flow abnormality is seen of the common carotid bilaterally. No significant stenosis is identified involving the cervical segments of both internal carotid arteri es. Calcified noncalcified plaque is present the left carotid bifurcation. At least mild stenosis is present at the right proximal vertebral artery at the origin. Possible mode rate left proximal vertebral artery stenosis. The vertebral arteries are codominant. Right upper chest wall Port-A-Cath. IMPRESSION: Patent bilateral carotid systems with some atherosclerotic disease. Stenoses at the orig ins of the codominant vertebral arteries.
[2021-03-26 15:54] LABS: Protime INR 1.14
--- NOTE | 2021-03-26 15:54 | RAD REPORT ---
EXAM DESCRIPTION: CT - Head angio - 03/26/2021 3:44 pm CLINICAL HISTORY: stroke COMPARISON: Ct Stroke Brain Wo Cont dated 03/26/2021; Neck Angio dated 03/26/2021 TECHNIQUE: CT angiography of the head was performed with MIPs. All CT scans are performed using dose optimization technique as appropriate and may include automated exposure control or mA/KV adjustment according to patient size. FINDINGS: No evidence of aneurysm is detected. No flow-limiting stenosis or vascular malformation id entified. Calcified plaque involving both ICAs. No stenosis 0. Antegrade flow is seen in the vertebral arteries. The vertebral arteries are codominant. The visualized dural venous sinuses are patent. Ethmoid air cell thickening. IMPRESSION: No significant flow abnormality is detected.
[2021-03-26 16:01] LABS: ALT/SGPT 20 U/L (12-78); AST/SGOT 10 U/L (15-37); Albumin 3.8 g/dL (3.4-5.0); Alkaline Phosphatase 70 U/L (45-117); BUN Blood Urea Nitrogen 15 mg/dL (7-18); Bicarbonate 29 mmol/L (21-32); Bilirubin Direct 0.1 mg/dL (0-0.2); Bilirubin Total 0.5 mg/dL (0.2-1.0); Glucose Level 99 mg/dL (74-106); NT PRO-BNP 165 pg/mL (<125); Potassium 4.4 mmol/L (3.5-5.1); Protein, Total 7.7 g/dL (6.4-8.2); Sodium Level 139 mmol/L (136-145); Troponin (Emerg Dept Use Only) < 0.02 ng/mL (0.0-0.045)
--- NOTE | 2021-03-26 16:01 | RAD REPORT ---
EXAM DESCRIPTION: RAD - Chest Single View - 03/26/2021 3:54 pm CLINICAL HISTORY: COUGH COMPARISON: No comparisons FINDINGS: No evidence of edema or pneumonia. Cardiomegaly.No acute osseous abnormality. No significa nt pleural effusions or pneumothorax. Right IJ approach Port-A-Cath. IMPRESSION: No acute cardiopulmonary disease.
[2021-03-26] MEDS ORDERED: FOLIC ACID 5 MG/ML VIAL ONE (16:04)
[2021-03-26] MEDS ORDERED: NA CHLORIDE 0.9% 500 ML ONE (16:04)
[2021-03-26] MEDS ORDERED: ASPIRIN 81 MG CHEWABLE TABLET ONE (17:37)
[2021-03-26] MEDS ORDERED: ATORVASTATIN 20 MG TAB ONE (17:37)
[2021-03-26 18:24] VITALS: TEMP 98
[2021-03-26 18:28] VITALS: BP 179/85; O2SAT 98
--- NOTE | 2021-03-27 08:02 | EKG ---
Test Date: 2021-03-26 Test Time: 15:28:37 Government Clerk: ROSA MEASUREMENT RESULTS: Intervals: Rate: 50 UT: 176 QRSD: 106 QT: 472 QTc: 430 [place]: P: 19 UT: 176 QRS: -18 T: 8 INTERPRETIVE STATEMENTS: Sinus bradycardia with premature atrial complexes Otherwise normal ECG Compared to ECG 07/07/2002 05:21:00 Atrial premature complex(es) now present Sinus rhythm no longer present Electronically Signed On 03-27-21 08:00:19 CDT by Jarad Urena
== END 2021-03-26 18:25 | disposition short-term general hospital (02) ==
LOC: ER 15:16
DX: I63.9 Cerebral infarction, unspecified (principal); I10 Essential (primary) hypertension; R29.708 NIHSS score 8; R00.1 Bradycardia, unspecified; E66.9 Obesity, unspecified; Z79.01 Long term (current) use of anticoagulants; Z88.0 Allergy status to penicillin; Z20.822 Contact with and (suspected) exposure to COVID-19
CPT/HCPCS: 96361; 93005; 85025; 80048; 36415; 83735; 85610; 82947; 80076; 84484; 83880; 70496; 70498; 70450; 71045; 96374; 99285; U0003; Q9967; J7040

== ENCOUNTER 2021-03-30 12:30 | Emergency (ER) | payer OTHER ==
--- OUTSIDE RECORDS SUMMARY | 2021-03-30 12:39 | XMS REPORT | Continuity of Care Document ---
:1950 Author Organization [facility] t Address [address] [place] [address] Care Team Providers Name Role Phone Asked, Pcp Primary Care Physician Unavailable Galina SEVILLA Attending Clinician Andrés Cornell MD Attending Clinician [phone] Mackenzie SEVILLA, P. Attending Clinician Edgardo SEVILLA, Beatrice Attending Clinician ANDRÉS CORNELL Attending Clinician Unavailable Carlos COLON Attending Clinician Unavailable Edward SEVILLA, Gurdeep Marcano Attending Clinician Cullen PINTO Attending Clinician Unavailable James SEVILLA, Zuly Attending Clinician Doctor Unassigned, Name Attending Clinician Unavailable Only, Test Attending Clinician Unavailable Pob, Lab Main Attending Clinician Unavailable Abigail Mcclain MD Attending Clinician Federico Zuleta MD Attending Clinician Marcia [facility] Attending Clinician Unavailable Theresa CAMPBELL, Jessi Attending Clinician Suhas COLON Attending Clinician Unavailable Laurent Magallanes NP Attending Clinician Provider Attending Clinician Unavailable Omkar Funes MD Attending Clinician Mc COLON Attending Clinician Unavailable Hussain Attending Clinician Unavailable Shmuel COLON Attending Clinician Unavailable Aruna SEVILLA Attending Clinician Lyn Attending Clinician Unavailable James Attending Clinician Unavailable Calos Vogt RN Attending Clinician Unavailable Gracie SEVILLA Attending Clinician Rohan SEVILLA Attending Clinician Meenu POPE Attending Clinician Ismael Padilla MD Attending Clinician BEATRICE REYNOSO Admitting Clinician Unavailable Zuly Ramirez MD Admitting Clinician GALINA Admitting Clinician Unavailable GRACIE Admitting Clinician Unavailable Payers Payer Name Policy Type Policy Effective Date Expiration Date Sour ce Number MEDICAREMEDICARE PART [id number] [facility] [id number] 2013[place] [id number] 2019 Met hodist OF 00:00:00 [facility] [id number]/ [facility] Hospitalmercial MEDICAREMEDICARE A [id number] 2014-01-18 MAUDE Cronin DbxhuechMY351/08/2013- 00:00:00 - edical PresentMedicare Center MCR SUPPLIMENTAL [id number] 2019-02-[address] [facility] CONTRACTEDUSA SENIOR 00:00:00 [facility] [place] [facility] [id number]/21/2 019-Present Problems Condition Condition Condition Status Onset Resolution Last Treating Co mments Source Name Details Category Date Date Treatment Clinician Date TIA TIA Disease Active [facility] (transient (transient 8 Anna Marie kes - ischemic ischemic 00:00: Medica l attack) attack) 00 Center CVA CVA Disease Active [facility] (cerebral (cerebral 8 Luke s - vascular vascular 00:00: Medica l accident) accident) 00 Cent er 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 Allergies, Adverse Reactions, Alerts Allergy Allergy Status Severity Reaction(s) Onset Inactive Treating Comm ents Source Name Type Date Date Clinician Penicill Drug Active Rash [facility] 00 Center Penicill Propensi Active Rash 2019-08 Method i ins ty to 005 st adverse 00:00: Hospita reaction 00 l s to drug Family History Family Member Diagnosis Comments Start Date Stop Date Source Natural father Stomach cancer [facility] Natural [facility] Social History Social Habit Start Date Stop Date Quantity Comments Source History SDOH [facility] Std Drinks [facility] History [facility] Binge Medical Nikita ter Sex Assigned At [facility] Exposure to Not sure [facility] - SARS-CoV-2 (event) Medica [facility] History SDOH 2021-03-27 2021-03-[address] [facility] - Alcohol Frequency 00:00:00 00:00:00 [facility] Tobacco use and 2021-02-15 2021-02-15 Never used Taoism exposure 00:00:00 00:00:00 Hospital Alcohol intake 2021-02-15 2021-02-15 Ex-drinker [facility] 00:00:00 00:00:00 (finding) Hospital Smoking Status Start Date Stop Date Source Never smoker [facility] Medications Ordered Filled Start Stop Current Ordering Indication Dosage Frequency Signature Comments Components Source Medication Medication Date Date Medication? Clinician (SIG) Name Name VALSARTAN Yes Take by [facility] ORAL 8-10 mouth. [facility] - 12:19: Medical [place] clonidine Yes .2mg [id number] Take 0.[address] HCl/chlorth 8-10 [id number] mg by L ukes - alidone 12:19: 3D mouth 3 Medical (CLONIDINE- 22 (three) Cente r CHLORTHALID times ONE ORAL) daily. NIFEdipine 2020- No 90mg Take [address] (ADALAT CC) 03-29 08-10 by mouth. Anna Marie kes - 90 MG 24 hr 08:45: 00:00 Medic al tablet 56 :00 Center METOPROLOL 2020- No 100mg Take [address] SUCCINATE 03-29 08-10 mg by [facility] - ORAL 08:45: 00:00 mouth. Medical 56 :00 Center atorvastati 2020- Yes 80mg QD Take [address] n (LIPITOR) 03-29 tablet (80 L ukes - 80 MG 00:00: 23:59 mg total) Medica l tablet 00 :00 by mouth Center nightly for 90 days. furosemide 2020- No 20mg QD Take 1 Meth milagros (Lasix) 20 02-15 tablet (20 st mg tablet 00:00: 04:59 mg total) Ho spita 00 :00 by mouth l daily for 7 days. furosemide 2020- No 20mg QD Take 1 Meth milagros (Lasix) 20 02-15- tablet (20 st mg tablet 00:00: 04:59 mg total) Ho spita 00 :00 by mouth l daily for 7 days. losartan 2020- No 100mg QD Take 100 Met hodi (COZAAR) 3- 03-[address] 100 MG 20:38: 00:00 mouth Hospita tablet 23 :00 daily. l losartan 2020- No 100mg QD Take 100 Met hodi (COZAAR) 3-03 03-[address] 100 MG 20:38: 00:00 mouth Hospita tablet 23 :00 daily. l NIFEdipine 2020- No 90mg QD Take 90 mg Methodi XL 10-20-[address] (PROCARDIA 18:53: 00:00 daily. Hosp hola XL) 90 MG 12 :00 l 24 hr tablet NIFEdipine 2020- No 90mg QD Take 90 mg Methodi XL 10-20-[address] (PROCARDIA 18:53: 00:00 daily. Hosp hola XL) 90 MG 12 :00 l 24 hr tablet Xarelto 20 Yes 20mg QD Take 1 Metho di mg tablet -03 tablet ( st 00:00: mg total) Hospita 00 by mouth l daily. Xarelto 20 Yes 20mg QD Take 1 Metho di mg tablet -03 tablet ( st 00:00: mg total) Hospita 00 by mouth l daily. rivaroxaban Yes 20mg Take [address] (Xarelto) 10-20 by mouth. [facility] - 20 mg Tab 00:00: Medical tablet 00 Center metoprolol 2020- No 100mg Q.5D Take 1 Met hodi succinate 10-20-[address] XL 00:00: 04:59 (100 mg Hospita (TOPROL-XL) 00 :00 total) by l 100 mg 24 mouth 2 hr tablet (two) times a day for 30 days. NIFEdipine 2020- No 90mg QD Take 1 Meth milagros XL 10-20-03 tablet (90 st (PROCARDIA 00:00: 04:59 mg total) H ospita XL) 90 MG 00 :00 by mouth l 24 hr daily for tablet 30 days. metoprolol 2020- No 100mg Q.5D Take 1 Met hodi succinate 10-20-[address] XL 00:00: 04:59 (100 mg Hospita (TOPROL-XL) 00 :00 total) by l 100 mg 24 mouth 2 hr tablet (two) times a day for 30 days. NIFEdipine 2020- No 90mg QD Take 1 Meth milagros XL 10-20-03 tablet (90 st (PROCARDIA 00:00: 04:59 mg total) H ospita XL) 90 MG 00 :00 by mouth l 24 hr daily for tablet 30 days. prednisoLON 2020- No [id number] 2[drp] Q.2D Administer Methodi E acetate 10-20-[address] (PRED 00:00: 05:59 both eyes Hospit a FORTE) 1 % 00 :00 every 4 l ophthalmic (four) suspension hours while awake for 2 days. prednisoLON 2020- No [id number] 2[drp] Q.2D Administer Methodi E acetate 3-03 03-[address] (PRED 00:00: 05:59 both eyes Hospit a FORTE) 1 % 00 :00 every 4 l ophthalmic (four) suspension hours while awake for 2 days. NON 2020- No 1{packe Q.5D 1 packet Metho di FORMULARY 2-10 02-10 t} into each st 22:08: 00:00 nostril 2 Hospita 48 :00 (two) l times a day as needed. [facility] Sinus Rinse NON 2020- No 2{spray Q.5D 2 sprays Metho di FORMULARY 2-10 02-10 } into each st 22:08: 00:00 nostril 2 Hospita 48 :00 (two) l times a day as needed (after nasal rinse). Oxymetazol ine HCl 0.05% - Nasal Decongesta nt NON 2020- No 2[drp] Administer Meth milagros FORMULARY 2-10 02-[address] 22:08: 00:00 both eyes. Hospit a 48 :00 l NON 2020- No 1{packe Q.5D 1 packet Metho di FORMULARY 2-10 02-10 t} into each st 22:08: 00:00 nostril 2 Hospita 48 :00 (two) l times a day as needed. [facility] Sinus Rinse NON 2020- No 2{spray Q.5D 2 sprays Metho di FORMULARY 2-10 02-10 } into each st 22:08: 00:00 nostril 2 Hospita 48 :00 (two) l times a day as needed (after nasal rinse). Oxymetazol ine HCl 0.05% - Nasal Decongesta nt NON 2020- No 2[drp] Administer Meth milagros FORMULARY 2-10 02-[address] 22:08: 00:00 both eyes. Hospit a 48 :00 l valACYclovi Yes 500mg QD Take 1 Met hodi r (VALTREX) 2-[address] 500 MG 00:00: (500 mg Hospita tablet 00 total) by l mouth daily. valACYclovi Yes 500mg QD Take 1 Met hodi r (VALTREX) 2-[address] 500 MG 00:00: (500 mg Hospita tablet 00 total) by l mouth daily. clotrimazol 2020- No Q.[id number] Apply Methodi e 09-[id number] (LOTRIMIN) 00:00: 05:59 3D 3 (three) H ospita 1 % cream 00 :00 times a l day for 30 days. fluconazole 2020- No 200mg QD Take 1 Me thodi (DIFLUCAN) 210-[address] 200 MG 00:00: 05:59 (200 [...] or vomiting for up to 30 days. clotrimazol 2020- No Q.[id number] Apply Methodi e 09-[id number] (LOTRIMIN) 00:00: 05:59 3D 3 (three) H ospita 1 % cream 00 :00 times a l day for 30 days. fluconazole 2020- No 200mg QD Take 1 Me thodi (DIFLUCAN) 09-[address] 200 MG 00:00: 05:59 (200 mg Hospita tablet 00 :00 total) by l mouth daily for 30 days. ondansetron 2020- No 4mg Q8H Take 1 Met hodi ODT 09-29- tablet (4 st (ZOFRAN-ODT 00:00: 05:59 mg total) Hospita ) 4 MG 00 :00 by mouth l disintegrat every 8 ing tablet (eight) hours as needed for nausea or vomiting for up to 30 days. NIFEdipine 2019-08 2020- No 90mg QD Take 1 Meth milagros XL 1-16 12-17 tablet (90 st (PROCARDIA 00:00: 05:59 mg total) H ospita XL) 90 MG 00 :00 by mouth l 24 hr daily for tablet 30 days. NIFEdipine 2019-08- No 90mg QD Take 1 Meth milagros XL 09-04 tablet (90 st (PROCARDIA 00:00: 05:59 mg total) H ospita XL) 90 MG 00 :00 by mouth l 24 hr daily for tablet 30 days. folic acid 2019-08- No [id number] 800ug QD Take 1 Methodi (FOLVITE) 09-[address] 800 MCG 00:00: 05:59 (800 mcg Hospi ta tablet 00 :00 total) by l mouth daily for 2 days. folic acid 2019-08- No [id number] 800ug QD Take 1 Methodi (FOLVITE) 09-[address] 800 MCG 00:00: 05:59 (800 mcg Hospi ta tablet 00 :00 total) by l mouth daily for 2 days. furosemide 2019-08- No 40mg QD Take 1 Meth milagros (LASIX) 40 09-03 tablet (40 st mg tablet 00:00: 05:59 mg total) Ho spita 00 :00 by mouth l daily for 30 days. furosemide 2019-08- No 40mg QD Take 1 Meth milagros (LASIX) 40 09-03 tablet (40 st mg tablet 00:00: 05:59 mg total) Ho spita 00 :00 by mouth l daily for 30 days. sodium 2019-08- No 650mg Q.[id number] Take 1 M ethodi bicarbonate 09-[id number] 650 mg 00:00: 05:59 3D (650 mg Hospita tablet 00 :00 total) by l mouth 3 (three) times a day for 5 days. sodium 2019-08- No 650mg Q.[id number] Take 1 M ethodi bicarbonate 09-[id number] 650 mg 00:00: 05:59 3D (650 mg Hospita tablet 00 :00 total) by l mouth 3 (three) times a day for 5 days. valACYclovi 2019-08- No [id number] 500mg QD Take 1 Methodi r (VALTREX) 09-[address] 500 MG 00:00: 00:00 (500 mg Hospita tablet 00 :00 total) by l mouth daily. ondansetron 2019-08- No [id number] 4mg Q8H Take 1 Methodi ODT 09-02 tablet (4 st (ZOFRAN-ODT 00:00: 00:00 mg total) Hospita ) 4 MG 00 :00 by mouth l disintegrat every 8 ing tablet (eight) hours as needed for nausea or vomiting for up to 30 days. valACYclovi 2019-08 No [id number] 500mg QD Take 1 Methodi r (VALTREX) 09-[address] 500 MG 00:00: 00:00 (500 mg Hospita tablet 00 :00 total) by l mouth daily. ondansetron 2019-08 No [id number] 4mg Q8H Take 1 Methodi ODT 09-02 tablet (4 st (ZOFRAN-ODT 00:00: 00:00 mg total) Hospita ) 4 MG 00 :00 by mouth l disintegrat every 8 ing tablet (eight) hours as needed for nausea or vomiting for up to 30 days. valACYclovi 2019-08 No [id number] 500mg Q.5D Take 1 Methodi r (VALTREX) 08-[address] 500 MG 00:00: 00:00 (500 mg Hospita tablet 00 :00 total) by l mouth 2 (two) times a day. valACYclovi 2019-08 No [id number] 500mg Q.5D Take 1 Methodi r (VALTREX) 08-[address] 500 MG 00:00: 00:00 (500 mg Hospita tablet 00 :00 total) by l mouth 2 (two) times a day. Xarelto 20 2020- No 20mg QD Take 20 mg Methodi mg tablet 04-[address] 00:00: 00:00 daily. Hospita 00 :00 l Xarelto 20 2020- No 20mg QD Take 20 mg Methodi mg tablet 04-[address] 00:00: 00:00 daily. Hospita 00 :00 l metoprolol No 200mg Q.5D 200 mg 2 M ethodi succinate 04-22 (two) st XL 00:00: 00:00 times a Hospita (TOPROL-XL) 00 :00 day. l 200 mg 24 hr tablet metoprolol 2020- No 200mg Q.5D 200 mg 2 M ethodi succinate 04-22 (two) st XL 00:00: 00:00 times a Hospita (TOPROL-XL) 00 :00 day. l 200 mg 24 hr tablet furosemide 2019- No 40mg QD 40 mg Metho di (LASIX) 40 04-22 11-[address] mg tablet 00:00: 00:00 Hospita 00 :00 l furosemide 2019-0 2020- No 40mg QD 40 mg Metho di (LASIX) 40 04-[address] mg tablet 00:00: 00:00 Hospita 00 :00 l losartan 2019-0 2020- No 100mg QD Take 100 Met hodi (COZAAR) 7- 11-[address] 100 MG 00:00: 00:00 mouth Hospita tablet 00 :00 daily. l losartan 2019-0 2020- No 100mg QD Take 100 Met hodi (COZAAR) 7 11-[address] 100 MG 00:00: 00:00 mouth Hospita tablet 00 :00 daily. l clonIDINE 2020-0 Yes .2mg Q.[id number] 0.2 mg 3 Methodi HCl 7-04 [id number] (three) st (CATAPRES) 00:00: 3D times a Hosp hola 0.2 MG 00 day. l tablet clonIDINE 2020-0 Yes .2mg Q.[id number] 0.2 mg 3 Methodi HCl 7-04 [id number] (three) st (CATAPRES) 00:00: 3D times a Hosp hola 0.2 MG 00 day. l tablet Immunizations Ordered Immunization Filled Immunization Date Status Commen ts Source Name Name PFIZER COVID-19 MRNA 2020-10-18 Completed Meth odist VACCINATION 00:00:00 [facility] PFIZER COVID-19 MRNA 2020-10-18 Completed Meth odist VACCINATION 00:00:00 [facility] PFIZER COVID-19 MRNA 2020-09-30 Completed Meth odist VACCINATION 00:00:00 [facility] PFIZER COVID-19 MRNA 2020-09-30 Completed Meth odist VACCINATION 00:00:00 Hospital Vital Signs Vital Name Observation Time Observation Value Comments Source Systolic blood 2021-03-29 07:24:00 175 mm[Hg] [facility] Diastolic blood 2021-03-29 07:24:00 84 mm[Hg] [facility] Heart rate 2021-03-29 07:24:00 75 /min [facility] Body temperature 2021-03-29 07:24:00 36.83 Padma [facility] Respiratory rate 2021-03-29 07:24:00 19 /min [facility] Oxygen saturation in 2021-03-29 07:24:00 97 /min [facility] Arterial blood by Medical Ce nter Pulse oximetry Body weight 2021-03-28 06:00:00 117.527 kg [facility] BMI 2021-03-28 06:00:00 31.55 kg/m2 [facility] Body height 2021-03-27 02:50:00 193 cm [facility] Systolic blood 2021-02-15 18:47:00 139 mm[Hg] [facility] pressure Diastolic blood 2021-02-15 18:47:00 66 mm[Hg] [facility] pressure Heart rate 2021-02-15 18:47:00 77 /min [facility] Body temperature 2021-02-15 18:47:[address] [facility] Respiratory rate 2021-02-15 18:47:00 16 /min [facility] Body height 2021-02-15 18:47:00 193 cm [facility] Body weight 2021-02-15 18:47:00 140.207 kg [facility] BMI 2021-02-15 18:47:00 37.62 kg/m2 [facility] Oxygen saturation in 2021-02-15 18:47:00 94 /min [facility] Arterial blood by Pulse oximetry Procedures Procedure Date / Time Performing Clinician Source Performed 2D ECHO W/ DOPPLER 2021-03-28 09:52:[address] [facility] (CW/PW/COLOR) [facility] ECG 12-LEAD 2021-03-27 20:47:07 Unknown, Hl7 Doctor [facility] POCT-GLUCOSE METER 2021-03-27 17:00:00 Jennifer Mann [facility] MR BRAIN WITH IV CONTRAST 2021-03-27 15:22:[address] [facility] MRA HEAD WITHOUT IV 2021-03-27 11:35:[address] [facility] [place] MRA NECK WITHOUT IV 2021-03-27 11:35:[address] [facility] [place] MR BRAIN WITHOUT IV 2021-03-27 11:05:[address] [facility] [place] CBC W/PLT COUNT & AUTO 2021-03-27 06:10:00 Kerry Reynoso [facility] DIFFERENTIAL [facility] SARS-COV2/RT-PCR ([facility] 2021-03-27 05:09:[address] [facility] RE[facility]) [facility] LIPID PANEL 2021-03-27 05:08:00 Kerry Reynoso [facility] HEMOGLOBIN A1C 2021-03-27 05:08:00 Stacey [facility] PROTHROMBIN TIME/INR 2021-03-27 05:08:00 Stacey [facility] TSH/FREE T4 IF INDICATED 2021-03-27 05:08:00 Becky Ibarra [facility] VITAMIN B12 AND FOLATE 2021-03-27 05:08:00 Stacey [facility] C-REACTIVE PROTEIN 2021-03-27 05:08[facility] 2021-03-27 05:08:00 Stacey [facility] COMPREHENSIVE METABOLIC 2021-03-27 05:08:00 Kerry Reynoso [facility] PANEL [facility] MAGNESIUM 2021-03-27 05:08:00 Kerry Reynoso [facility] BASIC METABOLIC PANEL (7) 2021-03-26 21:44:00 Kerry Reynoso [facility] CBC W/PLT COUNT & AUTO 2021-03-26 21:44:00 Kerry Reynoso [facility] HIGH SENSITIVITY TROPONIN 2021-03-26 21:44:00 Kerry Reynoso [facility] REPORT OF PROCEDURE - 2021-03-26 00:00:00 ProviderRenetta [facility] - ENDOSCOPY SCAN [facility] HC COMPLETE BLD COUNT 2021-02-15 18:43:00 [facility] W/AUTO DIFF [facility] COMPREHENSIVE METABOLIC 2021-02-15 18:43:00 [facility] PANEL Jeet LDH 2021-02-15 18:43:00 [facility] Jeet URIC ACID LEVEL 2021-02-15 18:43:00 [facility] Jeet ESTIMATED GFR 2021-02-15 18:43:00 [facility] Jeet MRI BRAIN & ORBIT W WO 2021-02-15 16:35:00 [facility] CONTRAST Jeet POC CREATININE 2021-02-15 15:57:00 [facility] Jeet ESTIMATED GFR 2021-02-15 15:57:00 [facility] Jeet HC COMPLETE BLD COUNT 2020-11-30 13:05:00 [facility] W/AUTO DIFF Jeet COMPREHENSIVE METABOLIC 2020-11-30 13:05:00 [facility] PANEL Jeet LDH 2020-11-30 13:05:00 [facility] Jeet URIC ACID LEVEL 2020-11-30 13:05:00 [facility] Jeet MAGNESIUM LEVEL 2020-11-30 13:05:00 [facility] Jeet ESTIMATED GFR 2020-11-30 13:05:00 [facility] 2020-11-30 12:54:00 Pingali, Jameelsky Hayesi Met [facility] TIME (PTT) Jeet PROTHROMBIN TIME WITH INR 2020-11-30 12:54:00 [facility] 2020-11-30 12:54:00 [facility] COMPLETE BLD COUNT 2020-11-23 13:05:00 [facility] W/AUTO DIFF Jeet COMPREHENSIVE METABOLIC 2020-11-23 13:05:00 [facility], Jameel [facility] PANEL Jeet LDH 2020-11-23 13:05:00 [facility], [facility] URIC ACID LEVEL 2020-11-23 13:05:00 [facility] 2020-11-23 13:05:00 [facility] EST[facility] GFR 2020-11-23 13:05:00 [facility], [facility] PARTIAL THROMBOPLASTIN 2020-11-23 12:56:00 Pingali, Jameel Mackenzie Met [facility] TIME (PTT) Jeet PROTHROMBIN TIME WITH INR 2020-11-23 12:56:00 [facility] 2020-11-23 12:56:00 [facility], [facility] HC COMPLETE BLD COUNT 2020-11-16 18:53:00 [facility] Jameel [facility] W/AUTO DIFF [facility] COMPREHENSIVE METABOLIC 2020-11-16 18:53:00 [facility] LDH 2020-11-16 18:53:00 [facility] URIC ACID LEVEL 2020-11-16 18:53:00 [facility] ESTIMATED GFR 2020-11-16 18:53:00 [facility], [facility] MRI BRAIN & ORBIT W WO 2020-11-16 17:15:00 Pingali, Jameel Gurdeep Met [facility] CONTRAST Jeet CBC WITH PLATELET AND 2020-11-09 12:54:00 [facility], Jameel [facility] DIFFERENTIAL Jeet COMPREHENSIVE METABOLIC 2020-11-09 12:54:00 [facility] Gurdeep [facility] PANEL Jeet LDH 2020-11-09 12:54:00 [facility], [facility] Jeet URIC ACID LEVEL 2020-11-09 12:54:00 [facility], [facility] Jeet MAGNESIUM LEVEL 2020-11-09 12:54:00 [facility], [facility] Jeet ESTIMATED GFR 2020-11-09 12:54:00 [facility], [facility] Jeet MANUAL DIFFERENTIAL 2020-11-09 12:54:00 [facility] 2020-11-09 12:46:00 Pingali, Jameel Gurdeep Met [facility] TIME (PTT) Jeet PROTHROMBIN TIME WITH INR 2020-11-09 12:46:00 [facility] F[facility] 2020-11-09 12:46:00 [facility], [facility] HC COMPLETE BLD COUNT 2020-11-02 12:55:00 [facility]FF Jeet COMPREHENSIVE METABOLIC 2020-11-02 12:55:00 [facility], Jameel [facility] PANEL Jeet LDH 2020-11-02 12:55:00 [facility], [facility] Jeet URIC ACID LEVEL 2020-11-02 12:55:00 [facility], [facility] Jeet MAGNESIUM LEVEL 2020-11-02 12:55:00 [facility], [facility] Jeet ESTIMATED GFR 2020-11-02 12:55:00 [facility], [facility] Jeet TYPE AND SCREEN 2020-11-02 12:47:00 [facility], [facility]ROMB[facility]LASTIN 2020-11-02 12:47:00 [facility] Met [facility] TIME (PTT) [facility] PROTHROMBIN TIME WITH INR 2020-11-02 12:47:00 [facility] 2020-11-02 12:47:00 [facility] HC COMPLETE BLD COUNT 2020-10-26 14:00:00 [facility] W/AUTO DIFF [facility] COMPREHENSIVE METABOLIC 2020-10-26 14:00:00 [facility] PANEL Jeet LDH 2020-10-26 14:00:00 [facility] URIC ACID LEVEL 2020-10-26 14:00:00 [facility] MAGNESIUM LEVEL 2020-10-26 14:00:00 [facility] ESTIMATED GFR 2020-10-26 14:00:00 [facility] PARTIAL THROMBOPLASTIN 2020-10-26 13:53:00 [facility], [facility] Met [facility] TIME (PTT) [facility] PROTHROMBIN TIME WITH INR 2020-10-26 13:53:00 [facility] F[facility]EN 2020-10-26 13:53:00 [facility] IR LUMBAR PUNCTURE 2020-10-20 16:32:00 Basia Magallanes Met [facility] CSF CELL COUNT WITH 2020-10-20 16:29:00 Basia Magallanes [facility] DIFFERENTIAL FLOW CYTOMETRY EVALUATION 2020-10-20 16:29:00 Basia Magallanes darby [facility] CYTOLOGY 2020-10-20 15:43:00 Robin Zuleta (NON-GYNECOLOGICAL) Federico REQUEST HC COMPLETE BLD COUNT 2020-10-20 10:00:00 [facility] W/AUTO DIFF [facility] BASIC METABOLIC PANEL 2020-10-20 10:00:00 [facility] HEPATIC FUNCTION PANEL 2020-10-20 10:00:00 [facility] MAGNESI[facility] LEVEL 2020-10-20 10:00:00 Christopher Villagran PHOSPHORUS LEVEL 2020-10-20 10:00:00 Christopher Villagran ospirobbie Chavez ESTIMATED GFR 2020-10-20 10:00:00 Christopher Villagran ECG 12-LEAD 2020-10-19 22:30:24 Robin Zuleta Federico CBC WITH PLATELET AND 2020-10-19 10:10:00 [facility] Johny [facility] DIFFERENTIAL [facility] BASIC METABOLIC PANEL 2020-10-19 10:10:00 [facility] Johny [facility] HEPATIC FUNCTION PANEL 2020-10-19 10:10:00 [facility] MAGNESIUM LEVEL 2020-10-19 10:10:00 Christopher Villagran PHOSPHORUS LEVEL 2020-10-19 10:10:00 Christopher Villagran ospirobbie Chavez ESTIMATED GFR 2020-10-19 10:10:00 Christopher Villagran MANUAL DIFFERENTIAL 2020-10-19 10:10:00 Abigail Johny [facility] COVID-19 QUALITATIVE 2020-10-18 23:49:00 [facility] RT-PCR Jeet CBC WITH PLATELET AND 2020-10-18 16:13:[address] [facility] DIFFERENTIAL Jeet COMPREHENSIVE METABOLIC 2020-10-18 16:13:00 [facility] PANEL Jeet LDH 2020-10-18 16:13:00 [facility] URIC ACID LEVEL 2020-10-18 16:13:00 [facility] Jeet MAGNESIUM LEVEL 2020-10-18 16:13:00 [facility] Jeet ESTIMATED GFR 2020-10-18 16:13:00 Pingal, Jameel [facility] MANUAL DIFFERENTIAL 2020-10-18 16:13:00 Pingali, Jameel [facility]deep [facility] THROMB[facility]LASTIN 2020-10-18 15:53:00 Pingali, Jameel Gurdeep [facility] TIME (PTT) Jeet PROTHROMBIN TIME WITH INR 2020-10-18 15:53:00 [facility] Jameel [facility] Jeet FIBRINOGEN 2020-10-18 15:53:00 [facility]el [facility] CBC WITH PLATELET AND 2020-10-15 14:38:00 [facility] J[facility]el [facility] DIFFERENTIAL Jeet COMPREHENSIVE METABOLIC 2020-10-15 14:38:00 [facility] Jeet LDH 2020-10-15 14:38:00 [facility], [facility] URIC ACID LEVEL 2020-10-15 14:38:00 [facility], [facility] MAGNESIUM LEVEL 2020-10-15 14:38:00 [facility], [facility] Jeet ESTIMATED GFR 2020-10-15 14:38:00 [facility], [facility] MANUAL DIFFERENTIAL 2020-10-15 14:38:00 [facility], Jameel [facility] PARTIAL THROMBOPLASTIN 2020-10-15 14:32:00 Pingalsky, Jameel Gurdeep [facility] TIME (PTT) Jeet PROTHROMBIN TIME WITH INR 2020-10-15 14:32:00 [facility] Jameel [facility] Jeet FIBRINOGEN 2020-10-15 14:32:00 [facility] COMPLETE BLD COUNT 2020-10-12 13:55:00 [facility], [facility] W[facility]AUTO DIFF [facility] COMPREHENSIVE METABOLIC 2020-10-12 13:55:00 [facility] Jameel Gurdeep [facility] PANEL Jeet LDH 2020-10-12 13:55:00 [facility] URIC ACID LEVEL 2020-10-12 13:55:00 Pingali, [facility] MAGNESIUM LEVEL 2020-10-12 13:55:00 [facility], [facility] ESTIMATED GFR 2020-10-12 13:55:00 [facility], [facility] PARTIAL THROMBOPLASTIN 2020-10-12 13:42:00 [facility]el [facility]deep [facility] TIME (PTT[facility] Jeet PROTHROMBIN TIME WITH INR 2020-10-12 13:42:00 [facility], [facility] FIBRINOGEN 2020-10-12 13:42:00 [facility] HC COMPLETE BLD COUNT 2020-10-07 14:44:00 [facility] W/AUTO DIFF Jeet COMPREHENSIVE METABOLIC 2020-10-07 14:44:00 [facility] PANEL Jeet LDH 2020-10-07 14:44:00 [facility], [facility] URIC ACID LEVEL 2020-10-07 14:44:00 [facility] MAGNESIUM LEVEL 2020-10-07 14:44:00 [facility], [facility] ESTIMATED GFR 2020-10-07 14:44:00 [facility], [facility] TYPE AND SCREEN 2020-10-07 14:32:00 [facility], [facility] PARTIAL THROMBOPLASTIN 2020-10-07 14:32:00 [facility], Jameel Gurdeep [facility] TIME (PTT) Jeet PROTHROMBIN TIME WITH INR 2020-10-07 14:32:00 [facility], [facility] FIBRINOGEN 2020-10-07 14:32:00 [facility], [facility] METHOTREXATE LEVEL 2020-10-07 14:32:00 [facility], Jameel [facility] Jeet HC COMPLETE BLD COUNT 2020-09-30 17:00:00 [facility] W/AUTO DIFF Jeet COMPREHENSIVE METABOLIC 2020-09-30 17:00:00 [facility] PANEL Jeet LDH 2020-09-30 17:00:00 [facility] URIC ACID LEVEL 2020-09-30 17:00:00 [facility] MAGNESIUM LEVEL 2020-09-30 17:00:00 [facility] ESTIMATED GFR 2020-09-30 17:00:00 [facility] IR LUMBAR PUNCTURE 2020-09-29 19:02:00 Basia Magallanes [facility] FLOW CYTOMETRY EVALUATION 2020-09-29 18:59:00 [facility] CSF CELL COUNT WITH 2020-09-29 18:59:00 [facility] DIFFERENTIAL Jeet CYTOLOGY 2020-09-29 16:18:00 Mojica [facility] ospital (NON-GYNECOLOGICAL) REQUEST PROTHROMBIN TIME WITH INR 2020-09-29 14:39:[address] [facility] HC COMPLETE BLD COUNT 2020-09-29 09:35:00 [facility] W/AUTO DIFF BASIC METABOLIC PANEL 2020-09-29 09:35:00 [facility] MAGNESIUM LEVEL 2020-09-29 09:35:00 [facility] ospital PHOSPHORUS LEVEL 2020-09-29 09:35:00 [facility] URIC ACID LEVEL 2020-09-29 09:35:00 [facility] ospital LDH 2020-09-29 09:35:00 [facility] ospital ESTIMATED GFR 2020-09-29 09:35:00 [facility] ospital US DUPLEX VENOUS LOWER 2020-09-28 18:30:00 [facility] EXTREMITY BILATERAL HC COMPLETE BLD COUNT 2020-09-28 09:30:00 [facility] W/AUTO DIFF BASIC METABOLIC PANEL 2020-09-28 09:30:00 [facility] MAGNESIUM LEVEL 2020-09-28 09:30:00 [facility] Taoism H ospital PHOSPHORUS LEVEL 2020-09-28 09:30:00 [facility] HEPATIC FUNCTION PANEL 2020-09-28 09:30:00 [facility] URIC ACID LEVEL 2020-09-28 09:30:00 [facility] [place] Tao[facility] H ospital LDH 2020-09-28 09:30:00 [facility], [facility] ospital ESTIMATED GFR 2020-09-28 09:30:00 [facility], [facility] ospital HC COMPLETE BLD COUNT 2020-09-27 17:10:00 [facility] W/AUTO DIFF COVID-19 QUALITATIVE 2020-09-27 17:00:00 [facility] RT-PCR TYPE AND SCREEN 2020-09-27 17:00:00 [facility] Taoism H ospital LDH 2020-09-27 16:25:00 [facility] ospital HEPATIC FUNCTION PANEL 2020-09-27 16:25:00 [facility] MAGNESIUM LEVEL 2020-09-27 16:24:00 [facility] H ospital PHOSPHORUS LEVEL 2020-09-27 16:24:00 [facility] URIC ACID LEVEL 2020-09-27 16:24:00 [facility], [facility] ospital BASIC METABOLIC PANEL 2020-09-27 16:24:00 [facility] ESTIMATED GFR 2020-09-27 16:24:00 [facility] [place] Tao[facility] H ospital HC COMPLETE BLD COUNT 2020-09-07 19:36:[address] [facility] W/AUTO DIFF Jeet COMPREHENSIVE METABOLIC 2020-09-07 19:36:00 Pingali, [facility] PANEL Jeet LDH 2020-09-07 19:36:00 [facility] URIC ACID LEVEL 2020-09-07 19:36:00 [facility] Jeet ESTIMATED GFR 2020-09-07 19:36:00 [facility] Jeet RAD ONC COURSE SUMMARY 2020-09-06 21:59:25 Provider, Unknown [facility] RAD ONC DAILY TREATMENT 2020-09-03 15:21:06 Provider, Unknown [facility] RAD ONC DAILY TREATMENT 2020-09-02 15:22:39 Provider, Unknown [facility] RAD ONC DAILY TREATMENT 2020-09-01 15:27:52 Provider, Unknown [facility] RAD ONC DAILY TREATMENT 2020-08-31 15:45:06 Provider, Unknown [facility] RAD ONC DAILY TREATMENT 2020-08-30 15:20:33 Provider, Unknown [facility] RAD ONC DAILY TREATMENT 2020-08-27 15:29:23 Provider, Unknown [facility] RAD ONC DAILY TREATMENT 2020-08-26 15:06:10 Provider, Unknown [facility] RAD ONC DAILY TREATMENT 2020-08-25 15:11:31 Provider, Unknown [facility] RAD ONC DAILY TREATMENT 2020-08-24 22:38:50 Provider, Unknown [facility] RAD ONC DAILY TREATMENT 2020-08-23 16:19:47 Provider, Unknown [facility] RAD ONC DAILY TREATMENT 2020-08-19 15:15:10 Provider, Unknown [facility] RAD ONC DAILY TREATMENT 2020-08-18 15:28:33 Provider, Unknown [facility] HC COMPLETE BLD COUNT 2020-08-17 17:35:00 [facility] W/AUTO DIFF Jeet COMPREHENSIVE METABOLIC 2020-08-17 17:35:00 [facility] PANEL Jeet LDH 2020-08-17 17:35:00 [facility] URIC ACID LEVEL 2020-08-17 17:35:00 [facility] MAGNESIUM LEVEL 2020-08-17 17:35:00 [facility] Jeet ESTIMATED GFR 2020-08-17 17:35:00 [facility] PARTIAL THROMBOPLASTIN 2020-08-17 17:28:00 [facility] Met [facility] TIME (PTT) [facility] PROTHROMBIN TIME WITH INR 2020-08-17 17:28:00 [facility] Jeet FIBRINOGEN 2020-08-17 17:28:00 [facility] RAD [facility]C DAILY TREATMENT 2020-08-17 16:09:53 Provider, Unknown [facility] RAD ONC DAILY TREATMENT 2020-08-16 15:58:54 Provider, Unknown [facility] RAD ONC DAILY TREATMENT 2020-08-12 21:03:57 Provider, Unknown [facility] RAD ONC DAILY TREATMENT 2020-08-11 22:24:26 Provider, Unknown [facility] RAD ONC DAILY TREATMENT 2020-08-10 22:00:32 Provider, Unknown [facility] RAD ONC DAILY TREATMENT 2020-08-09 19:24:35 Provider, Unknown [facility] RAD ONC DAILY TREATMENT 2020-08-06 19:35:32 Provider, Unknown [facility] RAD ONC DAILY TREATMENT 2020-08-05 19:37:17 Provider, Unknown [facility] HC COMPLETE BLD COUNT 2020-07-13 15:40:00 [facility] W/AUTO DIFF Jeet COMPREHENSIVE METABOLIC 2020-07-13 15:40:00 [facility] PANEL Jeet LDH 2020-07-13 15:40:00 [facility] URIC ACID LEVEL 2020-07-13 15:40:00 [facility] MAGNESIUM LEVEL 2020-07-13 15:40:00 [facility] ESTIMATED GFR 2020-07-13 15:40:00 [facility] PARTIAL THROMBOPLASTIN 2020-07-13 15:32:00 [facility] Met [facility] TIME (PTT) [facility] PROTHROMBIN TIME WITH INR 2020-07-13 15:32:00 [facility] FIBRINOGEN 2020-07-13 15:32:00 [facility] CBC WITH PLATELET AND 2020-07-08 13:50:00 [facility] DIFFERENTIAL Jeet COMPREHENSIVE METABOLIC 2020-07-08 13:50:00 [facility], [facility] PANEL Jeet LDH 2020-07-08 13:50:00 [facility] URIC ACID LEVEL 2020-07-08 13:50:00 [facility] MAGNESIUM LEVEL 2020-07-08 13:50:00 [facility] PARTIAL THROMBOPLASTIN 2020-07-08 13:50:00 [facility] TIME (PTT) Jeet PROTHROMBIN TIME WITH INR 2020-07-08 13:50:00 [facility] FIBRINOGEN 2020-07-08 13:50:00 [facility] Jeet ESTIMATED GFR 2020-07-08 13:50:00 [facility] MANUAL DIFFERENTIAL 2020-07-08 13:50:00 [facility] BASIC METABOLIC PANEL 2020-07-05 10:00:00 Song [facility] HC COMPLETE BLD COUNT 2020-07-05 10:00:00 Song [facility] W/AUTO DIFF [facility] MAGNESIUM LEVEL 2020-07-05 10:00:00 Robin Zuleta [facility] PHOSPHORUS LEVEL 2020-07-05 10:00:00 [facility] 2020-07-05 10:00:00 [facility] PROT[facility] TIME WITH INR 2020-07-05 10:00:00 Song [facility] METHOTREXATE LEVEL 2020-07-05 10:00:00 [facility] EST[facility] 2020-07-05 10:00:00 Dinakar, [facility] Taoism spital [facility] METHOTREXATE LEVEL 2020-07-04 21:20:00 Derek Jeffries [facility] BASIC METABOLIC PANEL 2020-07-04 10:30:00 [facility] MAGNESIUM LEVEL 2020-07-04 10:30:00 Regine Valdovinos Ho spital PHOSPHORUS LEVEL 2020-07-04 10:30:00 Regine Valdovinos H ospital HC COMPLETE BLD COUNT 2020-07-04 10:30:00 Regine Valdovinos [facility] W/AUTO DIFF ESTIMATED GFR 2020-07-04 10:30:00 Regine Valdovinos spital METHOTREXATE LEVEL 2020-07-04 10:30:00 Dinakar, [facility] BASIC METABOLIC PANEL 2020-07-03 10:15:00 Regine Valdovinos [facility] MAGNESIUM LEVEL 2020-07-03 10:15:00 Regine Valdovinos spital PHOSPHORUS LEVEL 2020-07-03 10:15:00 Regine Valdovinos H ospital HC COMPLETE BLD COUNT 2020-07-03 10:15:00 Regine Valdovinos [facility] W/AUTO DIFF ESTIMATED GFR 2020-07-03 10:15:00 Regine Valdovinos spital METHOTREXATE LEVEL 2020-07-03 10:15:00 Dinakar, [facility] POC URINALYSIS DIPSTICK 2020-07-03 08:30:[address] [facility] US ABDOMINAL LIMITED 2020-07-03 00:30:00 Dinakar, [facility] BASIC METABOLIC PANEL 2020-07-02 10:50:00 Regine Valdovinos [facility] MAGNESIUM LEVEL 2020-07-02 10:50:00 Regine Valdovinos Ho spital PHOSPHORUS LEVEL 2020-07-02 10:50:00 Regine Valdovinos H ospital HC COMPLETE BLD COUNT 2020-07-02 10:50:00 [facility]FF METHOTREXATE LEVEL 2020-07-02 10:50:00 Dinakar, [facility] ESTIMATED GFR 2020-07-02 10:50:00 Regine Valdovinos Ho spital POC URINALYSIS DIPSTICK 2020-07-02 10:15:[address] [facility] BASIC METABOLIC PANEL 2020-07-01 10:15:00 Regine Valdovinos [facility] MAGNESIUM LEVEL 2020-07-01 10:15:00 Regine Valdovinos Ho spital PHOSPHORUS LEVEL 2020-07-01 10:15:00 Regine Valdovinos H ospital HC COMPLETE BLD COUNT 2020-07-01 10:15:00 Regine Valdovinos [facility] W/AUTO DIFF METHOTREXATE LEVEL 2020-07-01 10:15:00 [facility] Jessi ESTIMATED GFR 2020-07-01 10:15:00 [facility] BASIC METABOLIC PANEL 2020-06-30 10:00:00 Regine Valdovinos [facility] MAGNESIUM LEVEL 2020-06-30 10:00:00 Regine Valdovinos Ho spital PHOSPHORUS LEVEL 2020-06-30 10:00:00 Regine Valdovinos H ospital HC COMPLETE BLD COUNT 2020-06-30 10:00:00 Regine Valdovinos [facility] W/AUTO DIFF ESTIMATED GFR 2020-06-30 10:00:00 Regine Valdovinos Ho spital METHOTREXATE LEVEL 2020-06-30 10:00:00 [facility]IC METABOLIC PANEL 2020-06-29 09:45:00 Regine Valdovinos [facility] MAGNESIUM LEVEL 2020-06-29 09:45:00 Regine Valdovinos Ho spital PHOSPHORUS LEVEL 2020-06-29 09:45:00 Regine Valdovinos H ospital CBC WITH PLATELET AND 2020-06-29 09:45:00 Regine Valdovinos [facility] DIFFERENTIAL ESTIMATED GFR 2020-06-29 09:45:00 Regine Valdovinos Ho spital METHOTREXATE LEVEL 2020-06-29 09:45:00 Jameel Leon [facility] MANUAL DIFFERENTIAL 2020-06-29 09:45:00 Regine Valdovinos [facility] HEPATIC FUNCTION PANEL 2020-06-29 09:45:00 Aruna Regine [facility] BASIC METABOLIC PANEL 2020-06-28 09:19:00 [facility] MAGNESIUM LEVEL 2020-06-28 09:19:00 Aruna Regineangeles [facility] Ho spital PHOSPHORUS LEVEL 2020-06-28 09:19:00 Regine Valdovinos H ospital CBC WITH PLATELET AND 2020-06-28 09:19:00 [facility] DIFFERENTIAL METHOTREXATE LEVEL 2020-06-28 09:19:00 Jameel Leon [facility] ESTIMATED GFR 2020-06-28 09:19:00 Aruna Regineangeles [facility] Ho spital MANUAL DIFFERENTIAL 2020-06-28 09:19:00 [facility] XR CHEST 1 VW PORTABLE 2020-06-27 17:34:51 Jameel Leon [facility] METHOTREXATE LEVEL 2020-06-27 10:00:00 [facility] CBC WITH PLATELET AND 2020-06-27 10:00:00 [facility] DIFFERENTIAL BASIC METABOLIC PANEL 2020-06-27 10:00:00 [facility] MANUAL DIFFERENTIAL 2020-06-27 10:00:00 [facility] POC URINALYSIS DIPSTICK 2020-06-27 07:30:00 Jameel Leon [facility] COMPLETE BLD COUNT 2020-06-26 09:45:00 [facility] W/AUTO DIFF BASIC METABOLIC PANEL 2020-06-26 09:45:00 [facility] METHOTREXATE LEVEL 2020-06-26 09:45:00 [facility] ESTIMATED GFR 2020-06-26 09:45:00 Zee Valdovinosg Taoism Ho spital POC URINALYSIS DIPSTICK 2020-06-26 04:13:00 [facility] POC URINALYSIS DIPSTICK 2020-06-25 11:09:00 [facility] HEPATIC FUNCTION PANEL 2020-06-25 09:30:00 Pingali, Jameel Gurdeep [facility] COMPLETE BLD COUNT 2020-06-25 09:30:[address] [facility] [address] [facility] W/AUTO DIFF Jeet COMPREHENSIVE METABOLIC 2020-06-25 09:30:00 [facility] PANEL Jeet METHOTREXATE LEVEL 2020-06-25 09:30:00 [facility] ESTIMATED GFR 2020-06-25 09:30:00 [facility] POC URINALYSIS DIPSTICK 2020-06-25 05:00:00 [facility] BASIC METABOLIC PANEL 2020-06-24 21:30:00 [facility] Jessi ESTIMATED GFR 2020-06-24 21:30:00 [facility] Jessi METHOTREXATE LEVEL 2020-06-24 21:30:00 Ebony Fong [facility] Hilda BASIC METABOLIC PANEL 2020-06-24 09:54:00 Regine Valdovinos [facility] MAGNESIUM LEVEL 2020-06-24 09:54:00 Regine Valdovinos Ho spital PHOSPHORUS LEVEL 2020-06-24 09:54:00 Regine Valdovinos H ospital URIC ACID LEVEL 2020-06-24 09:54:00 Regine Valdovinos Ho spital LDH 2020-06-24 09:54:00 Regine Valdovinos Ho spital ESTIMATED GFR 2020-06-24 09:54:00 Regine Valdovinos Ho spital HC COMPLETE BLD COUNT 2020-06-24 09:15:00 Regine Valdovinos [facility] W/AUTO DIFF METHOTREXATE LEVEL 2020-06-24 09:15:00 [facility] Jameel [facility] POC URINALYSIS DIPSTICK 2020-06-23 20:09:00 [facility]YS[facility] DIPSTICK 2020-06-23 18:52:00 [facility] POC URINALYSIS DIPSTICK 2020-06-23 16:32:00 [facility] CBC WITH PLATELET AND 2020-06-23 09:00:00 [facility] BASIC METABOLIC PANEL 2020-06-23 09:00:00 [facility] MAGNESIUM LEVEL 2020-06-23 09:00:00 Regine Valdovinos Ho spital PHOSPHORUS LEVEL 2020-06-23 09:00:00 Regine Valdovinos H ospital URIC ACID LEVEL 2020-06-23 09:00:00 Regine Valdovinos Ho spital LDH 2020-06-23 09:00:00 Regine Valdovinos Ho spital ESTIMATED GFR 2020-06-23 09:00:00 Regine Valdovinos spital MANUAL DIFFERENTIAL 2020-06-23 09:00:00 Regine Valdovinos [facility] HC COMPLETE BLD COUNT 2020-06-23 03:00:00 [facility] W[facility]O DIFF PROTHROMBIN TIME WITH INR 2020-06-23 03:00:00 Regine Valdovinos [facility] PARTIAL THROMBOPLASTIN 2020-06-23 03:00:00 Regine Valdovinos [facility] TIME (PTT) BASIC METABOLIC PANEL 2020-06-23 03:00:00 Regine Valdovinos [facility] ESTIMATED GFR 2020-06-23 03:00:00 Regine Valdovinos spital IR PORT PLACEMENT 2020-06-23 00:52:45 Aruna Regine [facility] POC URINALYSIS DIPSTICK 2020-06-22 20:37:00 Cristopher [facility] HC COMPLETE BLD COUNT 2020-06-22 10:25:00 Regine Valdovinos [facility] W/AUTO DIFF BASIC METABOLIC PANEL 2020-06-22 10:25:00 Regine Valdovinos [facility] MAGNESIUM LEVEL 2020-06-22 10:25:00 Regine Valdovinos Ho spital PHOSPHORUS LEVEL 2020-06-22 10:25:00 Regine Valdovinos H ospital HEPATIC FUNCTION PANEL 2020-06-22 10:25:00 [facility]IC ACID LEV[facility] 2020-06-22 10:25:00 Regine Valdovinos Ho spital LDH 2020-06-22 10:25:00 Regine Valdovinos spital ESTIMATED GFR 2020-06-22 10:25:00 Regine Valdovinos spital COMPREHENSIVE METABOLIC 2020-06-22 00:29:00 [facility], [facility] PANEL Jeet MAGNESIUM LEVEL 2020-06-22 00:29:00 [facility], [facility] Jeet ESTIMATED GFR 2020-06-22 00:29:00 [facility] Jeet COVID-19 QUALITATIVE 2020-06-21 21:55:00 [facility] RT-PCR Jeet HC COMPLETE BLD COUNT 2020-06-21 20:41:00 [facility] W/AUTO DIFF Jessi COMPREHENSIVE METABOLIC 2020-06-21 20:41:00 [facility] PANEL Jessi LDH 2020-06-21 20:41:00 [facility] Jessi URIC ACID LEVEL 2020-06-21 20:41:00 [facility] Jessi ESTIMATED GFR 2020-06-21 20:41:00 [facility] Jessi MISCELLANEOUS REFERRAL 2020-06-15 20:00:00 [facility] TEST Jeet SURGICAL PATHOLOGY 2020-06-15 19:31:[address] [facility] [facility] REQUEST Jeet CT BONE MARROW BX W ASP 2020-06-15 19:09:08 [facility] SAME SITE Jeet FLOW CYTOMETRY EVALUATION 2020-06-15 [facility]00 [facility] 2020-06-11 17:22:00 [facility] (NON-GYNECOLOGICAL) Jeet REQUEST GLUCOSE LEVEL, CSF 2020-06-11 17:20:[address] [facility] Jeet PROTEIN, CSF 2020-06-11 17:20:00 [facility] Jeet FLOW CYTOMETRY EVALUATION 2020-06-11 17:20:00 [facility] Jeet CSF CELL COUNT WITH 2020-06-11 17:20:00 [facility] DIFFERENTIAL Jeet IR LUMBAR PUNCTURE 2020-06-11 14:47:59 [facility] COMPREHENSIVE METABOLIC 2020-06-08 17:43:00 [facility]ameel [facility] PANEL Jeet HC COMPLETE BLD COUNT 2020-06-08 17:43:00 [facility], [facility] W/AUTO DIFF Jeet URIC ACID LEVEL 2020-06-08 17:43:00 [facility] 2020-06-08 17:43:00 [facility] PARTIAL THROMBOPLASTIN 2020-06-08 17:43:00 [facility], [facility] TIME (PTT) Jeet PROTHROMBIN TIME WITH INR 2020-06-08 17:43:00 [facility], [facility] ESTIMATED GFR 2020-06-08 17:43:00 [facility] CYT[facility] 2020-06-07 21:36:00 [facility] (NON-GYNECOLOGICAL) REQUEST AFB CULTURE 2020-06-07 16:14:00 [facility] FUNGUS CULTURE 2020-06-07 16:14:00 [facility] EYE CULTURE 2020-06-07 15:14:00 [facility]iona Bow[facility]ital EYE CULTURE, ANAEROBIC 2020-06-07 15:14:00 Fiona Bowman [facility] AFB STAIN 2020-06-07 15:14:00 Fiona Bowman [facility]ital GRAM STAIN 2020-06-07 15:14:00 [facility]iona Bowman [facility]ital AVILA AMEZCUA VIRUS (EBV) 2020-06-07 15:02:00 Fiona Bowman [facility] BY PCR CYTOLOGY 2020-06-07 15:02:00 [facility] (NON-GYNECOLOGICAL) REQUEST VITRECTOMY 2020-06-07 14:27:00 Fiona Bowman spital PET CT SKULL BASE TO MID 2020-06-03 19:30:18 [facility] THIGH Jeet POC GLUCOSE 2020-06-03 17:56:00 [facility] HC COMPLETE BLD COUNT 2020-06-01 17:13:00 [facility] W/AUTO DIFF Jeet COMPREHENSIVE METABOLIC 2020-06-01 17:13:00 [facility] PANEL Jeet LDH 2020-06-01 17:13:00 [facility] URIC ACID LEVEL 2020-06-01 17:13:00 [facility] HEPATITIS ACUTE PANEL 2020-06-01 17:13:00 [facility] ESTIMATED GFR 2020-06-01 17:13:00 [facility] HIV AG/AB COMBINATION 2020-06-01 17:13:00 [facility] AVILA AMEZCUA VIRUS (EBV) 2020-05-24 14:58:00 Fiona Bowman [facility] BY PCR CYTOLOGY 2020-05-24 14:58:00 [facility] Bowman [facility] (NON-GYNECOLOGICAL) REQUEST MISCELLANEOUS REFERRAL 2020-05-24 14:54[facility]00 [facility] TEST CYTOLOGY 2020-05-24 14:54:00 Fiona Bowman [facility] (NON-GYNECOLOGICAL) REQUEST VITRECTOMY 2020-05-24 14:19:00 Fiona Bowman [facility]ital COVID-19 QUALITATIVE 2020-05-20 12:23:00 [facility] EXTERNAL STUDY 2020-05-07 19:04:00 [facility] MRI HEAD EXTERNAL STUDY 2020-05-07 18:13:00 [facility] Plan of Care Planned Activity Planned Date Details Comments Source Future Scheduled 2021-04-20 INFLUENZA VACCINE (#1) [facility]:00 [code = INFLUENZA Medical Ce nter VACCINE (#1)] Future Scheduled 2020-08-[address] [facility] - Test 00:00:00 (12+) [code = Medical Center DEPRESSION SCREENING (12+)] Future Scheduled 2020-08-20 FALLS RISK SCREENING [facility] - Test 00:00:00 [code = FALLS RISK Medical C enter SCREENING] Future Scheduled 2015-01-[address] [facility] Test 00:00:00 WELLNESS (YEAR 2 or Medical Center FIRST YEAR if no IPPE) [code = MEDICARE ANNUAL WELLNESS (YEAR 2 or FIRST YEAR if no IPPE)] Future Scheduled 2014 PNEUMOCOCCAL 65+ YRS [facility] - Test 00:00:00 (1 of 1 - Medical Center [id number] PCV13) [code = PNEUMOCOCCAL 65+ YRS (1 of 1 - [id number]_Zoxkahk PCV13)] Future Scheduled 1999 SHINGLES VACCINES ([address] [facility] - Test 00:00:00 of 2) [code = SHINGLES Medic al Center VACCINES (1 of 2)] Future Scheduled 1968-02-15 DTAP/TDAP/TD VACCINES [facility] Test 00:00:00 (1 - Tdap) [code = Medical C enter DTAP/TDAP/TD VACCINES (1 - Tdap)] Future Scheduled 1967 HEPATITIS C [facility]CREENING [facility] Test 00:00:00 [code = HEPATITIS C Medical Center SCREENING] Future Scheduled [address] [facility] [facility] colon (procedure) [code = 601422758] Future Scheduled [facility] [code = COLONOSCOPY SCREENING] Future Scheduled SHINGLES VACCINES (#1) [facility] [code = SHINGLES VACCINES (#1)] Future Scheduled 65+ [facility] Test VACCINE (1 of 1 - PPSV23) [code = 65+ PNEUMOCOCCAL VACCINE (1 of 1 - PPSV23)] Future Scheduled [facility]FLUENZA [facility]ACCINE [facility] [code = INFLUENZA VACCINE] Future Scheduled [facility] [code = COLONOSCOPY SCREENING] Future Scheduled SHINGLES VACCINES (#1) [facility] Test [code = SHINGLES VACCINES (#1)] Future Scheduled 65+ [facility] VACCINE (1 of 1 - PPSV23) [code = 65+ PNEUMOCOCCAL VACCINE (1 of 1 - PPSV23)] Future Scheduled INFLUENZA [facility]ACCINE [facility] [code = INFLUENZA VACCINE] Encounters Start End Encounter Admission Attending Care Care Encounter Source Date/Time Date/Time Type Type Clinicians Facility Department ID 2020-07-20 [facility], 1.2.840.1 [id number] Methodi 00:00:00 Encounter Chandu [address]2573.1.[address] 3.430.2.7 Hospit a .3.016998 l .8 2020-07-20 [facility], 1.2.840.1 [id number] 6132 Methodi 00:00:00 Encounter Chandu 99483.1.[address] 3.430.2.7 Hospit a .3.482840 l .8 2021-03-21 2021-03-21 Orders Carlos 1.2.840.1 [id number] 6997 Methodi 00:00:00 00:00:00 Only Nidhi 27362.1.[address] 3.430.2.7 Hospit a .3.488298 l .8 2021-03-21 2021-03-21 Telephone Edward 1.2.840.1 [id number] 368 [id number] Methodi 00:00:00 00:00:00 Jameel Gurdeep 84211.1.[address] Jeet 3.430.2.7 Hospit a .3.019064 l .8 2021-03-21 2021-03-21 Orders Carlos 1.2.840.1 [id number] 1378 Methodi 00:00:00 00:00:00 Only Nidhi 97957.1.[address] 3.430.2.7 Hospit a .3.713596 l .8 2021-03-21 2021-03-21 Telephone Edward, 1.2.840.1 [id number] Methodi 00:00:00 00:00:00 Jameel Gurdeep [address]80.1.[address] Jeet 3.430.2.7 Hospit a .3.720031 l .8 2021-03-16 2021-03-16 Orders Kelly Berman 1.2.840.1 [id number] 771 [id number] Methodi 00:00:00 00:00:[address] 3.430.2.7 Hospit a .3.539020 l .8 2021-03-16 2021-03-16 Kelly Horton 1.2.840.1 [id number] 945 [id number] Methodi 00:00:00 00:00:[address] 3.430.2.7 Hospit a .3.133188 l .8 2021-02-15 2021-02-15 [facility], 1.2.840.1 [id number] 2099 194917 Methodi 10:23:01 23:59:00 Encounter Jameel Gurdeep 03786.1.1 457 s t Jeet 3.430.2.7 Hospit a .3.455950 l .8 2021-02-15 2021-02-15 [facility], 1.2.840.1 [id number] 2099 [id number] Methodi 10:23:01 23:59:00 Encounter Jameel Gurdeep 73754.1.1 457 s t Jeet 3.430.2.7 Hospit a .3.631977 l .8 2021-02-15 2021-02-15 [facility], 1.2.840.1 [id number] 32484 Methodi 13:06:35 14:07:49 Visit Jameel Gurdeep 84083.1.[address] Jeet 3.430.2.7 Hospit a .3.635300 l .8 2021-02-15 2021-02-15 [facility], 1.2.840.1 [id number] 88440 47318 Methodi 13:06:35 14:07:49 Visit Jameel Gurdeep 37674.1.[address] Jeet 3.430.2.7 Hospit a .3.814162 l .8 2021-02-15 2021-02-15 [facility], 1.2.840.1 [id number] 96365 21029 Methodi 13:21:34 13:26:34 Jameel Gurdeep 79811.1.[address] Jeet 3.430.2.7 Hospit a .3.034880 l .8 2021-02-15 2021-02-15 Lab Edward, 1.2.840.1 [id number] 72316 88188 Methodi 13:21:34 13:26:34 Jameel Mackenzie 69004.1.[address] Jeet 3.430.2.7 Hospit a .3.824155 l .8 2021-02-15 2021-02-15 Kelly Horton 1.2.840.1 [id number] 467 [id number] Methodi 00:00:00 00:00:[address] 3.430.2.7 Hospit a .3.830308 l .8 2021-02-15 2021-02-15 Orders Kelly Berman 1.2.840.1 [id number] 933 [id number] Methodi 00:00:00 00:00:[address] 3.430.2.7 Hospit a .3.468223 l .8 2021-02-15 2021-02-15 Travel 1.2.840.1 1.2.755.354 6052 839896 Methodi 00:00:00 00:00:[address] 3.430.2.7 0.2.7.3.698 Ho spita .3.189480 084.8 l .8 2021-02-15 2021-02-15 Travel 1.2.840.1 1.2.997.826 3120 005959 Methodi 00:00:00 00:00:[address] 3.430.2.7 0.2.7.3.698 Ho spita .3.645877 084.8 l .8 2021-02-15 2021-02-15 Kelly Horton 1.2.840.1 [id number] 852 [id number] Methodi 00:00:00 00:00:[address] 3.430.2.7 Hospit a .3.666417 l .8 2021-02-15 2021-02-15 Orders Kelly Berman 1.2.840.1 [id number] 516 [id number] Method 00:00:00 00:00:[address] 3.430.2.7 Hospit a .3.534634 l .8 2021-02-02 2021-02-02 [facility] 1.2.353.075 6257 0199 10:26:00 14:25:00 Encounter Zi Fang 350.1.13.10 [place] 4.2.7.2.686 Surgical [id number] [place] 071 2021-02-02 2021-02-02 Surgery [facility] 1.2.840.114 [id number] 63 13:00:00 13:44:00 [place] 350.1.13.10 [place] 4.2.7.2.686 Surgical [id number] [place] 020 2021-02-01 2021-02-01 Orders Doctor KAUR 1.2.840.114 [id number] 69 00:00:00 00:00:00 Only Unassigned, JAYJAY 350.1.13.10 [place] [facility] 4.2.7.2.686 [id number] 009 2021-01-12 2021-01-12 [facility] 1.2.198.182 6086 8068 09:07:00 13:16:00 Encounter Zi Fang 350.1.13.10 [place] 4.2.7.2.686 Surgical [id number] [place] [address] 2021-01-12 2021-01-12 Surgery [facility] 1.2.840.114 [id number] 48 11:26:00 12:03:00 [place] 350.1.13.10 [place] 4.2.7.2.686 Surgical [id number] [place] 020 2021-01-11 2021-01-11 Laboratory Only, Adc [facility] 1.2.840.114 8 [id number] 08:34:59 08:49:59 Only Test Leoncio 350.1.13.10 [place] 4.2.7.2.686 [place] [id number] 353 2021-01-11 2021-01-11 Orders Doctor NATASHA 1.2.840.114 [id number] 63 00:00:00 00:00:00 Only Unassigned, JAYJAY 350.1.13.10 [place] [facility] 4.2.7.2.686 [id number] 009 2021-01-04 2021-01-04 Nurse Only Pingali, 1.2.840.1 [id number] Methodi 13:31:45 14:01:45 Jameel Gurdeep 70515.1.[address] Jeet 3.430.2.7 Hospit a .3.491529 l .8 2021-01-04 2021-01-04 Nurse Only Pingali, 1.2.840.1 [id number] Methodi 13:31:45 14:01:45 Jameel Gurdeep 85380.1.[address] Jeet 3.430.2.7 Hospit a .3.010019 l .8 2021-01-04 2021-01-04 Travel 1.2.840.1 1.2.082.247 6942 817670 Methodi 00:00:00 00:00:[address] 3.430.2.7 0.2.7.3.698 Ho spita .3.586894 084.8 l .8 2021-01-04 2021-01-04 Travel 1.2.840.1 1.2.608.834 1077 760105 Methodi 00:00:00 00:00:[address] 3.430.2.7 0.2.7.3.698 Ho spita .3.790232 084.8 l .8 2021-01-03 2021-01-03 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 Alexandra [facility] 1.2.840.114 [id number] 10:41:29 10:56:29 Visit Lab Main [place] 350.1.13.10 [place] 4.2.7.2.686 [place] [id number] [address] 2021-01-03 2021-01-03 Orders Doctor KAUR 1.2.840.114 [id number] 83 00:00:00 00:00:00 Only Unassigned, JAYJAY 350.1.13.10 [place] [facility] 4.2.7.2.686 [id number] 009 2020-12-07 2020-12-07 Nurse Only Edward, 1.2.840.1 [id number] 21 [id number] Methodi 07:41:21 08:11:21 Jameel Gurdeep 53372.1.[address] Jeet 3.430.2.7 Hospit a .3.279217 l .8 2020-12-07 2020-12-07 Nurse Only Brentulises, 1.2.840.1 [id number] 21 [id number] Methodi 07:41:21 08:11:21 Jameel Gurdeep 33538.1.[address] Jeet 3.430.2.7 Hospit a .3.145039 l .8 2020-12-07 2020-12-07 Orders White, 1.2.840.1 [id number] 6944 Methodi 00:00:00 00:00:00 Only Nidhi 88556.1.[address] 3.430.2.7 Hospit a .3.999567 l .8 2020-12-07 2020-12-07 Travel 1.2.840.1 1.2.288.928 2950 596892 Methodi 00:00:00 00:00:[address] 3.430.2.7 0.2.7.3.698 Ho spita .3.474462 084.8 l .8 2020-12-07 2020-12-07 Orders White, 1.2.840.1 [id number] 694989 5303 Methodi 00:00:00 00:00:00 Only Nidhi 32741.1.[address] 3.430.2.7 Hospit a .3.043116 l .8 2020-12-07 2020-12-07 Travel 1.2.840.1 1.2.008.426 7960 689608 Methodi 00:00:00 00:00:[address] 3.430.2.7 0.2.7.3.698 Ho spita .3.735850 084.8 l .8 2020-11-30 2020-11-30 Nurse Only Pingali, 1.2.840.1 [id number] Methodi 07:46:34 08:16:34 Jameel Gurdeep 67786.1.[address] Jeet 3.430.2.7 Hospit a .3.908882 l .8 2020-11-30 2020-11-30 Nurse Only Pingali, 1.2.840.1 [id number] Methodi 07:46:34 08:16:34 Jameel Gurdeep 16953.1.[address] Jeet 3.430.2.7 Hospit a .3.924752 l .8 2020-11-30 2020-11-30 Travel 1.2.840.1 1.2.108.839 4741 364187 Methodi 00:00:00 00:00:[address] 3.430.2.7 0.2.7.3.698 Ho spita .3.061779 084.8 l .8 2020-11-30 2020-11-30 Travel 1.2.840.1 1.2.378.024 2650 227125 Methodi 00:00:00 00:00:[address] 3.430.2.7 0.2.7.3.698 Ho spita .3.843176 084.8 l .8 2020-11-23 2020-11-23 Nurse Only Pingali, 1.2.840.1 [id number] Methodi 07:45:40 08:15:40 Jameel Gurdeep 08307.1.[address] Jeet 3.430.2.7 Hospit a .3.183998 l .8 2020-11-23 2020-11-23 Nurse Only Pingali, 1.2.840.1 [id number] 21 [id number] Methodi 07:45:40 08:15:40 Jameel Gurdeep 43647.1.[address] Jeet 3.430.2.7 Hospit a .3.880427 l .8 2020-11-23 2020-11-23 Travel 1.2.840.1 1.2.532.518 3554 285955 Methodi 00:00:00 00:00:[address] 3.430.2.7 0.2.7.3.698 Ho spita .3.719753 084.8 l .8 2020-11-23 2020-11-23 Travel 1.2.840.1 1.2.656.110 6745 876408 Methodi 00:00:00 00:00:[address] 3.430.2.7 0.2.7.3.698 Ho spita .3.140800 084.8 l .8 2020-11-17 2020-11-17 Orders Cullen Kelly 1.2.840.1 [id number] 249 [id number] Methodi 00:00:00 00:00:[address] 3.430.2.7 Hospit a .3.940627 l .8 2020-11-17 2020-11-17 Orders Cullen, Kelly 1.2.840.1 [id number] 335 [id number] Methodi 00:00:00 00:00:[address] 3.430.2.7 Hospit a .3.671744 l .8 2020-11-16 2020-11-16 [facility], 1.2.840.1 [id number] 2100 940135 Methodi 10:31:52 23:59:00 Encounter Jameel Gurdeep 44058.1.1 052 s t Jeet 3.430.2.7 Hospit a .3.483629 l .8 2020-11-16 2020-11-16 [facility] 1.2.840.1 [id number] 2100 [id number] Methodi 10:31:52 23:59:00 Encounter [facility] Gurdeep 78687.1.1 052 s t Jeet 3.430.2.7 Hospit a .3.850370 l .8 2020-11-16 2020-11-16 Office Pingali, 1.2.840.1 16600 Methodi 13:24:29 14:16:28 Visit Jameel Gurdeep 37310.1.[address] Jeet 3.430.2.7 Hospit a .3.940033 l .8 2020-11-16 2020-11-16 Office Pingali, 1.2.840.1 56208 Methodi 13:24:29 14:16:28 Visit [facility] Gurdeep 11529.1.[address] Jeet 3.430.2.7 Hospit a .3.011413 l .8 2020-11-16 2020-11-16 Lab Pingali, 1.2.840.1 [id number] Methodi 13:30:14 13:35:[facility] Jeet 3.430.2.7 Hospit a .3.075622 l .8 2020-11-16 2020-11-16 Lab Pingali, 1.2.840.1 22497 Methodi 13:30:14 13:35:[address] [facility] 83446.1.[address] Jeet 3.430.2.7 Hospit a .3.119162 l .8 2020-11-16 2020-11-16 Orders Cullen, Kelly 1.2.840.1 [id number] 278 [id number] Methodi 00:00:00 00:00:[address] 3.430.2.7 Hospit a .3.477687 l .8 2020-11-16 2020-11-16 Travel 1.2.840.1 1.2.357.595 6985 539884 Methodi 00:00:00 00:00:[address] 3.430.2.7 0.2.7.3.698 Ho spita .3.524089 084.8 l .8 2020-11-16 2020-11-16 Orders Kelly Berman 1.2.840.1 [id number] 522 [id number] Methodi 00:00:00 00:00:[address] 3.430.2.7 Hospit a .3.939676 l .8 2020-11-16 2020-11-16 Travel 1.2.840.1 1.2.199.736 2399 304643 Methodi 00:00:00 00:00:[address] 3.430.2.7 0.2.7.3.698 Ho spita .3.113851 084.8 l .8 2020-11-12 2020-11-12 Telephone White, 1.2.840.1 [id number] 2100 047073 Methodi 00:00:00 00:00:[address] 3.430.2.7 Hospit a .3.070848 l .8 2020-11-12 2020-11-12 Telephone White, 1.2.840.1 [id number] 2099 132127 Methodi 00:00:00 00:00:[address] 3.430.2.7 Hospit a .3.925533 l .8 2020-11-09 2020-11-09 Nurse Only Pingali, 1.2.840.1 [id number] Methodi 07:44:23 08:14:23 Jameel Gurdeep 70591.1.[address] Jeet 3.430.2.7 Hospit a .3.219296 l .8 2020-11-09 2020-11-09 Nurse Only Pingali, 1.2.840.1 [id number] Methodi 07:44:23 08:14:23 Jameel Gurdeep 01764.1.[address] Jeet 3.430.2.7 Hospit a .3.180806 l .8 2020-11-08 2020-11-08 Travel 1.2.840.1 1.2.781.358 7452 920930 Methodi 00:00:00 00:00:[address] 3.430.2.7 0.2.7.3.698 Ho spita .3.011201 084.8 l .8 2020-11-08 2020-11-08 Orders Cullen Kelly 1.2.840.1 [id number] 475 [id number] Methodi 00:00:00 00:00:[address] 3.430.2.7 Hospit a .3.190990 l .8 2020-11-08 2020-11-08 Travel 1.2.840.1 1.2.024.420 1349 821333 Methodi 00:00:00 00:00:[address] 3.430.2.7 0.2.7.3.698 Ho spita .3.780425 084.8 l .8 2020-11-08 2020-11-08 Lora Berman Kelly 1.2.840.1 [id number] 197 [id number] Methodi 00:00:00 00:00:[address] 3.430.2.7 Hospit a .3.740924 l .8 2020-11-02 2020-11-02 Nurse Only Pingali, 1.2.840.1 [id number] 21 [id number] Methodi 07:46:27 08:16:27 Jameel Gurdeep 19760.1.[address] Jeet 3.430.2.7 Hospit a .3.270565 l .8 2020-11-02 2020-11-02 Nurse Only Pingali, 1.2.840.1 [id number] Methodi 07:46:27 08:16:27 Jameel Gurdeep 84197.1.[address] Jeet 3.430.2.7 Hospit a .3.994013 l .8 2020-11-02 2020-11-02 Travel 1.2.840.1 1.2.457.874 3273 315366 Methodi 00:00:00 00:00:[address] 3.430.2.7 0.2.7.3.698 Ho spita .3.471273 084.8 l .8 2020-11-02 2020-11-02 Travel 1.2.840.1 1.2.599.157 4395 221796 Methodi 00:00:00 00:00:[address] 3.430.2.7 0.2.7.3.698 Ho spita .3.828523 084.8 l .8 2020-10-26 2020-10-26 Nurse Only Pingali, 1.2.840.1 [id number] 21 [id number] Methodi 07:32:33 08:02:33 Jameel Gurdeep 34847.1.[address] Jeet 3.430.2.7 Hospit a .3.252223 l .8 2020-10-26 2020-10-26 Nurse Only Pingali, 1.2.840.1 [id number] 21 [id number] Methodi 07:32:33 08:02:33 Jameel Gurdeep 12480.1.[address] Jeet 3.430.2.7 Hospit a .3.007816 l .8 2020-10-26 2020-10-26 Travel 1.2.840.1 1.2.532.122 0912 994957 Methodi 00:00:00 00:00:[address] 3.430.2.7 0.2.7.3.698 Ho spita .3.827282 084.8 l .8 2020-10-26 2020-10-26 Travel 1.2.840.1 1.2.989.321 0733 992167 Methodi 00:00:00 00:00:[address] 3.430.2.7 0.2.7.3.698 Ho spita .3.659661 084.8 l .8 2020-10-18 2020-10-20 [facility] 1.2.840.1 [id number] 207 [id number] Methodi 15:23:00 14:38:00 Encounter Mk Villagranalo 56928.1.1 098 [facility] 3.430.2.7 Hospita .3.435450 l .8 2020-10-18 2020-10-20 [facility] 1.2.840.1 [id number] 207 [id number] Methodi 15:23:00 14:38:00 Encounter Mk Villagranalo 86740.1.1 098 [facility] 3.430.2.7 Hospita .3.178263 l .8 2020-10-18 2020-10-18 Office Pingali, 1.2.840.1 [id number] 40792 25528 Methodi 13:28:27 14:02:59 Visit Jameel Mackenzie 07013.1.[address] Jeet 3.430.2.7 Hospit a .3.024634 l .8 2020-10-18 2020-10-18 Office Pingali, 1.2.840.1 [id number] 04451 18989 Methodi 13:28:27 14:02:59 Visit Jameelsky Mackenzie 77656.1.[address] Jeet 3.430.2.7 Hospit a .3.494687 l .8 2020-10-18 2020-10-18 Clinical Pingali, 1.2.840.1 [id number] 2099 206525 Methodi 09:47:24 10:17:24 Support Jameelsky Mackenzie 77494.1.[address] Jeet 3.430.2.7 Hospit a .3.518290 l .8 2020-10-18 2020-10-18 Clinical Pingali, 1.2.840.1 [id number] 2100 937379 Methodi 09:47:24 10:17:24 Support Jameel Gurdeep 76872.1.[address] Jeet 3.430.2.7 Hospit a .3.676736 l .8 2020-10-18 2020-10-18 Nurse Only Pingali, 1.2.840.1 [id number] 21 [id number] Methodi 09:46:56 10:16:56 Jameel Gurdeep 48013.1.[address] Jeet 3.430.2.7 Hospit a .3.050707 l .8 2020-10-18 2020-10-18 Nurse Only Pingali, 1.2.840.1 [id number] Methodi 09:46:56 10:16:56 Jameel Gurdeep 77119.1.[address] Jeet 3.430.2.7 Hospit a .3.580983 l .8 2020-10-18 2020-10-18 Orders Carlos, 1.2.840.1 [id number] 635127 9540 Methodi 00:00:00 00:00:00 Only Nidhi 54236.1.[address] 3.430.2.7 Hospit a .3.079162 l .8 2020-10-18 2020-10-18 Orders Abigail 1.2.840.1 [id number] 744017 2381 Methodi 00:00:00 00:00:00 Only Mcclain, 00399.1.[address] Scott 3.430.2.7 Hospit a .3.322959 l .8 2020-10-18 2020-10-18 Orders Kelly Berman 1.2.840.1 [id number] 741 [id number] Methodi 00:00:00 00:00:[address] 3.430.2.7 Hospit a .3.890707 l .8 2020-10-18 2020-10-18 Orders Marcia, 1.2.840.1 [id number] 379707 5570 Methodi 00:00:00 00:00:00 Only Leylah 41778.1.[address] 3.430.2.7 Hospit a .3.501434 l .8 2020-10-18 2020-10-18 Travel 1.2.840.1 1.2.190.116 1117 209292 Methodi 00:00:00 00:00:[address] 3.430.2.7 0.2.7.3.698 Ho spita .3.576004 084.8 l .8 2020-10-18 2020-10-18 Orders White, 1.2.840.1 [id number] 945103 5750 Methodi 00:00:00 00:00:00 Only Nidhi 92455.1.[address] 3.430.2.7 Hospit a .3.543117 l .8 2020-10-18 2020-10-18 Orders Abigail 1.2.840.1 [id number] 023358 3832 Methodi 00:00:00 00:00:00 Only Mcclain, 24011.1.[address] Scott 3.430.2.7 Hospit a .3.310730 l .8 2020-10-18 2020-10-18 Orders Cullen, Kelly 1.2.840.1 [id number] 380 1249198 Methodi 00:00:00 00:00:[address] 3.430.2.7 Hospit a .3.565394 l .8 2020-10-18 2020-10-18 Orders Azali, 1.2.840.1 854585506 176058 1218 Methodi 00:00:00 00:00:00 Only Lucia 52325.1.[address] 3.430.2.7 Hospit a .3.330598 l .8 2020-10-18 2020-10-18 Travel 1.2.840.1 1.2.022.420 9208 401069 Methodi 00:00:00 00:00:[address] 3.430.2.7 0.2.7.3.698 Ho spita .3.898322 084.8 l .8 2020-10-15 2020-10-15 Nurse Only Pingali, 1.2.840.1 [id number] Methodi 08:15:13 08:45:13 Jameel Gurdeep 63944.1.[address] Jeet 3.430.2.7 Hospit a .3.768321 l .8 2020-10-15 2020-10-15 Nurse Only Pingali, 1.2.840.1 [id number] Methodi 08:15:13 08:45:13 Jameel Gurdeep 45004.1.[address] Jeet 3.430.2.7 Hospit a .3.755480 l .8 2020-10-15 2020-10-15 Orders White, 1.2.840.1 [id number] 153998 6881 Methodi 00:00:00 00:00:00 Only Nidhi 20071.1.[address] 3.430.2.7 Hospit a .3.079804 l .8 2020-10-15 2020-10-15 Travel 1.2.840.1 1.2.040.853 6445 200364 Methodi 00:00:00 00:00:[address] 3.430.2.7 0.2.7.3.698 Ho spita .3.500164 084.8 l .8 2020-10-15 2020-10-15 Orders White, 1.2.840.1 456946829 785112 9985 Methodi 00:00:00 00:00:00 Only Nidhi 40957.1.[address] 3.430.2.7 Hospit a .3.681858 l .8 2020-10-15 2020-10-15 Travel 1.2.840.1 1.2.516.682 5567 859837 Methodi 00:00:00 00:00:[address] 3.430.2.7 0.2.7.3.698 Ho spita .3.999925 084.8 l .8 2020-10-12 2020-10-12 Nurse Only Pingali, 1.2.840.1 [id number] Methodi 07:40:52 08:10:52 Jameel Gurdeep [address]449.[address] Jeet 3.430.2.7 Hospit a .3.952264 l .8 2020-10-12 2020-10-12 Nurse Only Pingali, 1.2.840.1 [id number] Methodi 07:40:52 08:10:52 Jameel Gurdeep [address] Jeet 3.430.2.7 Hospit a .3.742400 l .8 2020-10-12 2020-10-12 Travel 1.2.840.1 1.2.600.568 9436 107449 Methodi 00:00:00 00:00:[address] 3.430.2.7 0.2.7.3.698 Ho spita .3.900581 084.8 l .8 2020-10-12 2020-10-12 Travel 1.2.840.1 1.2.224.665 6530 907744 Methodi 00:00:00 00:00:[address] 3.430.2.7 0.2.7.3.698 Ho spita .3.899959 084.8 l .8 2020-10-07 2020-10-07 Nurse Only Pingali, 1.2.840.1 [id number] Methodi 08:31:41 09:01:41 Jameel Gurdeep [address]6427.[address] Jeet 3.430.2.7 Hospit a .3.212474 l .8 2020-10-07 2020-10-07 Nurse Only Pingali, 1.2.840.1 [id number] Methodi 08:31:41 09:01:41 Jameel Gur[address] 27949[address] Jeet 3.430.2.7 Hospit a .3.680897 l .8 2020-10-07 2020-10-07 Documentat [facility], 1.2.840.1 [id number] Methodi 00:00:00 00:00:00 ion Wengrid Jessi 12250.1.[address] 3.430.2.7 Hospit a .3.509203 l .8 2020-10-07 2020-10-07 Travel 1.2.840.1 1.2.833.885 1023 434060 Methodi 00:00:00 00:00:[address] 3.430.2.7 0.2.7.3.698 Ho spita .3.155874 084.8 l .8 2020-10-07 2020-10-07 Documentat [facility], 1.2.840.1 [id number] Methodi 00:00:00 00:00:00 ion Wengrid Jessi 11475.1.[address] 3.430.2.7 Hospit a .3.870688 l .8 2020-10-07 2020-10-07 Travel 1.2.840.1 1.2.852.878 0050 539560 Methodi 00:00:00 00:00:[address] 3.430.2.7 0.2.7.3.698 Ho spita .3.782583 084.8 l .8 2020-09-30 2020-09-30 Infusion Pingali, 1.2.840.1 [id number] 2100 044035 Methodi 10:33:06 12:33:06 Jameel [address]92.[address] Jeet 3.430.2.7 Hospit a .3.360097 l .8 2020-09-30 2020-09-30 Infusion Pingali, 1.2.840.1 52066614720994035 Methodi 10:33:06 12:33:06 Jameel Gur[address] Jeet 3.430.2.7 Hospit a .3.927943 l .8 2020-09-30 2020-09-30 Documentat Theresa, 1.2.840.1 [id number] Methodi 00:00:00 00:00:00 ion Sidrid Jessi 19047.1.[address] 3.430.2.7 Hospit a .3.899506 l .8 2020-09-30 2020-09-30 Travel 1.2.840.1 1.2.328.225 0041 420232 Methodi 00:00:00 00:00:[address] 3.430.2.7 0.2.7.3.698 Ho spita .3.266479 084.8 l .8 2020-09-30 2020-09-30 Orders Dai, 1.2.840.1 [id number] 96943 Methodi 00:00:00 00:00:00 Only Alexys 27948.1.[address] 3.430.2.7 Hospit a .3.231630 l .8 2020-09-30 2020-09-30 Documentat Theresa, 1.2.840.1 869424140 [id number] Methodi 00:00:00 00:00:00 ion Latonya Jessi 01154.1.[address] 3.430.2.7 Hospit a .3.059096 l .8 2020-09-30 2020-09-30 Travel 1.2.840.1 1.2.010.669 7713 302057 Methodi 00:00:00 00:00:[address] 3.430.2.7 0.2.7.3.698 Ho spita .3.273591 084.8 l .8 2020-09-30 2020-09-30 Orders Dai, 1.2.840.1 [id number] 25146 Methodi 00:00:00 00:00:00 Only Alexys 75139.1.[address] 3.430.2.7 Hospit a .3.919081 l .8 2020-09-27 2020-09-29 [facility], 1.2.840.1 959150801 733 7994563 Methodi 10:17:00 16:08:00 Encounter Chandu 49953.1.[address] 3.430.2.7 Hospit a .3.289096 l .8 2020-09-27 2020-09-29 [facility], 1.2.840.1 [id number] 465 [id number] Methodi 10:17:00 16:08:00 Encounter Chandu 83503.1.[address] 3.430.2.7 Hospit a .3.800364 l .8 2020-09-27 2020-09-27 Travel 1.2.840.1 1.2.338.918 1333 461743 Methodi 00:00:00 00:00:[address] 3.430.2.7 0.2.7.3.698 Ho spita .3.631492 084.8 l .8 2020-09-27 2020-09-27 Orders Elpidio, 1.2.840.1 [id number] 180932 4502 Methodi 00:00:00 00:00:00 Only Basia 59461.1.[address] Dynelle 3.430.2.7 Hospit a .3.090863 l .8 2020-09-27 2020-09-27 Travel 1.2.840.1 1.2.540.840 1404 707779 Methodi 00:00:00 00:00:[address] 3.430.2.7 0.2.7.3.698 Ho spita .3.857090 084.8 l .8 2020-09-27 2020-09-27 Orders Elpidio, 1.2.840.1 [id number] 061692 2508 Methodi 00:00:00 00:00:00 Only Basia 97267.1.[address] Dynelle 3.430.2.7 Hospit a .3.071852 l .8 2020-09-24 2020-09-24 Orders White, 1.2.840.1 858262992 569379 8605 Methodi 00:00:00 00:00:00 Only Nidhi 74661.1.[address] 3.430.2.7 Hospit a .3.157997 l .8 2020-09-24 2020-09-24 Orders White, 1.2.840.1 811226796 175509 1964 Methodi 00:00:00 00:00:00 Only Nidhi 42987.1.[address] 3.430.2.7 Hospit a .3.511365 l .8 2020-09-20 2020-09-20 Telephone White, 1.2.840.1 643244786 2100 212448 Methodi 00:00:00 00:00:[address] 3.430.2.7 Hospit a .3.268927 l .8 2020-09-20 2020-09-20 Telephone White, 1.2.840.1 679572122 2100 696994 Methodi 00:00:00 00:00:[address] 3.430.2.7 Hospit a .3.627822 l .8 2020-09-08 2020-09-08 Orders White, 1.2.840.1 315987167 058560 7027 Methodi 00:00:00 00:00:00 Only Nidhi 91972.1.[address] 3.430.2.7 Hospit a .3.288534 l .8 2020-09-08 2020-09-08 Orders White, 1.2.840.1 019632732 998649 1384 Methodi 00:00:00 00:00:00 Only Nidhi 38462.1.[address] 3.430.2.7 Hospit a .3.976991 l .8 2020-09-07 2020-09-07 Office Pingali, 1.2.840.1 818797496 90316 28105 Methodi 13:49:53 14:09:53 Visit Jameel Gurdeep 55502.1.[address] Jeet 3.430.2.7 Hospit a .3.175783 l .8 2020-09-07 2020-09-07 Office Pingali, 1.2.840.1 568309750 54044 58799 Methodi 13:49:53 14:09:53 Visit Jameel Gurdeep 34695.1.[address] Jeet 3.430.2.7 Hospit a .3.950068 l .8 2020-09-07 2020-09-07 Nurse Only Pingali, 1.2.840.1 792856229 09359947 Methodi 13:15:27 13:45:27 Jameel Gurdeep 82079.1.[address] Jeet 3.430.2.7 Hospit a .3.140745 l .8 2020-09-07 2020-09-07 Nurse Only Pingali, 1.2.840.1 053596531 51452018 Methodi 13:15:27 13:45:[address] Jeet 3.430.2.7 Hospit a .3.497496 l .8 2020-09-07 2020-09-07 Travel 1.2.840.1 1.2.559.942 6954 951919 Methodi 00:00:00 00:00:[address] 3.430.2.7 0.2.7.3.698 Ho spita .3.852216 084.8 l .8 2020-09-07 2020-09-07 Travel 1.2.840.1 1.2.728.729 4573 485856 Methodi 00:00:00 00:00:[address] 3.430.2.7 0.2.7.3.698 Ho spita .3.223533 084.8 l .8 2020-09-03 2020-09-03 Hospital 1.2.840.1 450132362 64616 46313 Methodi 08:44:39 09:21:[address] 3.430.2.7 Hospit a .3.065053 l .8 2020-09-03 2020-09-03 [facility] 1.2.840.1 575747081 25874 32795 Methodi 08:44:39 09:21:[address] 3.430.2.7 Hospit a .3.992961 l .8 2020-09-03 2020-09-03 Orders Provider, 1.2.840.1 [id number] 2099 168669 Methodi 00:00:00 00:00:00 Only Unknown 62247.1.[address] 3.430.2.7 Hospit a .3.984943 l .8 2020-09-03 2020-09-03 Orders Provider, 1.2.840.1 [id number] 2099 683816 Methodi 00:00:00 00:00:00 Only Unknown 87712.1.[address] 3.430.2.7 Hospit a .3.607872 l .8 2020-09-02 2020-09-02 [facility] 1.2.840.1 834497087 39635 03538 Methodi 08:41:58 09:22:[address] 3.430.2.7 Hospit a .3.777986 l .8 2020-09-02 2020-09-02 [facility] 1.2.840.1 894166691 20527 13578 Methodi 08:41:58 09:22:[address] 3.430.2.7 Hospit a .3.353417 l .8 2020-09-02 2020-09-02 Orders Provider, 1.2.840.1 [id number] 2099 414577 Methodi 00:00:00 00:00:00 Only Unknown 09470.1.[address] 3.430.2.7 Hospit a .3.700553 l .8 2020-09-02 2020-09-02 Orders Provider, 1.2.840.1 497060249 2099 353485 Methodi 00:00:00 00:00:00 Only Unknown 33928.1.[address] 3.430.2.7 Hospit a .3.018974 l .8 2020-09-01 [facility] [id number] [id number] Methodi 09:15:00 10:02:55 Encounter Perla Bentley 52325.1.[address] 3.430.2.7 Hospit a .3.795734 l .8 2020-09-01 2020-09-01 [facility] [id number] Methodi 09:15:00 10:02:55 Encounter Perla Bentley 99809.1.[address] 3.430.2.7 Hospit a .3.589648 l .8 2020-09-01 2020-09-01 Hospital 1.2.840.1 [id number] 42880 91665 Methodi 08:43:36 09:27:[address] 3.430.2.7 Hospit a .3.944220 l .8 2020-09-01 2020-09-01 Hospital 1.2.840.1 068491694 63118 90370 Methodi 08:43:36 09:27:[address] 3.430.2.7 Hospit a .3.769145 l .8 2020-09-01 2020-09-01 Travel 1.2.840.1 1.2.886.087 4806 254138 Methodi 00:00:00 00:00:[address] 3.430.2.7 0.2.7.3.698 Ho spita .3.031462 084.8 l .8 2020-09-01 2020-09-01 Orders Provider, 1.2.840.1 655740663 2100 041909 Methodi 00:00:00 00:00:00 Only Unknown 81715.1.[address] 3.430.2.7 Hospit a .3.323688 l .8 2020-09-01 2020-09-01 Travel 1.2.840.1 1.2.755.456 3738 632682 Methodi 00:00:00 00:00:[address] 3.430.2.7 0.2.7.3.698 Ho spita .3.002238 084.8 l .8 2020-09-01 2020-09-01 Orders Provider, 1.2.840.1 571138691 2100 041909 Methodi 00:00:00 00:00:00 Only Unknown 87403.1.[address] 3.430.2.7 Hospit a .3.337626 l .8 2020-08-31 2020-08-31 Hospital 1.2.840.1 833867072 30928 89868 Methodi 08:58:54 09:45:[address] 3.430.2.7 Hospit a .3.923665 l .8 2020-08-31 2020-08-31 [facility] 1.2.840.1 [id number] 21000 06032 Methodi 08:58:54 09:45:[address] 3.430.2.7 Hospit a .3.129798 l .8 2020-08-31 2020-08-31 Orders Provider, 1.2.840.1 172170336 2100 041819 Methodi 00:00:00 00:00:00 Only Unknown 19148.1.[address] 3.430.2.7 Hospit a .3.931417 l .8 2020-08-31 2020-08-31 Orders Provider, 1.2.840.1 924956131 2100 041819 Methodi 00:00:00 00:00:00 Only Unknown 79964.1.[address] 3.430.2.7 Hospit a .3.695276 l .8 2020-08-30 2020-08-30 Hospital 1.2.840.1 926230505 31624 76860 Methodi 08:55:18 09:20:[address] 3.430.2.7 Hospit a .3.083592 l .8 2020-08-30 2020-08-30 [facility] 1.2.840.1 [id number] 87365 66289 Methodi 08:55:18 09:20:[address] 3.430.2.7 Hospit a .3.236665 l .8 2020-08-30 2020-08-30 Orders Provider, 1.2.840.1 117781735 2099 926233 Methodi 00:00:00 00:00:00 Only Unknown 54957.1.[address] 3.430.2.7 Hospit a .3.679241 l .8 2020-08-30 2020-08-30 Orders Provider, 1.2.840.1 851691400 2099 555203 Methodi 00:00:00 00:00:00 Only Unknown 86882.1.[address] 3.430.2.7 Hospit a .3.739238 l .8 2020-08-27 2020-08-27 [facility] 1.2.840.1 [id number] 73872 35857 Methodi 09:13:34 09:29:[address] 3.430.2.7 Hospit a .3.622079 l .8 2020-08-27 2020-08-27 [facility] 1.2.840.1 [id number] 21000 57025 Methodi 09:13:34 09:29:[address] 3.430.2.7 Hospit a .3.717979 l .8 2020-08-27 2020-08-27 Orders Provider, 1.2.840.1 [id number] 2099 404459 Methodi 00:00:00 00:00:00 Only Unknown 48633.1.[address] 3.430.2.7 Hospit a .3.792473 l .8 2020-08-27 2020-08-27 Orders Provider, 1.2.840.1 574517757 2099 075355 Methodi 00:00:00 00:00:00 Only Unknown 29119.1.[address] 3.430.2.7 Hospit a .3.328115 l .8 2020-08-26 2020-08-26 Hospital 1.2.840.1 [id number] 16213 60569 Methodi 08:34:30 09:06:[address] 3.430.2.7 Hospit a .3.268769 l .8 2020-08-26 2020-08-26 [facility] 1.2.840.1 [id number] 03318 96324 Methodi 08:34:30 09:06:[address] 3.430.2.7 Hospit a .3.067130 l .8 2020-08-26 2020-08-26 Orders Provider, 1.2.840.1 [id number] 2099 949230 Methodi 00:00:00 00:00:00 Only Unknown 08178.1.[address] 3.430.2.7 Hospit a .3.166268 l .8 2020-08-26 2020-08-26 Orders Provider, 1.2.840.1 [id number] 2099 383407 Methodi 00:00:00 00:00:00 Only Unknown 58285.1.[address] 3.430.2.7 Hospit a .3.524288 l .8 2020-08-25 2020-08-25 [facility] [id number] Methodi 09:00:00 10:00:08 Encounter Perla Bentley 82567.1.[address] 3.430.2.7 Hospit a .3.160713 l .8 2020-08-25 2020-08-25 [facility]1 [id number] Methodi 09:00:00 10:00:08 Encounter Carlotta Bentleysy 43005.1.[address] 3.430.2.7 Hospit a .3.924603 l .8 2020-08-25 2020-08-25 [facility] 1.2.840.1 [id number] 83109 44578 Methodi 08:39:09 09:11:[address] 3.430.2.7 Hospit a .3.052152 l .8 2020-08-252020-08-25 Hospital 1.2.840.1 [id number] 15996 88678 Methodi 08:39:09 09:11:[address] 3.430.2.7 Hospit a .3.344296 l .8 2020-08-25 2020-08-25 Travel 1.2.840.1 1.2.588.644 6893 161330 Methodi 00:00:00 00:00:[address] 3.430.2.7 0.2.7.3.698 Ho spita .3.326166 084.8 l .8 2020-08-25 2020-08-25 Orders Provider, 1.2.840.1 [id number] 2100 041426 Methodi 00:00:00 00:00:00 Only Unknown 91856.1.[address] 3.430.2.7 Hospit a .3.647861 l .8 2020-08-25 2020-08-25 Travel 1.2.840.1 1.2.214.562 9186 270981 Methodi 00:00:00 00:00:[address] 3.430.2.7 0.2.7.3.698 Ho spita .3.483960 084.8 l .8 2020-08-25 2020-08-25 Orders Provider, 1.2.840.1 [id number] 2100 041426 Methodi 00:00:00 00:00:00 Only Unknown 27187.1.[address] 3.430.2.7 Hospit a .3.960561 l .8 2020-08-24 2020-08-24 Hospital 1.2.840.1 529036756 18069 71971 Methodi 15:45:00 16:38:[address] 3.430.2.7 Hospit a .3.349114 l .8 2020-08-24 2020-08-24 Hospital 1.2.840.1 [id number] 21000 73849 Methodi 15:45:00 16:38:[address] 3.430.2.7 Hospit a .3.726973 l .8 2020-08-23 2020-08-24 [facility], Bin 1.2.840.1 [id number] 2099 267719 Methodi 01:00:00 09:06:05 Encounter Sing 38808.1.[address] 3.430.2.7 Hospit a .3.972330 l .8 2020-08-23 2020-08-24 [facility], Bin 1.2.840.1 [id number] 2099 051592 Methodi 01:00:00 09:06:05 Encounter Sing 31262.1.[address] 3.430.2.7 Hospit a .3.125943 l .8 2020-08-24 2020-08-24 Orders Provider, 1.2.840.1 [id number] 2099 093925 Methodi 00:00:00 00:00:00 Only Unknown 25892.1.[address] 3.430.2.7 Hospit a .3.996011 l .8 2020-08-24 2020-08-24 Orders Provider, 1.2.840.1 [id number] 2099 391876 Methodi 00:00:00 00:00:00 Only Unknown 32020.1.[address] 3.430.2.7 Hospit a .3.114679 l .8 2020-08-23 2020-08-23 [facility] 1.2.840.1 [id number] 21840 67743 Methodi 09:44:02 10:19:[address] 3.430.2.7 Hospit a .3.603468 l .8 2020-08-23 2020-08-23 [facility] 1.2.840.1 [id number] 37517 99016 Methodi 09:44:02 10:19:[address] 3.430.2.7 Hospit a .3.820405 l .8 2020-08-23 2020-08-23 Orders Provider, 1.2.840.1 [id number] 2099 606403 Methodi 00:00:00 00:00:00 Only Unknown 45699.1.[address] 3.430.2.7 Hospit a .3.481590 l .8 2020-08-23 2020-08-23 Orders Provider, 1.2.840.1 150214097 2099 117137 Methodi 00:00:00 00:00:00 Only Unknown 08724.1.[address] 3.430.2.7 Hospit a .3.773633 l .8 2020-08-19 2020-08-19 Hospital 1.2.840.1 [id number] 95782 43479 Methodi 08:59:13 09:15:[address] 3.430.2.7 Hospit a .3.977240 l .8 2020-08-19 2020-08-19 Hospital 1.2.840.1 [id number] 81622 38655 Methodi 08:59:13 09:15:[address] 3.430.2.7 Hospit a .3.011352 l .8 2020-08-19 2020-08-19 Travel 1.2.840.1 1.2.821.998 5350 570615 Methodi 00:00:00 00:00:[address] 3.430.2.7 0.2.7.3.698 Ho spita .3.249243 084.8 l .8 2020-08-19 2020-08-19 Orders Provider, 1.2.840.1 [id number] 2099 403730 Methodi 00:00:00 00:00:00 Only Unknown 69755.1.[address] 3.430.2.7 Hospit a .3.125671 l .8 2020-08-19 2020-08-19 Travel 1.2.840.1 1.2.446.296 3054 650374 Methodi 00:00:00 00:00:[address] 3.430.2.7 0.2.7.3.698 Ho spita .3.938601 084.8 l .8 2020-08-19 2020-08-19 Orders Provider, 1.2.840.1 [id number] 2100 015874 Methodi 00:00:00 00:00:00 Only Unknown 67248.1.[address] 3.430.2.7 Hospit a .3.988990 l .8 2020-08-18 2020-08-18 [facility] [id number] Methodi 09:30:00 12:13:33 Encounter Olivia Nixon 01797.1.[address] 3.430.2.7 Hospit a .3.421260 l .8 2020-08-18 2020-08-18 [facility] [id number] Methodi 09:30:00 12:13:33 Encounter Olivia Nixon 39233.1.[address] 3.430.2.7 Hospit a .3.711408 l .8 2020-08-18 2020-08-18 [facility] 1.2.840.1 [id number] 56274 68168 Methodi 09:15:00 09:28:[address] 3.430.2.7 Hospit a .3.659654 l .8 2020-08-18 2020-08-18 [facility] 1.2.840.1 [id number] 05025 29137 Methodi 09:15:00 09:28:[address] 3.430.2.7 Hospit a .3.632085 l .8 2020-08-18 2020-08-18 Orders Provider, 1.2.840.1 [id number] 2099 960480 Methodi 00:00:00 00:00:00 Only Unknown 67875.1.[address] 3.430.2.7 Hospit a .3.583619 l .8 2020-08-18 2020-08-18 Orders Provider, 1.2.840.1 [id number] 2099 392396 Methodi 00:00:00 00:00:00 Only Unknown 56868.1.[address] 3.430.2.7 Hospit a .3.794135 l .8 2020-08-17 2020-08-17 Nurse Only Pinulises, 1.2.840.1 [id number] [id number] Methodi 10:57:54 11:27:54 Jameel Gurdeep 77250.1.[address] Jeet 3.430.2.7 Hospit a .3.755845 l .8 2020-08-17 2020-08-17 Nurse Only Edward, 1.2.840.1 [id number] [id number] Methodi 10:57:54 11:27:54 Jameel Gurdeep 66535.1.[address] Jeet 3.430.2.7 Hospit a .3.900842 l .8 2020-08-17 2020-08-17 Hospital 1.2.840.1 [id number] 21000 79490 Methodi 09:18:25 10:09:[address] 3.430.2.7 Hospit a .3.034636 l .8 2020-08-17 2020-08-17 Hospital 1.2.840.1 [id number] 21000 64857 Methodi 09:18:25 10:09:[address] 3.430.2.7 Hospit a .3.719984 l .8 2020-08-17 2020-08-17 Orders White, 1.2.840.1 797287251 769548 6495 Methodi 00:00:00 00:00:00 Only Nidhi 34433.1.[address] 3.430.2.7 Hospit a .3.885058 l .8 2020-08-17 2020-08-17 Travel 1.2.840.1 1.2.950.109 9952 613916 Methodi 00:00:00 00:00:[address] 3.430.2.7 0.2.7.3.698 Ho spita .3.156165 084.8 l .8 2020-08-17 2020-08-17 Orders Provider, 1.2.840.1 [id number] 2099 499637 Methodi 00:00:00 00:00:00 Only Unknown 20085.1.[address] 3.430.2.7 Hospit a .3.946817 l .8 2020-08-17 2020-08-17 Orders White, 1.2.840.1 441665801 182197 7303 Methodi 00:00:00 00:00:00 Only Nidhi 45470.1.[address] 3.430.2.7 Hospit a .3.472726 l .8 2020-08-17 2020-08-17 Travel 1.2.840.1 1.2.573.986 2661 915993 Methodi 00:00:00 00:00:[address] 3.430.2.7 0.2.7.3.698 Ho spita .3.165769 084.8 l .8 2020-08-17 2020-08-17 Orders Provider, 1.2.840.1 [id number] 2099 680603 Methodi 00:00:00 00:00:00 Only Unknown 03380.1.[address] 3.430.2.7 Hospit a .3.658906 l .8 2020-08-16 2020-08-16 Hospital 1.2.840.1 [id number] 98368 66469 Methodi 09:42:10 09:58:[address] 3.430.2.7 Hospit a .3.923562 l .8 2020-08-16 2020-08-16 Hospital 1.2.840.1 [id number] 98843 23278 Methodi 09:42:10 09:58:[address] 3.430.2.7 Hospit a .3.597950 l .8 2020-08-16 2020-08-16 Travel 1.2.840.1 1.2.782.769 7960 869638 Methodi 00:00:00 00:00:[address] 3.430.2.7 0.2.7.3.698 Ho spita .3.650727 084.8 l .8 2020-08-16 2020-08-16 Orders Provider, 1.2.840.1 [id number] 2099 913468 Methodi 00:00:00 00:00:00 Only Unknown 54467.1.[address] 3.430.2.7 Hospit a .3.916024 l .8 2020-08-16 2020-08-16 Travel 1.2.840.1 1.2.618.717 6370 460511 Methodi 00:00:00 00:00:[address] 3.430.2.7 0.2.7.3.698 Ho spita .3.349104 084.8 l .8 2020-08-16 2020-08-16 Orders Provider, 1.2.840.1 [id number] 2099 197017 Methodi 00:00:00 00:00:00 Only Unknown 00939.1.[address] 3.430.2.7 Hospit a .3.555929 l .8 2020-08-12 2020-08-12 Hospital 1.2.840.1 [id number] 61122 70487 Methodi 14:25:42 15:03:[address] 3.430.2.7 Hospit a .3.914835 l .8 2020-08-12 2020-08-12 [facility] 1.2.840.1 [id number] 03493 74453 Methodi 14:25:42 15:03:[address] 3.430.2.7 Hospit a .3.671976 l .8 2020-08-11 2020-08-12 [facility] Herbert Sing 1.2.840.1 [id number] Methodi 16:15:00 10:25:08 Encounter Perla Bentley 81082.1.[address] 3.430.2.7 Hospit a .3.317566 l .8 2020-08-11 2020-08-12 [facility] Herbert Omkar 1.2.840.1 [id number] Methodi 16:15:00 10:25:08 Encounter Perla Bentley 56963.1.[address] 3.430.2.7 Hospit a .3.836743 l .8 2020-08-12 2020-08-12 Orders Provider, 1.2.840.1 [id number] 2100 046758 Methodi 00:00:00 00:00:00 Only Unknown 23240.1.[address] 3.430.2.7 Hospit a .3.448275 l .8 2020-08-12 2020-08-12 Orders Kelly Berman 1.2.840.1 [id number] 400 [id number] Methodi 00:00:00 00:00:[address] 3.430.2.7 Hospit a .3.067504 l .8 2020-08-12 2020-08-12 Orders Provider, 1.2.840.1 [id number] 2099 864101 Methodi 00:00:00 00:00:00 Only Unknown 69908.1.[address] 3.430.2.7 Hospit a .3.125071 l .8 2020-08-12 2020-08-12 Orders Kelly Berman 1.2.840.1 [id number] Methodi 00:00:00 00:00:[address] 3.430.2.7 Hospit a .3.914807 l .8 2020-08-11 2020-08-11 [facility] 1.2.840.1 [id number] 09780 78621 Methodi 15:45:00 16:24:[address] 3.430.2.7 Hospit a .3.301240 l .8 2020-08-11 2020-08-11 [facility] 1.2.840.1 [id number] 04765 24151 Methodi 15:45:00 16:24:[address] 3.430.2.7 Hospit a .3.139804 l .8 2020-08-11 2020-08-11 Orders Provider, 1.2.840.1 [id number] 2100 309902 Methodi 00:00:00 00:00:00 Only Unknown 88935.1.[address] 3.430.2.7 Hospit a .3.161211 l .8 2020-08-11 2020-08-11 Travel 1.2.840.1 1.2.733.270 4023 951343 Methodi 00:00:00 00:00:[address] 3.430.2.7 0.2.7.3.698 Ho spita .3.679094 084.8 l .8 2020-08-11 2020-08-11 Telephone [facility], 1.2.840.1 [id number] 082 [id number] Methodi 00:00:00 00:00:00 Jameel Gurdeep 77725.1.[address] Jeet 3.430.2.7 Hospit a .3.233927 l .8 2020-08-11 2020-08-11 Orders Provider, 1.2.840.1 [id number] 2099 594276 Methodi 00:00:00 00:00:00 Only Unknown 45923.1.[address] 3.430.2.7 Hospit a .3.186614 l .8 2020-08-11 2020-08-11 Travel 1.2.840.1 1.2.131.081 2346 392611 Methodi 00:00:00 00:00:[address] 3.430.2.7 0.2.7.3.698 Ho spita .3.711873 084.8 l .8 2020-08-11 2020-08-11 Telephone [facility] [place], 1.2.840.1 [id number] Methodi 00:00:00 00:00:00 Jameel Gurdeep 98794.1.[address] Jeet 3.430.2.7 Hospit a .3.251520 l .8 2020-08-10 2020-08-10 Hospital 1.2.840.1 [id number] 21000 32114 Methodi 15:45:00 16:00:[address] 3.430.2.7 Hospit a .3.050577 l .8 2020-08-10 2020-08-10 Hospital 1.2.840.1 [id number] 21000 32216 Methodi 15:45:00 16:00:[address] 3.430.2.7 Hospit a .3.223549 l .8 2020-08-10 2020-08-10 Orders Provider, 1.2.840.1 [id number] 2099 751369 Methodi 00:00:00 00:00:00 Only Unknown 87322.1.[address] 3.430.2.7 Hospit a .3.015344 l .8 2020-08-10 2020-08-10 Orders Provider, 1.2.840.1 [id number] 2099 611921 Methodi 00:00:00 00:00:00 Only Unknown 49807.1.[address] 3.430.2.7 Hospit a .3.408912 l . 2020-08-09 2020-08-09 [facility] 1.2.840.1 [id number] 92995 18742 Methodi 12:30:00 13:24:[address] 3.430.2.7 Hospit a .3.373245 l . 2020-08-09 2020-08-09 [facility] 1.2.840.1 [id number] 02289 31540 Methodi 12:30:00 13:24:[address] 3.430.2.7 Hospit a .3.532837 l . 2020-08-09 2020-08-09 Orders Provider, 1.2.840.1 [id number] 2099 116977 Methodi 00:00:00 00:00:00 Only Unknown 73425.1.[address] 3.430.2.7 Hospit a .3.184495 l .8 2020-08-09 2020-08-09 Orders Provider, 1.2.840.1 [id number] 2099 563271 Methodi 00:00:00 00:00:00 Only Unknown 65076.1.[address] 3.430.2.7 Hospit a .3.959202 l .8 2020-08-06 2020-08-06 Hospital 1.2.840.1 [id number] 21787 07531 Methodi 13:00:00 13:35:[address] 3.430.2.7 Hospit a .3.032755 l .8 2020-08-06 2020-08-06 [facility] 1.2.840.1 [id number] 95675 16496 Methodi 13:00:00 13:35:[address] 3.430.2.7 Hospit a .3.675961 l .8 2020-08-06 2020-08-06 Orders Provider, 1.2.840.1 [id number] 2100 040480 Methodi 00:00:00 00:00:00 Only Unknown 00555.1.[address] 3.430.2.7 Hospit a .3.846206 l .8 2020-08-06 2020-08-06 Orders Provider, 1.2.840.1 [id number] Methodi 00:00:00 00:00:00 Only Unknown 39723.1.[address] 3.430.2.7 Hospit a .3.435653 l .8 2020-08-05 2020-08-05 [facility], Bin 1.2.840.1 [id number] 2100 422346 Methodi 12:34:00 13:37:15 Encounter Sing 03415.1.[address] 3.430.2.7 Hospit a .3.506964 l .8 2020-08-05 2020-08-05 [facility], Bin 1.2.840.1 [id number] 2100 395509 Methodi 12:34:00 13:37:15 Encounter Sing 88830.1.[address] 3.430.2.7 Hospit a .3.333438 l .8 2020-08-05 2020-08-05 Travel 1.2.840.1 1.2.840.401 8895 669331 Methodi 00:00:00 00:00:[address] 3.430.2.7 0.2.7.3.698 Ho spita .3.804356 084.8 l .8 2020-08-05 2020-08-05 Orders Provider, 1.2.840.1 [id number] 2100 040404 Methodi 00:00:00 00:00:00 Only Unknown 80586.1.[address] 3.430.2.7 Hospit a .3.876088 l .8 2020-08-05 2020-08-05 Travel 1.2.840.1 1.2.603.745 5881 826835 Methodi 00:00:00 00:00:[address] 3.430.2.7 0.2.7.3.698 Ho spita .3.062427 084.8 l .8 2020-08-05 2020-08-05 Orders Provider, 1.2.840.1 [id number] 2100 040404 Methodi 00:00:00 00:00:00 Only Unknown 02757.1.[address] 3.430.2.7 Hospit a .3.873049 l .8 2020-08-03 2020-08-03 Travel 1.2.840.1 1.2.498.090 5488 506146 Methodi 00:00:00 00:00:[address] 3.430.2.7 0.2.7.3.698 Ho spita .3.833724 084.8 l .8 2020-08-03 2020-08-03 Travel 1.2.840.1 1.2.585.886 2733 962434 Methodi 00:00:00 00:00:[address] 3.430.2.7 0.2.7.3.698 Ho spita .3.597421 084.8 l .8 2020-07-23 2020-07-23 [facility], Bin Sing 1.2.840.1 [id number] Methodi 12:27:32 15:55:59 [place] [address].1.[address] 3.430.2.7 Hospit a .3.900368 l .8 2020-07-23 2020-07-23 [facility], Bin Sing 1.2.840.1 [id number] Methodi 12:27:32 15:55:59 [place] [address].1.[address] 3.430.2.7 Hospit a .3.032092 l .8 2020-07-23 2020-07-23 [facility], Bin 1.2.840.1 [id number] 2100 644959 Methodi 13:30:00 14:31:07 Encounter Sing 11213.1.[address] 3.430.2.7 Hospit a .3.871793 l .8 2020-07-23 2020-07-23 [facility], Bin 1.2.840.1 [id number] 2100 [id number] Methodi 13:30:00 14:31:07 Encounter Sing 39732.1.[address] 3.430.2.7 Hospit a .3.315433 l .8 2020-07-23 2020-07-23 Travel 1.2.840.1 1.2.654.444 0146 799500 Methodi 00:00:00 00:00:[address] 3.430.2.7 0.2.7.3.698 Ho spita .3.584939 084.8 l .8 2020-07-23 2020-07-23 Travel 1.2.840.1 1.2.146.643 9118 027685 Methodi 00:00:00 00:00:[address] 3.430.2.7 0.2.7.3.698 Ho spita .3.712513 084.8 l .8 2020-07-22 2020-07-[address] [facility], Bin 1.2.840.1 [id number] 641 8348828 Methodi 00:00:00 00:00:[address] 3.430.2.7 Hospit a .3.139413 l .8 2020-07-22 2020-07-[address] [facility], Bin 1.2.840.1 [id number] 285 7255442 Methodi 00:00:00 00:00:[address] 3.430.2.7 Hospit a .3.407021 l .8 2020-07-20 2020-07-21 Hospital [facility], Bin 1.2.840.1 [id number] 2099 246073 Methodi 01:00:00 10:27:48 Encounter Sing 31032.1.[address] 3.430.2.7 Hospit a .3.149928 l .8 2020-07-20 2020-07-21 Hospital [facility], Bin 1.2.840.1 [id number] 2099 030785 Methodi 01:00:00 10:27:48 Encounter Sing 37793.1.[address] 3.430.2.7 Hospit a .3.376358 l .8 2020-07-21 2020-07-21 Telephone [facility], Bin 1.2.840.1 [id number] 697 6641575 Methodi 00:00:00 00:00:[address] 3.430.2.7 Hospit a .3.396020 l .8 2020-07-21 2020-07-21 Telephone [facility], Bin 1.2.840.1 [id number] 539 3282914 Methodi 00:00:00 00:00:[address] 3.430.2.7 Hospit a .3.392325 l .8 2020-07-20 2020-07-20 Office [facility], 1.2.840.1 [id number] 35720 31794 Methodi 14:59:58 15:22:35 Visit Jameel Gurdeep 62771.1.[address] Jeet 3.430.2.7 Hospit a .3.513455 l .8 2020-07-20 2020-07-20 Office [facility], 1.2.840.1 [id number] 28098 30974 Methodi 14:59:58 15:22:35 Visit Jameel Gurdeep 65130.1.[address] Jeet 3.430.2.7 Hospit a .3.716439 l .8 2020-07-20 2020-07-20 Travel 1.2.840.1 1.2.362.409 9184 498159 Methodi 00:00:00 00:00:[address] 3.430.2.7 0.2.7.3.698 Ho spita .3.897501 084.8 l .8 2020-07-20 2020-07-20 Travel 1.2.840.1 1.2.645.729 2050 619425 Methodi 00:00:00 00:00:[address] 3.430.2.7 0.2.7.3.698 Ho spita .3.497444 084.8 l .8 2020-07-14 2020-07-14 Orders White, 1.2.840.1 994433901 459267 4262 Methodi 00:00:00 00:00:00 Only Nidhi 89670.1.[address] 3.430.2.7 Hospit a .3.072571 l .8 2020-07-14 2020-07-14 Orders White, 1.2.840.1 193775046 040721 5477 Methodi 00:00:00 00:00:00 Only Nidhi 88894.1.[address] 3.430.2.7 Hospit a .3.387083 l .8 2020-07-13 2020-07-13 Nurse Only Pingali, 1.2.840.1 [id number] 86451550 Methodi 09:30:00 10:00:00 Jameel [address]90.[address] Jeet 3.430.2.7 Hospit a .3.160266 l .8 2020-07-13 2020-07-13 Nurse Only Pingali, 1.2.840.1 [id number] Methodi 09:30:00 10:00:00 Jameel Gurdeep [address] Jeet 3.430.2.7 Hospit a .3.563267 l .8 2020-07-13 2020-07-13 Travel 1.2.840.1 1.2.596.509 4367 967615 Methodi 00:00:00 00:00:[address] 3.430.2.7 0.2.7.3.698 Ho spita .3.207185 084.8 l .8 2020-07-13 2020-07-13 Travel 1.2.840.1 1.2.432.303 3980 547047 Methodi 00:00:00 00:00:[address] 3.430.2.7 0.2.7.3.698 Ho spita .3.018741 084.8 l .8 2020-07-08 2020-07-08 Infusion Pingali, 1.2.840.1 [id number] 2099 899363 Methodi 07:49:04 12:49:09 Jameel Gurdeep 07470.1.[address] Jeet 3.430.2.7 Hospit a .3.977878 l .8 2020-07-08 2020-07-08 Infusion Pingali, 1.2.840.1 [id number] 2099 115810 Methodi 07:49:04 12:49:09 Jameel Gurdeep 81061.1.[address] Jeet 3.430.2.7 Hospit a .3.752511 l .8 2020-07-08 2020-07-08 Travel 1.2.840.1 1.2.453.798 8260 364399 Methodi 00:00:00 00:00:[address] 3.430.2.7 0.2.7.3.698 Ho spita .3.047656 084.8 l .8 2020-07-08 2020-07-08 Travel 1.2.840.1 1.2.626.502 3512 340117 Methodi 00:00:00 00:00:[address] 3.430.2.7 0.2.7.3.698 Ho spita .3.898097 084.8 l .8 2020-07-07 2020-07-07 Orders Elpidio, 1.2.840.1 631708820 012421 6368 Methodi 00:00:00 00:00:00 Only Basia 72000.1.[address] [place] 3.430.2.7 Hospit a .3.358089 l .8 2020-07-07 2020-07-07 Travel 1.2.840.1 1.2.374.822 5937 531739 Methodi 00:00:00 00:00:[address] 3.430.2.7 0.2.7.3.698 Ho spita .3.994972 084.8 l .8 2020-07-07 2020-07-07 [facility], 1.2.840.1 [id number] 993715 2348 Methodi 00:00:00 00:00:00 Only Basia 94503.1.[address] [place] 3.430.2.7 Hospit a .3.070617 l .8 2020-07-07 2020-07-07 Travel 1.2.840.1 1.2.613.960 1548 970096 Methodi 00:00:00 00:00:[address] 3.430.2.7 0.2.7.3.698 Ho spita .3.428742 084.8 l .8 2020-07-06 2020-07-06 Telephone [facility], Bin 1.2.840.1 [id number] 225 8820525 Methodi 00:00:00 00:00:[address] 3.430.2.7 Hospit a .3.857105 l .8 2020-07-06 2020-07-[address] [facility], Bin 1.2.840.1 [id number] 754 9180868 Methodi 00:00:00 00:00:[address] 3.430.2.7 Hospit a .3.853442 l .8 2020-06-21 2020-07-05 [facility] 1.2.840.1 621835 0434985127 Methodi 11:58:00 13:00:00 Encounter Regine Valdovinos 06216.1.[address] [facility] 3.430.2.7 Hospita .3.434676 l .8 2020-06-21 2020-07-05 [facility] Chandu Mojica 1.2.840.1 256976 4719559853 Methodi 11:58:00 13:00:00 Encounter Regine Valdovinos 06905.1.[address] Robin Zuleta 3.430.2.7 Hospita .3.363154 l .8 2020-07-05 2020-07-05 Orders White, 1.2.840.1 [id number] 932248 8268 Methodi 00:00:00 00:00:00 Only Nidhi 62873.1.[address] 3.430.2.7 Hospit a .3.151191 l .8 2020-07-05 2020-07-05 Travel 1.2.840.1 1.2.168.343 7132 294276 Methodi 00:00:00 00:00:[address] 3.430.2.7 0.2.7.3.698 Ho spita .3.862041 084.8 l .8 2020-07-05 2020-07-05 Orders Carlos, 1.2.840.1 176075506 188906 3072 Methodi 00:00:00 00:00:00 Only Nidhi 15206.1.[address] 3.430.2.7 Hospit a .3.335970 l .8 2020-07-05 2020-07-05 Travel 1.2.840.1 1.2.129.307 5268 024393 Methodi 00:00:00 00:00:[address] 3.430.2.7 0.2.7.3.698 Ho spita .3.586626 084.8 l .8 2020-06-21 2020-06-21 [facility] 1.2.840.1 566818006 2100 317637 Methodi 01:00:00 11:57:00 Encounter Sing 62716.1.[address] 3.430.2.7 Hospit a .3.432041 l .8 2020-06-21 2020-06-21 [facility] Herbert 1.2.840.1 129853906 2100 624295 Methodi 01:00:00 11:57:00 Encounter Sing 80812.1.[address] 3.430.2.7 Hospit a .3.004490 l .8 2020-06-21 2020-06-21 Travel 1.2.840.1 1.2.059.088 3435 655041 Methodi 00:00:00 00:00:[address] 3.430.2.7 0.2.7.3.698 Ho spita .3.436042 084.8 l .8 2020-06-21 2020-06-21 Travel 1.2.840.1 1.2.436.821 9702 802887 Methodi 00:00:00 00:00:[address] 3.430.2.7 0.2.7.3.698 Ho spita .3.512153 084.8 l .8 2020-06-18 2020-06-18 [facility], Herbert Sing 1.2.840.1 [id number] Methodi 13:00:00 16:45:32 Encounter Shayy Nicholson 65793.1.[address] 3.430.2.7 Hospit a .3.993943 l .8 2020-06-18 2020-06-18 [facility], Herbert Sing 1.2.840.1 [id number] Methodi 13:00:00 16:45:32 Encounter Shayy Nicholson 65070.1.[address] 3.430.2.7 Hospit a .3.741732 l .8 2020-06-18 2020-06-18 Travel 1.2.840.1 1.2.443.463 6325 982159 Methodi 00:00:00 00:00:[address] 3.430.2.7 0.2.7.3.698 Ho spita .3.966448 084.8 l .8 2020-06-18 2020-06-18 Travel 1.2.840.1 1.2.320.374 7078 213977 Methodi 00:00:00 00:00:[address] 3.430.2.7 0.2.7.3.698 Ho spita .3.803893 084.8 l .8 2020-06-17 2020-06-17 [facility], Bin 1.2.840.1 20997571 Methodi 01:00:00 23:59:00 Encounter Sing 36039.1.[address] 3.430.2.7 Hospit a .3.770632 l .8 2020-06-17 2020-06-17 [facility], Bin 1.2.840.1 20997571 Methodi 01:00:00 23:59:00 Encounter Sing 96962.1.[address] 3.430.2.7 Hospit a .3.961753 l .8 2020-06-17 2020-06-17 Travel 1.2.840.1 1.2.877.663 7727 416467 Methodi 00:00:00 00:00:[address] 3.430.2.7 0.2.7.3.698 Ho spita .3.144792 084.8 l .8 2020-06-17 2020-06-17 Travel 1.2.840.1 1.2.039.671 7620 087386 Methodi 00:00:00 00:00:[address] 3.430.2.7 0.2.7.3.698 Ho spita .3.734573 084.8 l .8 2020-06-16 2020-06-16 Lora Gonzalez, 1.2.840.1 [id number] 623244 7888 Methodi 00:00:00 00:00:00 Only Nidhi 23351.1.[address] 3.430.2.7 Hospit a .3.859425 l .8 2020-06-16 2020-06-16 Orders White, 1.2.840.1 524426663 728811 6504 Methodi 00:00:00 00:00:00 Only Nidhi 46679.1.[address] 3.430.2.7 Hospit a .3.041550 l .8 2020-06-16 2020-06-16 Orders White, 1.2.840.1 226458235 931853 5498 Methodi 00:00:00 00:00:00 Only Nidhi 51488.1.[address] 3.430.2.7 Hospit a .3.934855 l .8 2020-06-16 2020-06-16 Orders White, 1.2.840.1 095918506 713630 5433 Methodi 00:00:00 00:00:00 Only Nidhi 99962.1.[address] 3.430.2.7 Hospit a .3.267105 l .8 2020-06-15 2020-06-15 [facility], 1.2.840.1 [id number] 2099 226867 Methodi 10:54:37 23:59:00 Encounter Jameel Gurdeep 54544.1.1 419 s t Jeet 3.430.2.7 Hospit a .3.600644 l .8 2020-06-15 2020-06-15 [facility], 1.2.840.1 [id number] 2099 969827 Methodi 10:54:37 23:59:00 Encounter Jameel Mackenzie 58354.1.1 419 s t Jeet 3.430.2.7 Hospit a .3.892502 l .8 2020-06-15 2020-06-15 [facility], 1.2.840.1 [id number] 83488 29256 Methodi 10:12:31 14:11:00 Visit Jameel Gurdeep 64283.1.[address] Jeet 3.430.2.7 Hospit a .3.013758 l .8 2020-06-15 2020-06-15 [facility], 1.2.840.1 [id number] 33272 18758 Methodi 10:12:31 14:11:00 Visit Jameel Gurdeep 86477.1.[address] Jeet 3.430.2.7 Hospit a .3.606836 l .8 2020-06-15 2020-06-15 Travel 1.2.840.1 1.2.888.519 0955 372088 Methodi 00:00:00 00:00:[address] 3.430.2.7 0.2.7.3.698 Ho spita .3.796334 084.8 l .8 2020-06-15 2020-06-15 Travel 1.2.840.1 1.2.633.440 3124 997988 Methodi 00:00:00 00:00:[address] 3.430.2.7 0.2.7.3.698 Ho spita .3.722249 084.8 l .8 2020-06-14 2020-06-14 [facility], 1.2.840.1 [id number] 2099 037301 Methodi 19:22:04 23:59:00 Encounter Jameel Gurdeep 83026.1.1 490 s t Jeet 3.430.2.7 Hospit a .3.907759 l .8 2020-06-14 2020-06-14 [facility], 1.2.840.1 [id number] 2099 802199 Methodi 19:22:04 23:59:00 Encounter Jameel Gurdeep 16615.1.1 490 s t Jeet 3.430.2.7 Hospit a .3.821294 l .8 2020-06-14 2020-06-14 [facility], 1.2.840.1 20997375 Methodi 19:21:25 19:21:25 Encounter Jameel Gurdeep 32079.1.1 483 s t Jeet 3.430.2.7 Hospit a .3.459838 l .8 2020-06-14 2020-06-14 [facility], 1.2.840.1 [id number] 543992 Methodi 19:21:25 19:21:25 Encounter Jameel Gurdeep 93521.1.1 483 s t Jeet 3.430.2.7 Hospit a .3.475596 l .8 2020-06-14 2020-06-14 Travel 1.2.840.1 1.2.462.716 9593 027189 Methodi 00:00:00 00:00:[address] 3.430.2.7 0.2.7.3.698 Ho spita .3.152327 084.8 l .8 2020-06-14 2020-06-14 Telephone James, 1.2.840.1 [id number] 809 1895230 Methodi 00:00:00 00:00:[address] 3.430.2.7 Hospit a .3.456297 l .8 2020-06-14 2020-06-14 Travel 1.2.840.1 1.2.090.889 9337 389655 Methodi 00:00:00 00:00:[address] 3.430.2.7 0.2.7.3.698 Ho spita .3.908975 084.8 l .8 2020-06-14 2020-06-14 Telephone James, 1.2.840.1 [id number] 682 6485586 Methodi 00:00:00 00:00:[address] 3.430.2.7 Hospit a .3.214099 l .8 2020-06-11 2020-06-11 [facility], 1.2.840.1 [id number] 2100 036997 Methodi 07:01:58 23:59:00 Encounter Jameel Mackenzie 85039.1.1 884 s t Jeet 3.430.2.7 Hospit a .3.178097 l .8 2020-06-11 2020-06-11 [facility], 1.2.840.1 20996997 Methodi 07:01:58 23:59:00 Encounter Jameel Mackenzie 54189.1.1 884 s t Jeet 3.430.2.7 Hospit a .3.556013 l .8 2020-06-11 2020-06-11 Orders Elpidio, 1.2.840.1 830457701 031503 4666 Methodi 00:00:00 00:00:00 Only Basia 70846.1.[address] [place] 3.430.2.7 Hospit a .3.375116 l .8 2020-06-11 2020-06-11 Orders Elpidio, 1.2.840.1 784427195 276604 1067 Methodi 00:00:00 00:00:00 Only Basia 30454.1.[address] [place] 3.430.2.7 Hospit a .3.234198 l .8 2020-06-10 2020-06-10 Travel 1.2.840.1 1.2.781.366 8531 958918 Methodi 00:00:00 00:00:[address] 3.430.2.7 0.2.7.3.698 Ho spita .3.551739 084.8 l .8 2020-06-10 2020-06-10 Telephone Delos 1.2.840.1 [id number] 2100 338046 Methodi 00:00:00 00:00:00 Sin, 75622.1.[address] Sarah 3.430.2.7 Hospit a .3.878694 l .8 2020-06-10 2020-06-10 Travel 1.2.840.1 1.2.966.146 8958 142726 Methodi 00:00:00 00:00:[address] 3.430.2.7 0.2.7.3.698 Ho spita .3.339797 084.8 l .8 2020-06-10 2020-06-10 Telephone Delos 1.2.840.1 410991817 2100 969959 Methodi 00:00:00 00:00:00 Sin, 56266.1.[address] Sarah 3.430.2.7 Hospit a .3.771865 l .8 2020-06-08 2020-06-08 [facility], 1.2.840.1 474071228 2100 456909 Methodi 23:59:00 23:59:00 Encounter Jameel Mackenzie 76948.1.1 973 s t Jeet 3.430.2.7 Hospit a .3.946290 l .8 2020-06-08 2020-06-08 [facility], 1.2.840.1 505845564 2100 233110 Methodi 23:59:00 23:59:00 Encounter Jameel Mackenzie 32244.1.1 973 s t Jeet 3.430.2.7 Hospit a .3.533809 l .8 2020-06-08 2020-06-08 [facility], 1.2.840.1 [id number] 43964 39556 Methodi 12:33:09 12:38:09 Jameel Mackenzie 85679.1.[address] Jeet 3.430.2.7 Hospit a .3.261982 l .8 2020-06-08 2020-06-08 [facility], 1.2.840.1 [id number] 26040 00687 Methodi 12:33:09 12:38:09 Jameel Mackenzie 39355.1.[address] Jeet 3.430.2.7 Hospit a .3.260673 l .8 2020-06-08 2020-06-08 Telephone White, 1.2.840.1 011279736 2100 734297 Methodi 00:00:00 00:00:[address] 3.430.2.7 Hospit a .3.512838 l .8 2020-06-08 2020-06-08 Telephone White, 1.2.840.1 380467587 2100 946460 Methodi 00:00:00 00:00:[address] 3.430.2.7 Hospit a .3.549153 l .8 2020-06-08 2020-06-08 Orders White, 1.2.840.1 806900649 623966 7511 Methodi 00:00:00 00:00:00 Only Nidhi 38810.1.[address] 3.430.2.7 Hospit a .3.245512 l .8 2020-06-08 2020-06-08 Telephone White, 1.2.840.1 693642258 2100 258495 Methodi 00:00:00 00:00:[address] 3.430.2.7 Hospit a .3.969351 l .8 2020-06-08 2020-06-08 Telephone White, 1.2.840.1 573118833 2099 915785 Methodi 00:00:00 00:00:[address] 3.430.2.7 Hospit a .3.356923 l .8 2020-06-08 2020-06-08 Orders White, 1.2.840.1 678148383 807466 3720 Methodi 00:00:00 00:00:00 Only Nidhi 94258.1.[address] 3.430.2.7 Hospit a .3.058803 l .8 2020-06-07 2020-06-07 [facility], 1.2.840.1 817313810 132 2749344 Methodi 07:57:00 11:45:00 Encounter Ifona 81506.1.[address] 3.430.2.7 Hospit a .3.299299 l .8 2020-06-07 2020-06-07 [facility], 1.2.840.1 [id number] 496 4200862 Methodi 07:57:00 11:45:00 Encounter Fiona 05666.1.[address] 3.430.2.7 Hospit a .3.079054 l .8 2020-06-07 2020-06-07 Surgery [facility], 1.2.840.1 [id number] 2099 786873 Methodi 09:27:00 10:57:[address] 3.430.2.7 Hospit a .3.660242 l .8 2020-06-07 2020-06-07 Surgery [facility], 1.2.840.1 [id number] 2099 155729 Methodi 09:27:00 10:57:[address] 3.430.2.7 Hospit a .3.985856 l .8 2020-06-07 2020-06-07 Anesthesia Malka Madrigal 1.2.840. 1 003280716 0844019269 Methodi 09:28:00 10:28:00 Event Nacho Corrigan 17337.1.[address] 3.430.2.7 Hospit a .3.407159 l .8 2020-06-07 2020-06-07 Anesthesia DaiMalka Falcon 1.2.840. 1 [id number] 1765510785 Methodi 09:28:00 10:28:00 Event Nacho Corrigan 50902.1.[address] 3.430.2.7 Hospit a .3.547182 l .8 2020-06-07 2020-06-07 Orders Carlos, 1.2.840.1 364551195 859706 6835 Methodi 00:00:00 00:00:00 Only Nidhi 87697.1.[address] 3.430.2.7 Hospit a .3.703825 l .8 2020-06-07 2020-06-07 Travel 1.2.840.1 1.2.928.914 3171 734328 Methodi 00:00:00 00:00:[address] 3.430.2.7 0.2.7.3.698 Ho spita .3.261766 084.8 l .8 2020-06-07 2020-06-07 Orders Carlos, 1.2.840.1 308484055 423185 2645 Methodi 00:00:00 00:00:00 Only Nidhi 59737.1.[address] 3.430.2.7 Hospit a .3.424842 l .8 2020-06-07 2020-06-07 Travel 1.2.840.1 1.2.480.005 2135 769073 Methodi 00:00:00 00:00:[address] 3.430.2.7 0.2.7.3.698 Ho spita .3.902709 084.8 l .8 2020-06-04 2020-06-04 Orders Kelly Berman 1.2.840.1 056546059 821 7006869 Methodi 00:00:00 00:00:[address] 3.430.2.7 Hospit a .3.608824 l .8 2020-06-04 2020-06-04 Orders White, 1.2.840.1 584241710 518582 0725 Methodi 00:00:00 00:00:00 Only Nidhi 81482.1.[address] 3.430.2.7 Hospit a .3.479339 l .8 2020-06-04 2020-06-04 Orders Cullen, Kelly 1.2.840.1 664143189 012 5109078 Methodi 00:00:00 00:00:[address] 3.430.2.7 Hospit a .3.520602 l .8 2020-06-04 2020-06-04 Orders White, 1.2.840.1 292955312 124466 1217 Methodi 00:00:00 00:00:00 Only Nidhi 62494.1.[address] 3.430.2.7 Hospit a .3.068936 l .8 2020-06-03 2020-06-03 [facility], 1.2.840.1 [id number] 2100 792778 Methodi 12:40:00 23:59:00 Encounter Jameel Gurdeep 05937.1.1 682 s t Jeet 3.430.2.7 Hospit a .3.516584 l .8 2020-06-03 2020-06-03 [facility], 1.2.840.1 [id number] 2100 116842 Methodi 12:40:00 23:59:00 Encounter Jameel Gurdeep 57309.1.1 682 s t Jeet 3.430.2.7 Hospit a .3.738227 l .8 2020-06-01 2020-06-03 [facility], 1.2.840.1 [id number] 88990 26407 Methodi 10:28:49 14:34:32 Visit Jameel Gurdeep 46581.1.[address] Jeet 3.430.2.7 Hospit a .3.262784 l .8 2020-06-01 2020-06-03 Office Pingali, 1.2.840.1 352201615 63146 49121 Methodi 10:28:49 14:34:32 Visit Jameel Mackenzie 53437.1.[address] Jeet 3.430.2.7 Hospit a .3.388418 l .8 2020-06-03 2020-06-03 Travel 1.2.840.1 1.2.413.251 3849 024050 Methodi 00:00:00 00:00:[address] 3.430.2.7 0.2.7.3.698 Ho spita .3.748876 084.8 l .8 2020-06-03 2020-06-03 Travel 1.2.840.1 1.2.451.043 8956 940332 Methodi 00:00:00 00:00:[address] 3.430.2.7 0.2.7.3.698 Ho spita .3.623527 084.8 l .8 2020-06-02 2020-06-02 Orders White, 1.2.840.1 712951121 308189 4370 Methodi 00:00:00 00:00:00 Only Nidhi 13927.1.[address] 3.430.2.7 Hospit a .3.151951 l .8 2020-06-02 2020-06-02 Orders White, 1.2.840.1 594380656 101374 0662 Methodi 00:00:00 00:00:00 Only Nidhi 05795.1.[address] 3.430.2.7 Hospit a .3.828824 l .8 2020-06-01 2020-06-01 Lab Pingali, 1.2.840.1 [id number] 00269 63750 Methodi 11:51:44 11:56:44 Jameel Gurdeep 47414.1.[address] Jeet 3.430.2.7 Hospit a .3.654340 l .8 2020-06-01 2020-06-01 Lab Pingali, 1.2.840.1 [id number] 80762 48942 Methodi 11:51:44 11:56:44 [address]ameel Gur[address] Jeet 3.430.2.7 Hospit a .3.723938 l .8 2020-06-01 2020-06-01 Orders Carlos, 1.2.840.1 [id number] 946030 5221 Methodi 00:00:00 00:00:00 Only Nidhi 32278.1.[address] 3.430.2.7 Hospit a .3.311000 l .8 2020-06-01 2020-06-01 Orders Kelly Berman 1.2.840.1 [id number] 244 [id number] Methodi 00:00:00 00:00:[address] 3.430.2.7 Hospit a .3.634645 l .8 2020-06-01 2020-06-01 Travel 1.2.840.1 1.2.943.494 2315 001213 Methodi 00:00:00 00:00:[address] 3.430.2.7 0.2.7.3.698 Ho spita .3.006964 084.8 l .8 2020-06-01 2020-06-01 Orders Carlos, 1.2.840.1 [id number] 348161 3582 Methodi 00:00:00 00:00:00 Only Nidhi 73601.1.[address] 3.430.2.7 Hospit a .3.346156 l .8 2020-06-01 2020-06-01 Orders Kelly Berman 1.2.840.1 [id number] 655 [id number] Methodi 00:00:00 00:00:[address] 3.430.2.7 Hospit a .3.737480 l .8 2020-06-01 2020-06-01 Travel 1.2.840.1 1.2.013.447 2265 300033 Methodi 00:00:00 00:00:[address] 3.430.2.7 0.2.7.3.698 Ho spita .3.625717 084.8 l .8 2020-05-24 2020-05-24 [facility], 1.2.840.1 [id number] 746 [id number] Methodi 06:50:00 11:13:00 Encounter Fiona 87205.1.[address] 3.430.2.7 Hospit a .3.439238 l .8 2020-05-24 2020-05-24 [facility], 1.2.840.1 [id number] 147 [id number] Methodi 06:50:00 11:13:00 Encounter Fiona 23786.1.[address] 3.430.2.7 Hospit a .3.174168 l .8 2020-05-24 2020-05-24 Anesthesia Padilla, 1.2.840.1 [id number] Methodi 09:19:00 10:27:00 Event Earl 72512.1.[address] Ismael 3.430.2.7 Hospit a .3.066013 l .8 2020-05-24 2020-05-24 Anesthesia Padilla, 1.2.840.1 [id number] Methodi 09:19:00 10:27:00 Event Earl 08995.1.[address] Ismael 3.430.2.7 Hospit a .3.278823 l .8 2020-05-24 2020-05-24 Surgery [facility], 1.2.840.1 [id number] 2100 459671 Methodi 08:55:00 10:15:[address] 3.430.2.7 Hospit a .3.352829 l .8 2020-05-24 2020-05-24 Surgery [facility], 1.2.840.1 [id number] 2099 641248 Methodi 08:55:00 10:15:[address] 3.430.2.7 Hospit a .3.982499 l .8 2020-05-24 2020-05-24 Travel 1.2.840.1 1.2.239.066 3470 416916 Methodi 00:00:00 00:00:[address] 3.430.2.7 0.2.7.3.698 Ho spita .3.335770 084.8 l .8 2020-05-24 2020-05-24 Travel 1.2.840.1 1.2.110.162 5522 557109 Methodi 00:00:00 00:00:[address] 3.430.2.7 0.2.7.3.698 Ho spita .3.284429 084.8 l .8 2020-05-20 2020-05-20 Travel 1.2.840.1 1.2.993.615 8538 718591 Methodi 00:00:00 00:00:[address] 3.430.2.7 0.2.7.3.698 Ho spita .3.828498 084.8 l .8 2020-05-20 2020-05-20 Travel 1.2.840.1 1.2.226.630 2500 282300 Methodi 00:00:00 00:00:[address] 3.430.2.7 0.2.7.3.698 Ho spita .3.320976 084.8 l .8 2020-04-28 2020-04-28 Orders Jesser, 1.2.840.1 20994595 Methodi 00:00:00 00:00:00 Only Fiona 32666.1.[address] 3.430.2.7 Hospit a .3.154425 l .8 2020-04-28 2020-04-28 Orders Jesser, 1.2.840.1 [id number] 2100 034595 Methodi 00:00:00 00:00:00 Only Fiona 17158.1.[address] 3.430.2.7 Hospit a .3.883926 l .8 Results Test Description Test Time Test Results Result Source Comments Comments Transthoracic 2D E[facility]/ doppler 9 ECHO [facility] Cronin - (cw/pw/color) 13:04:35 CPACSInterface, Medica l External Ris In - Center 03/28/2021 1:04 PM CDTTransthoracic Echocardiography Report (TTE) Demographics Patient Name ESTEFANI IGNACIO Date of Study 03/28/2021 ZI Gender Male Visit Number [id number] Race Unknown Room Number 2250 Number Date of 1950 Referring Kerry Reynoso MD Physician Age 71 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 Mild concentric LV hypertrophy. All of the LV segments contract normally . Estimated LVEF by qualitative assessment is normal (>60%) . Grade 1 diastolic dysfunction (impaired relaxation and low-normal LA pressure). Unable to estimate peak systolic PA pressure; inadequate TR velocity signal. Signature Findings Left Ventricle LV endocardium is adequately visualized with IV ultrasound enhancing agent. The left ventricle is chamber size (by vol index) is normal (male - LVED vol - 34-74ml/m2). Mild concentric LV hypertrophy. All of the LV segments contract normally . Estimated LVEF by qualitative assessment is normal (>60%) . Grade 1 diastolic dysfunction (impaired relaxation and low-normal LA pressure). Left Atrium LA size is normal . Right Ventricle Normal right ventricle structure and function. Right Atrium RA cavity size is normal . Aortic Valve Mild AoV cusp thickening. Mild AoV cusp calcification. A trace of aortic regurgitation. Mitral Valve Mild MV leaflet thickening. Tricuspid Valve A trace of tricuspid regurgitation. Unable to estimate peak systolic PA pressure; inadequate TR velocity signal. Pulmonic Valve Normal PV structure and function by limited views and Doppler. Aorta Aortic root size (SInus of Valsalva diameter) is normal . Pericardium No evidence of pericardial effusion. IVC/SVC/PA/PV/Pleural The estimated RA pressure by IVC dynamics 5-10mmHg . Chambers/Structures Left Atrium LA Dimension: 4.2 cm LA Area: 19.4 cm^2 LA Volume: 71.5 ml LA Vol. Index: 29 ml/m^2 Left Ventricle LVIDd: 4.48 cm LVEDV:137.95 ml LV Septum Diastolic: 1.18 cm LV PW Diastolic: 1.24 cm LVEDV Aranda's:94.97 ml LVESV Aranda's:32.71 ml LVEF Aranda's: 65.6 % LVEDVI: 39 ml/m^2 LVESVI: 13 ml/m^2 LVOT Diameter: 2.58 cm Right Ventricle RVOT VTI: 14.67 cm Aorta Ao Root S of Jennifer.: 3.62 cm Ascending Aorta: 3.53 cm Doppler/Quantitative Measurements Mitral Valve MV Peak E-Wave: 0.51 m/s MV Peak A-Wave: 0.84 m/s E/A Ratio: 0.61 Peak Gradient: 1.03 mmHg Deceleration Time: 445.1 msec MV Constantin. Peak: Tissue Doppler E' Septal Velocity: 0.13 m/s E' Lateral Velocity: 0.13 m/s Aortic Valve Peak Velocity: 1.11 m/s Mean Velocity: 0.85 m/s Peak Gradient: 4.94 mmHg Mean Gradient: 3.23 mmHg AV Area (continuity): 4.7 cm^2 AV VTI: 22.77 cm AV DVI: 0.9 LVOT Peak Velocity: 1.05 m/s Peak Gradient: 4.37 mmHg Mean Velocity: 0.7 m/s Mean Gradient: 2.2 mmHg LVOT Diameter: 2.58 cm LVOT VTI: 20.47 cm LVOT Area: 5.23 cm^2 LVOT SV:106.96 ml LVOT CO: 6.74 l/min LVOT CI: 2.75 l/min/m^2 RPR 2021-03-28 12:19:00 Test Item Value Reference Range Interpretation Comme nts RPR (test code = 23846-0) Nonreactive Nonreactive Lab Interpretation (test code = 16607-9) [facility] 12:19[facility]00 Test Item Value Reference Range Interpretation Comments RPR SCREEN (BEAKER) (test code = Nonreactive Nonreactive 420) ECG 12 [id number] 06:39:10Interface, External Ris In - 03/28/2021 6:39 AM CDTVentricular Rate 59 BPMAtrial Rate 59 BPMP-R Interval 180 msQRS Duration 114 msQ-T Interval 450 msQTC Calculation(Bazett) 445 msP [place] 8 degreesR [place] -32 degreesT [place] 8 degreesSinus bradycardia with Premature atrial complexesLeft axis deviationIncomplete right bundle branch blockMinimal voltage criteria for LVH, may be normal variantAbnormal ECGWhen compared with ECG of 08-MAR-1999 15:57,Premature atrial complexes are now PresentIncomplete right bundle branch block is now PresentQRS axis has shifted leftwardConfirmed by MD BE, CHARLEY ([id number]) on 03/28/2021 6:39:05 AMCH[facility] HospitalPOC-Glucose [id number] 17:13:00 Test Item Value Reference Range Interpretation Comments POC-Glucose Meter (test 134 mg/dL 70-110 H : TE STED AT [facility] code = 1538) [address] [place], [address]: Walking Dragline Operator/Techni jorge a ID = [id number] for Chrissy Sánchez Lab Interpretation (test Abnormal code = 82481-7) [facility] [id number] 17:13:00 Test Item Value Reference Range Interpretation Comments POC-GLUCOSE METER 134 mg/dL 70-110 H : TESTED Zuly Slade [facility] 6720 (BEAKER) (test code = [place], 1538) [address]: Walking Dragline Operator/Techni jorge a ID = [id number] for An Chrissy marshall MR, BRAIN WITH IV [id number] 15:39:00Unlisted Reason for Exam - Click Yes and Enter Reason Below->YesUnlisted Reason for Exam->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 COMPARISON: Noncontrast brain MRI obtained approximately four hours prior FINDINGS:The areas of white matter change in the frontal lobes crossing the corpus callosum demonstrates no postcontrast enhancement. 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 Signed: JR Michel Robert MDReport Verified Date/Time: 03/27/2021 15:39:05 Reading Location: [place] [address] C0[facility] Neuro Reading Room MR brain with IV [id number] 15:39:00Interface, External Ris In - 03/27/2021 3:41 PM CDTFINAL REPORT MR, BRAIN WITH IV CONTRAST INDICATION: Unlisted Reason for ExamConcern for SENIOR QA TESTER lymphoma due to localized white matter changes TECHNIQUE: Multiplanar, multisequence MR imaging of the brain was obtained before and after uneventful administration of gadolinium contrast. COMPARISON: Noncontrast brain MRI obtained approximately four hours prior FINDINGS:The areas of white matter change in the frontal lobes crossing the corpus callosum demonstrates no postcontrast enhancement. 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 Signed: JR Michel Robert MDReport Verified Date/Time: 03/27/2021 13:45:35 Reading Location: [address] Neuro Reading RoomAddendum EndsFINAL REPORT MR, BRAIN, WITHOUT CONTRAST INDICATION: Unlisted Reason for ExamIschemic Stroke Evaluation TECHNIQUE: Multiplanar, multisequence MR imaging of the brain without intravenous contrast. COMPARISON: None FINDINGS: There is no restricted diffusion. Dense white matter disease is present throughout the brain parenchyma. No susceptibility artifact. Midline is normally positioned. The ventricles are normal in size and configuration. The larger intracranial vascular flow-voids are preserved. Paranasal sinuses and mastoid air cells are clear. There is normal bone marrow signal intensity within the calvarium and skull base. IMPRESSION: Age-related white matter changes without recent infarct or hemorrhage. Signed: JR Michel Robert MDReport Verified Date/Time: 03/27/2021 11:43:42 Reading Location: [address] Neuro Reading Room MR, MRA, BRAIN, WITHOUT [id number] 11:56:00Reason for exam:- >Ischemic Stroke Evaluation [facility] : 1950 Sex: MFINAL REPORT MR, MRA, BRAIN, WITHOUT CONTRAST, MR, MRA, NECK, WITHOUT IV CONTRAST INDICATION: Unlisted Reason for ExamIschemic Stroke Evaluation TECHNIQUE: 3-D time of flight MRA of the cranial and cervical circulation. 2-D time of flight MRA of the neck. 3D MIP angiographic post-processing was performed. Stenosis evaluation utilized NASCET criteria. COMPARISON: Correlation to noncontrast brain MRI obtained concurrently. FINDINGS: MRA BRAIN:Internal carotid arteries: Patent. Middle cerebral arteries: Patent to distal branches.Anterior cerebral arteries: Intact.Basilarsystem: Patent vertebrobasilar system.Posterior cerebral arteries:Patent beyond the quadrigeminal segments.Additional findings: None. MRA NECK:Common carotid arteries: Unremarkable. Bifurcations: No flow-limiting stenosis. Cervical internal carotid arteries: No flow limiting stenosis.Vertebral arteries: Codominant. No extracranial stenosis. IMPRESSION: No flow limiting stenosis in the major branch vessels of the cervical or cranial circulation. Signed: JR Michel Robert MDReport Verified Date/Time: 03/27/2021 11:56:38 Reading Location: [address] Neuro Reading Room MR, MRA, NECK, WITHOUT IV CONTRAST 2021-03-27 11:56:00Reason for exam:->[facility]schemic Stroke Evaluation [facility] : 1950 Sex: MFINAL REPORT MR, MRA, BRAIN, WITHOUT CONTRAST, MR, MRA, NECK, WITHOUT IV CONTRAST INDICATION: Unlisted Reason for ExamIschemic Stroke Evaluation TECHNIQUE: 3-D time of flight MRA of the cranial and cervical circulation. 2-D time of flight MRA of the neck. 3D MIP angiographic post-processing was performed. Stenosis evaluation utilized NASCET criteria. COMPARISON: Correlation to noncontrast brain MRI obtained concurrently. FINDINGS: MRA BRAIN:Internal carotid arteries: Patent. Middle cerebral arteries: Patent to distal branches.Anterior cerebral arteries: Intact.Basilarsystem: Patent vertebrobasilar system.Posterior cerebral arteries:Patent beyond the quadrigeminal segments.Additional findings: None. MRA NECK:Common carotid arteries: Unremarkable. Bifurcations: No flow-limiting stenosis. Cervical internal carotid arteries: No flow limiting stenosis.Vertebral arteries: Codominant. No extracranial stenosis. IMPRESSION: No flow limiting stenosis in the major branch vessels of the cervical or cranial circulation. Signed: JR Michel Robert MDReport Verified Date/Time: 03/27/2021 11:56:38 Reading Location: [address] Neuro Reading Room MRA head without IV contrast 2021-03-27 11:56:00Interface, External Ris In - 03/27/2021 11:58 AM CDTFINAL REPORT MR, MRA, BRAIN, WITHOUT CONTRAST, MR, MRA, NECK, WITHOUT IV CONTRAST INDICATION: Unlisted Reason for ExamIschemicStroke Evaluation TECHNIQUE: 3-D time of flight MRA of the cranial and cervical circulation. 2-D time of flight MRA of the neck. 3D MIP angiographic post- processing was performed. Stenosis evaluation utilized NASCET criteria. COMPARISON: Correlation to noncontrast brain MRI obtained concurrently. FINDI NGS: MRA BRAIN:Internal carotid arteries: Patent. Middle cerebral arteries: Patent to distal branches.Anterior cerebral arteries: Intact.Basilar system: Patent vertebrobasilar system.Posterior cerebral arteries:Patent beyond the quadrigeminal segments.Additional findings: None. MRA NECK:Common carotid arteries: Unremarkable. Bifurcations: No flow-limiting stenosis. Cervical internal carotid arteries: No flow limiting stenosis.Vertebral arteries: Codominant. No extracranial stenosis. IMPRESSION: Noflow limiting stenosis in the major branch vessels of the cervical or cranial circulation. Signed: Shayne puckett JR, Robert MDReport Verified Date/Time: 03/27/2021 11:56:38 Reading Location: [address] Neuro Reading [facility] without IV [id number] 11:56:00Interface, External Ris In - 03/27/2021 11:58 AM CDTFINAL REPORT MR, MRA, BRAIN, WITHOUT CONTRAST, MR, MRA, NECK, WITHOUT IV CONTRAST INDICATION: Unlisted Reason for ExamIschemic Stroke Evaluation TECHNIQUE: 3-D time of flight MRA of the cranial and cervical circulation. 2-D time of flight MRA of the neck. 3D MIP angiographic post- processing was performed. Stenosis evaluation utilized NASCET criteria. COMPARISON: Correlation to noncontrast brain MRI obtained concurrently. FINDI NGS: MRA BRAIN:Internal carotid arteries: Patent. Middle cerebral arteries: Patent to distal branches.Anterior cerebral arteries: Intact.Basilar system: Patent vertebrobasilar system.Posterior cerebral arteries:Patent beyond the quadrigeminal segments.Additional findings: None. MRA NECK:Common carotid arteries: Unremarkable. Bifurcations: No flow-limiting stenosis. Cervical internal carotid arteries: No flow limiting stenosis.Vertebral arteries: Codominant. No extracranial stenosis. IMPRESSION: Noflow limiting stenosis in the major branch vessels of the cervical or cranial circulation. 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 Signed: JR Michel Robert MDReport Verified Date/Time: 03/27/2021 13:45:35 Reading Location: [address] Neuro Reading RoomAddendum EndsFINAL REPORT MR, BRAIN, WITHOUT CONTRAST INDICATION: Unlisted Reason for ExamIschemic Stroke Evaluation TECHNIQUE: Multiplanar, multisequence MR imaging of the brain without intravenous contrast. COMPARISON: None FINDINGS: There is no restricted diffusion. Dense white matter disease is present throughout the brain parenchyma. No susceptibility artifact. Midline is normally positioned. The ventricles are normal in size and configuration. The larger intracranial vascular flow-voids are preserved. Paranasal sinuses and mastoid air cells are clear. There is normal bone marrow signal intensity within the calvarium and skull base. IMPRESSION: Age-related white matter changes without recent infarct or hemorrhage. Signed: JR Michel Robert MDReport Verified Date/Time: 03/27/2021 11:43:42 Reading Location: [facility] C013V Neuro Reading Room [facility] (Asymptomatic ONLY[facility] 2021-03-27 10:32:00 Test Item Value Reference Range Interpretation Comments SARS-COV2/RT-PCR Negative Not Detected, (test code = Negative, See 03772-3) external report for linked test SARS-COV-2 [facility] (test code = 72206-2) KRYSTLE (test code = Negative result for this KRYSTLE) test determines that SARS-CoV-2 RNA was not present in the specimen above the Limit of Detection (LOD). However, Negative results do not preclude SARS-CoV-2 infection and should not be used as the sole basis for treatment or patient management decisions. Negative results must be combined with clinical observations, patient history, and epidemiological information. A false negative result may occur if a specimen is improperly collected, transported or handled. A false negative result should be considered if patient's recent exposures or clinical presentation indicate that COVID-19 (SARS-CoV-2) is likely and diagnostic tests for other causes of illness are negative. Re-testing should be considered in cases of suspected false negatives. The limit of detection for this assay is 800 copies/mL. This SARS CoV-2 test is a real-time RT-PCR test intended for the qualitative detection of nucleic acid from SARS-CoV-2 in a nasopharyngeal swab specimen collected from individuals suspected of COVID-19 by their healthcare provider. This test has not been Food and Drug Administration (FDA) cleared or approved. This is a modified version of an approved Emergency Use Authorization (EUA) and is in the process of review by the FDA. Once authorized by the FDA, the issued EUA will be effective until the declaration that circumstances exist justifying the authorization of the emergency use of in vitro diagnostic tests for detection and/or diagnosis of COVID-19 is terminated under Section 564(b)(2) of the Act or the EUA is revoked under Section 564(g) of the Act. Fact Sheet for Healthcare Providers:https://www.Planeta.ru.QualySense/sites/default/f kostas/product/documents/F act_Sheet_HC_Providers_L pgz_IIQR-YyM-4.pdf Fact Sheet for Healthcare Patients:https://www.Loudie.QualySense/sites/default/fi les/product/documents/Fa ct_Sheet_Patients_Ly_S ARS-CoV-2.pdf Performing Laboratory:[facility] [place] [address] [facility])2021-03-27 10:32:00 Test Item Value Reference Range Interpretation Comments SARS-COV2/RT-PCR (test Negative Not Detected, Negative, code = 5521031) See external report for linked test SARS-COV-2 PERFORMING LAB [facility] (test code = 4203472) Negative result for this test determines that SARS-CoV-2 RNA was not present in the specimen above the Limit of Detection (LOD). However, Negative results do not preclude SARS-CoV-2 infection and should not be used as the sole basis for treatment or patient management decisions. Negative results mustbe combined with clinical observations, patient history, and epidemiological information. A false negative result may occur if a specimen is improperly collected, transported or handled. A false negative result should be considered if patient's recent exposures or clinical presentation indicate that COVID-19 (SARS-CoV-2) is likely and diagnostic tests for other causes of illness are negative. Re-testing should be considered in cases of suspected false negatives.The limit of detection for this assay is 800 copies/mL.This SARS CoV-2 test is a real-time RT-PCR test intended for the qualitative detection of nucleic acid from SARS-CoV-2 in a nasopharyngeal swab specimen collected from individuals susp ected of COVID-19 by their healthcare provider.This test has not been Food and Drug Administration (FDA) cleared or approved. This is a modified version of an approved Emergency Use Authorization (EUA) and is in the process of review by the FDA. Once authorized by the FDA, the issued EUA will be effective until the declaration that circumstances exist justifying the authorization of the emergency use of in vitro diagnostic tests for detection and/or diagnosis of COVID-19 is terminated under Section 564(b)(2) of the Act or the EUA is revoked under Section 564(g) of the Act.Fact Sheet for Healthcare Providers:https://www.EdeniQ.QualySense/sites/default/files/product/documents/Fact_Shedarby t_IK_Robemldct_Wkaf_FTJI-WbY-8.pdfFact Sheet for Healthcare Patients:https://www.OPTIMIZERx/sites/default/files/product/ documents/Xlzm_Zagpw_Ukxsdpmn_Denj_LRTW-CsZ-1.pdfPerforming Laboratory:[facility], [place] [address]Xdjfbjzemv A1c 2021-03-27 08:24:00 Test Item Value Reference Range Interpretation Comments Hemoglobin A1C (test code = 4548-4) 6.5 % 4.3-6.1 H Lab Interpretation (test code = Abnormal 04942-6) [facility] HospitalHEMOGLOBIN [id number] 08:24:00 Test Item Value Reference Range Interpretation Comments HEMOGLOBIN A1C (BEAKER) (test code = 6.5 % 4.3-6.1 H 368) TSH/Free T4 If [id number] 07:11:00 Test Item Value Reference Range Interpretation Comments TSH (test code = 1.949 See_Comment [Automated 63621-5) message] The system which generated this result transmit ayla reference range : 0.350 - 4.940 uIU/mL. The reference range was not used to interpret this result as normal/abnormal . KRYSTLE (test code = KRYSTLE) Walking Dragline Operator ID - BOYD W Lab Interpretation Normal (test code = 19212-0) [facility] HospitalVitamin B12 and [id number] 07:11:00 Test Item Value Reference Range Interpretation Comments Vitamin B12 (test 159 pg/mL 213-816 L code = 2132-9) Folate (test code = 12.70 ng/mL See_Comment [Automa ayla 2284-8) message] The system which generated this result transmit ayla reference range : >=7.00. The reference range was not used to interpret this result as normal/abnormal . KRYSTLE (test code = KRYSTLE) Walking Dragline Operator ID - BOYD W Lab Interpretation Abnormal (test code = 28276-2) [facility] HospitalTSH/FREE T4 IF [id number] 07:11:00 Test Item Value Reference Range Interpretation Comments THYROID STIMULATING HORMONE 1.949 uIU/mL 0.350-4.940 (BEAKER) (test code = 772) Walking Dragline Operator ID - BOYD WVITAMIN B12 AND [id number] 07:11:00 Test Item Value Reference Range Interpretation Comments VITAMIN B12 159 pg/mL 213-816 L (BEAKER) (test code = 774) FOLATE (BEAKER) 12.70 ng/mL See_Comment [Automated message] (test code = 362) The system which generated this result transmitted ref erence range: >=7.00. The reference range was not used to interpr et this result as normal/abnormal . Walking Dragline Operator ID - BOYD WFasting lipid [id number] 07:06:00 Test Item Value Reference Range Interpretation Comments Triglycerides (test 120 mg/dL Specimen code = 2571-8) slightly hemolyzed Cholesterol (test 166 mg/dL Specimen code = 2093-3) slightly hemolyzed HDL (test code = 30 mg/dL 5-9) LDL Calculated (test 112 mg/dL code = 14122-0) KRYSTLE (test code = Triglyceride KRYSTLE) Reference Range: Low Risk <150 Borderline 150-199 High Risk 200-499 Very High Risk >=500 Cholesterol Reference Range: Low Risk <200 Borderline 200-239 High Risk >240 HDL Cholesterol Reference Range: Low Risk >=60 High Risk <40 LDL Cholesterol Reference Range: Optimal <100 Near Optimal 100-129 Borderline 130-159 High 160-189 Very High >=190 Walking Dragline Operator ID - ADMIN [facility] HospitalC-Reactive [id number] 07:06:00 Test Item Value Reference Range Interpretation Comments CRP (test code = 676) 0.81 mg/dL 0-0.5 H KRYSTLE (test code = KRYSTLE) Walking Dragline Operator ID - ADMIN Lab Interpretation (test Abnormal code = 02665-2) [facility] HospitalLIPID [id number] 07:06:00 Test Item Value Reference Range Interpretation Comments TRIGLYCERIDES (BEAKER) 120 mg/dL Speci men slightly (test code = 540) hemolyzed CHOLESTEROL (BEAKER) 166 mg/dL Specime n slightly (test code = 631) hemolyzed HDL CHOLESTEROL (BEAKER) 30 mg/dL (test code = 976) LDL CHOLESTEROL 112 mg/dL CALCULATED (BEAKER) (test code = 633) Triglyceride Reference Range: Low Risk <150 Borderline 150-199 High Risk 200-499 Very High Risk >=500Cholesterol Reference Range: Low Risk <200 Borderline 200-239 High Risk >240HDL Cholesterol Reference Range: Low Risk >=60 High Risk <40LDL Cholesterol Reference Range: Optimal <100 Near Optimal 100-129 Borderline 130-159 High 160-189 Very High >=190 Walking Dragline Operator ID - ADMINC-REACTIVE [id number] 07:06:00 Test Item Value Reference Range Interpretation Comments C-REACTIVE PROTEIN (BEAKER) (test 0.81 mg/dL 0.00-0.50 H code = 676) Walking Dragline Operator ID - ADMINComprehensive metabolic [id number] 07:05:00 Test Item Value Reference Range Interpretation Comments Protein, Total 6.6 See_Comment Specimen slig htly (test code = hemolyzed 5-2) [Automated message] The system which generated this result transmit ayla reference range : 6.0 - 8.3 gm/dL . The reference range was not u sed to interpret th is result as normal/abnormal . Albumin (test code 3.6 g/dL 3.5-5 Specimen slightly = 45362-6) hemolyzed Alkaline 56 U/L 40-150 Phosphatase (test code = 6768-6) Total Bilirubin 0.6 mg/dL 0.2-1.2 Specimen sli ghtly (test code = hemolyzed 1974-2) Sodium (test code = 138 meq/L 097-000 4751-2) Potassium (test 4.4 meq/L 3.5-5.1 Specimen sli ghtly code = 2823-3) hemolyzed Chloride (test code 106 meq/L 98-107 = 2075-0) CO2 (test code = 23 meq/L 22-29 2027-9) BUN (test code = 11 mg/dL 7- 3094-0) Creatinine (test 0.80 mg/dL 0.57-1.25 Specimen sl ightly code = 2160-0) hemolyzed Glucose (test code 85 mg/dL 70-105 = 2345-7) Calcium (test code 8.8 mg/dL 8.4-10.2 = 86210-8) AST (test code = 16 U/L 5-34 Specimen sl ightly 1920-8) hemolyzed ALT (test code = 11 U/L 6-55 Specimen sl ightly 1742-6) hemolyzed EGFR (test code = 95 mL/min/1.73 [place] [address]-0) NOT ACCURATE CREATININE CLEARANCE IN PREDICTING GLOMERULAR FILTRATION RATE . ESTIMATED GFR I S NOT APPLICABLE FOR DIALYSIS PATIEN TS. KRYSTLE (test code = Walking Dragline Operator ID - KRYSTLE) ADMIN [facility]2021-08-08 07:05:00 Test Item Value Reference Range Interpretation Comments Magnesium (test code = 1.6 mg/dL 1.6-2.6 Speci men 59797-9) slightly hemolyzed KRYSTLE (test code = KRYSTLE) Walking Dragline Operator ID - ADMIN Lab Interpretation Normal (test code = 81108-0) [facility]2021-08-08 07:05:00 Test Item Value Reference Range Interpretation Comments MAGNESIUM (BEAKER) 1.6 mg/dL 1.6-2.6 Specimen slightly (test code = 627) hemolyzed Walking Dragline Operator ID - ADMINCOMPREHENSIVE METABOLIC [id number] 07:05:00 Test Item Value Reference Range Interpretation Comments TOTAL PROTEIN 6.6 gm/dL 6.0-8.3 Specimen sligh tly (BEAKER) (test code = hemoly zed 770) ALBUMIN (BEAKER) 3.6 g/dL 3.5-5.0 Specimen sl ightly (test code = 1145) hemolyzed ALKALINE PHOSPHATASE 56 U/L 40-150 (BEAKER) (test code = 346) BILIRUBIN TOTAL 0.6 mg/dL 0.2-1.2 Specimen sli ghtly (BEAKER) (test code = hemoly zed 377) SODIUM (BEAKER) (test 138 meq/L 136-145 code = 381) POTASSIUM (BEAKER) 4.4 meq/L 3.5-5.1 Specimen slightly (test code = 379) hemolyzed CHLORIDE (BEAKER) 106 meq/L 98-107 (test code = 382) CO2 (BEAKER) (test 23 meq/L 22-29 code = 355) BLOOD UREA NITROGEN 11 mg/dL 7-21 (BEAKER) (test code = 354) CREATININE (BEAKER) 0.80 mg/dL 0.57-1.25 Specimen slightly (test code = 358) hemolyzed GLUCOSE RANDOM 85 mg/dL 70-105 (BEAKER) (test code = 652) CALCIUM (BEAKER) 8.8 mg/dL 8.4-10.2 (test code = 697) AST (SGOT) (BEAKER) 16 U/L 5-34 Specimen slightly (test code = 353) hemolyzed ALT (SGPT) (BEAKER) 11 U/L 6-55 Specimen slightly (test code = 347) hemolyzed EGFR (BEAKER) (test 95 mL/min/1.73 ESTIMA AYLA GFR IS code = 1092) sq m NOT ACCURATE CREATININE CLEARANCE IN PREDICTING GLOMERULAR FILTRATION RATE . ESTIMATED GFR I S NOT APPLICABLE FOR DIALYSIS PATIEN TS. Walking Dragline Operator ID - ADMINCBC with platelet count + automated [id number] 06:42:00 Test Item Value Reference Range Interpretation Comments WBC (test code = 6690-2) 7.9 See_Comment [A utomated message] The system [email or web address] generated this result transmitted ref erence range: 3.5 - 10 .5 K/L. The refe rence range was not u sed to interpret this result as normal/abnor mal. RBC (test code = 789-8) 4.00 See_Comment L [Au tomated message] The system [email or web address] generated this result transmitted ref erence range: 4.63 - 6 .08 M/L. The refe rence range was not u sed to interpret this result as normal/abnor mal. MCHC (test code = 786-4) 34.6 See_Comment L [A utomated message] The system [email or web address] generated this result transmitted ref erence range: 32.3 - 3 6.5 GM/DL. The refe rence range was not u sed to interpret this result as normal/abnor mal. Hematocrit (test code = 39.0 % 40.1-51 L 4544-3) MCV (test code = 787-2) 97.5 fL 79-92.2 H MCH (test code = 785-6) 33.8 pg 25.7-32.2 H RDW (test code = 788-0) 13.2 % 11.6-14.4 Platelets (test code = 319 See_Comment [Aut omated message] 777-3) The system [email or web address] generated this result transmitted ref erence range: 150 - 45 0 K/CU MM. The referen ce range was not u sed to interpret this result as normal/abnor mal. MPV (test code = 11.0 fL 9.4-12.4 11624-8) nRBC (test code = 413) 0 See_Comment [Aut omated message] The system [email or web address] generated this result transmitted ref erence range: 0 - 0 /1 00 WBC. The refere nce range was not u sed to interpret this result as normal/abnor mal. % Neutros (test code = 61 % 429) % Lymphs (test code = 18 % 430) % Monos (test code = 16 % 431) % Eos (test code = 432) 4 % % Baso (test code = 437) 1 % # Neutros (test code = 4.78 See_Comment [Aut omated message] 670) The system [email or web address] generated this result transmitted ref erence range: 1.78 - 5 .38 K/L. The refe rence range was not u sed to interpret this result as normal/abnor mal. # Lymphs (test code = 1.44 See_Comment [Auto mated message] 414) The system [email or web address] generated this result transmitted ref erence range: 1.32 - 3 .57 K/L. The refe rence range was not u sed to interpret this result as normal/abnor mal. # Monos (test code = 1.25 See_Comment H [Autom ated message] 415) The system [email or web address] generated this result transmitted ref erence range: 0.30 - 0 .82 K/L. The refe rence range was not u sed to interpret this result as normal/abnor mal. # Eos (test code = 416) 0.31 See_Comment [Au tomated message] The system [email or web address] generated this result transmitted ref erence range: 0.04 - 0 .54 K/L. The refe rence range was not u sed to interpret this result as normal/abnor mal. # Baso (test code = 417) 0.05 See_Comment [A utomated message] The system [email or web address] generated this result transmitted ref erence range: 0.01 - 0 .08 K/L. The refe rence range was not u sed to interpret this result as normal/abnor mal. Immature 0 % 0-1 Granulocytes-Relative (test code = 2801) Lab Interpretation (test Abnormal code = 37927-8) [facility] W/PLT COUNT & AUTO [id number] 06:42:00 Test Item Value Reference Range Interpretation Comments WHITE BLOOD CELL COUNT (BEAKER) 7.9 K/ L 3.5-10.5 (test code = 775) RED BLOOD CELL COUNT (BEAKER) 4.00 M/ L 4.63-6.08 L (test code = 761) HEMOGLOBIN (BEAKER) (test code = 13.5 GM/DL 13.7-17.5 L 410) HEMATOCRIT (BEAKER) (test code = 39.0 % 40.1-51.0 L 411) MEAN CORPUSCULAR VOLUME (BEAKER) 97.5 fL 79.0-92.2 H (test code = 753) MEAN CORPUSCULAR HEMOGLOBIN 33.8 pg 25.7-32.2 H (BEAKER) (test code = 751) MEAN CORPUSCULAR HEMOGLOBIN CONC 34.6 GM/DL 32.3-36.5 (BEAKER) (test code = 752) RED CELL DISTRIBUTION WIDTH 13.2 % 11.6-14.4 (BEAKER) (test code = 412) PLATELET COUNT (BEAKER) (test 319 K/CU MM 150-450 code = 756) MEAN PLATELET VOLUME (BEAKER) 11.0 fL 9.4-12.4 (test code = 754) NUCLEATED RED BLOOD CELLS 0 /100 WBC 0-0 (BEAKER) (test code = 413) NEUTROPHILS RELATIVE PERCENT 61 % (BEAKER) (test code = 429) LYMPHOCYTES RELATIVE PERCENT 18 % (BEAKER) (test code = 430) MONOCYTES RELATIVE PERCENT 16 % (BEAKER) (test code = 431) EOSINOPHILS RELATIVE PERCENT 4 % (BEAKER) (test code = 432) BASOPHILS RELATIVE PERCENT 1 % (BEAKER) (test code = 437) NEUTROPHILS ABSOLUTE COUNT 4.78 K/ L 1.78-5.38 (BEAKER) (test code = 670) LYMPHOCYTES ABSOLUTE COUNT 1.44 K/ L 1.32-3.57 (BEAKER) (test code = 414) MONOCYTES ABSOLUTE COUNT (BEAKER) 1.25 K/ L 0.30-0.82 H (test code = 415) EOSINOPHILS ABSOLUTE COUNT 0.31 K/ L 0.04-0.54 (BEAKER) (test code = 416) BASOPHILS ABSOLUTE COUNT (BEAKER) 0.05 K/ L 0.01-0.08 (test code = 417) IMMATURE GRANULOCYTES-RELATIVE 0 % 0-1 PERCENT (BEAKER) (test code = 2801) Prothrombin time/[id number] 06:08:00 Test Item Value Reference Interpretation Comments Range Protime (test code = 17.1 See_Comment H [Autom ated 4607-2) message] The system which generated this result transmitted reference range : 11.9 - 14.2 seconds. The reference range was not used to interpret this result as normal/abnormal . INR (test code = 1.41 See_Comment [Automated 0044-6) message] The system which generated this result transmitted reference range : <=5.90. The reference range was not used to interpret this result as normal/abnormal . KRYSTLE (test code = RECOMMENDED KRYSTLE) COUMADIN/WARFARIN INR THERAPY RANGESSTANDARD DOSE: 2.0 - 3.0 Includes: PROPHYLAXIS for venous thrombosis, systemic embolization; TREATMENT for venous thrombosis and/or pulmonary embolus.HIGH RISK: Target INR is 2.5-3.5 for patients with mechanical heart valves. Lab Interpretation Abnormal (test code = 94079-9) [facility]/[id number] 06:08:00 Test Item Value Reference Range Interpretation Comments PROTIME (BEAKER) 17.1 seconds 11.9-14.2 H (test code = 759) INR (BEAKER) (test 1.41 See_Comment [Automat ed message] code = 370) The system [employer] generated this result transmitted ref erence range: <=5.90. The reference range was not used to int erpret this result as normal/abnormal . RECOMMENDED COUMADIN/WARFARIN INR THERAPY RANGESSTANDARD DOSE: 2.0 - 3.0 Includes: PROPHYLAXIS forvenous thrombosis, systemic embolization; TREATMENT for venous thrombosis and/or pulmonary embolus.HIGH RISK: Target INR is 2.5-3.5 for patients with mechanical heart valves.High Sensitivity Troponin [id number] 22:22:00 Test Item Value Reference Range Interpretation Comments Troponin I HS 10 pg/ml See_Comment [Automated (test code = message] The 01930-0) system which generated this result transmitted reference range : <=35. The reference range was not used to interpret this result as normal/abnormal . KRYSTLE (test code = Walking Dragline Operator ID - KRYSTLE) DBThe FRAME HAND STAT High Sensitivity Troponin-I results should be used in conjunction with other diagnostic information such as ECG, clinical observations and information, and patient symptoms to aid in the diagnosis of GA. Lab Interpretation Normal (test code = 23634-9) [facility] TROPONIN [id number] 22:22:00 Test Item Value Reference Range Interpretation Comments HIGH SENSITIVITY 10 pg/ml See_Comment [Automated message] TROPONIN I (test code = The system which 3324998) generated this result transmitted ref erence range: <=35. Th e reference range was not used to int erpret this result as normal/abnormal . Walking Dragline Operator ID - DBThe FRAME HAND STAT High Sensitivity Troponin-I results should be used in conjunctionwith other diagnostic information such as ECG, clinical observations and information, and patient symptoms to aid in the diagnosis of GA.Basic Metabolic [id number] 22:16:00 Test Item Value Reference Range Interpretation Comments Sodium (test code = 140 meq/L 637-835 4580-2) Potassium (test 4.8 meq/L 3.5-5.1 code = 2823-3) Chloride (test code 105 meq/L 98-107 = 2075-0) CO2 (test code = 26 meq/L -29 8-9) BUN (test code = 12 mg/dL 7- 3094-0) Creatinine (test 0.86 mg/dL 0.57-1.25 code = 2160-0) Glucose (test code 102 mg/dL 70-105 = 2345-7) Calcium (test code 9.4 mg/dL 8.4-10.2 = 75285-3) EGFR (test code = 87 mL/min/1.73 [place] [address]-9) NOT ACCURATE CREATININE CLEARANCE IN PREDICTING GLOMERULAR FILTRATION RATE . ESTIMATED GFR I S NOT APPLICABLE FOR DIALYSIS PATIEN TSCecilia DALTON (test code = Walking Dragline Operator ID - DB KRYSTLE) [facility] Hospital[facility] METABOLIC [id number] 22:16:00 Test Item Value Reference Range Interpretation Comments SODIUM (BEAKER) 140 meq/L 136-145 (test code = 381) POTASSIUM (BEAKER) 4.8 meq/L 3.5-5.1 (test code = 379) CHLORIDE (BEAKER) 105 meq/L 98-107 (test code = 382) CO2 (BEAKER) (test 26 meq/L 22-29 code = 355) BLOOD UREA NITROGEN 12 mg/dL 7-21 (BEAKER) (test code = 354) CREATININE (BEAKER) 0.86 mg/dL 0.57-1.25 (test code = 358) GLUCOSE RANDOM 102 mg/dL 70-105 (BEAKER) (test code = 652) CALCIUM (BEAKER) 9.4 mg/dL 8.4-10.2 (test code = 697) EGFR (BEAKER) (test 87 mL/min/1.73 ESTIMA AYLA GFR IS code = 1092) sq m NOT ACCURATE CREATININE CLEARANCE IN PREDICTING GLOMERULAR FILTRATION RATE . ESTIMATED GFR I S NOT APPLICABLE FOR DIALYSIS PATIEN TS. Walking Dragline Operator ID - DBCBC W/PLT COUNT & AUTO [id number] 22:07:00 Test Item Value Reference Range Interpretation Comments WHITE BLOOD CELL COUNT (BEAKER) 9.4 K/ L 3.5-10.5 (test code = 775) RED BLOOD CELL COUNT (BEAKER) 4.00 M/ L 4.63-6.08 L (test code = 761) HEMOGLOBIN (BEAKER) (test code = 13.4 GM/DL 13.7-17.5 L 410) HEMATOCRIT (BEAKER) (test code = 39.2 % 40.1-51.0 L 411) MEAN CORPUSCULAR VOLUME (BEAKER) 98.0 fL 79.0-92.2 H (test code = 753) MEAN CORPUSCULAR HEMOGLOBIN 33.5 pg 25.7-32.2 H (BEAKER) (test code = 751) MEAN CORPUSCULAR HEMOGLOBIN CONC 34.2 GM/DL 32.3-36.5 (BEAKER) (test code = 752) RED CELL DISTRIBUTION WIDTH 13.1 % 11.6-14.4 (BEAKER) (test code = 412) PLATELET COUNT (BEAKER) (test 330 K/CU MM 150-450 code = 756) MEAN PLATELET VOLUME (BEAKER) 11.4 fL 9.4-12.4 (test code = 754) NUCLEATED RED BLOOD CELLS 0 /100 WBC 0-0 (BEAKER) (test code = 413) NEUTROPHILS RELATIVE PERCENT 68 % (BEAKER) (test code = 429) LYMPHOCYTES RELATIVE PERCENT 15 % (BEAKER) (test code = 430) MONOCYTES RELATIVE PERCENT 13 % (BEAKER) (test code = 431) EOSINOPHILS RELATIVE PERCENT 3 % (BEAKER) (test code = 432) BASOPHILS RELATIVE PERCENT 1 % (BEAKER) (test code = 437) NEUTROPHILS ABSOLUTE COUNT 6.32 K/ L 1.78-5.38 H (BEAKER) (test code = 670) LYMPHOCYTES ABSOLUTE COUNT 1.43 K/ L 1.32-3.57 (BEAKER) (test code = 414) MONOCYTES ABSOLUTE COUNT (BEAKER) 1.24 K/ L 0.30-0.82 H (test code = 415) EOSINOPHILS ABSOLUTE COUNT 0.27 K/ L 0.04-0.54 (BEAKER) (test code = 416) BASOPHILS ABSOLUTE COUNT (BEAKER) 0.07 K/ L 0.01-0.08 (test code = 417) IMMATURE GRANULOCYTES-RELATIVE 0 % 0-1 PERCENT (BEAKER) (test code = 2801) [id number] 00:00:00Ordered by an unspecified provider.[facility] Hospital[facility] W Wo Yycgdpeh4825-15-80 17:15:28EXAMINATION: MRI BRAIN & ORBIT W WO CONTRAST COMPARISON: November 16, 2020. CLINICAL HISTORY: [...] suggest very subtle enhancement along the margins ofthese areas of white matter signal change. The expected flow voids are present in the internal carotid and basilar arteries. There is mild mucosal thickening in the sinuses. IMPRESSION: Progressive abnormality in the white matter. The differential diagnosis would include lymphoma given the history. The possibility of treatment-related change in the white matter is additional consideration. Continuedfollow-up is recommended. [id number] Interface, Radiology Results 02/15/2021 12:18 PM CDT EXAMINATION: MRI BRAIN & ORBIT W WO CONTRASTCOMPARISON: [...] given the history. The possibility of treatment-related changein the white matter is additional consideration. Continued follow-up is recommended.[id number] [facility] Wo Contrast 2021-02-15 17:15:28EXAMINATION: MRI BRAIN & ORBIT W WO CONTRAST COMPARISON: November 16, 2020. CLINICAL HISTORY: [...] suggest very subtle enhancement along the margins ofthese areas of white matter signal change. The expected flow voids are present in the internal carotid and basilar arteries. There is mild mucosal thickening in the sinuses. IMPRESSION: Progressive abn ormality in the white matter. The differential diagnosis would include lymphoma given the history. The possibility of treatment-related change in the white matter is additional consideration. Continuedfollow-up is recommended. 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 The optic nerves appear symmetric. The cavernous sinuses appear symmetric.There isprogressive signal change with subtle diffusion alteration in [...] Progressive abnormality in the white matter. The differen tial diagnosis would include lymphoma given the history. The possibility of treatment-related changein the white matter is additional consideration. Continued follow-up is recommended.[id number] HospitalPOC buzjdnxafy8665-66-07 15:59:03 Test Item Value Reference Range Interpretation Comments POC creatinine (test code = 1.0 mg/dl 0.7-1.2 70336-1) [facility] wivacfmtnc8325-66-18 15:59:03 Test Item Value Reference Range Interpretation Comments POC creatinine (test code = 1.0 mg/dl 0.7-1.2 55999-9) [facility] ldscvsy8440-68-62 21:25:45 Test Item Value Reference Range Interpretation Comments Case number (test code = [id number]) Cytology See link below for (non-gynecological) PDF Lab Report report (test code = 1178) Result status (test code This is Final Report = [id number]) for [id number] [facility] [id number] 21:25:45 Test Item Value Reference Range Interpretation Comments Case number (test code = [id number]) Cytology See link below for (non-gynecological) PDF Lab Report report (test code = 1178) Result status (test code This is Final Report = [id number]) for [id number] [facility] [id number] 18:13:47 Test Item Value Reference Range Interpretation Comments Case number (test code = [id number]) Flow cytometry evaluation See link below for (test code = 7852557) PDF Lab Report [facility] [id number] 18:13:47 Test Item Value Reference Range Interpretation Comments Case number (test code = [id number]) Flow cytometry evaluation See link below for (test code = 5764709) PDF Lab Report [address]2021-03-04 03:34:55 Test Item Value Reference Range Interpretation Comments Ventricular rate (test code = 253) Atrial rate (test code = 255) NM interval (test code = 266) QRSD interval [...] ly Signed By Kim SEVILLA, Natasha Dickey ([id number]) on 10/20/2020 9:34:52 PM [address]2021-03-04 03:34:55 Test Item Value Reference Range Interpretation Comments Ventricular rate (test code = 253) Atrial rate (test code = 255) NM interval (test code = 266) QRSD interval [...] ECG-No previous ECGs available-Electronical ly Signed By Natasha Alvarez MD ([id number]) on 10/20/2020 9:34:52 PM [facility] Lumbar Puncture by Loarzwosf2685-51-57 01:06:40Addendum by Jill Smith MD on 12/28/2020 [...] 12 mg of intrathecal methotrexate was administered.1RM1RAD_PS05 [facility] Lumbar Puncture by Sxnkduvpj6243-36-88 01:06:40Addendum by Jill Smith MD on 12/28/2020 [...] 12 mg of intrathecal methotrexate was administered.1RM1RAD_PS05 [facility] duplex venous lower wlkcrdtzb5971-73-75 15:12:00 [facility] Lower Extremity Venous Report [address] [place] [address] Pat.Name: ESTEFANI IGNACIO Pat.ID: [id number] .Date: 09/28/2020 Refer.MD: CHANDU MOJICA MD Exam Time: 11:30:00 AM Study Type:LE Venous Height: 76in Weight: 302lb BSA: 2.64 m2 Age: 6 1950,70Y Sex: MALE Sonogrphr: Danelle Ly RVT Pat. Stat.:Inpatient Room: [address] Vol: , CPT - 4: [address]158 Echo Event ID:[id number] Order ID: [id number] Reason for Study:Bilateral leg swelling, DVT suspected. [...] General A 1.37 s Signed 09/29/2020 09:12 AMReynold Castorena MD, RPVIInterce, Radiology Results In - 09/29/2020 9:12 AM CST [facility] Lower Extremity Venous Report [address] [address], [place] [address] Pat.Name: ESTEFANI IGNACIO Sushila.ID: [id number] .Date: 09/28/2020 Refer.MD: CHANDU MOJICA MD Exam Time: 11:30:00 AM Study Type:LE Venous Height: 76in Weight: 302lb BSA: 2.64 m2 Age: 6 1950,70Y Sex: MALE Sonogrphr: Danelle Ly, RVT Pat. Stat.:[address] Vol: [facility] - 4: [address] Echo Event ID:[id number] Order ID: [id number] Reason for Study:Bilateral leg swelling, DVT suspected. [...] General A 1.37 s Signed 09/29/2020 09:12 AMReynold Castorena MD, RPVIMethodiSt. George Regional Hospital duplex venous lower dzfkzstvu0911-34-68 15:12:00 [facility] Lower Extremity Venous Report [address] [place] [address] Pat.Name: ESTEFANI IGNACIO Pat.ID: [id number] .Date: 09/28/2020 Refer.MD: CHANDU MOJICA MD Exam Time: 11:30:00 AM Study Type:LE Venous Height: 76in Weight: 302lb BSA: 2.64 m2 Age: 6 1950,70Y Sex: MALE Sonogrphr: Danelle Ly RVT Pat. Stat.:Inpatient Room: [address] Vol: Y, [facility] - 4: [address]296 Echo Event ID:[id number] Order ID: [id number] Reason for Study:Bilateral leg swelling, DVT suspected. [...] s Signed 09/29/2020 09:12 Edie Castorena MD, RPVIInterdoctors hospital, Radiology Results In - 09/29/2020 9:12 AM CST [facility] Ultrasound Laboratory Lower Extremity Venous Report [address] [address] Pat.Name: ESTEFANI IGNACIO Pat.ID: [id number] St.Date: 09/28/2020 Refer.MD: CHANDU MOJICA MD Exam Time: 11:30:00 AM Study Type:LE Venous Height: 76in Weight: 302lb BSA: 2.64 m2 Age: 6 1950,70Y Sex: MALE Sonogrphr: Danelle Ly RVT Pat. Stat.:Inpatient Room: [address] Vol: , CPT - 4: [address]114 Echo Event ID:[id number] Order ID: [id number] Reason for Study:Bilateral leg swelling, DVT suspected. [...] s Signed 09/29/2020 09:12 Edie Castorena MD, VIMethrio grande regional hospital HospitalRAD ONC COURSE [id number] 21:59:25 Test Item Value Reference Range Interpretation [...] Dose in cGy (test code = 5717) [facility] [id number] 21:59:25 Test Item Value Reference Range Interpretation [...] Dose in cGy (test code = 5717) [facility] DAILY [id number] 15:21:06 Test Item Value Reference Range Interpretation [...] Dose in cGy (test code = 5717) [facility] DAILY OWGVMDNTP5867-80-02 15:21:06 Test Item Value Reference Range Interpretation [...] Dose in cGy (test code = 5717) [facility] DAILY KWMTOEAJX2179-30-18 15:22:39 Test Item Value Reference Range Interpretation [...] Dose in cGy (test code = 5717) [facility] DAILY [id number] 15:22:39 Test Item Value Reference Range Interpretation [...] Dose in cGy (test code = 5717) [facility] DAILY [id number] 15:27:52 Test Item Value Reference Range Interpretation [...] Dose in cGy (test code = 5717) [facility] DAILY [id number] 15:27:52 Test Item Value Reference Range Interpretation [...] Dose in cGy (test code = 5717) [facility] DAILY [id number] 15:45:06 Test Item Value Reference Range Interpretation [...] Dose in cGy (test code = 5717) [facility] DAILY [id number] 15:45:06 Test Item Value Reference Range Interpretation [...] Dose in cGy (test code = 5717) [facility] DAILY [id number] 15:20:33 Test Item Value Reference Range Interpretation [...] Dose in cGy (test code = 5717) [facility] DAILY [id number] 15:20:33 Test Item Value Reference Range Interpretation [...] Dose in cGy (test code = 5717) [facility] DAILY [id number] 15:29:23 Test Item Value Reference Range Interpretation [...] Dose in cGy (test code = 5717) [facility] DAILY [id number] 15:29:23 Test Item Value Reference Range Interpretation [...] Dose in cGy (test code = 5717) [facility] DAILY [id number] 15:06:10 Test Item Value Reference Range Interpretation [...] Dose in cGy (test code = 5717) [facility] DAILY [id number] 15:06:10 Test Item Value Reference Range Interpretation [...] Dose in cGy (test code = 5717) [facility] DAILY [id number] 15:11:31 Test Item Value Reference Range Interpretation [...] Dose in cGy (test code = 5717) [facility] DAILY [id number] 15:11:31 Test Item Value Reference Range Interpretation [...] Dose in cGy (test code = 5717) [facility] DAILY [id number] 22:38:50 Test Item Value Reference Range Interpretation [...] Dose in cGy (test code = 5717) [facility] DAILY [id number] 22:38:50 Test Item Value Reference Range Interpretation [...] Dose in cGy (test code = 5717) [facility] DAILY [id number] 16:19:47 Test Item Value Reference Range Interpretation [...] Dose in cGy (test code = 5717) [facility] DAILY [id number] 16:19:47 Test Item Value Reference Range Interpretation [...] Dose in cGy (test code = 5717) [facility] DAILY [id number] 15:15:10 Test Item Value Reference Range Interpretation [...] Dose in cGy (test code = 5717) [facility] DAILY [id number] 15:15:10 Test Item Value Reference Range Interpretation [...] Dose in cGy (test code = 5717) [facility] DAILY [id number] 15:28:33 Test Item Value Reference Range Interpretation [...] Dose in cGy (test code = 5717) [facility] DAILY [id number] 15:28:33 Test Item Value Reference Range Interpretation [...] Dose in cGy (test code = 5717) [facility] DAILY [id number] 16:09:53 Test Item Value Reference Range Interpretation [...] Dose in cGy (test code = 5717) [facility] DAILY [id number] 16:09:53 Test Item Value Reference Range Interpretation [...] Dose in cGy (test code = 5717) [facility] DAILY [id number] 15:58:54 Test Item Value Reference Range Interpretation [...] Dose in cGy (test code = 5717) [facility] DAILY [id number] 15:58:54 Test Item Value Reference Range Interpretation [...] Dose in cGy (test code = 5717) [facility] DAILY [id number] 21:03:57 Test Item Value Reference Range Interpretation [...] Dose in cGy (test code = 5717) [facility] DAILY [id number] 21:03:57 Test Item Value Reference Range Interpretation [...] Dose in cGy (test code = 5717) [facility] DAILY [id number] 22:24:26 Test Item Value Reference Range Interpretation [...] Dose in cGy (test code = 5717) [facility] DAILY [id number] 22:24:26 Test Item Value Reference Range Interpretation [...] Dose in cGy (test code = 5717) [facility] DAILY [id number] 22:00:32 Test Item Value Reference Range Interpretation [...] Dose in cGy (test code = 5717) [facility] DAILY [id number] 22:00:32 Test Item Value Reference Range Interpretation [...] Dose in cGy (test code = 5717) [facility] DAILY [id number] 19:24:35 Test Item Value Reference Range Interpretation [...] Dose in cGy (test code = 5717) [facility] DAILY [id number] 19:24:35 Test Item Value Reference Range Interpretation [...] Dose in cGy (test code = 5717) [facility] DAILY [id number] 19:35:32 Test Item Value Reference Range Interpretation [...] Dose in cGy (test code = 5717) [facility] DAILY [id number] 19:35:32 Test Item Value Reference Range Interpretation [...] Dose in cGy (test code = 5717) [facility] DAILY [id number] 19:37:17 Test Item Value Reference Range Interpretation [...] Dose in cGy (test code = 5717) [facility] ONC DAILY [id number] 19:37:17 Test Item Value Reference Range Interpretation [...] Dose in cGy (test code = 5717) [facility] [id number] 06:14:17 Test Item Value Reference Range Interpretation Comments AFB culture isolate No growth after 6 (test code = 543-9) weeks of incubation. [facility]2020-12-01 06:14:17 Test Item Value Reference Range Interpretation Comments AFB culture isolate No growth after 6 (test code = 543-9) weeks of incubation. [facility] [id number] 06:16:05 Test Item Value Reference Range Interpretation Comments Fungus culture isolate No growth after 4 (test code = 1441) weeks of incubation. [facility] [id number] 06:16:05 Test Item Value Reference Range Interpretation Comments Fungus culture isolate No growth after 4 (test code = 1441) weeks of incubation. [facility] urinalysis [id number] 08:30:00 Test Item Value Reference Range Interpretation Comments pH urine, POC (test See_Comment [Automa ayla message] The code = 6201444) system which generated this result transmit ayla reference range : 5.0, 5.5, 6.0, 6.5, 7.0, 7.5, 8.0, 8.5. The refere nce range was not used to interpret this result as normal/abnormal . [facility] urinalysis [id number] 08:30:00 Test Item Value Reference Range Interpretation Comments pH urine, POC (test See_Comment [Automa ayla message] The code = 7296838) system which generated this result transmit ayla reference range : 5.0, 5.5, 6.0, 6.5, 7.0, 7.5, 8.0, 8.5. The refere nce range was not used to interpret this result as normal/abnormal . [facility] Abdominal [id number] 01:17:57EXAMINATION: US ABDOMINAL LIMITED HISTORY: 70 years old Male. Ascites. COMPARISON: None available. FINDINGS: 4 quadrant sonographic survey for ascites is performed. No significant ascites visualized. IMPRESSION: No significant ascites visualized. [id number] Interface, Radiology Results 07/02/2020 7:21 PM CST EXAMINATION: US ABDOMINAL LIMITED HISTORY: 70 years old Male. Ascites.COMPARISON: None available.FINDINGS: 4 quadrant sonographic survey for ascites is performed. No significant ascites visualized.IMPRESSION: No significant ascites visualized.[id number]_[id number] Abdominal Fvyqcao1862-38-29 01:17:57 EXAMINATION: US ABDOMINAL LIMITED HISTORY: 70 years old Male. Ascites. COMPARISON: None available. FINDINGS: 4 quadrant sonographic survey for ascites is performed. No significant ascites visualized. IMPRESSION: No significant ascites visualized. [id number] Interface, Radiology Results 07/02/2020 7:21 PM CST EXAMINATION: USABDOMINAL LIMITED HISTORY: 70 years old Male. Ascites.COMPARISON: None available.FINDINGS: 4 quadrant sonographic survey for ascites is performed. No significant ascites visualized.IMPRESSION: No signif icant ascites visualized.[id number]_[id number] [id number] 20:40:24 Test Item Value Reference Range Interpretation Comments [facility] test name (test code = [facility] 2566) Misc test result (test code = see note 1730) KRYSTLE (test code = KRYSTLE) [facility] [id number] 20:40:24 Test Item Value Reference Range Interpretation Comments Misc test name (test code = [facility] 2566) Misc test result (test code = see note 1730) KRSYTLE (test code = KRYSTLE) [facility] 1 Vw [id number] 19:04:29EXAMINATION: XR CHEST 1 VW PORTABLE CLINICAL HISTORY: 70 years Male To evaluate for effusions COMPARISON: 02/23/2006 IMPRESSION: 1.Right IJ portacatheter is in satisfactory position.2.The heart size is at the upper limits of normal.3.There is no evidence of pulmonary edema. There are no focal consolidations or effusions. Minimal atelectasis is present at the lung bases. [facility]-[id number] Interface, R adiology Results 06/27/2020 1:07 PM CST EXAMINATION: XR CHEST 1 VW PORTABLECLINICAL HISTORY: 70 years Male To evaluate for effusionsCOMPARISON: 02/23/2006IMPRESSION:1.Right IJ portacatheter is in satisfactory position.2.The heartsize is at the upper limits of normal.3.There is no evidence of pulmonary edema. There are no focal consolidations or effusions. Minimal atelectasis is present at the lung bases. [facility]-[id number] Chest 1 Vw Portable 2020-06-27 19:04:29EXAMINATION: XR CHEST 1 VW PORTABLE CLINICAL HISTORY: 70 years Male To evaluate for effusions COMPARISON: 02/23/2006 IMPRESSION: 1.Right IJ portacatheter is in satisfactory position.2.The heart size is at the upper limits of normal.3.There is no evidence of pulmonary edema. There are no focal consolidations or effusions. Minimal atelectasis is present at the lung bases. [facility]-[id number] Interface, Radiology Results 06/27/2020 1:07 PM CST EXAMINATION: XR CHEST 1 VW PORTABLECLINICAL HISTORY: 70 years Male To evaluate for effus ionsCOMPARISON: 02/23/2006IMPRESSION:1.Right IJ portacatheter is in satisfactory position.2.The heartsize is at the upper limits of normal.3.There is no evidence of pulmonary edema. There are no focal consolidations or effusions. Minimal atelectasis is present at the lung bases. [id number] HospitalIR Port [id number] 01:24:36PERFORMING RADIOLOGIST:Yoanna Warner MD ASSISTANTS:None ANESTHESIA TYPE:Intraservice moderatesedation was administered by the procedure nurse and monitored by the procedure physician for 22 minutes. Lidocaine 1% and lidocaine 1% mixed with epinephrine were used for local anesthetic. ANTIBIOTICS:Ancef 1 g IV. PRE PROCEDURE DIAGNOSIS:Chemotherapy POST [...] 0.035 inch J-wire. A subcutaneous pocket was thencreated at the infraclavicular fossa using sharp and blunt dissection. The pocket was then irrigatedwith copious amounts of dilute antibiotic solution. A tunnel was made between the pocket and the venotomy site, through which the 6-Danish port catheter was placed. The [employer] Smart port CT was placed in the pocket. Using the previous measurement, the catheter was cut to length. The venotomy was sequentially dilated to accept a peel-away sheath. The catheter was advanced to the peel-away sheath. Peel-away sheath was removed. Spot radiograph confirmed that the catheter tip is located at the sup erior cavoatrial junction. The port was accessed and [...] described in the above report. IMPRESSION: Successful fluo roscopic-guided placement of a subcutaneous chest port via the right internal jugular vein with catheter tip located at superior cavoatrial junction. PLAN:- Port is ready for immediate use. [facility]-[id number] Interface, Radiology Results Incoming - 06/22/2020 7:27 [...] internal jugular vein was punctured with a 21- gauge needle allowing placement of a 0.018 inch guidewire. The needle was removed and a micropuncture sheath was then placed over the guidewire. The guidewire was used to measure the location of the superior cavoatrial junction. It was then exchanged for a 0.035 inch J-wire.A subcutaneous pocket was then created at the infraclavicular fossa using sharp and blunt dissection. The pocketwas then irrigated with copious amounts of dilute antibiotic solution. A tunnel was made between thepocket and the venotomy site, through which the 6- Danish port catheter was placed. The AngioDynamSovicellart port CT was placed in the pocket. [...] It was packed with heparin.No immediate complications. RADIATION DOSE: Ka,r = 9 mGy COMPLICATIONS:None. SPECIMENS:None. ESTIMATED BLOOD LOSS:Less than 2 mL. BLOOD PRODUCTS ADMINISTERED:None. GRAFTS/IMPLANTS:As described in the above report. IMPRESSION: Successful fluoroscopic-guided placement of a subcutaneous chest port via the right internal jugular vein with catheter tip located at superior cavoatrial junction. PLAN:-Port is ready for immediate use. [facility]-[id number] [facility] [id number] 01:24:36PERFORMING RADIOLOGIST:Yoanna Warner MD ASSISTANTS:None ANESTHESIA TYPE:Intraservice moderatesedation was administered by the procedure nurse and monitored by the procedure physician for 22 minutes. Lidocaine 1% and lidocaine 1% mixed with epinephrine were used for local anesthetic. ANTIBIOTICS:Ancef 1 g IV. PRE PROCEDURE DIAGNOSIS:Chemotherapy POST PROCEDURE DIAGNOSIS:Status post subcutaneo us chest port placement. PROCEDURE:Subcutaneous chest port placement. [...] documentation of vessel patency, needle access with perman ent recording, and reporting are performed followed by [...] 0.035 inch J-wire. A subcutaneous pocket was thencreated at the infraclavicular fossa using sharp and blunt dissection. The pocket was then irrigatedwith copious amounts of dilute antibiotic solution. A tunnel was made between the pocket and the venotomy site, through which the 6-Danish port catheter was placed. The Ang[employer]Sovicell Smart port CT was placed in the pocket. Using the previous measurement, the catheter was cut to length. The venotomy was sequentially dilated to accept a peel-away sheath. The catheter was advanced to the peel-away sheath. Peel-away sheath was removed. Spot radiograph confirmed that the catheter tip is located at the sup erior cavoatrial junction. The port was accessed and [...] described in the above report. IMPRESSION: Successful fluo roscopic-guided placement of a subcutaneous chest port via the right internal jugular vein with catheter tip located at superior cavoatrial junction. PLAN:- Port is ready for immediate use. [facility]-[id number] Interface, Radiology Results Incoming - 06/22/2020 7:27 PM CST PERFORMING RADIOLOGIST:MENG GarsiaISTANTS:None ANESTHESIATYPE:Intraservice moderate sedation was administered by the [...] internal jugular vein was punctured with a 21- gauge needle allowing placement of a 0.018 inch guidewire. The needle was removed and a micropuncture sheath was then placed over the guidewire. The guidewire was used to measure the location of the superior cavoatrial junction. It was then exchanged for a 0.035 inch J-wire.A subcutaneous pocket was then created at the infraclavicular fossa using sharp and blunt dissection. The pocketwas then irrigated with copious amounts of dilute antibiotic solution. A tunnel was made between thepocket and the venotomy site, through which the 6- Danish port catheter was placed. The AngioD[employer]Smart port CT was placed in the pocket. [...] It was packed with heparin.No immediate complications. RADIATION DOSE: Ka,r = 9 mGy COMPLICATIONS:None. SPECIMENS:None. ESTIMATED BLOOD LOSS:Less than 2 mL. BLOOD PRODUCTS ADMINISTERED:None. GRAFTS/IMPLANTS:As described in the above report. IMPRESSION: Successful fluoroscopic-guided placement of a subcutaneous chest port via the right internal jugular vein with catheter tip located at superior cavoatrial junction. PLAN:-Port is ready for immediate use. [id number] [facility] [id number] 15:59:51 Test Item Value Reference Range Interpretation Comments Case number (test code = [id number]) Surgical pathology See link below for report (test code = PDF Lab Report 2255) Result status (test code This is Final Report = [id number]) for [id number] [facility] [id number] 15:59:51 Test Item Value Reference Range Interpretation Comments Case number (test code = [id number]) Surgical pathology See link below for report (test code = PDF Lab Report 2255) Result status (test code This is Final Report = [id number]) for [id number] [facility]CT Bone Marrow Bx W Asp Same [id number] 19:30:50Procedure: CT-guided bone marrow biopsy Clinical indication: Non-Hodgkin's lymphoma Anesthesia: Lidocaine 1% was used for local anesthetic. Sedation: Moderate sedation was administered by the procedure nurse and monitored intraservice fleu-qq-fgby by the procedure physician for 10 minutes. [...] as described above. [id number]_PS03Hm Interface, Radiology Results 06/15/2020 2:33 PM CDT Procedure: CT-guided bone marrow biops yClinical indication: Non-Hodgkin's lymphoma Anesthesia: Lidocaine 1% was used for local anesthetic.Sedation: Moderate sedation was administered by the procedure nurse and monitored intraservice hgqr-fr-ifrd by the procedure physician for 10 minutes.Technique: [...] of via the right ilium, as described above.1D2RAD_PS03[facility]row [facility] W Asp Same [id number] 19:30:50Procedure: CT-guided bone marrow biopsy Clinical indication: Non-Hodgkin's lymphoma Anesthesia: Lidocaine 1% was used for local anesthetic. Sedation: Moderate sedation was administered by the procedure nurse and monitored intraservice lbmo-lh-ucpu by the procedure physician for 10 minutes. [...] as described above. 1D2RAD_PS03Hm Interface, Radiology Results - 06/15/2020 2:33 PM CDT Procedure: CT- guided bone marrow biopsyClinical indication: Non-Hodgkin's lymphoma Anesthesia: Lidocaine 1% was used for local anesthetic.Sedation: Moderate sedation was administered by the procedure nurse and monitored intraservice qwnz-wc-oxjb by the procedure physician for 10 minutes.Technique: [...] of via the right ilium, as described above.1D2RAD_PS03[facility] Head External [id number] 01:54:23This exam was not acquired at a Taoism facility and has not been interpreted by a Taoism Provider. The exam was imported into our imaging system.[facility] Head External [id number] 01:54:23This exam was not acquired at a Taoism facility and has not been interpreted by a Taoism Provider. The exam was imported into our imaging system.[facility] [id number] 12:18:12Eye culture isolateBlood, Chocolate, MacConkey and Thioglycollate:No growth after 7 days. Comment: Specimen InformationSpecimen Source: Vitreous fluidSpecimen Site: Left Eye [facility] culture, [id number] 12:18:12Eye culture isolate, anaerobicBrucella blood agar:No anaerobes isolated after 7 days. Comment: Specimen InformationSpecimen Source: Vitreous fluidSpecimen Site: [facility] Hospital[facility] [id number] 12:18:12Eye culture isolateBlood, Chocolate, MacConkey and Thioglycollate:No growth after 7 days. Comment: Specimen InformationSpecimen Source: Vitreous fluidSpecimen Site: [facility], [id number] 12:18:12Eye culture isolate, anaerobicBrucella blood agar:No anaerobes isolated after 7 days. Comment: Specim en InformationSpecimen Source: Vitreous fluidSpecimen Site: Left Eye [facility] HospitalGlucose level, [id number] 18:23:56 Test Item Value Reference Range Interpretation Comments Glucose, CSF (test code = 2342-4) 62 mg/dL 40-70 [facility] HospitalProtein, [id number] 18:23:56 Test Item Value Reference Range Interpretation Comments Protein, CSF (test code = 2880-3) 54 mg/dL 15-45 H Lab Interpretation (test code = Abnormal 25371-9) [facility] HospitalGlucose level, [id number] 18:23:56 Test Item Value Reference Range Interpretation Comments Glucose, CSF (test code = 2342-4) 62 mg/dL 40-70 [facility] HospitalProtein, [id number] 18:23:56 Test Item Value Reference Range Interpretation Comments Protein, CSF (test code = 2880-3) 54 mg/dL 15-45 H Lab Interpretation (test code = Abnormal 69622-3) [facility] HospitalAFB [id number] 15:15:20 Test Item Value Reference Range Interpretation Comments AFB stain (test code = No acid fast bacilli 676-7) (AFB) seen. [facility] HospitalAFB [id number] 15:15:20 Test Item Value Reference Range Interpretation Comments AFB stain (test code = No acid fast bacilli 676-7) (AFB) seen. [facility] [id number] 03:54:59 Test Item Value Reference Range Interpretation Comments Gram stain isolate No WBC's or organisms (test code = 1469) seen. [facility] [id number] 03:54:59 Test Item Value Reference Range Interpretation Comments Gram stain isolate No WBC's or organisms (test code = 1469) seen. [facility] HospitalPET/CT Skull Base To Mid [id number] 21:37:11PROCEDURE: PET CT SKULL BASE TO MID [...] hemispheres and cerebellum limits evaluation of the SENIOR QA TESTER. Chest: Several pulmonary nodules are present in both horace gs with the index lesion measuring approximately 2 [...] no focal hypermetabolism, favoring a benign etiology. [id number] Interface, Radiology Results Incoming - 06/03/2020 4:40 [...] hemispheres and cerebellum limits evaluation of the SENIOR QA TESTER. Chest: Several pulmonary nodules are present in [...] no focal hypermetabolism, favoring a benign etiology. 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 Chest: Several pulmonary nodules are present in [...] no focal hypermetabolism, favoring a benign etiology. [id number] Interface, Radiology Results Incoming - 06/03/2020 4:40 [...] hemispheres and cerebellum limits evaluation of the SENIOR QA TESTER. Chest: Several pulmonary nodules are present in [...] no focal hypermetabolism, favoring a benign etiology. [facility]-[id number] Herm[facility] Hospital
--- NOTE | 2021-03-30 16:13 | RAD REPORT ---
EXAM DESCRIPTION: CT - Head Brain Wo Cont - 03/30/2021 4:01 pm CLINICAL HISTORY: tia COMPARISON: None TECHNIQUE: Computed axial tomography of the head was obtained. IV contrast was not requested. All CT scans are performed using dose optimization technique as appropriate and may include automated exposure control or mA/KV adjustment according to patient size. FINDINGS: An intracranial bleed is not seen . The ventricles are normal in caliber. No extra-axial fluid collection is noted. Moderate bilateral low-density areas within deep and subcortical white matter of the left frontal lob e without significant change from March 26, 2021. However, it has developed since MRI brain April 2020. Fluid within the sinuses/ mastoids is not seen. IMPRESSION: Moderate bilateral low-density areas within deep and subcortical white matter of the lef t frontal lobe without significant change from March 26, 2021. However, it has developed since MRI br ain April 2020. The this may represent an encephalitis. A vascular insult is possible although this does not have the typical appearance for this. MRI with contrast may be helpful for further evaluation
--- NOTE | 2021-03-30 16:25 | RAD REPORT ---
EXAM DESCRIPTION: Sarah Single View03/30/2021 4:19 pm CLINICAL HISTORY: tia COMPARISON: none FINDINGS: The lungs appear clear of acute infiltrate. The heart is probably upper limits normal siz e. . A central venous catheter has its tip in superior vena cava IMPRESSION: No acute abnormalities displayed
[2021-03-30 17:03] LABS: Absolute Lymphocytes (CBC) 1.5 K/uL (0.7-4.9); Basophils % 0.8 % (0-1.3); Hematocrit 43.4 % (39.6-49.0); Lymphocytes % 14.8 % (15.3-44.8); MPV 9.9 fL (7.6-11.3); RBC Red Blood Cell Count 4.35 M/uL (4.33-5.43)
[2021-03-30 17:04] LABS: Protime INR 1.29
[2021-03-30 19:12] LABS: ALT/SGPT 24 U/L (12-78); AST/SGOT 13 U/L (15-37); Albumin 3.9 g/dL (3.4-5.0); Alkaline Phosphatase 71 U/L (45-117); BUN Blood Urea Nitrogen 12 mg/dL (7-18); Bicarbonate 29 mmol/L (21-32); Bilirubin Direct 0.2 mg/dL (0-0.2); Bilirubin Total 0.6 mg/dL (0.2-1.0); Glucose Level 95 mg/dL (74-106); Magnesium 1.9 mg/dL (1.8-2.4); NT PRO-BNP 150 pg/mL (<125); Protein, Total 7.9 g/dL (6.4-8.2); Sodium Level 139 mmol/L (136-145); Troponin (Emerg Dept Use Only) < 0.02 ng/mL (0.0-0.045)
--- NOTE | 2021-03-30 19:54 | RAD REPORT ---
EXAM DESCRIPTION: MRI - Brain W/Wo Cont - 03/30/2021 7:34 pm CLINICAL HISTORY: TIA COMPARISON: 2019 MRI TECHNIQUE: Axial, sagittal, and coronal magnetic images of the brain were obtained. 20 cc MultiHance administered intravenously FINDINGS: A 7 x 2 centimeter area of increased signal is present within predominately the the deep a nd subcortical white matter of the right frontal lobe. 5 x 2.6 centimeter area of increased signal is present within probably deep and subcortical white mat ter of left frontal lobe Minimal enhancement is present. The ventricles are normal in caliber. ADC mapping does not demonstrate significant restriction. No evidence of infarction An extra-axial fluid collection is not noted. Fluid within the sinuses/mastoids is not seen IMPRESSION: Moderate to large areas of abnormal signal within the white matter of predominantly the frontal lobes bilaterally which have developed since 2019. This may indicate an encephalitis
--- NOTE | 2021-03-30 20:34 | EDPHYS ---
Physician Documentation [facility] [place] Name: Bon Villa Age: 71 yrs Sex: Male : 1950 Arrival Date: 03/30/2021 Time: 12:34 Bed 4 Private MD: Lenny Suarez ED Physician Cole Sctot HPI: 03/30 17:33 This 71 yrs old Male presents to ER via Wheelchair with complaints of L Side jr8 Weakness. 17:33 Onset: The symptoms/episode began/occurred acutely, today, at 10:00. Duration: This was jr8 a single incident. Context: the episode(s) was witnessed, by family. The symptoms are alleviated by nothing. The symptoms are aggravated by nothing. Associated signs and symptoms: The patient has no apparent associated signs or symptoms. Severity of symptoms: At their worst the symptoms were moderate in the emergency department the symptoms have resolved and did so while in waiting room. Patient's baseline: Neuro: alert and fully oriented, Motor: no deficits, Ambulation: walks without assistance, Speech:. The patient has experienced a previous episode. The patient has been recently seen by a physician:. This is a 71-year-old male that presented to the emergency room for acute onset left-sided weakness with facial droop. Signs and symptoms started at 10 AM this morning and had resolved around 3 this afternoon. Patient had recently been transferred to [facility] this [facility] for similar symptoms and was worked up and discharged at that time. Patient is already on blood thinners. 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 - Social history:: Smoking status: Patient denies any tobacco usage or history of. ROS: 17:33 Eyes: Negative for injury, pain, redness, and discharge, ENT: Negative for injury, jr8 pain, and discharge, Neck: Negative for injury, pain, and swelling, Cardiovascular: Negative for chest pain, palpitations, and edema, Respiratory: Negative for shortness of breath, cough, wheezing, and pleuritic chest pain, Abdomen/GI: Negative for abdominal pain, nausea, vomiting, diarrhea, and constipation, Back: Negative for injury and pain, MS/Extremity: Negative for injury and deformity, Skin: Negative for injury, rash, and discoloration. 17:33 Neuro: Positive for weakness. Exam: 17:33 Radiologist reports: cortical white matter changes. No acute ischemia noted jr8 17:33 Constitutional: This is a well developed, well nourished patient who is awake, alert, and in no acute distress. Eyes: Pupils equal round and reactive to light, extra-ocular motions intact. Lids and lashes normal. Conjunctiva and sclera are non-icteric and not injected. Cornea within normal limits. Periorbital areas with no swelling, redness, or edema. ENT: Nares patent. No nasal discharge, no septal abnormalities noted. Tympanic membranes are normal and external auditory canals are clear. Oropharynx with no redness, swelling, or masses, exudates, or evidence of obstruction, uvula midline. Mucous membranes moist. Neck: Trachea midline, no thyromegaly or masses palpated, and no cervical lymphadenopathy. Supple, full range of motion without nuchal rigidity, or vertebral point tenderness. No Meningismus. Cardiovascular: Regular rate and rhythm with a normal S1 and S2. No gallops, murmurs, or rubs. Normal PMI, no JVD. No pulse deficits. Respiratory: Lungs have equal breath sounds bilaterally, clear to auscultation and percussion. No rales, rhonchi or wheezes noted. No increased work of breathing, no retractions or nasal flaring. Abdomen/GI: Soft, non-tender, with normal bowel sounds. No distension or tympany. No guarding or rebound. No evidence of tenderness throughout. Back: No spinal tenderness. No costovertebral tenderness. Full range of motion. Skin: Warm, dry with normal turgor. Normal color with no rashes, no lesions, and no evidence of cellulitis. MS/ Extremity: Pulses equal, no cyanosis. Neurovascular intact. Full, normal range of motion. Neuro: Awake and alert, GCS 15, oriented to person, place, time, and situation. Cranial nerves II-XII grossly intact. Motor strength 5/5 in all extremities. Sensory grossly intact. Cerebellar exam normal. Normal gait. Vital Signs: 14:09 BP 178 / 86; Pulse 76; Resp 10; Temp 98.6; Pulse Ox 96% ; jl7 17:05 BP 175 / 85; Pulse 73; Resp 18; Pulse Ox 100% on R/A; zb 18:30 BP 188 / 89; Pulse 68; Resp 18; Pulse Ox 98% on R/A; zb 20:10 BP 170 / 83; Pulse 96; Resp 20; Pulse Ox 100% ; zb NIH Stroke Scale Scores: 17:33 NIHSS Score: 0 jr8 MDM: 15:36 Patient medically screened. jr8 20:30 Data reviewed: vital signs, nurses notes, lab test result(s), EKG, radiologic studies, jr8 CT scan, MRI, plain films. Data interpreted: Pulse oximetry: on room air is 100 %. Interpretation: normal. Counseling: I had a detailed discussion with the patient and/or guardian regarding: the historical points, exam findings, and any diagnostic results supporting the discharge/admit diagnosis, lab results, radiology results, the need for outpatient follow up, a neurologist, to return to the emergency department if symptoms worsen or persist or if there are any questions or concerns that arise at home. ED course: Detailed discussion of case and imaging findings with Dr. Jimenez neurology. Patient has encephalitic findings to the left frontal lobe. Can be worked up as an outpatient. Differential would be continuation of his lymphoma versus other rheumatologic encephalitic process. I discussed this with the patient and his daughter as well which they are comfortable with. 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 Patient remains hemodynamically stable and without any other acute findings. Patient has no focal neurologic deficits at this point as well. Told him to maintain on his blood thinners for the time being. If he were to get worse to come back for further evaluation.. 03/30 15:49 Order name: Basic Metabolic Panel; Complete Time: 19:23 03/30 15:49 Order name: CBC with Diff; Complete Time: :03/30 15:49 Order name: LFT's; Complete Time: 19:23 03/30 15:49 Order name: Magnesium; Complete Time: 19:23 03/30 15:49 Order name: NT PRO-BNP; Complete Time: :03/30 15:49 Order name: PT-INR; Complete Time: :43 03/30 15:49 Order name: Troponin (emerg Dept Use Only); Complete Time: 19:23 8 03/30 15:49 Order name: XRAY Chest (1 view); Complete Time: 16:36 03/30 15:49 Order name: EKG; Complete Time: 15:49 03/30 15:49 Order name: Cardiac monitoring; Complete Time: 16:51 03/30 15:49 Order name: EKG - Nurse/Tech; Complete Time: 16:09 03/30 15:49 Order name: IV Saline Lock; Complete Time: 16:51 03/30 15:49 Order name: CT Head Brain wo Cont; Complete Time: 16:36 03/30 17:44 Order name: Brain W/Wo Cont; Complete Time: 20:00 EDMS 03/30 15:49 Order name: Labs collected and sent; Complete Time: 16:51 03/30 15:49 Order name: O2 Per Protocol; Complete Time: 16:51 03/30 15:49 Order name: O2 Sat Monitoring; Complete Time: 16:51 Administered Medications: No medications were administered Disposition: 03/31 07:22 Co-signature as Attending Physician, Cole Scott MD I agree with the assessment and kdr plan of care. Disposition Summary: 03/30/21 20:32 Discharge Ordered Location: Home jr Problem: new jr8 Symptoms: are resolved jr8 Condition: Stable jr8 Diagnosis - Encephalitis and encephalomyelitis, unspecified jr8 Followup: jr8 - With: Private Physician - When: 2 - 3 days - Reason: Recheck today's complaints, Continuance of care, Re-evaluation by your physician Discharge Instructions: - Discharge Summary Sheet jr8 - Lumbar Puncture jr8 Forms: - Medication Reconciliation Form jr8 - Thank You Letter jr8 - Antibiotic Education jr8 - Prescription Opioid Use jr8 NIH Stroke Scale - NIH Stroke Score Date: 03/30/2021 Time: 17:33 Total Score = 0 1a. Level of Consciousness (LOC) - 0(Alert) 1b. Level of Consciousness (LOC) (Month \T\ Age) - 0(Both) 1c. LOC Commands (Open \T\ Closes Eyes/Tube Sizer And Cutter Operator) - 0(Both) 2. Best Gaze (Lateral Gaze Paresis) - 0(Normal) 3. Visual Field Loss - 0(No visual loss) 4. Facial Palsy - 0(Normal) 5a. Left Arm: Motor (10-second hold) - 0(No drift) 5b. Right Arm: Motor (10-second hold) - 0(No drift) 6a. Left Leg: Motor (5-second hold - always test supine) - 0(No drift) 6b. Right Leg: Motor (5-second hold - always test supine) - 0(No drift) 7. Limb Ataxia (finger/nose \T\ heel/sutton - test with eyes open) - 0(Absent) 8. Sensory Loss (pinprick arms/legs/face) - 0(Normal) 9. Best Language: Aphasia (description/naming/reading) - 0(No aphasia) 10. Dysarthria (speech clarity - read or repeat words) - 0(Normal) 11. Extinction and Inattention (visual/tactile/auditory/spatial/personal) - 0(No abnormality) Initials: gretta Signatures: Dispatcher [employer] EDMS Cole Scott MD MD kdr Deep Wheatley PA PA Gayle Simeon RN RN jl7 Corrections: (The following items were deleted from the chart) 03/30 20:32 20:30 ED course: Detailed discussion of case and imaging findings with Dr. gretta Jimenez neurology. Patient has encephalitic findings to the left frontal lobe. Can be worked up as an outpatient. Differential would be continuation of his lymphoma versus other rheumatologic encephalitic process. I discussed this with the patient and his daughter as well which they are comfortable with. 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 gretta
--- NOTE | 2021-03-30 20:34 | ER ---
Nurse's Notes [facility] Name: Bon Villa Age: 71 yrs Sex: Male : 1950 Arrival Date: 03/30/2021 Time: 12:34 Bed 4 Private MD: Lenny Suarez Diagnosis: Encephalitis and encephalomyelitis, unspecified Presentation: 03/30 14:09 Chief complaint: Chief complaint: Patient states: Left leg weakness, left facial droop, jl7 unknown onset, last known normal at 0700 this morning when daughter left for work. Pt was sitting in the chair from 0700 until 1000 when he attempted to standing up and fell from left sided weakness. Coronavirus screen: Client denies travel out of the [place] in the last 14 days. At this time, the client does not indicate any symptoms associated with coronavirus-19. Ebola Screen: No symptoms or risks identified at this time. Initial Sepsis Screen: Does the patient meet any 2 criteria? No. Patient's initial sepsis screen is negative. Does the patient have a suspected source of infection? No. Patient's initial sepsis screen is negative. Risk Assessment: Do you want to hurt yourself or someone else? Patient reports no desire to harm self or others. Onset of symptoms is unknown. 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 - Social history:: Smoking status: Patient denies any tobacco usage or history of. Screenin:32 Abuse screen: Denies threats or abuse. Denies injuries from another. Nutritional zb screening: No deficits noted. Tuberculosis screening: No symptoms or risk factors identified. Fall Risk None identified. Fall in past 12 months (25 points). Secondary diagnosis (15 points) CVA, IV access (20 points). Ambulatory Aid- None/Bed Rest/Nurse Assist (0 pts). Gait- Normal/Bed Rest/Wheelchair (0 pts) Mental Status- Oriented to own ability (0 pts). Total Salas Fall Scale indicates High Risk Score (45 or more points). Fall prevention measures have been instituted. Side Rails Up X 2 Placed Close to Nursing Station Frequent Obs/Assessments Occuring Family Present and informed to notify staff if the need to leave the bedside As available patient and family educated on Fall Prevention Program and Strategies. Assessment: 16:30 General: Appears in no apparent distress. Behavior is calm, cooperative. Pain: zb Complains of pain in forehead Pain does not radiate. Pain currently is 1 out of 10 on a pain scale. Quality of pain is described as aching. Neuro: Level of Consciousness is awake, alert, obeys commands, Oriented to person, place, time, situation, Retail Reset Merchandiser are equal bilaterally Moves all extremities. Weakness in left Speech is normal, slight left facial droop . Pupils are PERRLA, Intact Reports headache frontal area, weakness since today on left side. Cardiovascular: Patient's skin is warm and dry. Respiratory: Airway is patent Respiratory effort is even, unlabored, Respiratory pattern is regular, symmetrical. GI: Patient currently denies nausea. Derm: Skin is intact, is healthy with good turgor. Musculoskeletal: Range of motion: intact in all extremities. 16:40 Reassessment: ECP at bedside discussing care. zb 17:29 Reassessment: Patient appears in no apparent distress at this time. Patient and/or zb family updated on plan of care and expected duration. Pain level reassessed. Patient is alert, oriented x 3, equal unlabored respirations, skin warm/dry/pink. 18:30 Reassessment: Patient appears in no apparent distress at this time. Patient and/or zb family updated on plan of care and expected duration. Pain level reassessed. Patient is alert, oriented x 3, equal unlabored respirations, skin warm/dry/pink. family remains at bedside. 19:40 Reassessment: Returned from MRI. ea 20:11 Reassessment: Patient appears in no apparent distress at this time. Patient and/or zb family updated on plan of care and expected duration. Pain level reassessed. Patient is alert, oriented x 3, equal unlabored respirations, skin warm/dry/pink. family remains at bedside. 20:13 Reassessment: ECP at bedside, discussing care with patient. zb 21:00 Reassessment: d/c pending radiology CD. zb 21:18 Reassessment: received radiology CD. zb Vital Signs: 14:09 BP 178 / 86; Pulse 76; Resp 10; Temp 98.6; Pulse Ox 96% ; jl7 17:05 BP 175 / 85; Pulse 73; Resp 18; Pulse Ox 100% on R/A; zb 18:30 BP 188 / 89; Pulse 68; Resp 18; Pulse Ox 98% on R/A; zb 20:10 BP 170 / 83; Pulse 96; Resp 20; Pulse Ox 100% ; zb NIH Stroke Scale Scores: 17:33 NIHSS Score: 0 jr ED Course: 12:34 Patient arrived in ED. ds1 12:35 Lenny Suarez MD is Private Physician. ds1 14:14 Triage completed. jl7 14:15 Arm band placed on right wrist. jl7 15:36 Deep Wheatley PA is PHCP. jr8 15:36 Cole Scott MD is Attending Physician. jr8 16:01 CT Head Brain wo Cont In Process Unspecified. EDMS 16:10 EKG done, by ED staff, reviewed by Deep JOYNER. em1 16:19 XRAY Chest (1 view) In Process Unspecified. EDMS 16:19 Ade Cooley, RN is Primary Nurse. zb 16:30 gambling monitor on. Pulse ox on. NIBP on. Door closed. Noise minimized. zb 16:52 Patient has correct armband on for positive identification. zb 19:34 Brain W/Wo Cont In Process Unspecified. EDMS 21:00 No provider procedures requiring assistance completed. IV discontinued, intact, zb bleeding controlled, No redness/swelling at site. Pressure dressing applied. Administered Medications: No medications were administered Outcome: 20:32 Discharge ordered by . jr8 21:00 Discharged to home via wheelchair, with family. zb 21:00 Condition: stable 21:00 Discharge instructions given to patient, family, Instructed on discharge instructions, follow up and referral plans. Demonstrated understanding of instructions, follow-up care. 21:26 Patient left the ED. zb NIH Stroke Scale - NIH Stroke Score Date: 03/30/2021 Time: 17:33 Total Score = 0 1a. Level of Consciousness (LOC) - 0(Alert) 1b. Level of Consciousness (LOC) (Month \T\ Age) - 0(Both) 1c. LOC Commands (Open \T\ Closes Eyes/Combat Rifle Crewmember) - 0(Both) 2. Best Gaze (Lateral Gaze Paresis) - 0(Normal) 3. Visual Field Loss - 0(No visual loss) 4. Facial Palsy - 0(Normal) 5a. Left Arm: Motor (10-second hold) - 0(No drift) 5b. Right Arm: Motor (10-second hold) - 0(No drift) 6a. Left Leg: Motor (5-second hold - always test supine) - 0(No drift) 6b. Right Leg: Motor (5-second hold - always test supine) - 0(No drift) 7. Limb Ataxia (finger/nose \T\ heel/sutton - test with eyes open) - 0(Absent) 8. Sensory Loss (pinprick arms/legs/face) - 0(Normal) 9. Best Language: Aphasia (description/naming/reading) - 0(No aphasia) 10. Dysarthria (speech clarity - read or repeat words) - 0(Normal) 11. Extinction and Inattention (visual/tactile/auditory/spatial/personal) - 0(No abnormality) Initials: jr8 Signatures: Dispatcher [employer] [facility] Samara Cardoza ds1 Haresh, Kobe em1 Deep Wheatley PA PA jr8 Gayle Parsons RN RN jl7 Hilaria Bangura RN Aed Robles ea RN RN zb
[2021-03-30 21:31] VITALS: TEMP 98.6
[2021-03-30 21:36] VITALS: BP 170/83; O2SAT 100
== END 2021-03-30 21:26 | disposition home or self-care (01) ==
LOC: ER 12:30
DX: G04.90 Encephalitis and encephalomyelitis, unspecified (principal); I10 Essential (primary) hypertension; Z88.0 Allergy status to penicillin
CPT/HCPCS: 93005; 85025; 80048; 36415; 83735; 85610; 80076; 84484; 83880; 70450; 71045; 70553; 99284; A9577